=== PATIENT | male | born 1955 | race Caucasian/White ===

== ENCOUNTER 2020-08-25 09:28 | Outpatient (CLI) | payer OTHER ==
--- NOTE | 2020-08-25 10:06 | SLEEP CARE CONSULTATION ---
Information from patient questionnaire entered by Denisse Friedman. I have reviewed and concur with the information entered by Denisse Friedman. This document represents the service I personally performed and the decisions made by me, Sofie Gold ARNP. History of Present Illness Service Date and Time: 08/25/2020927 Reason for Visit: New patient, Previously diagnosed sleep apnea, sleep apnea on CPAP therapy Chief Complaint: reports: Other (only sleeping 3-5 hours a night) Date of Onset: 2 months Usual bedtime: 8:30 - 9 pm Time it takes to fall asleep: 1 minutes Snores at night: No Observed to quit breathing while asleep: Yes Number of times waking at night: maybe once Reasons for waking at night: reports: Other (unknown reason) Toss, Turn, or Twitch while sleeping: Yes Recalls having dreams: No Usually gets out of bed at: 2 - 4 am Feels refreshed in the morning: Yes Morning headache: No Sleepy or fatigued during the day: Yes Ever fallen asleep while driving: Yes Takes day naps: No Dreams during day naps: No Prior sleep studies: Yes Year and Where: 6 - 7 years ago, maybe longer Additional HPI information: GUILLERMO MAXWELL was previously diagnosed on 06/06/2016 in [place], [place] ([facility]) to have moderate, AHI 20.6, sleep apnea-hypopnea syndrome and comes in today for CPAP therapy. He just moved here about 2 weeks ago. He is getting established. He had 2 heart attacks last year and is now semi-retired. He states he is only getting 3.5-4 hours sleep nightly since moving to [place]. [facility] but is getting up at same time ([facility]) in the morning. He feels the current pressure setting is a little too low and would like it increased. - Parasomnia Symptoms Ever been unable to move upon waking from sleep: No Walks in sleep: No Talks in sleep: No Ever acted out dreams in sleep: No Ever felt weak in the knees when startled or emotional: No Bothered by creepy, crawly, restless sensations in legs: Yes Problems with memory or concentration: No CPAP Compliance Data - Data Reviewed with Patient Average duration of nightly device use: 6 hours 24 minutes Compliance rate %: 82.8 Current pressure setting (cmH2O): 12.0 Humidity settin Heated hose settin Average residual AHI: 3.0 Central apnea: 0.0 Obstructive apnea: 1.5 Hypopnea: 1.5 Average large leak: 1 mins. 51 secs Compliance data discussion: He has been getting his supplies at [facility] in [place] but no one locally yet. He is using a full face mask, thinks it is Respironics over nose and mouth. He has back up masks and changes it out the first of every month. He has a CPAP Dreamstation. Subjective Patient concerns: denies: aerophagia, mask discomfort, air blowing in eyes, mask leak noise, condensation in mask/hose, nasal congestion, dry mouth, nose, throat, epistaxis, other Observed to snore while using device: No Current pressure setting perceived as: too low On therapy, patient: reports: sleeping better, awakening more refreshed, being more awake and alert during the day, more rested overall, other (He can't lay down to sleep without his CPAP). 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 Patient is and lives in [place]. Have you smoked in the past 12 months: Yes Cigarettes per day (20/pack): 10 (or less) Years of smokin (1 pack a day) Smoking Pack Years: 20.0 Alcohol use: No Caffeine use: Yes Caffeine amount and frequency: 2 coffee's per day and 3-4 soda's a week Family History Family history of sleep disordered breathing: No Allergies and Home Medications Drug allergies reviewed: Yes (NKDA) Home medication list reviewed: Yes (He will bring in list for us to scan) Review of Systems Cardiovascular: reports: high blood pressure, leg or foot swelling, have to sleep sitting up (if CPAP not available) Respiratory: reports: shortness of breath, sputum production, chronic cough Musculoskeletal: reports: joint pain, joint swelling Physical Exam Blood Pressure: 149/77 Cuff size: wrist Heart Rate: 96 O2 Saturation: 96 Height: 5 ft 10 in Weight: 186 lb Body Mass Index: 26.6 BMI Classification: Overweight Impression and Plan 1. Obstructive Sleep Apnea-Hypopnea Syndrome, moderate, with good treatment compliance and good apnea control. On CPAP therapy, the patient has better sleep quality and is more rested overall. Patient feels his pressure is too low and would like it increased. I will increase CPAP pressure to 13 cmH2O for his air hunger. I will have him follow-up here in 1 to 2 months to recheck to see if his pressure is more comfortable. We will be able to transfer to a new DME in the area once we have a copy of his sleep study. Patient voiced understanding and agreement with this plan of care. Patient's apnea severity and rationale for treatment to reduce apnea, improve sleep quality and reduce cardiovascular and cerebrovascular events was reviewed. I also reviewed the benefit of consistent device use of CPAP for hypertension, cardiac disease (CHF and 2 MIs), diabetes, and gastric reflux. * Change auto CPAP pressure to 13 cmH2O * Transfer DME after obtaining last sleep study and chart notes * Notify me if snoring with mask or feeling that the pressure is too much or too little * Attempt to lose weight * Call this office if any problems using CPAP * Return for follow up in 1-2 months, or sooner if concerns arise Addendum: Obtained copy of sleep study dated 06/06/2016 at [facility] in [place], [place] from his current DME showing an AHI of 20.6 and annika of 84%. Counseling Topics: Spare mask, Weight loss health impact Visit Type: In Office Time Spent with Patient (minutes): 30 Provider Statement: I spent 100% of the Face to Face Visit with the patient with greater than 50% spent counseling the patient and coordination of care.
[2020-08-25 10:07] VITALS: BP 149/77
== END 2020-08-25 09:29 | disposition home or self-care (01) ==
LOC: SC 09:28
PROVIDERS: ATTEND Nurse Practitioner Family
DX: G47.33 Obstructive sleep apnea (adult) (pediatric) (principal); F17.210 Nicotine dependence, cigarettes, uncomplicated; E66.3 Overweight; Z68.26 Body mass index [BMI] 26.0-26.9, adult
CPT/HCPCS: 99203; 99212

== ENCOUNTER 2020-10-17 08:05 | Outpatient (CLI) | payer BC, OTHER ==
--- NOTE | 2020-10-17 08:38 | SLEEP CARE CONSULTATION ---
Information from patient questionnaire entered by Denisse Friedman. I have reviewed and concur with the information entered by Denisse Friedman. This document represents the service I personally performed and the decisions made by me, Soife Gold ARNP. History of Present Illness Service Date and Time: 10/17/2020 0805 Previous diagnosis: Moderate, Obstructive Sleep Apnea-Hypopnea Syndrome AHI: 22 (in 2016) Reason for follow up: first compliance Equipment type: CPAP Equipment obtained from: Other ([facility]; getting supplies as needed) Mask style: Full face Backup mask available: Yes Last cushion change: 2 days ago Prior sleep studies: Yes Year and Where: 2017 - [facility] Type of Sleep Study: Polysomnography HPI additional information: GUILLERMO MAXWELL was diagnosed to have moderate, AHI 22, obstructive sleep apnea- hypopnea syndrome and returned today for CPAP therapy first compliance follow- up. CPAP Compliance Data - Data Reviewed with Patient Average duration of nightly device use: 4 hr 14 min Compliance rate %: 47 Current pressure setting (cmH2O): 13 Humidity settin Average residual AHI: 8.0 Subjective Patient concerns: denies: aerophagia, mask discomfort, air blowing in eyes, mask leak noise, condensation in mask/hose, nasal congestion, dry mouth, nose, throat, epistaxis, other Observed to snore while using device: No Current pressure setting perceived as: comfortable On therapy, patient: reports: sleeping better, awakening more refreshed, being more awake and alert during the day, more rested overall. denies: drowsiness while driving Initial [place] Sleepiness Scale score: 19 (in 2020) Current [place] Sleepiness Scale score: 17 Allergies and Home Medications Home medication list reviewed: Yes (no changes) Review of Systems Review of systems same as previous: Yes (no changes) Physical Exam Heart Rate: 84 O2 Saturation: 97 Height: 5 ft 10 in Weight: 188 lb Body Mass Index: 26.9 BMI Classification: Overweight Impression and Plan 1. Obstructive Sleep Apnea-Hypopnea Syndrome, moderate, with poor treatment compliance and fair apnea control with mild elevation of residual AHI. On CPAP therapy, the patient has better sleep quality and is more rested overall. Patient is satisfied with current pressure and feels it is comfortable. He has increased his use because [facility] called him and told him he was not getting enough time on his machine. He states in the last couple of weeks he has increased his time in the mask. He has not other issues with mask use. Patient had very good control at 12 cmH2O when I reviewed his last visit. I will follow-up with him in 1 to 2 months on his compliance and continue the pressure at 13 cmH2O to see how he does. I will make adjustments as needed at his next appointment. Patient's apnea severity and rationale for treatment to reduce apnea, improve sleep quality and reduce cardiovascular and cerebrovascular events was reviewed. I also reviewed the benefit of consistent device use of CPAP for hypertension, cardiac disease, diabetes, and gastric reflux. * Continue autoCPAP pressure at 13 cmH2O * Notify me if snoring with mask or feeling that the pressure is too much or too little * Attempt to lose weight * Call this office if any problems using CPAP * Return for follow up in 1-2 months, or sooner if concerns arise Counseling Topics: Spare mask, Weight loss health impact Visit Type: In Office Time Spent with Patient (minutes): 18 Provider Statement: I spent 100% of the Face to Face Visit with the patient with greater than 50% spent counseling the patient and coordination of care.
== END 2020-10-17 08:06 | disposition home or self-care (01) ==
LOC: SC 08:05
PROVIDERS: ATTEND Nurse Practitioner Family
DX: G47.33 Obstructive sleep apnea (adult) (pediatric) (principal)
CPT/HCPCS: 99212

== ENCOUNTER 2020-12-12 11:26 | Outpatient (CLI) | payer OTHER ==
--- NOTE | 2020-12-12 11:59 | SLEEP CARE CONSULTATION ---
Information from patient questionnaire entered by Emy Jenkins. I have reviewed and concur with the information entered by Emy Jenkins. This document represents the service I personally performed and the decisions made by me, Sofie Gold ARNP. History of Present Illness Service Date and Time: 12/12/2020 1126 Previous diagnosis: Moderate, Obstructive Sleep Apnea-Hypopnea Syndrome AHI: 22 Reason for follow up: other (6 weeks) Equipment type: CPAP Equipment obtained from: Other ([facility]: spoke with them, new supplies later this month) Mask style: Full face Backup mask available: Yes (other mask) Last cushion change: 4 days ago Prior sleep studies: Yes Year and Where: 2017 - [facility] [place] Type of Sleep Study: Polysomnography HPI additional information: GUILLERMO MAXWELL was diagnosed to have moderate, AHI 22, obstructive sleep apnea- hypopnea syndrome and returned today for CPAP therapy 6 week follow-up. Sleep Study - Results Type of Sleep Study: Polysomnography Prior sleep studies: Yes Year and Where: 2017 - [facility] CPAP Compliance Data - Data Reviewed with Patient Average duration of nightly device use: 5 hours 25 minutes Compliance rate %: 81 Current pressure setting (cmH2O): 13 Average residual AHI: 8.5 Central apnea: 0 Obstructive apnea: 1.6 Hypopnea: 6.9 Subjective Patient concerns: denies: aerophagia, mask discomfort, air blowing in eyes, mask leak noise, condensation in mask/hose, nasal congestion, dry mouth, nose, throat, epistaxis, other Observed to snore while using device: No Current pressure setting perceived as: comfortable (sometimes too low) On therapy, patient: reports: sleeping better, awakening more refreshed, being more awake and alert during the day, more rested overall, other (only way he can sleep laying down). denies: drowsiness while driving Initial [place] Sleepiness Scale score: 19 (in 2020) Current [place] Sleepiness Scale score: 15 Allergies and Home Medications Home medication list reviewed: Yes Allergy and home medication list: New meds: Xarelto Trulicity Review of Systems Review of systems same as previous: Yes (no changes) Physical Exam Heart Rate: 96 O2 Saturation: 97 Height: 5 ft 10 in Weight: 184 lb Weight change since last visit: 4 lb loss Body Mass Index: 26.4 BMI Classification: Overweight Impression and Plan 1. Obstructive Sleep Apnea-Hypopnea Syndrome, moderate, with good treatment compliance and fair apnea control. On CPAP therapy, the patient has better sleep quality and is more rested overall. Patient states most the time the pressure feels comfortable but sometimes he feels he needs more. His residual AHI is elevated at 8.5 on his compliance report.The patients pressure will be changed to autoCPAP 14 cmH20 for elevation of residual AHI and patient comfort. Patient advised to contact me if pressure change is uncomfortable so that it can be adjusted. Goals for apnea control discussed. Patient's apnea severity and rationale for treatment to reduce apnea, improve sleep quality and reduce cardiovascular and cerebrovascular events was reviewed. I also reviewed the benefit of consistent device use of CPAP for hypertension, cardiac disease, di abetes and gastric reflux. Patient was encouraged to lose weight for their overall health and to reduce apneas. * Change auto CPAP pressure to 14 cmH2O * Notify me if snoring with mask or feeling that the pressure is too much or too little * Attempt to lose weight * Call this office if any problems using CPAP * Return for follow up in 1 year, or sooner if concerns arise Counseling Topics: Spare mask, Weight loss health impact Visit Type: In Office Time Spent with Patient (minutes): 20 Provider Statement: I spent 100% of the Face to Face Visit with the patient with greater than 50% spent counseling the patient and coordination of care.
== END 2020-12-12 11:27 | disposition home or self-care (01) ==
LOC: SC 11:26
PROVIDERS: ATTEND Nurse Practitioner Family
DX: G47.33 Obstructive sleep apnea (adult) (pediatric) (principal)
CPT/HCPCS: 99212

== ENCOUNTER 2020-12-30 10:37 | Outpatient (CLI) | payer OTHER ==
--- NOTE | 2020-12-30 13:08 | CT Report ---
PROCEDURE: Low Dose Lung Cancer Screen INDICATIONS: COPD,TOBACCO DEPENDENCE TECHNIQUE: Noncontrast low-dose images were acquired from the pulmonary apices to the posterior costophrenic ang les. Multiplanar MIP reformats were then acquired. For radiation dose reduction, the following was used: automated exposure control, adjustment of mA and/or kV according to patient size. COMPARISON: None. FINDINGS: Image quality: Excellent. Lungs and pleura: No suspicious pulmonary nodules are detected. There is pleural thickening seen inv olving the left lung base, with likely atelectasis and scarring. Centrilobular emphysematous changes are seen, which are more prominent at the lung apices than at the lung bases. The central airways are patent. No pneumothorax can be seen. There is a small left-sided pleural effusion. The right-sided p leural effusion. Mediastinum: Post CABG changes are seen. Heart size is normal. At least moderate coronary artery ca lcifications are seen. No pericardial effusion. No mediastinal adenopathy by size criteria. Thoraci c aorta and central pulmonary arteries are normal in size. Esophagus is normal in caliber. No hiata l hernia. Bones and chest wall: No suspicious bony lesions. Sternotomy changes are noted. Age-appropriate deg enerative changes are seen. No vertebral body compression fractures. No axillary or supraclavicul ar adenopathy by size criteria. The thyroid is normal in size and there are no incidental findings. Abdomen: Visualized upper abdomen solid organs and bowel loops appear normal in the absence of contr ast. IMPRESSION: No suspicious pulmonary nodules are seen. Pleural thickening with likely atelectasis and scarring seen involving the left lung base. Centrilobular emphysematous changes are seen. There is a small left-sided pleural effusion. Incidental note is made of: At least moderate coronary artery calcification Post CABG changes Lung RADS category: 1. Recommend annual low-dose CT chest screening examinations, as long as the pat ient meets the published screening criteria. Reviewed by: Gerardo Reynolds MD on 12/30/2020 12:07 PM [facility] Approved by: Gerardo Reynolds MD on 12/30/2020 12:07 PM [facility] Station ID: [id number]
== END 2020-12-30 10:38 | disposition home or self-care (01) ==
LOC: DI 10:37
PROVIDERS: ATTEND Internal Medicine
DX: Z12.2 Encounter for screening for malignant neoplasm of respiratory organs (principal); J43.9 Emphysema, unspecified; J90 Pleural effusion, not elsewhere classified; R91.8 Other nonspecific abnormal finding of lung field; F17.200 Nicotine dependence, unspecified, uncomplicated

== ENCOUNTER 2021-02-18 14:22 | Emergency (ER) | payer OTHER ==
[2021-02-18] MEDS ORDERED: IPRATROPIUM/ALBUTEROL 3 ML NEB INH STA (14:44)
[2021-02-18] MEDS ORDERED: ALBUTEROL NEB 2.5 MG/3 ML INH STA (14:44)
[2021-02-18] MEDS ORDERED: NITROGLYCERIN 50 MG/250 ML 50 MG/250 ML BOTTLE IV STA (14:48)
[2021-02-18] MEDS ORDERED: NITROGLYCERIN SL 0.4 MG TABLET SL STA (14:48)
[2021-02-18] MEDS ORDERED: ASPIRIN CHEW 81 MG TABLET PO STA (14:48)
--- NOTE | 2021-02-18 14:52 | ED Physician Documentation ---
PD HPI DYSPNEA - Stated complaint Stated Complaint: CHEST PX, HARD TO BREATHE - History obtained from History obtained from: Patient - Additional information Additional information: 66-year-old gentleman with history of COPD/emphysema, tobacco abuse, and coronary disease with history of NV and bypass last year in [place]. Over the last day to 2 days he has had progressive shortness of breath productive clear cough and very mild chest pain. He is struggling to breathe now. History is actually limited by respiratory distress. Review of Systems Unable to obtain: Other (Limited by respiratory distress but he has a cough, denies fevers or pedal edema and has mild chest pain.) PD PAST MEDICAL HISTORY - Allergies Allergies/Adverse Reactions: Allergies Allergy/AdvReac Type Severity Reaction Status Date / Time No Known Drug Allergies Allergy Verified 02/18/21 14:48 PD ED PE NORMAL - Vitals Vital signs reviewed: Yes - General General: Other (Quite tachypneic and struggling to breathe, speaking in short answers) - HEENT HEENT: PERRL, EOMI - Neck Neck: Supple, no meningeal sign, No bony TTP - Cardiac Cardiac: RRR (Slight tachycardia with frequent PACs on the monitor), No murmur - Respiratory Respiratory: Other (Tachypneic, slightly diminished breath sounds.) - Abdomen Abdomen: Soft, Non tender - Back Back: No CVA TTP - Derm Derm: Normal color, Warm and dry - Extremities Extremities: No edema, No calf tenderness / cord, Other (Venous stasis changes) - Neuro Neuro: Alert and oriented X 3, Normal speech Results - Vitals Vitals: Vital Signs - 24 hr 02/18/21 02/18/21 02/18/21 14:32 14:55 15:50 Temperature 37.3 C Heart Rate 112 H 101 H 117 H Respiratory 30 H 20 Rate Blood Pressure 215/75 H O2 Saturation 79 L 02/18/21 18:20 Temperature Heart Rate 130 H Respiratory Rate Blood Pressure O2 Saturation Oxygen O2 Source BIPAP - EKG (time done) 1436 Rate: Rate (enter#) (113) Rhythm: Sinus tachycardia (Echo cardio with frequent PACs) [place]: Normal Intervals: Prolonged NE Ischemia: ST depression (Lateral ST depression) Compare to prior EKG: Old EKG unavailable 1657 Rate: Rate (enter#) (137) Rhythm: Sinus tachycardia [place]: Normal Intervals: Normal NE QRS: Normal Ischemia: Non specific changes (No ST depression on EKG #1, now some biphasic anterior T waves) - Labs Labs: Laboratory Tests 02/18/21 02/18/21 02/18/21 15:39 15:39 15:39 WBC 9.2 RBC 4.46 L Hgb 13.8 L Hct 44.8 MCV 100.4 H MCH 30.9 MCHC 30.8 L RDW 16.8 H Plt Count 251 MPV 10.2 Neut # (Auto) 5.7 Lymph # (Auto) 2.6 [place] # (Auto) 0.8 Eos # (Auto) 0.1 Baso # (Auto) 0.1 Absolute Nucleated RBC 0.00 Nucleated RBC % 0.0 PT INR Bld Gas Analysis Time Sample Site ABG pH ABG pCO2 ABG pO2 ABG HCO3 ABG Total CO2 ABG O2 Saturation ABG Base Excess Roney Test VBG pH VBG pCO2 VBG pO2 VBG HCO3 VBG Total CO2 VBG O2 Saturation VBG Base Excess Respiration Rate O2 Delivery Device Vent Mode FiO2 Tidal Volume PEEP Pressure Support Vent Sodium 133 L Potassium 4.7 Chloride 101 Carbon Dioxide 22 Anion Gap 10.0 BUN 27 H Creatinine 1.5 H Estimated GFR (MDRD) 47 L Glucose 278 H Lactic Acid Calcium 8.4 L Phosphorus Total Bilirubin 0.8 AST 36 ALT 37 Alkaline Phosphatase 88 Troponin I High Sens 161.4 H* B-Natriuretic Peptide Total Protein 8.1 Albumin 4.1 Globulin 4.0 Albumin/Globulin Ratio 1.0 Lipase 124 H Nasal Adenovirus (PCR) Nasal B. parapertussis DNA (PCR) Nasal Coronavir 229E PCR Nasal Coronavir HKU1 PCR Nasal Coronavir NL63 PCR Nasal Coronavir OC43 PCR Nasal Enterovir/Rhinovir PCR Nasal Influenza B PCR Nasal Influenza A PCR Nasal Parainfluen 1 PCR Nasal Parainfluen 2 PCR Nasal Parainfluen 3 PCR Nasal Parainfluen 4 PCR Nasal RSV (PCR) Nasal B.pertussis DNA PCR Nasal C.pneumoniae (PCR) [place] Human Metapneumo PCR Nasal M.pneumoniae (PCR) Nasal SARS-CoV-2 (PCR) Blood Type Antibody Screen 02/18/21 02/18/21 02/18/21 15:39 15:39 15:39 WBC RBC Hgb Hct MCV MCH MCHC RDW Plt Count MPV Neut # (Auto) Lymph # (Auto) [place] # (Auto) Eos # (Auto) Baso # (Auto) Absolute Nucleated RBC Nucleated RBC % PT 13.7 H INR 1.2 Bld Gas Analysis Time Sample Site ABG pH ABG pCO2 ABG pO2 ABG HCO3 ABG Total CO2 ABG O2 Saturation ABG Base Excess Roney Test VBG pH VBG pCO2 VBG pO2 VBG HCO3 VBG Total CO2 VBG O2 Saturation VBG Base Excess Respiration Rate O2 Delivery Device Vent Mode FiO2 Tidal Volume PEEP Pressure Support Vent Sodium Potassium Chloride Carbon Dioxide Anion Gap BUN Creatinine Estimated GFR (MDRD) Glucose Lactic Acid Calcium Phosphorus Total Bilirubin AST ALT Alkaline Phosphatase Troponin I High Sens B-Natriuretic Peptide 644 H Total Protein Albumin Globulin Albumin/Globulin Ratio Lipase Nasal Adenovirus (PCR) Nasal B. parapertussis DNA (PCR) Nasal Coronavir 229E PCR Nasal Coronavir HKU1 PCR Nasal Coronavir NL63 PCR Nasal Coronavir OC43 PCR Nasal Enterovir/Rhinovir PCR Nasal Influenza B PCR Nasal Influenza A PCR Nasal Parainfluen 1 PCR Nasal Parainfluen 2 PCR Nasal Parainfluen 3 PCR Nasal Parainfluen 4 PCR Nasal RSV (PCR) Nasal B.pertussis DNA PCR Nasal C.pneumoniae (PCR) [place] Human Metapneumo PCR Nasal M.pneumoniae (PCR) Nasal SARS-CoV-2 (PCR) Blood Type A POSITIVE Antibody Screen NEGATIVE 02/18/21 02/18/21 02/18/21 15:39 15:39 15:39 WBC RBC Hgb Hct MCV MCH MCHC RDW Plt Count MPV Neut # (Auto) Lymph # (Auto) [place] # (Auto) Eos # (Auto) Baso # (Auto) Absolute Nucleated RBC Nucleated RBC % PT INR Bld Gas Analysis Time Sample Site ABG pH ABG pCO2 ABG pO2 ABG HCO3 ABG Total CO2 ABG O2 Saturation ABG Base Excess Roney Test VBG pH 7.155 L VBG pCO2 62.8 H VBG pO2 70.2 H VBG HCO3 21.6 L VBG Total CO2 23.6 L VBG O2 Saturation 89.6 H VBG Base Excess -8.1 L Respiration Rate O2 Delivery Device Vent Mode FiO2 Tidal Volume PEEP Pressure Support Vent Sodium Potassium Chloride Carbon Dioxide Anion Gap BUN Creatinine Estimated GFR (MDRD) Glucose Lactic Acid 1.9 Calcium Phosphorus 5.6 H Total Bilirubin AST ALT Alkaline Phosphatase Troponin I High Sens B-Natriuretic Peptide Total Protein Albumin Globulin Albumin/Globulin Ratio Lipase Nasal Adenovirus (PCR) Nasal B. parapertussis DNA (PCR) Nasal Coronavir 229E PCR Nasal Coronavir HKU1 PCR Nasal Coronavir NL63 PCR Nasal Coronavir OC43 PCR Nasal Enterovir/Rhinovir PCR Nasal Influenza B PCR Nasal Influenza A PCR Nasal Parainfluen 1 PCR Nasal Parainfluen 2 PCR Nasal Parainfluen 3 PCR Nasal Parainfluen 4 PCR Nasal RSV (PCR) Nasal B.pertussis DNA PCR Nasal C.pneumoniae (PCR) [place] Human Metapneumo PCR Nasal M.pneumoniae (PCR) Nasal SARS-CoV-2 (PCR) Blood Type Antibody Screen 02/18/21 02/18/21 02/18/21 15:48 15:49 18:10 WBC RBC Hgb Hct MCV MCH MCHC RDW Plt Count MPV Neut # (Auto) Lymph # (Auto) [place] # (Auto) Eos # (Auto) Baso # (Auto) Absolute Nucleated RBC Nucleated RBC % PT INR Bld Gas Analysis Time 1553 1814 Sample Site RIGHT RADIAL RIGHT RADIAL ABG pH 7.21 L 7.24 L ABG pCO2 54 H 50 H ABG pO2 256 H* 105 H ABG HCO3 20.9 L 21.1 L ABG Total CO2 22.6 22.7 ABG O2 Saturation 99 H 97 ABG Base Excess -7.4 L -6.6 L Roney Test POSITIVE POSITIVE VBG pH VBG pCO2 VBG pO2 VBG HCO3 VBG Total CO2 VBG O2 Saturation VBG Base Excess Respiration Rate 25 25 O2 Delivery Device VENTILATOR VENTILATOR Vent Mode ASSIST/CONTROL SIMV FiO2 100.00 70.00 Tidal Volume 550 550 PEEP 5 5 Pressure Support Vent 10 Sodium Potassium Chloride Carbon Dioxide Anion Gap BUN Creatinine Estimated GFR (MDRD) Glucose Lactic Acid Calcium Phosphorus Total Bilirubin AST ALT Alkaline Phosphatase Troponin I High Sens B-Natriuretic Peptide Total Protein Albumin Globulin Albumin/Globulin Ratio Lipase Nasal Adenovirus (PCR) NOT DETECTED Nasal B. parapertussis DNA (PCR) NOT DETECTED Nasal Coronavir 229E PCR NOT DETECTED Nasal Coronavir HKU1 PCR NOT DETECTED Nasal Coronavir NL63 PCR NOT DETECTED Nasal Coronavir OC43 PCR NOT DETECTED Nasal Enterovir/Rhinovir PCR NOT DETECTED Nasal Influenza B PCR NOT DETECTED Nasal Influenza A PCR NOT DETECTED Nasal Parainfluen 1 PCR NOT DETECTED Nasal Parainfluen 2 PCR NOT DETECTED Nasal Parainfluen 3 PCR NOT DETECTED Nasal Parainfluen 4 PCR NOT DETECTED Nasal RSV (PCR) DETECTED A Nasal B.pertussis DNA PCR NOT DETECTED Nasal C.pneumoniae (PCR) NOT DETECTED [place] Human Metapneumo PCR NOT DETECTED Nasal M.pneumoniae (PCR) NOT DETECTED Nasal SARS-CoV-2 (PCR) NOT DETECTED Blood Type Antibody Screen 02/18/21 18:24 WBC RBC Hgb Hct MCV MCH MCHC RDW Plt Count MPV Neut # (Auto) Lymph # (Auto) [place] # (Auto) Eos # (Auto) Baso # (Auto) Absolute Nucleated RBC Nucleated RBC % PT INR Bld Gas Analysis Time Sample Site ABG pH ABG pCO2 ABG pO2 ABG HCO3 ABG Total CO2 ABG O2 Saturation ABG Base Excess Roney Test VBG pH VBG pCO2 VBG pO2 VBG HCO3 VBG Total CO2 VBG O2 Saturation VBG Base Excess Respiration Rate O2 Delivery Device Vent Mode FiO2 Tidal Volume PEEP Pressure Support Vent Sodium Potassium Chloride Carbon Dioxide Anion Gap BUN Creatinine Estimated GFR (MDRD) Glucose Lactic Acid Calcium Phosphorus Total Bilirubin AST ALT Alkaline Phosphatase Troponin I High Sens 776.9 H* B-Natriuretic Peptide Total Protein Albumin Globulin Albumin/Globulin Ratio Lipase Nasal Adenovirus (PCR) Nasal B. parapertussis DNA (PCR) Nasal Coronavir 229E PCR Nasal Coronavir HKU1 PCR Nasal Coronavir NL63 PCR Nasal Coronavir OC43 PCR Nasal Enterovir/Rhinovir PCR Nasal Influenza B PCR Nasal Influenza A PCR Nasal Parainfluen 1 PCR Nasal Parainfluen 2 PCR Nasal Parainfluen 3 PCR Nasal Parainfluen 4 PCR Nasal RSV (PCR) Nasal B.pertussis DNA PCR Nasal C.pneumoniae (PCR) [place] Human Metapneumo PCR Nasal M.pneumoniae (PCR) Nasal SARS-CoV-2 (PCR) Blood Type Antibody Screen Procedures - Intubation Provider: Emergency physician Medications: Etomidate (20mg), Rocuronium (50mg) Blade: Glidescope Tube: Size-enter number (7.5), Cuffed Route: Oral Confirmation: Direct visualization Complications: No compications - Central Line Central Line Preparation: Unable to obtain consent, Time out completed, Ultrasound used, Sterile prep and drape Central line location: Right IJ Central line type: Triple lumen Central line aftercare: Chlorhexidine disc placed, Secured, Placement confirmed, No pneumothorax PD MEDICAL DECISION MAKING - ED course ED course: 66-year-old gentleman presents in respiratory distress, could be cardiac versus pulmonary in etiology given his history. He is significantly hypertensive and struggling to breathe. He was seen and examined immediately but upon placement in the room and I asked the RT to give him a triple neb with DuoNeb and [address] him on BiPAP. We will also give him a sublingual nitroglycerin and start him on a nitroglycerin drip for potential pulmonary edema pending x-ray. He was difficult for IV access and the nurses were Attempting to get an IV access but he was quickly decompensating. He was queried about CODE STATUS and wants to be full code and aggressive measures. He went unresponsive and clearly needed to be intubated. He had no IV access at that time so a right tibial intraosseous line was placed for quick access such that we could get him intubated and get a central line. These were done in an otherwise expeditious fashion. Initial view of his postprocedural chest x-ray shows appropriate line and tube placement. He did shortly thereafter develop a cuff leak and required reintubation. This was done by simply placing bougie through the existing tube and using it as a tube exchanger. He was briefly in an SVT, but prior to any specific treatment converted back into a sinus tachycardia with ectopy. We started looking for a bed with cardiology coverage and he was accepted by Dr. Gavino Reddy at [facility] few minutes before 5:30 PM. Just before transfer he did develop a narrow complex bradycardic PEA and required CPR but attained ROSC after 1 round of epinephrine. He had a couple more similar episodes of loss of pulses, but did always seem to respond to pressors and was started on pressor drip. He actually made it out to the helicopter, but they brought him back because he desaturated into the 70s but by the time he got in the department his sats were again in the 90s. We repeated a chest x-ray to my eye the endotracheal tube was a little deep and I had the respiratory therapist pulled back by 3 cm. But no obvious pneumothorax. Subsequent to that the patient was inadvertently extubated and required reintubation which was done in the exact same manner as it was initially. - Critical Care Time(min): 90 Time Includes: Direct patient care, Review records, Reassess patient, Document care, Coordinate care, Medical consult, Family consult for tx dec ( at bedside) Data interpretation: Labs, Pulse ox Procedures included in critical care time: Peripheral IV Procedures excluded from critical care time: Central IV, Arterial cannulation, Intubation, EKG Departure - Departure Disposition: 02 Transfer Acute Care Hosp Clinical Impression: NSTEMI (non-ST elevated myocardial infarction), COPD exacerbation, Cardiac arrest Respiratory failure Qualifiers: Chronicity: acute Respiratory failure complication: hypoxia and hypercapnia Qualified Code(s): J96.01 - Acute respiratory failure with hypoxia; J96.02 - Acute respiratory failure with hypercapnia Condition: Critical
[2021-02-18] MEDS ORDERED: NITROGLYCERIN SL 0.4 MG TABLET SL ONE (14:54)
[2021-02-18] MEDS ORDERED: LORazepam 2 MG/ML VIAL IVP STA (14:58)
[2021-02-18] MEDS ORDERED: ROCURONIUM 50 MG/5 ML VIAL ONE ×2 (15:24→19:45)
[2021-02-18] MEDS ORDERED: ETOMIDATE 40 MG/20 ML VIAL IVP ONE ×2 (15:25→19:45)
[2021-02-18] MEDS ORDERED: PROPOFOL 1000 MG/100 ML 1,000 MG/100 ML BOTTLE IV ONE (15:32)
[2021-02-18] MEDS ORDERED: PROPOFOL 1000 MG/100 ML 1,000 MG/100 ML BOTTLE IV STA (15:45)
[2021-02-18] MEDS ORDERED: ROCURONIUM 50 MG/5 ML VIAL IVP STA ×2 (15:45→19:45)
[2021-02-18] MEDS ORDERED: ETOMIDATE 40 MG/20 ML VIAL IVP STA ×2 (15:45→19:45)
[2021-02-18 15:47] LABS: BASOPHILS # (AUTO) 0.1 10^3/uL (0.0-0.1); BASOPHILS % (AUTO) 0.8 %; EOSINOPHILS # (AUTO) 0.1 10^3/uL (0.0-0.7); EOSINOPHILS % (AUTO) 0.7 %; HCT - HEMATOCRIT 44.8 % (42.0-52.0); HGB - HEMOGLOBIN 13.8 g/dL (14.0-18.0); LYMPHOCYTES # (AUTO) 2.6 10^3/uL (1.5-3.5); LYMPHOCYTES % (AUTO) 27.8 %; MEAN CORPUSCULAR HEMOGLOBIN 30.9 pg (27.0-31.0); MEAN CORPUSCULAR HGB CONC 30.8 g/dL (32.0-36.0); MEAN CORPUSCULAR VOLUME 100.4 fL (80.0-94.0); MEAN PLATELET VOLUME 10.2 fL (7.4-11.4); MONOCYTES # (AUTO) 0.8 10^3/uL (0.0-1.0); MONOCYTES % (AUTO) 8.8 %; NEUTROPHILS # (AUTO) 5.7 10^3/uL (1.5-6.6); NEUTROPHILS % (AUTO) 61.5 %; PLT - PLATELET COUNT 251 10^3/uL (130-450); RED BLOOD COUNT 4.46 10^6/uL (4.70-6.10); RED CELL DISTRIBUTION WIDTH 16.8 % (12.0-15.0); WHITE BLOOD COUNT 9.2 x10^3/uL (4.8-10.8)
[2021-02-18 15:57] LABS: VBG BASE EXCESS -8.1 mmol/L (-2 - +2); VBG HCO3 21.6 mmol/L (23-28); VBG OXYGEN SATURATION 89.6 % (60-80); VBG PCO2 62.8 mmHg (41-51); VBG PH 7.155 (7.31-7.41); VBG PO2 70.2 mmHg (25-47); VBG TOTAL CO2 23.6 mmol/L (24-29)
[2021-02-18 15:57] LABS: ABG BASE EXCESS -7.4 mmol/L (-2.0-3.0); ABG HCO3 20.9 mmol/L (22.0-26.0); ABG OXYGEN SATURATION 99 % (94-98); ABG PCO2 54 mmHg (34-45); ABG PH 7.21 (7.35-7.45); ABG TCO2 22.6 MMOL/L (21.0-29.0)
[2021-02-18 15:58] LABS: ABG MODE OF VENTILATION ASSIST/CONTROL; ABG PO2 256 mmHg (80-100); ALLEN TEST POSITIVE
[2021-02-18 15:59] LABS: ABG RESPIRATORY RATE 25 b/min
[2021-02-18 16:03] LABS: INR 1.2 (0.8-1.2); PT - PROTHROMBIN TIME 13.7 secs (9.9-12.6)
[2021-02-18 16:08] LABS: ALBUMIN 4.1 g/dL (3.2-5.5); BILIRUBIN,TOTAL 0.8 mg/dL (0.2-1.0); CALCIUM 8.4 mg/dL (8.5-10.3); CREATININE 1.5 mg/dL (0.6-1.2); POTASSIUM 4.7 mmol/L (3.5-5.0); TOTAL PROTEIN 8.1 g/dL (6.7-8.2)
[2021-02-18] MEDS ORDERED: methylPREDNISolone SUCCINATE 125 MG/2 ML VIAL IVP STA (16:34)
--- NOTE | 2021-02-18 16:37 | XRAY Report ---
PROCEDURE: Chest for Line Placement INDICATIONS: Line placement TECHNIQUE: One view of the chest was acquired. COMPARISON: None FINDINGS: Surgical changes and devices: Right IJ central line terminates in the mid segment of the SVC. Lungs and pleura: No pleural effusions or pneumothorax. Lung bases excluded from the [id number]. Visualized portions of the lungs demonstrate increased interstitial markings. Mediastinum: Mediastinal contours appear normal. Heart size is normal. Bones and chest wall: No suspicious bony lesions. Overlying soft tissues appear unremarkable. IMPRESSION: Right IJ central line projects over the SVC. Reviewed by: Dima Valverde MD on 02/18/2021 4:35 PM PST Approved by: Dima Valverde MD on 02/18/2021 4:35 PM PST Station ID: [id number]
--- NOTE | 2021-02-18 16:38 | XRAY Report ---
PROCEDURE: Chest 1 View X-Ray INDICATIONS: Respiratory failure, reintubation TECHNIQUE: One view of the chest was acquired. COMPARISON: None FINDINGS: Surgical changes and devices: Changes of median sternotomy. Lungs and pleura: Increased interstitial markings in both lungs, particularly in the central/perihila r lungs. Suspected small left pleural effusion. Mediastinum: Mediastinal contours appear normal. Heart size is enlarged. Bones and chest wall: No suspicious bony lesions. Overlying soft tissues appear unremarkable. IMPRESSION: Cardiomegaly with increased interstitial markings in both lungs and a probable small left pleural eff usion. Findings presumably related to cardiogenic pulmonary edema. Reviewed by: Dima Valverde MD on 02/18/2021 4:36 PM PST Approved by: Dima Valverde MD on 02/18/2021 4:36 PM PST Station ID: [id number]
[2021-02-18] MEDS ORDERED: ASPIRIN 300 MG SUPP PR STA (16:58)
[2021-02-18] MEDS ORDERED: METOPROLOL 5 MG/5 ML VIAL IVP STA (16:59)
[2021-02-18] MEDS ORDERED: HEPARIN 25000UNITS/500ML (D5W) 25,000 UNIT/500 ML BAG IV SCH (17:00)
[2021-02-18 17:01] LABS: B. PARAPERTUSSIS- RESP PCR PAN NOT DETECTED; B. PERTUSSIS- RESP PCR PANEL NOT DETECTED; C. PNEUMONIAE- RESP PCR PANEL NOT DETECTED; CORONAVIRUS 229E-RESP PCR NOT DETECTED; CORONAVIRUS HKU1-RESP PCR NOT DETECTED; CORONAVIRUS NL63-RESP PCR NOT DETECTED; CORONAVIRUS OC43-RESP PCR NOT DETECTED; HUMAN METAPNEUMOVIRUS NOT DETECTED; INFLUENZA A- RESP PCR PANEL NOT DETECTED; INFLUENZA B - RESP PCR PANEL NOT DETECTED; M. PNEUMONIAE- RESP PCR PANEL NOT DETECTED; PARAINFLUENZA VIRUS 1 NOT DETECTED; PARAINFLUENZA VIRUS 2 NOT DETECTED; PARAINFLUENZA VIRUS 3 NOT DETECTED; PARAINFLUENZA VIRUS 4 NOT DETECTED; RHINOVIRUS/ENTEROVIRUS NOT DETECTED; RSV- RESP PCR PANEL DETECTED; SARS-CoV-2 -RESP PCR PANEL NOT DETECTED
[2021-02-18 18:26] LABS: ABG PCO2 50 mmHg (34-45); ABG PH 7.24 (7.35-7.45)
[2021-02-18 18:27] LABS: ABG BASE EXCESS -6.6 mmol/L (-2.0-3.0); ABG HCO3 21.1 mmol/L (22.0-26.0); ABG OXYGEN SATURATION 97 % (94-98); ABG PO2 105 mmHg (80-100); ABG TCO2 22.7 MMOL/L (21.0-29.0); ALLEN TEST POSITIVE
[2021-02-18 18:28] LABS: ABG MODE OF VENTILATION SIMV; ABG RESPIRATORY RATE 25 b/min
[2021-02-18] MEDS ORDERED: DEXTROSE 5% 250 ML IV ONE (19:08)
[2021-02-18] MEDS ORDERED: EPINEPHrine 1 MG/ML AMP ONE (19:35)
--- NOTE | 2021-02-18 20:20 | XRAY Report ---
PROCEDURE: Chest 1 View X-Ray INDICATIONS: Hypoxemia TECHNIQUE: One view of the chest was acquired. COMPARISON: Same-day chest x-ray FINDINGS: Surgical changes and devices: Right IJ central line in appropriate position. Endotracheal and enteric tubes in normal position also. Lungs and pleura: No pleural effusions or pneumothorax. Lungs are clear. Mediastinum: Mediastinal contours appear normal. Heart size is normal. Bones and chest wall: No suspicious bony lesions. Overlying soft tissues appear unremarkable. IMPRESSION: Appropriate position of support devices. Interstitial opacities similar to the prior study. Reviewed by: Dima Valverde MD on 02/18/2021 8:18 PM PST Approved by: Dima Valverde MD on 02/18/2021 8:18 PM PST Station ID: [id number]
[2021-02-18 21:03] VITALS: BP 101/82
== END 2021-02-18 20:10 | disposition short-term general hospital (02) ==
LOC: ED 14:22
DX: I21.4 Non-ST elevation (NSTEMI) myocardial infarction (principal); I46.9 Cardiac arrest, cause unspecified; I25.810 Atherosclerosis of coronary artery bypass graft(s) without angina pectoris; J43.9 Emphysema, unspecified; Z72.0 Tobacco use; I10 Essential (primary) hypertension; Z20.822 Contact with and (suspected) exposure to COVID-19
CPT/HCPCS: 0202U; 31500; 36415; 36556; 36600; 36680; 51702; 71045; 80053; 82803; 83605; 83690; 83880; 84100; 84484; 85025; 85610; 86850; 86900; 86901; 93005; 94640; 94660; 96374; 96375; 96376; 99291; 99292; A9270; 94770

== ENCOUNTER 2021-09-05 07:53 | Outpatient (CLI) | payer BC ==
--- NOTE | 2021-09-05 17:55 | Ultrasound Report ---
PROCEDURE: Duplex Lwr Ext Arterial Bilat INDICATIONS: COPD, CELLUITIS OF RIGHT LEG TECHNIQUE: Color and pulse Doppler interrogation was performed of both lower extremity arterial systems, with im age documentation. COMPARISON: None FINDINGS: Right lower extremity: Common femoral artery: 86 cm/sec, with triphasic flow. Deep femoral artery: 115 cm/sec, with triphasic flow. Proximal superficial femoral artery: 88 cm/sec, with monophasic flow. Mid superficial femoral artery: 100 cm/sec, with monophasic flow. Distal superficial femoral artery: 85 cm/sec, with monophasic flow. Popliteal artery: 59 cm/sec, with monophasic flow. Posterior tibial artery: 51 cm/sec, with monophasic flow. Anterior tibial artery/dorsalis pedis: 68 cm/sec, with monophasic flow. Bateman-scale imaging description: Mild diffuse plaque Left lower extremity: Common femoral artery: 128 cm/sec, with triphasic flow. Deep femoral artery: 76 cm/sec, with biphasic flow. Proximal superficial femoral artery: 116 cm/sec, with triphasic flow. Mid superficial femoral artery: 115 cm/sec, with triphasic flow. Distal superficial femoral artery: 89 cm/sec, with triphasic flow. Popliteal artery: 77 cm/sec, with triphasic flow. Posterior tibial artery: 77 cm/sec, with triphasic flow. Anterior tibial artery/dorsalis pedis: 90 cm/sec, with biphasic flow. [place]eman-scale imaging description: Mild diffuse plaque IMPRESSION: 1. No evidence of left lower extremity arterial insufficiency. 2. Monophasic waveforms within the right-sided outflow or runoff vessels, suggestive of a hemodynamic ally significant stenosis within the proximal superficial femoral or distal common femoral arteries. Initial further assessment with MR angiography runoff evaluation is recommended. Reviewed by: Latonia Brown MD on 09/05/2021 4:53 PM [email or web address] Approved by: Latonia Brown MD on 09/05/2021 4:53 PM AKDT Station ID: [id number]
== END 2021-09-05 07:54 | disposition home or self-care (01) ==
LOC: DI 07:53
PROVIDERS: ATTEND Internal Medicine Pulmonary Disease
DX: J44.1 Chronic obstructive pulmonary disease with (acute) exacerbation (principal); L03.115 Cellulitis of right lower limb; L02.415 Cutaneous abscess of right lower limb; D84.821 Immunodeficiency due to drugs; Z79.899 Other long term (current) drug therapy
CPT/HCPCS: 93005; 93925

== ENCOUNTER 2021-09-05 09:09 | Outpatient (CLI) | payer BC | END 2021-09-05 09:10 | disposition home or self-care (01) | LOC: RT 09:09 | PROVIDERS: ATTEND Internal Medicine Pulmonary Disease | DX: J44.1 Chronic obstructive pulmonary disease with (acute) exacerbation (principal); L03.115 Cellulitis of right lower limb; L02.415 Cutaneous abscess of right lower limb; D84.821 Immunodeficiency due to drugs; Z79.899 Other long term (current) drug therapy | CPT/HCPCS: 93005 ==

== ENCOUNTER 2021-11-07 20:34 | Emergency (ER) | payer BC ==
--- NOTE | 2021-11-07 20:59 | ED Physician Documentation ---
History of Present Illness - Stated complaint Stated Complaint: BLOOD TRANSFUSION - Chief complaint Chief Complaint: General - History obtained from History obtained from: Patient - History of Present Illness Pain level max: 0 Pain level now: 0 - Additonal information Additional information: patient was contacted by his PMD regarding outpatient blood work draw earlier today, told to go to ED for anemia, hemoglobin/hematocrit 7.3/22.9. patient says he has been having dark black stools x 4-5 days. Denies any pain including abdominal pain, chest pain. Patient's medications include aspirin, clopidogrel, and xarelto. Patient had recent outpatient hemoglobin around 8.5 (he recalls it was in the 8- 8.9 range, cannot recall specifically). His PMD texted him yesterday to inform him that he (PMD) was submitting a prescription for pantoprazole to patient's pharmacy, which patient has not started and planned on picking up tomorrow. Patient says he has dyspnea and fatigue but that these are no worse than they have been for at least the last few weeks. Patient was admitted to [facility] 10/17/21 for COPD exacerbation. Inpatient notes reflect that on the second day of his stay, he had sudden loss of consciousness while the hospitalist was in the room and was noted to be in third-degree heart block on monitor. Plan was to transfer to appropriate facility for placement of PPM but patient was not able to be transferred until 10/24 due to other hospitals being too full to accommodate patient transfer. He was transferred to [place]. Patient tells me he was discharged after 1-2 day stay and that he was told by the treating physicians at [place], including cutting table operator first, that he did not need a pacemaker at that time. He was discharged with ZIO patch in place. Patient tells me the only time he recalls needing blood transfusion was two years ago after CABG; he describes coffee-ground emesis. He thinks he had an upper endoscopy at that time, although he is not certain. He says he otherwise has never had blood transfusions, EGD, or GI bleeding. Review of Systems Constitutional: reports: Fatigue. denies: Fever, Chills, Sweats Cardiac: reports: Pedal edema (chronic). denies: Chest pain / pressure Respiratory: reports: Dyspnea (baseline, per patient). denies: Cough GI: reports: Bloody / black stool. denies: Abdominal Pain, Nausea, Vomiting, Constipation, Diarrhea Neurologic: denies: Generalized weakness PD PAST MEDICAL HISTORY - Past Medical History Cardiovascular: Congestive heart failure, Hypertension, High cholesterol, Coronary artery disease, Peripheral Vascular Disease, [place], Atrial fibrillation Respiratory: Sleep apnea, COPD, Emphysema Neuro: Peripheral neuropathy Endocrine/Autoimmune: HyPOthyroidism, Type 2 diabetes GI: GERD HEENT: None Musculoskeletal: Rheumatoid arthritis Derm: None - Past Surgical History Past Surgical History: Yes Cardiovascular: CABG, Angioplasty - Present Medications Home Medications: Ambulatory Orders Medication Instructions Recorded Confirmed Ascorbic Acid [Vitamin C] 1,000 mg PO DAILY 08/12/21 10/18/21 Aspirin [[place] Aspirin EC] 81 mg PO DAILY 08/12/21 10/18/21 Cholecalciferol (Vitamin D3) 125 mcg PO DAILY 08/12/21 10/18/21 [Vitamin D3] Docusate Sodium [Dulcolax Stool 100 mg PO DAILY 08/12/21 10/18/21 Softener] Famotidine [Pepcid] 20 mg PO DAILY 08/12/21 10/18/21 Ferrous Sulfate 325 mg PO DAILY 08/12/21 10/18/21 Furosemide [Lasix] 40 mg PO BID 08/12/21 10/18/21 Glimepiride [Amaryl] 4 mg PO DAILY 08/12/21 10/18/21 Levothyroxine Sodium 137 mcg PO DAILY 08/12/21 10/18/21 [Levothyroxine] Losartan Potassium 50 mg PO DAILY 08/12/21 10/18/21 Multivit-Min/FA/Lycopen/Lutein 1 each PO DAILY 08/12/21 10/18/21 [Centrum Silver Men Tablet] Nicotine 21 mg Patch [Nicoderm] 21 mg TOP DAILY 08/12/21 10/18/21 Rivaroxaban [Xarelto] 20 mg PO DAILY 08/12/21 10/18/21 Tiotropium Br/Olodaterol HCl 2 puffs INH DAILY 08/12/21 10/18/21 [Stiolto Respimat Inhal [place]] sulfaSALAzine [Azulfidine] 1,000 mg PO DAILY 08/12/21 10/18/21 Albuterol Sulfate [Proair Hfa 2 puffs INH Q6H PRN 10/18/21 10/18/21 Inhaler] Clopidogrel [Plavix] 75 mg PO DAILY 10/18/21 10/18/21 Dulaglutide [Trulicity] 0.75 mg SUBQ Q7D 10/18/21 10/18/21 Hydralazine HCl 50 mg PO TID 10/18/21 10/18/21 Insulin Glargine [Lantus Solostar] 15 units SUBQ DAILY 10/18/21 10/18/21 Montelukast [Singulair] 10 mg PO DAILY 10/18/21 10/18/21 Rosuvastatin Calcium [Crestor] 40 mg PO QPM 10/18/21 10/18/21 predniSONE [Deltasone] 20 mg PO DAILY 10/18/21 10/18/21 - Allergies Allergies/Adverse Reactions: Allergies Allergy/AdvReac Type Severity Reaction Status Date / Time No Known Drug Allergies Allergy Verified 11/07/21 20:43 - Social History Does the pt smoke?: Yes Smoking Status: Former smoker Does the pt drink ETOH?: No Does the pt have substance abuse?: No - Immunizations Immunizations are current?: Yes - POLST Patient has POLST: No POLST Status: Full Code PD ED PE NORMAL - Vitals Vital signs reviewed: Yes - General General: Alert and oriented X 3, No acute distress, Well developed/nourished - Cardiac Cardiac: No murmur - Respiratory Respiratory: No respiratory distress, Clear bilaterally - Abdomen Abdomen: Soft, Non tender, Non distended - Derm Derm: Normal color, Warm and dry PD ED PE EXPANDED - Cardiac Cardiac: Regularly irregular - Rectal Rectal: Heme Occult Pos - QC + - Extremities Extremities: Pedal edema bilateral Results - Vitals Vitals: Vital Signs - 24 hr 11/07/21 11/07/21 11/07/21 20:40 21:20 22:22 Temperature 36.4 C L Heart Rate 99 90 68 Heart Rate [ Monitoring electrodes] Respiratory 25 H 14 22 Rate Blood Pressure 169/69 H 130/85 H 120/38 L Blood Pressure [Left Brachial artery] O2 Saturation 96 99 97 11/07/21 11/07/21 11/07/21 23:17 23:22 23:37 Temperature 36.4 C L 36.6 C 36.8 C Heart Rate 80 69 63 Heart Rate [ Monitoring electrodes] Respiratory 17 26 H 21 Rate Blood Pressure 132/68 H 152/47 H 125/30 L Blood Pressure [Left Brachial artery] O2 Saturation 11/08/21 11/08/21 11/08/21 00:00 00:30 01:20 Temperature 36.8 C 36.7 C 36.6 C Heart Rate 46 L 58 L Heart Rate [ 65 58 L Monitoring electrodes] Respiratory 21 21 21 Rate Blood Pressure 137/46 H 125/34 L Blood Pressure 129/51 L 125/34 L [Left Brachial artery] O2 Saturation 95 90 L Oxygen O2 Source Room air - Labs Labs: Microbiology 11/07/21 21:50 Occult Blood - Final Stool Laboratory Tests 11/07/21 11/07/21 11/07/21 21:26 21:26 21:26 WBC 10.2 RBC 2.18 L Hgb 6.7 L* Hct 21.0 L MCV 96.3 H MCH 30.7 MCHC 31.9 L RDW 15.8 H Plt Count 178 MPV 10.7 Neut # (Auto) 6.6 Lymph # (Auto) 2.3 [place] # (Auto) 1.0 Eos # (Auto) 0.1 Baso # (Auto) 0.0 Absolute Nucleated RBC 0.02 Nucleated RBC % 0.2 Sodium 133 L Potassium 4.1 Chloride 101 Carbon Dioxide 24 Anion Gap 8.0 BUN 50 H Creatinine 1.4 H Estimated GFR (MDRD) 51 L Glucose 401 H Calcium 9.3 Total Bilirubin 0.3 AST 18 ALT 20 Alkaline Phosphatase 52 Total Protein 6.1 L Albumin 3.4 Globulin 2.7 Albumin/Globulin Ratio 1.3 Lipase 82 H Blood Type A POSITIVE Antibody Screen NEGATIVE Crossmatch IS Only See Detail 11/08/21 01:30 WBC RBC Hgb 7.6 L Hct 23.8 L MCV MCH MCHC RDW Plt Count MPV Neut # (Auto) Lymph # (Auto) [place] # (Auto) Eos # (Auto) Baso # (Auto) Absolute Nucleated RBC Nucleated RBC % Sodium Potassium Chloride Carbon Dioxide Anion Gap BUN Creatinine Estimated GFR (MDRD) Glucose Calcium Total Bilirubin AST ALT Alkaline Phosphatase Total Protein Albumin Globulin Albumin/Globulin Ratio Lipase Blood Type Antibody Screen Crossmatch IS Only PD MEDICAL DECISION MAKING - ED course Complexity details: reviewed old records, reviewed results, re-evaluated patient, considered differential, d/w patient, d/w family ED course: presents due to anemia. On blood draw tonight in ED, hemoglobin is 6.7. Patient describes fatigue and dyspnea, although he says these are not new nor worsening symptoms and that they are no worse than when he was inpatient at [facility] (when hemoglobin was in 10.6-12.0 range on multiple draws over one week stay inpatient). His medications include aspirin ,plavix, and xarelto. The xarelto is prescribed for atrial fibrillation. On initial evaluation, I note atrial bigeminy on the monitor, and during ED stay I do note periods of atrial fibrillation on monitor. He maintains normal blood pressures throughout stay. He is given 1 unit of PRBC transfusion with subsequent hemoglobin of 7.6. I discussed this case with Dr. Immanuel Galindo (occupational therapy technician surgery [facility]); he does not recommend EGD at this time, as it will very likely confirm UGI bleeding source but not affect management (unless there is reason to reasonably consider esophageal varices; patient strongly denies heavy/regular alcohol use as well as h/o heavy/ regular alcohol use). I then discussed case with Dr. Boss regarding patient's blood thinners. She recommends having patient stop the aspirin and the xarelto with short-term follow up with PMD and his cutting table operator first. She also recommends 80mg IV protonix in ED before discharge. Results of lucia's test results as well as recommendations gleaned from the above consults, and he is comfortable with d/c home. Ideally he would have repeat h/h within 24 hours, and this is communicated to him. Patient says he has rapid, effective communication with PMD and believes he will be able to contact his PMD later today. The recommendations to stop his aspirin and xarelto were discussed and written on discharge sheet (handwritten discharge sheet due to [facility] downtime). Return precautions were discussed. He also plans to last picker the prescription for pantoprazole later today that was provided by his PMD Regarding decision to resume either or both the aspirin and xarelto, he is instructed to discuss this with his PMD and cutting table operator first Departure - Departure Disposition: 01 Home, Self Care Clinical Impression: Upper GI bleeding Anemia Qualifiers: Anemia type: other cause Other causes of anemia: acute posthemorrhagic Qualified Code(s): D62 - Acute posthemorrhagic anemia Condition: Good Comments: SEE PAPER CHART FOR DISCHARGE INSTRUCTIONS Discharge Date/Time: 11/08/21 02:45
[2021-11-07 21:38] LABS: BASOPHILS % (AUTO) 0.3 %; EOSINOPHILS # (AUTO) 0.1 10^3/uL (0.0-0.7); LYMPHOCYTES # (AUTO) 2.3 10^3/uL (1.5-3.5); LYMPHOCYTES % (AUTO) 22.9 %; MEAN CORPUSCULAR HEMOGLOBIN 30.7 pg (27.0-31.0); MEAN CORPUSCULAR HGB CONC 31.9 g/dL (32.0-36.0); MEAN CORPUSCULAR VOLUME 96.3 fL (80.0-94.0); MEAN PLATELET VOLUME 10.7 fL (7.4-11.4); MONOCYTES % (AUTO) 9.9 %; NEUTROPHILS # (AUTO) 6.6 10^3/uL (1.5-6.6); NRBC ABSOLUTE COUNT (AUTO) 0.02 x10^3/uL; NUCLEATED RED BLOOD CELLS AUTO 0.2 /100WBC; PLT - PLATELET COUNT 178 10^3/uL (130-450); RED BLOOD COUNT 2.18 10^6/uL (4.70-6.10); RED CELL DISTRIBUTION WIDTH 15.8 % (12.0-15.0); WHITE BLOOD COUNT 10.2 x10^3/uL (4.8-10.8)
[2021-11-07 21:40] LABS: HGB - HEMOGLOBIN 6.7 g/dL (14.0-18.0)
[2021-11-07 21:47] LABS: ALBUMIN 3.4 g/dL (3.2-5.5); ALBUMIN/GLOBULIN RATIO 1.3 (1.0-2.2); BILIRUBIN,TOTAL 0.3 mg/dL (0.2-1.0); CALCIUM 9.3 mg/dL (8.5-10.3); CREATININE 1.4 mg/dL (0.6-1.2); POTASSIUM 4.1 mmol/L (3.5-5.0); TOTAL PROTEIN 6.1 g/dL (6.7-8.2)
[2021-11-08 01:22] VITALS: BP 125/34
[2021-11-08] MEDS ORDERED: PANTOPRAZOLE 40 MG VIAL ONE (02:48)
[2021-11-08 04:48] LABS: HCT - HEMATOCRIT 23.8 % (42.0-52.0); HGB - HEMOGLOBIN 7.6 g/dL (14.0-18.0)
== END 2021-11-08 02:45 | disposition home or self-care (01) ==
LOC: ED 20:34
DX: D62 Acute posthemorrhagic anemia (principal); K92.2 Gastrointestinal hemorrhage, unspecified; I48.91 Unspecified atrial fibrillation; Z79.01 Long term (current) use of anticoagulants; Z87.891 Personal history of nicotine dependence; D50.0 Iron deficiency anemia secondary to blood loss (chronic)
CPT/HCPCS: 36415; 36430; 80053; 82272; 83690; 85014; 85018; 85025; 86850; 86900; 86901; 86920; 99283; 99285; P9016; 85610

== ENCOUNTER 2021-11-08 12:48 | Outpatient (CLI) | payer BC ==
[2021-11-08 13:03] LABS: BASOPHILS # (AUTO) 0.1 10^3/uL (0.0-0.1); BASOPHILS % (AUTO) 0.5 %; EOSINOPHILS # (AUTO) 0.4 10^3/uL (0.0-0.7); EOSINOPHILS % (AUTO) 3.4 %; HCT - HEMATOCRIT 25.7 % (42.0-52.0); HGB - HEMOGLOBIN 8.3 g/dL (14.0-18.0); LYMPHOCYTES # (AUTO) 1.7 10^3/uL (1.5-3.5); LYMPHOCYTES % (AUTO) 13.3 %; MEAN CORPUSCULAR HEMOGLOBIN 31.1 pg (27.0-31.0); MEAN CORPUSCULAR HGB CONC 32.3 g/dL (32.0-36.0); MEAN CORPUSCULAR VOLUME 96.3 fL (80.0-94.0); MEAN PLATELET VOLUME 10.6 fL (7.4-11.4); MONOCYTES % (AUTO) 7.9 %; NEUTROPHILS # (AUTO) 9.2 10^3/uL (1.5-6.6); NEUTROPHILS % (AUTO) 73.9 %; NRBC ABSOLUTE COUNT (AUTO) 0.03 x10^3/uL; NUCLEATED RED BLOOD CELLS AUTO 0.2 /100WBC; PLT - PLATELET COUNT 199 10^3/uL (130-450); RED BLOOD COUNT 2.67 10^6/uL (4.70-6.10); WHITE BLOOD COUNT 12.5 x10^3/uL (4.8-10.8)
== END 2021-11-08 12:49 | disposition home or self-care (01) ==
LOC: LAB 12:48
PROVIDERS: ATTEND Family Medicine
DX: D50.0 Iron deficiency anemia secondary to blood loss (chronic) (principal)
CPT/HCPCS: 36415; 85025

== ENCOUNTER 2021-12-21 11:52 | Outpatient (CLI) | payer BC ==
[2021-12-21 12:05] LABS: BASOPHILS # (AUTO) 0.1 10^3/uL (0.0-0.1); BASOPHILS % (AUTO) 0.5 %; EOSINOPHILS # (AUTO) 0.4 10^3/uL (0.0-0.7); HCT - HEMATOCRIT 35.9 % (42.0-52.0); HGB - HEMOGLOBIN 10.5 g/dL (14.0-18.0); LYMPHOCYTES # (AUTO) 1.9 10^3/uL (1.5-3.5); LYMPHOCYTES % (AUTO) 18.6 %; MEAN CORPUSCULAR HEMOGLOBIN 28.2 pg (27.0-31.0); MEAN CORPUSCULAR HGB CONC 29.2 g/dL (32.0-36.0); MEAN CORPUSCULAR VOLUME 96.2 fL (80.0-94.0); MEAN PLATELET VOLUME 9.4 fL (7.4-11.4); NEUTROPHILS # (AUTO) 6.7 10^3/uL (1.5-6.6); NEUTROPHILS % (AUTO) 66.7 %; PLT - PLATELET COUNT 219 10^3/uL (130-450); RED BLOOD COUNT 3.73 10^6/uL (4.70-6.10); RED CELL DISTRIBUTION WIDTH 16.4 % (12.0-15.0); WHITE BLOOD COUNT 10.1 x10^3/uL (4.8-10.8)
[2021-12-21 12:14] LABS: CALCIUM 9.2 mg/dL (8.5-10.3); CREATININE 1.2 mg/dL (0.6-1.2); POTASSIUM 4.5 mmol/L (3.5-5.0)
== END 2021-12-21 11:53 | disposition home or self-care (01) ==
LOC: LAB 11:52
PROVIDERS: ATTEND Family Medicine
DX: D64.9 Anemia, unspecified (principal)
CPT/HCPCS: 36415; 80048; 85025

== ENCOUNTER 2021-12-31 12:21 | Emergency (ER) | payer BC ==
[2021-12-31] MEDS ORDERED: IPRATROPIUM/ALBUTEROL 3 ML NEB INH STA (12:42)
--- NOTE | 2021-12-31 12:46 | ED Physician Documentation ---
PD HPI CHEST PAIN - Stated complaint Stated Complaint: SOA - Chief complaint Chief Complaint: Resp - History obtained from History obtained from: Patient - Additional information Additional information: This is a 66-year-old gentleman who has a history of sleep apnea on CPAP, diabetes, COPD, coronary disease, A. fib, return rheumatoid arthritis on immunologic therapy, CABG, and peripheral vascular disease with history of angioplasty on the right leg. He presents by private vehicle for the evaluation of shortness of breath with productive cough. He says he is been having this for about 4 to 5 days. There is mild chest pressure associated with it. He denies fevers or chills. No sick contacts. No recent travel. No pedal edema but he does track his weight closely and he has been up about 10 pounds over the last month from about 190 pounds to about 200 or so. Cough is productive of yellowish sputum. Review of Systems Ten Systems: 10 systems reviewed and negative Constitutional: denies: Fever, Chills Cardiac: reports: Chest pain / pressure. denies: Palpitations, Pedal edema, Calf pain Respiratory: reports: Dyspnea, Cough, Wheezing. denies: Hemoptysis PD PAST MEDICAL HISTORY - Past Medical History Cardiovascular: Congestive heart failure, Hypertension, High cholesterol, Coronary artery disease, Peripheral Vascular Disease, [place], Atrial fibrillation Respiratory: Sleep apnea, COPD, Emphysema Neuro: Peripheral neuropathy Endocrine/Autoimmune: HyPOthyroidism, Type 2 diabetes GI: GERD HEENT: None Musculoskeletal: Rheumatoid arthritis Derm: None - Past Surgical History Past Surgical History: Yes Cardiovascular: CABG, Angioplasty - Present Medications Home Medications: Ambulatory Orders Medication Instructions Recorded Confirmed Ascorbic Acid [Vitamin C] 1,000 mg PO DAILY 08/12/21 12/26/21 Aspirin [[place] Aspirin EC] 81 mg PO DAILY 08/12/21 12/26/21 Cholecalciferol (Vitamin D3) 125 mcg PO DAILY 08/12/21 12/26/21 [Vitamin D3] Docusate Sodium [Dulcolax Stool 100 mg PO DAILY 08/12/21 12/26/21 Softener] Famotidine [Pepcid] 20 mg PO DAILY 08/12/21 12/26/21 Ferrous Sulfate 325 mg PO DAILY 08/12/21 12/26/21 Furosemide [Lasix] 40 mg PO BID 08/12/21 12/26/21 Glimepiride [Amaryl] 4 mg PO DAILY 08/12/21 12/26/21 Levothyroxine Sodium 137 mcg PO DAILY 08/12/21 12/26/21 [Levothyroxine] Losartan Potassium 50 mg PO DAILY 08/12/21 12/26/21 Multivit-Min/FA/Lycopen/Lutein 1 each PO DAILY 08/12/21 12/26/21 [Centrum Silver Men Tablet] Nicotine 21 mg Patch [Nicoderm] 21 mg TOP DAILY 08/12/21 12/26/21 Tiotropium Br/Olodaterol HCl 2 puffs INH DAILY 08/12/21 12/26/21 [Stiolto Respimat Inhal [place]] sulfaSALAzine [Azulfidine] 500 mg PO DAILY 08/12/21 12/26/21 Albuterol Sulfate [Proair Hfa 2 puffs INH Q6H PRN 10/18/21 12/26/21 Inhaler] Dulaglutide [Trulicity] 1.5 mg SUBQ Q7D 10/18/21 12/26/21 Hydralazine HCl 50 mg PO TID 10/18/21 12/26/21 Insulin Glargine [Lantus Solostar] 15 units SUBQ DAILY 10/18/21 12/26/21 Montelukast [Singulair] 10 mg PO DAILY 10/18/21 12/26/21 Rosuvastatin Calcium [Crestor] 40 mg PO QPM 10/18/21 12/26/21 predniSONE [Deltasone] 10 mg PO DAILY 10/18/21 12/26/21 Azithromycin 1 tab PO ONCE 12/26/21 12/26/21 Cyanocobalamin (Vitamin B-12) 1,000 mcg PO DAILY 12/26/21 12/26/21 [Vitamin B-12] Folic Acid 1 mg PO DAILY 12/26/21 12/26/21 Pantoprazole [Protonix] 40 mg PO DAILY 12/26/21 12/26/21 metFORMIN [Glucophage] 500 mg PO BID 12/26/21 12/26/21 Doxycycline Hyclate 100 mg PO BID #14 cap 12/31/21 predniSONE [Deltasone] 20 mg PO [id number] #21 tab 12/31/21 - Allergies Allergies/Adverse Reactions: Allergies Allergy/AdvReac Type Severity Reaction Status Date / Time No Known Drug Allergies Allergy Verified 11/07/21 20:43 - Social History Does the pt smoke?: Yes Smoking Status: Former smoker Does the pt drink ETOH?: No Does the pt have substance abuse?: No - Immunizations Immunizations are current?: Yes - POLST Patient has POLST: No POLST Status: Full Code PD ED PE NORMAL - Vitals Vital signs reviewed: Yes (mild resting tachycardia) - General General: Alert and oriented X 3, No acute distress - HEENT HEENT: PERRL, EOMI, Pharynx benign - Neck Neck: Supple, no meningeal sign, No bony TTP - Cardiac Cardiac: Other (mildly tachy, no murmur) - Respiratory Respiratory: Other (moderate tachypnea, bibailar rhonchi and mild exp wheezes) - Abdomen Abdomen: Non tender - Back Back: No CVA TTP, No spinal TTP - Derm Derm: Normal color, Warm and dry - Extremities Extremities: No edema, No calf tenderness / cord - Neuro Neuro: Alert and oriented X 3, Normal speech Results - Vitals Vitals: Vital Signs - 24 hr 12/31/21 12/31/21 12/31/21 12:26 12:28 12:58 Temperature 37.2 C 37.2 C Heart Rate 101 H 101 H 100 Respiratory 28 H 28 H 21 Rate Blood Pressure 147/75 H 147/75 H 140/90 H O2 Saturation 96 96 92 12/31/21 13:08 Temperature Heart Rate 100 Respiratory 18 Rate Blood Pressure O2 Saturation Oxygen O2 Source Room air - EKG (time done) 1227 Rate: Rate (enter#) (103) Rhythm: Sinus tachycardia Miller: Normal Intervals: Prolonged MI, Prolonged QT QRS: Normal Ischemia: Non specific changes - Labs Labs: Laboratory Tests 12/31/21 12/31/21 12/31/21 12:36 12:36 12:36 WBC RBC Hgb Hct MCV MCH MCHC RDW Plt Count MPV Neut # (Auto) Lymph # (Auto) [place] # (Auto) Eos # (Auto) Baso # (Auto) Absolute Nucleated RBC Nucleated RBC % Sodium 139 Potassium 4.6 Chloride 100 L Carbon Dioxide 28 Anion Gap 11.0 BUN 31 H Creatinine 1.4 H Estimated GFR (MDRD) 51 L Glucose 269 H Calcium 9.7 Total Bilirubin 0.5 AST 23 ALT 20 Alkaline Phosphatase 67 Troponin I High Sens 13.5 B-Natriuretic Peptide 54 Total Protein 7.9 Albumin 4.5 Globulin 3.4 Albumin/Globulin Ratio 1.3 Lipase 43 12/31/21 12:59 WBC 16.7 H RBC 3.99 L Hgb 11.3 L Hct 37.5 L MCV 94.0 MCH 28.3 MCHC 30.1 L RDW 16.4 H Plt Count 323 MPV 9.7 Neut # (Auto) 12.9 H Lymph # (Auto) 2.0 [place] # (Auto) 1.3 H Eos # (Auto) 0.3 Baso # (Auto) 0.1 Absolute Nucleated RBC 0.00 Nucleated RBC % 0.0 Sodium Potassium Chloride Carbon Dioxide Anion Gap BUN Creatinine Estimated GFR (MDRD) Glucose Calcium Total Bilirubin AST ALT Alkaline Phosphatase Troponin I High Sens B-Natriuretic Peptide Total Protein Albumin Globulin Albumin/Globulin Ratio Lipase - Rads (name of study) Single view chest x-ray demonstrates bibasilar atelectasis without other acute abnormality. Radiology: EMP read contemporaneously PD MEDICAL DECISION MAKING - ED course ED course: 66-year-old gentleman with history of multiple comorbidities as above presents with productive cough and shortness of breath. Work-up here shows a clear chest x-ray, negative troponin and BNP, and modest leukocytosis. He was feeling better after a DuoNeb here. By process of illumination, this is a COPD exac erbation. Think we have relatively well ruled out an acute CHF or cardiac related decline. He felt comfortable going home with his supportive at the bedside. Departure - Departure Disposition: 01 Home, Self Care Clinical Impression: COPD exacerbation Condition: Good Record reviewed to determine appropriate education?: Yes Instructions: ED COPD Flare Prescriptions: predniSONE [Deltasone] 20 mg PO [id number] #21 tab Doxycycline Hyclate 100 mg PO BID #14 cap Comments: I sent your prescriptions electronically to the [facility] in [place]. Return for new or worsening symptoms. Follow-up with your doctor in about 2 days for recheck. In addition to the prescriptions I also want to using her nebulizer 3- 4 times a day. Continue your excellent efforts at completely quitting tobacco.
[2021-12-31 13:07] LABS: BASOPHILS # (AUTO) 0.1 10^3/uL (0.0-0.1); BASOPHILS % (AUTO) 0.6 %; EOSINOPHILS # (AUTO) 0.3 10^3/uL (0.0-0.7); EOSINOPHILS % (AUTO) 1.9 %; HCT - HEMATOCRIT 37.5 % (42.0-52.0); HGB - HEMOGLOBIN 11.3 g/dL (14.0-18.0); MEAN CORPUSCULAR HEMOGLOBIN 28.3 pg (27.0-31.0); MEAN CORPUSCULAR HGB CONC 30.1 g/dL (32.0-36.0); MEAN PLATELET VOLUME 9.7 fL (7.4-11.4); MONOCYTES # (AUTO) 1.3 10^3/uL (0.0-1.0); MONOCYTES % (AUTO) 7.5 %; NEUTROPHILS # (AUTO) 12.9 10^3/uL (1.5-6.6); NEUTROPHILS % (AUTO) 77.3 %; PLT - PLATELET COUNT 323 10^3/uL (130-450); RED BLOOD COUNT 3.99 10^6/uL (4.70-6.10); RED CELL DISTRIBUTION WIDTH 16.4 % (12.0-15.0); WHITE BLOOD COUNT 16.7 x10^3/uL (4.8-10.8)
[2021-12-31 13:11] LABS: ALBUMIN 4.5 g/dL (3.2-5.5); ALBUMIN/GLOBULIN RATIO 1.3 (1.0-2.2); BILIRUBIN,TOTAL 0.5 mg/dL (0.2-1.0); CALCIUM 9.7 mg/dL (8.5-10.3); CREATININE 1.4 mg/dL (0.6-1.2); POTASSIUM 4.6 mmol/L (3.5-5.0); TOTAL PROTEIN 7.9 g/dL (6.7-8.2)
--- NOTE | 2021-12-31 13:21 | XRAY Report ---
PROCEDURE: Chest 1 View X-Ray INDICATIONS: Chest pain TECHNIQUE: One view of the chest was acquired. COMPARISON: None FINDINGS: Surgical changes and devices: Postoperative changes of the chest wall consistent with prior median s ternotomy. Lungs and pleura: Bibasilar atelectasis. No focal consolidation, mass, pneumothorax, or pleural effu sander. Mediastinum: Mediastinal contours appear normal. Heart size is normal. Bones and chest wall: No suspicious bony lesions. Overlying soft tissues appear unremarkable. IMPRESSION: 1. Bibasilar atelectasis. 2. No acute abnormality Reviewed by: Steven Jones on 12/31/2021 1:20 PM PDT Approved by: Steven Jones on 12/31/2021 1:20 PM PDT Station ID: [id number]
[2021-12-31 14:07] LABS: B. PARAPERTUSSIS- RESP PCR PAN NOT DETECTED; B. PERTUSSIS- RESP PCR PANEL NOT DETECTED; C. PNEUMONIAE- RESP PCR PANEL NOT DETECTED; CORONAVIRUS 229E-RESP PCR NOT DETECTED; CORONAVIRUS HKU1-RESP PCR NOT DETECTED; CORONAVIRUS NL63-RESP PCR NOT DETECTED; CORONAVIRUS OC43-RESP PCR NOT DETECTED; HUMAN METAPNEUMOVIRUS NOT DETECTED; INFLUENZA A- RESP PCR PANEL NOT DETECTED; INFLUENZA B - RESP PCR PANEL NOT DETECTED; M. PNEUMONIAE- RESP PCR PANEL NOT DETECTED; PARAINFLUENZA VIRUS 1 NOT DETECTED; PARAINFLUENZA VIRUS 2 NOT DETECTED; PARAINFLUENZA VIRUS 3 NOT DETECTED; PARAINFLUENZA VIRUS 4 NOT DETECTED; RHINOVIRUS/ENTEROVIRUS NOT DETECTED; RSV- RESP PCR PANEL NOT DETECTED; SARS-CoV-2 -RESP PCR PANEL NOT DETECTED
[2021-12-31 14:15] VITALS: BP 112/66
== END 2021-12-31 14:25 | disposition home or self-care (01) ==
LOC: ED 12:21
DX: J44.1 Chronic obstructive pulmonary disease with (acute) exacerbation (principal); E11.9 Type 2 diabetes mellitus without complications; Z79.85 Long-term (current) use of injectable non-insulin antidiabetic drugs; Z95.1 Presence of aortocoronary bypass graft; Z87.891 Personal history of nicotine dependence; Z20.822 Contact with and (suspected) exposure to COVID-19
CPT/HCPCS: 36415; 80053; 83690; 83880; 84484; 85025; 87633; 93005; 94640; 99284

== ENCOUNTER 2022-01-10 09:29 | Outpatient (CLI) | payer BC ==
--- NOTE | 2022-01-10 09:59 | SLEEP CARE CONSULTATION ---
Information from patient questionnaire entered by Wale Blanco. I have reviewed and concur with the information entered by Wale Blanco. This document represents the service I personally performed and the decisions made by me, Sofie Gold ARNP. History of Present Illness Service Date and Time: 01/10/2022 09 Previous diagnosis: Moderate, Obstructive Sleep Apnea-Hypopnea Syndrome AHI: 22 Reason for follow up: annual (LAST SEEN ) Equipment type: CPAP (RESMED) Equipment obtained from: Other ([facility]: getting supplies) Mask style: Full face Backup mask available: Yes (old mask) Last cushion change: 1 week Prior sleep studies: Yes Year and Where: 2016 - [facility] [place] Type of Sleep Study: Polysomnography HPI additional information: GUILLERMO MAXWELL was diagnosed to have moderate, AHI 22, obstructive sleep apnea- hypopnea syndrome and returned today for CPAP therapy annual follow-up. Sleep Study - Results Type of Sleep Study: Polysomnography Prior sleep studies: Yes Year and Where: 2017 - [facility] CPAP Compliance Data - Data Reviewed with Patient Average duration of nightly device use: 4 hours 19 minutes Compliance rate %: 42 (81/90 days used; 70% in last 30 days) Current pressure setting (cmH2O): 14 Average residual AHI: 9.2 Central apnea: 0.2 Obstructive apnea: 2.6 Subjective Missed days of use due to: reports: illness (5 hospitalizations over last year) Patient concerns: denies: aerophagia, mask discomfort, air blowing in eyes, mask leak noise, condensation in mask/hose, nasal congestion, dry mouth, nose, throat, epistaxis Observed to snore while using device: No Current pressure setting perceived as: too low On therapy, patient: reports: sleeping better, awakening more refreshed, being more awake and alert during the day, more rested overall. denies: drowsiness while driving Initial [place] Sleepiness Scale score: 19 (in 2020) Current [place] Sleepiness Scale score: 17 (01/10/2022) Allergies and Home Medications Drug allergies reviewed: Yes (NKDA) Home medication list reviewed: Yes (see list ) Review of Systems Review of systems same as previous: No (Multiple hospital stays for excerbations of breathing issues; eval ongoing) Physical Exam Vital signs obtained and entered by: WALE Garcia MA Blood Pressure: 138/68 (left arm) Cuff size: regular Heart Rate: 94 O2 Saturation: 94 Height: 5 ft 10 in Weight: 206 lb 6.4 oz Body Mass Index: 29.6 BMI Classification: Overweight Impression and Plan 1. Obstructive Sleep Apnea-Hypopnea Syndrome, moderate, with good treatment compliance and fair apnea control with elevated residual AHI. On CPAP therapy, the patient has better sleep quality and is more rested overall. The patients pressure will be changed to autoCPAP 16 cmH20 for elevation of residual AHI and air hunger. Patient advised to contact me if pressure change is uncomfortable so that it can be adjusted. Goals for apnea control discussed. Patient's apnea severity and rationale for treatment to reduce apnea, improve sleep quality and reduce cardiovascular and cerebrovascular events was reviewed. I also reviewed the benefit of consistent device use of CPAP for hypertension, cardiac disease, diabetes and gastric reflux. I will have him come back in 1-2 months to recheck his residual AHI. 2. Overweight, unspecified. Currently patients BMI is 29.6. He is trying to build himself up but gets fatigued easily with any exertion. Thus patient is advised to lose weight as able. * Change auto CPAP pressure to 16 cmH2O * Update supplies * Notify me if snoring with mask or feeling that the pressure is too much or too little * Attempt to lose weight * Call this office if any problems using CPAP * Return for follow up in 1-2 months, or sooner if concerns arise Counseling Topics: Spare mask, Weight loss health impact Prescriptions: Device supplies (with pressure change) Visit Type: In Office Time Spent with Patient (minutes): 20 Provider Statement: I spent 100% of the Face to Face Visit with the patient with greater than 50% spent counseling the patient and coordination of care.
[2022-01-10 10:00] VITALS: BP 138/68
== END 2022-01-10 09:30 | disposition home or self-care (01) ==
LOC: SC 09:29
PROVIDERS: ATTEND Nurse Practitioner Family
DX: G47.33 Obstructive sleep apnea (adult) (pediatric) (principal); E66.3 Overweight; Z68.29 Body mass index [BMI] 29.0-29.9, adult
CPT/HCPCS: 99212; 99213

== ENCOUNTER 2022-01-25 07:56 | Outpatient (CLI) | payer BC ==
--- NOTE | 2022-01-25 10:24 | XRAY Report ---
PROCEDURE: Chest 2 View X-Ray INDICATIONS: COPD TECHNIQUE: 2 views of the chest were acquired. COMPARISON: Chest x-ray 12/31/2021, 10/17/2021 FINDINGS: Surgical changes and devices: Postoperative chest changes. Lungs and pleura: There is persistent blunting of the costophrenic angles, left greater than right. M ild appearance of increased opacity is present within the bases although not significantly changed co mpared to prior exams. Lungs are hyperexpanded suggestive COPD. Mediastinum: Mediastinal contours are normal. Heart size is enlarged. Bones and chest wall: No suspicious bony abnormalities. Soft tissues appear unremarkable. IMPRESSION: Chronic appearing of minimal effusions, left greater than right. Persistent appearance of basilar opacities suspected to represent atelectasis/scarring. Reviewed by: Filomena Roper MD on 01/25/2022 10:23 AM [facility] Approved by: Filomena Roper MD on 01/25/2022 10:23 AM [facility] Station ID: [id number]
== END 2022-01-25 07:57 | disposition home or self-care (01) ==
LOC: DI 07:56
PROVIDERS: ATTEND Nurse Practitioner
DX: J44.0 Chronic obstructive pulmonary disease with (acute) lower respiratory infection (principal); J18.1 Lobar pneumonia, unspecified organism; J90 Pleural effusion, not elsewhere classified

== ENCOUNTER 2022-02-03 04:23 | Outpatient (CLI) | payer BC | END 2022-02-03 23:59 | disposition critical access hospital (66) | LOC: EMS 04:23 | DX: R06.00 Dyspnea, unspecified (principal); R06.2 Wheezing | CPT/HCPCS: A0425; A0427 ==

== ENCOUNTER 2022-02-03 04:40 | Inpatient (IN) | payer BC ==
--- NOTE | 2022-02-03 04:52 | ED Physician Documentation ---
PD HPI DYSPNEA - Stated complaint Stated Complaint: SOA - Chief complaint Chief Complaint: Resp - History obtained from History obtained from: Patient, EMS - History of Present Illness Timing - onset: Today Timing - onset during: Rest Timing - details: Gradual onset Pain level now: 0 Improved by: O2, BiPAP / CPAP, Rest, Sitting up Worsened by: Laying flat, Coughing Associated symptoms: Fever, Cough, Wheezing, Bilateral edema - Additional information Additional information: BIBA for dyspnea, gradually worsening since this morning, with cough and wheezing. Patient cannot contribute to HPI/ROS on my exam due to combination of decreased mental status as well as severe respiratory distress. Patient has PMHx that includes COPD (although does not use oxygen at home, only CPAP at night for sleep apnea), CHF, PVD (has had right leg angioplasty), diabetes, hypothyroidism, atrial fibrillation, CAD, VT, HTN, and high cholesterol. EMS arrived to find patient with room air pulse ox of 85% (patient had taken off his CPAP), and they noted respiratory rate 41, heart rate 120s. FSBS for EMS was 156. They put him on CPAP, administered duoneb followed by albuterol neb. The pulse ox improved to 96% with these interventions. On arrival, when CPAP was briefly removed to facilitate transfer from EMS stretcher to ED stretcher, pulse ox dropped to 76%, again rapidly improving to 95-96% with replacement of the CPAP. Patient was T+R 12/31/21 for dyspnea, treated with 10-day taper of prednisone as well as a course of doxycycline. Review of Systems Unable to obtain: Other (limited to information from EMS; patient is in moderate respiratory distress and not following most commands) Respiratory: reports: Dyspnea, Cough, Wheezing PD PAST MEDICAL HISTORY - Past Medical History Cardiovascular: Congestive heart failure, Hypertension, High cholesterol, Coronary artery disease, Peripheral Vascular Disease, VT, Atrial fibrillation Respiratory: Sleep apnea, COPD, Emphysema Neuro: Peripheral neuropathy Endocrine/Autoimmune: HyPOthyroidism, Type 2 diabetes GI: GERD HEENT: None Musculoskeletal: Rheumatoid arthritis Derm: None - Past Surgical History Past Surgical History: Yes Cardiovascular: CABG, Angioplasty - Present Medications Home Medications: Ambulatory Orders Medication Instructions Recorded Confirmed Ascorbic Acid [Vitamin C] 1,000 mg PO DAILY 08/12/21 02/03/22 Aspirin [[place] Aspirin EC] 81 mg PO DAILY 08/12/21 02/03/22 Cholecalciferol (Vitamin D3) 250 mcg PO DAILY 08/12/21 02/03/22 [Vitamin D3] Docusate Sodium [Dulcolax Stool 100 mg PO BID 08/12/21 02/03/22 Softener] Ferrous Sulfate 325 mg PO MOWEFR 08/12/21 02/03/22 Furosemide [Lasix] 40 mg PO BID 08/12/21 02/03/22 Glimepiride [Amaryl] 4 mg PO DAILY 08/12/21 02/03/22 Levothyroxine Sodium 137 mcg PO DAILY 08/12/21 02/03/22 [Levothyroxine] Losartan Potassium 50 mg PO DAILY 08/12/21 02/03/22 sulfaSALAzine [Azulfidine] 500 mg PO DAILY 08/12/21 02/03/22 Albuterol Sulfate [Proair Hfa 2 puffs INH Q6H PRN 10/18/21 02/03/22 Inhaler] Dulaglutide [Trulicity] 1.5 mg SUBQ FR 10/18/21 02/03/22 Hydralazine HCl 75 mg PO BID 10/18/21 02/03/22 Insulin Glargine [Lantus Solostar] 25 units SUBQ DAILY 10/18/21 02/03/22 Montelukast [Singulair] 10 mg PO QPM 10/18/21 02/03/22 Rosuvastatin Calcium [Crestor] 40 mg PO QPM 10/18/21 02/03/22 Azithromycin 250 mg PO DAILY 12/26/21 02/03/22 Cyanocobalamin (Vitamin B-12) 1,000 mcg PO DAILY 12/26/21 02/03/22 [Vitamin B-12] Folic Acid 1 mg PO DAILY 12/26/21 02/03/22 Pantoprazole [Protonix] 40 mg PO DAILY 12/26/21 02/03/22 Insulin Aspart [NovoLOG] 8 - 20 units SUBQ TIDWM 01/10/22 02/03/22 Budesonide/Glycopyr/Formoterol 2 puffs INH DAILY 02/03/22 02/03/22 [Breztri Aerosphere Inhaler] Ipratropium [Atrovent] 0.5 mg INH BID 02/03/22 02/03/22 Metformin HCl [Metformin ER 1,000 mg PO BID 02/03/22 02/03/22 Gastric] Multivit-Min/FA/Lycopen/Lutein 1 each PO DAILY 02/03/22 02/03/22 [Centrum Silver Men Tablet] Nitroglycerin [Nitrostat] 0.4 mg SL Q5MIN PRN 02/03/22 02/03/22 Pramipexole Di-HCl [Mirapex] 2 mg PO QPM 02/03/22 02/03/22 predniSONE [Deltasone] 20 mg PO DAILY 02/03/22 02/03/22 - Allergies Allergies/Adverse Reactions: Allergies Allergy/AdvReac Type Severity Reaction Status Date / Time No Known Drug Allergies Allergy Verified 02/03/22 04:50 - Social History Does the pt smoke?: Yes Smoking Status: Former smoker Does the pt drink ETOH?: No Does the pt have substance abuse?: No - Immunizations Immunizations are current?: Yes - POLST Patient has POLST: No POLST Status: Full Code PD ED PE NORMAL - Vitals Vital signs reviewed: Yes - General General: Well developed/nourished, Other (moderate respiratory distress; CPAP in place) - HEENT HEENT: PERRL - Abdomen Abdomen: Soft, Non tender, Other (abdominal wall echymoses noted) - Derm Derm: Normal color, Warm and dry - Neuro Eye Opening: None Motor: Localizes to Pain Verbal: Incomprehensible GCS Score: 8 PD ED PE EXPANDED - Cardiac Cardiac: Tachy, Irregularly irregular - Respiratory Respiratory: Labored, Wheezing, Decreased breath sounds - Extremities Extremities: Pedal edema bilateral, Other (bilateral lower leg venous stasis changes) Results - Vitals Vitals: Oxygen O2 Source BIPAP - EKG (time done) No standard instances Rate: Rate (enter#) (111) Rhythm: Atrial fibrillation [place]: Normal Ischemia: Normal ST segments - Labs Labs: Laboratory Tests 02/03/22 02/03/22 02/03/22 04:54 04:54 04:54 WBC 17.3 H RBC 4.52 L Hgb 12.0 L Hct 42.0 MCV 92.9 MCH 26.5 L MCHC 28.6 L RDW 17.2 H Plt Count 256 MPV 10.3 Neut # (Auto) Not Reportable Lymph # (Auto) Not Reportable [place] # (Auto) Not Reportable Eos # (Auto) Not Reportable Baso # (Auto) Not Reportable Absolute Nucleated RBC Not Reportable Total Counted 100 Band Neuts % (Manual) 2 Abnorm Lymph % (Manual) 0 Nucleated RBC % Not Reportable Neutrophils # (Manual) 10.2 H Lymphocytes # (Manual) 4.7 H Monocytes # (Manual) 2.2 H Eosinophils # (Manual) 0.0 Basophils # (Manual) 0.2 H Nucleated RBCs 1 Differential Comment MANUAL DIFFERENTIAL WBC Morphology NORMAL APPEARANCE Platelet Estimate NORMAL (130-450,000) Platelet Morphology NORMAL JEANNINE RBC Morph Micro Appear 1+ HYPOCHROMASIA Bld Gas Analysis Time Sample Site ABG pH ABG pCO2 ABG pO2 ABG HCO3 ABG Total CO2 ABG O2 Saturation ABG Base Excess Roney Test Respiration Rate O2 Delivery Device O2 Liters/Min Vent Mode FiO2 EPAP IPAP Sodium 144 Potassium 4.7 Chloride 106 Carbon Dioxide 30 Anion Gap 8.0 BUN 25 H Creatinine 1.3 H Estimated GFR (MDRD) 55 L Glucose 231 H Lactic Acid Calcium 9.2 Total Bilirubin 0.6 AST 21 ALT 31 Alkaline Phosphatase 56 Troponin I High Sens 42.2 H* B-Natriuretic Peptide Total Protein 7.5 Albumin 4.3 Globulin 3.2 Albumin/Globulin Ratio 1.3 Lipase 41 Nasal Adenovirus (PCR) Nasal B. parapertussis DNA (PCR) Nasal Coronavir 229E PCR Nasal Coronavir HKU1 PCR Nasal Coronavir NL63 PCR Nasal Coronavir OC43 PCR Nasal Enterovir/Rhinovir PCR Nasal Influenza A H3 PCR Nasal Influenza B PCR Nasal Parainfluen 1 PCR Nasal Parainfluen 2 PCR Nasal Parainfluen 3 PCR Nasal Parainfluen 4 PCR Nasal RSV (PCR) Nasal B.pertussis DNA PCR Nasal C.pneumoniae (PCR) [place] Human Metapneumo PCR Nasal M.pneumoniae (PCR) Nasal SARS-CoV-2 (PCR) 02/03/22 02/03/22 02/03/22 04:54 04:54 04:54 WBC RBC Hgb Hct MCV MCH MCHC RDW Plt Count MPV Neut # (Auto) Lymph # (Auto) [place] # (Auto) Eos # (Auto) Baso # (Auto) Absolute Nucleated RBC Total Counted Band Neuts % (Manual) Abnorm Lymph % (Manual) Nucleated RBC % Neutrophils # (Manual) Lymphocytes # (Manual) Monocytes # (Manual) Eosinophils # (Manual) Basophils # (Manual) Nucleated RBCs Differential Comment WBC Morphology Platelet Estimate Platelet Morphology RBC Morph Micro Appear Bld Gas Analysis Time Sample Site ABG pH ABG pCO2 ABG pO2 ABG HCO3 ABG Total CO2 ABG O2 Saturation ABG Base Excess Roney Test Respiration Rate O2 Delivery Device O2 Liters/Min Vent Mode FiO2 EPAP IPAP Sodium Potassium Chloride Carbon Dioxide Anion Gap BUN Creatinine Estimated GFR (MDRD) Glucose Lactic Acid 1.2 Calcium Total Bilirubin AST ALT Alkaline Phosphatase Troponin I High Sens B-Natriuretic Peptide 571 H Total Protein Albumin Globulin Albumin/Globulin Ratio Lipase Nasal Adenovirus (PCR) NOT DETECTED Nasal B. parapertussis DNA (PCR) NOT DETECTED Nasal Coronavir 229E PCR NOT DETECTED Nasal Coronavir HKU1 PCR NOT DETECTED Nasal Coronavir NL63 PCR NOT DETECTED Nasal Coronavir OC43 PCR NOT DETECTED Nasal Enterovir/Rhinovir PCR NOT DETECTED Nasal Influenza A H3 PCR DETECTED A Nasal Influenza B PCR NOT DETECTED Nasal Parainfluen 1 PCR NOT DETECTED Nasal Parainfluen 2 PCR NOT DETECTED Nasal Parainfluen 3 PCR NOT DETECTED Nasal Parainfluen 4 PCR NOT DETECTED Nasal RSV (PCR) NOT DETECTED Nasal B.pertussis DNA PCR NOT DETECTED Nasal C.pneumoniae (PCR) NOT DETECTED [place] Human Metapneumo PCR NOT DETECTED Nasal M.pneumoniae (PCR) NOT DETECTED Nasal SARS-CoV-2 (PCR) NOT DETECTED 02/03/22 02/03/22 05:07 07:12 WBC RBC Hgb Hct MCV MCH MCHC RDW Plt Count MPV Neut # (Auto) Lymph # (Auto) [place] # (Auto) Eos # (Auto) Baso # (Auto) Absolute Nucleated RBC Total Counted Band Neuts % (Manual) Abnorm Lymph % (Manual) Nucleated RBC % Neutrophils # (Manual) Lymphocytes # (Manual) Monocytes # (Manual) Eosinophils # (Manual) Basophils # (Manual) Nucleated RBCs Differential Comment WBC Morphology Platelet Estimate Platelet Morphology RBC Morph Micro Appear Bld Gas Analysis Time 514 4916 Sample Site LEFT BRACHIAL RIGHT RADIAL ABG pH 7.11 L* 7.18 L* ABG pCO2 109 H* 90 H* ABG pO2 360 H* 182 H* ABG HCO3 35.0 H 33.2 H ABG Total CO2 38.0 H 36.0 H ABG O2 Saturation 100 H 99 H ABG Base Excess 6.0 H 5.0 H Roney Test NOT APPLICABLE POSITIVE Respiration Rate 20 O2 Delivery Device BiPAP OXYMASK O2 Liters/Min 10.00 Vent Mode SYNCHRONOUS/TIMES FiO2 100.00 EPAP 5 IPAP 16 Sodium Potassium Chloride Carbon Dioxide Anion Gap BUN Creatinine Estimated GFR (MDRD) Glucose Lactic Acid Calcium Total Bilirubin AST ALT Alkaline Phosphatase Troponin I High Sens B-Natriuretic Peptide Total Protein Albumin Globulin Albumin/Globulin Ratio Lipase Nasal Adenovirus (PCR) Nasal B. parapertussis DNA (PCR) Nasal Coronavir 229E PCR Nasal Coronavir HKU1 PCR Nasal Coronavir NL63 PCR Nasal Coronavir OC43 PCR Nasal Enterovir/Rhinovir PCR Nasal Influenza A H3 PCR Nasal Influenza B PCR Nasal Parainfluen 1 PCR Nasal Parainfluen 2 PCR Nasal Parainfluen 3 PCR Nasal Parainfluen 4 PCR Nasal RSV (PCR) Nasal B.pertussis DNA PCR Nasal C.pneumoniae (PCR) [place] Human Metapneumo PCR Nasal M.pneumoniae (PCR) Nasal SARS-CoV-2 (PCR) - Rads (name of study) chest xray Radiology: Prelim report reviewed, See rad report PD MEDICAL DECISION MAKING - ED course Complexity details: reviewed old records, reviewed results, re-evaluated patient, considered differential, d/w patient, d/w family ED course: BIBA for severe dyspnea. He is switched from CPAP to BiPAP , maintains good pulse ox with this. ABG shows respiratory acidosis with pH 7.1, pCO2 109.1, pO2 360, HCO3 35. This was on 100% FiO2 and he is decreased to 80%. The high pCO2 would account for his lethargy on my exam and he did exhibit gradual improvement in mentation later in ED stay. He was trialed on oxymask and then a repeat ABG performed, with mild improvement in pCO2 (90), pH 7.2 (7.175). CXR is without specific findings (trace bilateral pleural effusions and ill-defined bibasilar opacities which may indicate atelectasis, scarring, or infiltrate) and appears unchanged compared to CXR performed 01/25/22 (and CT chest 12/30/20). He tests positive for influenza A on respiratory PCR (negative for other viruses tested). He is febrile on arrival, given ofirmev (avoiding PO early in stay as unclear if he might need intubation), and subsequently defervesced and pulse improved to 100s and ST on monitor with prolonged ME. Leukocytosis (WBC 17) but normal lactate. Blood pressures were markedly elevated on arrival; one inch NTP placed on ACW and he subsequently had significant improvement in blood pressure readings. Patient has exhibited improvement in respiratory status but still on bipap and would benefit from inpatient stay given the severity of dyspnea on arrival. 08:35 : called hospitalist () phone, no answer, left VM. 09:30 : D/W Dr. Grande, accepts patient to hospitalist service Departure - Departure Disposition: 66 [facility] DC/Xfer Clinical Impression: Influenza A COPD (chronic obstructive pulmonary disease) Qualifiers: COPD type: unspecified COPD Qualified Code(s): J44.9 - Chronic obstructive pulmonary disease, unspecified Respiratory failure Qualifiers: Chronicity: acute Respiratory failure complication: hypoxia and hypercapnia Qualified Code(s): J96.01 - Acute respiratory failure with hypoxia Discharge Date/Time: 02/03/22 11:40
[2022-02-03 05:03] LABS: BASOPHILS % (AUTO) 0.5 %; EOSINOPHILS % (AUTO) 0.4 %; LYMPHOCYTES % (AUTO) 27.1 %; MEAN CORPUSCULAR HEMOGLOBIN 26.5 pg (27.0-31.0); MEAN CORPUSCULAR HGB CONC 28.6 g/dL (32.0-36.0); MEAN CORPUSCULAR VOLUME 92.9 fL (80.0-94.0); MEAN PLATELET VOLUME 10.3 fL (7.4-11.4); MONOCYTES % (AUTO) 10.6 %; NEUTROPHILS % (AUTO) 60.1 %; PLT - PLATELET COUNT 256 10^3/uL (130-450); RED BLOOD COUNT 4.52 10^6/uL (4.70-6.10); RED CELL DISTRIBUTION WIDTH 17.2 % (12.0-15.0); WHITE BLOOD COUNT 17.3 x10^3/uL (4.8-10.8)
[2022-02-03] MEDS ORDERED: NITROGLYCERIN 2% PASTE TOP STA (05:14)
[2022-02-03] MEDS ORDERED: ACETAMINOPHEN 1,000 MG/100 ML 1,000 MG/100 ML BAG IV STA (05:16)
[2022-02-03 05:22] LABS: ALBUMIN 4.3 g/dL (3.2-5.5); ALBUMIN/GLOBULIN RATIO 1.3 (1.0-2.2); BILIRUBIN,TOTAL 0.6 mg/dL (0.2-1.0); CALCIUM 9.2 mg/dL (8.5-10.3); CREATININE 1.3 mg/dL (0.6-1.2); POTASSIUM 4.7 mmol/L (3.5-5.0); TOTAL PROTEIN 7.5 g/dL (6.7-8.2)
[2022-02-03 05:27] LABS: ABNORMAL LYMPHS % (MANUAL) 0 %
[2022-02-03 05:35] LABS: ABG OXYGEN SATURATION 100 % (94-98)
[2022-02-03 05:36] LABS: ABG PCO2 109 mmHg (34-45); ABG PH 7.11 (7.35-7.45); ABG PO2 360 mmHg (80-100)
[2022-02-03 05:37] LABS: ABG MODE OF VENTILATION SYNCHRONOUS/TIMES; ABG RESPIRATORY RATE 20 b/min
[2022-02-03 05:58] LABS: BAND NEUTROPHILS % (MANUAL) 2 %; BASOPHILS # (MANUAL) 0.2 10^3/uL (0-0.1); BASOPHILS % (MANUAL) 1 %; LYMPHOCYTES # (MANUAL) 4.7 10^3/uL (1.5-3.5); LYMPHOCYTES % (MANUAL) 27 %; MONOCYTES # (MANUAL) 2.2 10^3/uL (0.0-1.0); NEUTROPHILS # (MANUAL) 10.2 10^3/uL (1.5-6.6); NUCLEATED RBC (MANUAL) 1 %
[2022-02-03 06:01] LABS: PLATELET ESTIMATE, MANUAL NORMAL (130-450,000) (NORMAL)
[2022-02-03 06:02] LABS: WBC MORPHOLOGY (MULTIPLE) NORMAL APPEARANCE (NORMAL)
[2022-02-03 06:03] LABS: DIFFERENTIAL COMMENT MANUAL DIFFERENTIAL; PLATELET MORPHOLOGY NORMAL APP (NORMAL)
[2022-02-03 06:10] LABS: INFLUENZA A H3- RESP PCR PANEL DETECTED; INFLUENZA B - RESP PCR PANEL NOT DETECTED
[2022-02-03 06:11] LABS: B. PARAPERTUSSIS- RESP PCR PAN NOT DETECTED; B. PERTUSSIS- RESP PCR PANEL NOT DETECTED; C. PNEUMONIAE- RESP PCR PANEL NOT DETECTED; CORONAVIRUS 229E-RESP PCR NOT DETECTED; CORONAVIRUS HKU1-RESP PCR NOT DETECTED; CORONAVIRUS NL63-RESP PCR NOT DETECTED; CORONAVIRUS OC43-RESP PCR NOT DETECTED; HUMAN METAPNEUMOVIRUS NOT DETECTED; M. PNEUMONIAE- RESP PCR PANEL NOT DETECTED; PARAINFLUENZA VIRUS 1 NOT DETECTED; PARAINFLUENZA VIRUS 2 NOT DETECTED; PARAINFLUENZA VIRUS 3 NOT DETECTED; PARAINFLUENZA VIRUS 4 NOT DETECTED; RHINOVIRUS/ENTEROVIRUS NOT DETECTED; RSV- RESP PCR PANEL NOT DETECTED; SARS-CoV-2 -RESP PCR PANEL NOT DETECTED
[2022-02-03 07:28] LABS: ABG HCO3 33.2 mmol/L (22.0-26.0); ABG OXYGEN SATURATION 99 % (94-98); ALLEN TEST POSITIVE
[2022-02-03 07:31] LABS: ABG PH 7.18 (7.35-7.45)
[2022-02-03 07:32] LABS: ABG PCO2 90 mmHg (34-45); ABG PO2 182 mmHg (80-100)
[2022-02-03] MEDS ORDERED: ALBUTEROL NEB 2.5 MG/3 ML INH STA (07:53)
[2022-02-03] MEDS ORDERED: DEXAMETHASONE 10 MG/ML VIAL IVP STA (08:11)
[2022-02-03] MEDS ORDERED: IPRATROPIUM/ALBUTEROL 3 ML NEB INH STA (08:59)
--- NOTE | 2022-02-03 09:04 | XRAY Report ---
PROCEDURE: Chest 1 View X-Ray INDICATIONS: Chest pain TECHNIQUE: One view of the chest was acquired. COMPARISON: 01/29/2022, 12/31/2021, 10/17/2021 FINDINGS: Surgical changes and devices: Sternotomy changes are noted. Lungs and pleura: Trace bilateral pleural effusions are seen. Mild streaky opacities can be seen in both lung bases. No pneumothorax is seen. Mediastinum: Mediastinal contours appear normal. Heart size is normal. Bones and chest wall: No suspicious bony lesions. Age-appropriate degenerative changes are seen. Overlying soft tissues appear unremarkable. IMPRESSION: Small bilateral pleural effusions are seen, as before. Apparent atelectasis seen at the lung bases. Postoperative and degenerative changes are seen. Note: No significant discrepancy from the preliminary report. Reviewed by: Gerardo Reynolds MD on 02/03/2022 8:02 AM [facility] Approved by: Gerardo Reynolds MD on 02/03/2022 8:02 AM [facility] Station ID: [id number]
[2022-02-03] MEDS ORDERED: oxyCODONE 5 MG TABLET PO PRN (09:20)
[2022-02-03] MEDS ORDERED: ACETAMINOPHEN 325 MG TABLET PO PRN (09:20)
[2022-02-03] MEDS ORDERED: ONDANSETRON ODT 4 MG TABLET TL PRN (09:20)
[2022-02-03 09:53] LABS: ABG HCO3 32.4 mmol/L (22.0-26.0); ABG PH 7.25 (7.35-7.45); ABG PO2 149 mmHg (80-100)
[2022-02-03 09:54] LABS: ABG OXYGEN SATURATION 99 % (94-98)
[2022-02-03 09:57] LABS: ABG PCO2 74 mmHg (34-45)
[2022-02-03] MEDS: SODIUM CHLORIDE 0.9% 1,000 ML IV SCH ×2 (12:10→22:19)
[2022-02-03] MEDS: ENOXAPARIN 40 MG/0.4 ML SYRINGE SUBQ SCH (13:07)
[2022-02-03] MEDS: methylPREDNISolone SUCCINATE 40 MG/ML VIAL IVP SCH ×2 (13:11→18:07)
[2022-02-03] MEDS: OSELTAMIVIR 75 MG CAPSULE PO SCH ×2 (13:35→21:26)
--- NOTE | 2022-02-03 14:05 | HISTORY & PHYSICAL EXAMINATION ---
Chief Complaint - Chief Complaint Chief Complaint: shortness of breath in a COPD patient History of Present Illness - Admitted From Admitted From:: Home via EMS - History Obtained From Records Reviewed: [facility] History obtained from: Dr. Macedo, and his Exam Limitations: Still short of breath, exhausted, confused - History of Present Illness HPI Comment/Other: 67-year-old white male who has COPD, diabetes, hypothyroidism, hypertension, peripheral vascular disease with angioplasty of his leg, and a recent episode of third-degree heart block associated with syncope was in October 2021 admission here. He was transferred to [place] for the third-degree heart block to get a pacemaker. It is the ER doctor's understanding that the patient was sent home without a pacer. when I asked his , she said they just didn't think he needed one. He was recently seen in the emergency room December 31, 2021 for dyspnea. He was given a 10-day taper of prednisone and a course of doxycycline. He has also been seen by TIMOTHY Sherwood of our wound clinic for a right LE cellulitis and wound. He is still smokiing about 5 cigs a day. Trying to cut back but his PCP cut down his nicotine patch from 21 to 14 mg and it was too soon. He needed the 21 mg back. He is brought in by ambulance because of severe shortness of breath. He has chronic shortness of breath because of his COPD but is not on oxygen. He can walk about 2-1/2 minutes before he has to stop. He has a few encounters for COPD exacerbation with admission here. Increasing cough, increasing wheezing, increasing phlegm worse over the last 2 to 3 days. When EMS got there he was 85% on room air and was placed on CPAP. When he got to our emergency room he was tachypneic, short of breath, with a temperature of 38.8, heart rate of 109, a blood pressure of 181/94, respirations 32 and he was 90% saturated on the CPAP. The emergency room provider said that "I thought I was going to have to intubate him" and he was put on BiPAP. That was able to get his O2 sats up to 98%. Blood pressure was 220/91 with that and a heart rate was 120. His chest x-ray shows bilateral effusions, atelectasis, and mild streaky opacities of both lung bases but no consolidation. His troponin was 42. His BNP 571. White cell count was elevated at 17.3 with 10 neutrophils, 5 lymphocytes. His viral panel is positive for influenza A by PCR. Initial blood gas on BiPAP of 100% FiO2 showed him to have a pH of 7.11, PCO2 109, PO2 360. Bicarb 35. Base excess 6. He received DuoNeb, steroids, antibiotics. His next blood gas 2 hours later showed a pH of 7.18, PCO2 90, PO2 182 on a 10 L oxygen mask. He was put back on BiPAP and his 9:35 AM blood gas showed a pH of 7.25, PCO2 74, PO2 149, bicarb 32, base excess 5. Case was discussed with the emergency room provider. I was brought up-to-date on the treatment in the ED. Provider is asking that I admit the patient and I will accept the patient in inpatient status and place him in the ICU. History - Past Medical History Cardiovascular: reports: Congestive heart failure (echo 10/2021), Hypertension, High cholesterol, Coronary artery disease (w ACB x 4 in [place], [place] 2018), Peripheral Vascular Disease (R leg plasty 10/2021), OR, Atrial fibrillation (s/p cardioversion), Valve disorder (aortic stenosis) Respiratory: reports: COPD, Emphysema, Sleep apnea, CPAP use Neuro: reports: Peripheral neuropathy Endocrine/Autoimmune: reports: HyPOthyroidism, Type 2 diabetes GI: reports: GERD : reports: None HEENT: reports: None Psych: reports: None Musculoskeletal: reports: Rheumatoid arthritis Derm: reports: None MRSA Hx?: No - Past Surgical History Cardiovascular: reports: CABG, Angioplasty - Family & Social History Family History Comment/Other: His father had liver cancer and brain tumor. He at the age of 58. His mother at the age of 90 from Alzheimer's. His sister had an OR at age 69. Living arrangement: At home Living Situation: With spouse/s.o., With family Social History Notes: The patient lives with his Second and daughter. they moved here 3 yrs ago from [place], [place] and bought his sister's house. He has 3 kids from first marriage. 1 child with his second . She has a child from a previous marriage. Has tried to quit smoking. He smoked for about 47 years, 1 pack/day. He denies alcohol or recreational substance use. 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 - Substance History Abuse: Recurrent use of substance despite neg consequences: Other (ciagarettes) - POLST Patient has POLST: No POLST Status: Full Code Meds/Allgy - Home Medications Home Medications: Ambulatory Orders Medication Instructions Recorded Confirmed Ascorbic Acid [Vitamin C] 1,000 mg PO DAILY 08/12/21 02/03/22 Aspirin [[place] Aspirin EC] 81 mg PO DAILY 08/12/21 02/03/22 Cholecalciferol (Vitamin D3) 250 mcg PO DAILY 08/12/21 02/03/22 [Vitamin D3] Docusate Sodium [Dulcolax Stool 100 mg PO BID 08/12/21 02/03/22 Softener] Ferrous Sulfate 325 mg PO MOWEFR 08/12/21 02/03/22 Furosemide [Lasix] 40 mg PO BID 08/12/21 02/03/22 Glimepiride [Amaryl] 4 mg PO DAILY 08/12/21 02/03/22 Levothyroxine Sodium 137 mcg PO DAILY 08/12/21 02/03/22 [Levothyroxine] Losartan Potassium 50 mg PO DAILY 08/12/21 02/03/22 sulfaSALAzine [Azulfidine] 500 mg PO DAILY 08/12/21 02/03/22 Albuterol Sulfate [Proair Hfa 2 puffs INH Q6H PRN 10/18/21 02/03/22 Inhaler] Dulaglutide [Trulicity] 1.5 mg SUBQ FR 10/18/21 02/03/22 Hydralazine HCl 75 mg PO BID 10/18/21 02/03/22 Insulin Glargine [Lantus Solostar] 25 units SUBQ DAILY 10/18/21 02/03/22 Montelukast [Singulair] 10 mg PO QPM 10/18/21 02/03/22 Rosuvastatin Calcium [Crestor] 40 mg PO QPM 10/18/21 02/03/22 Azithromycin 250 mg PO DAILY 12/26/21 02/03/22 Cyanocobalamin (Vitamin B-12) 1,000 mcg PO DAILY 12/26/21 02/03/22 [Vitamin B-12] Folic Acid 1 mg PO DAILY 12/26/21 02/03/22 Pantoprazole [Protonix] 40 mg PO DAILY 12/26/21 02/03/22 Insulin Aspart [NovoLOG] 8 - 20 units SUBQ TIDWM 01/10/22 02/03/22 Budesonide/Glycopyr/Formoterol 2 puffs INH DAILY 02/03/22 02/03/22 [Breztri Aerosphere Inhaler] Ipratropium [Atrovent] 0.5 mg INH BID 02/03/22 02/03/22 Metformin HCl [Metformin ER 1,000 mg PO BID 02/03/22 02/03/22 Gastric] Multivit-Min/FA/Lycopen/Lutein 1 each PO DAILY 02/03/22 02/03/22 [Centrum Silver Men Tablet] Nitroglycerin [Nitrostat] 0.4 mg SL Q5MIN PRN 02/03/22 02/03/22 Pramipexole Di-HCl [Mirapex] 2 mg PO QPM 02/03/22 02/03/22 predniSONE [Deltasone] 20 mg PO DAILY 02/03/22 02/03/22 - Allergies Allergies/Adverse Reactions: Allergies Allergy/AdvReac Type Severity Reaction Status Date / Time No Known Drug Allergies Allergy Verified 02/03/22 04:50 Review of Systems - Constitutional Constitutional: reports: Fatigue - Eyes Eyes: reports: Vision loss. denies: Pain, Irritation, Amaurosis - Ears, Nose & Throat Ears, Nose & Throat: reports: Hearing loss, Nasal obstruction, Nasal congestion, Postnasal drainage, Hoarseness - Cardiovascular Cariovascular: reports: Irregular heart rate, Edema, Syncope, Exertional dyspnea, Decr. exercise tolerance - Respiratory Respiratory: reports: Cough, Sputum production, Wheezing, SOB at rest (in the last few days), SOB with exertion (can only walk 2.5 minutes for months now), A pnea - Gastrointestinal Gastrointestinal: denies: Abdominal pain, Abdominal distention, Constipation, Diarrhea, Change in bowel habits - Genitourinary Genitourinary: reports: Nocturia. denies: Dysuria, Frequency, Urgency - Musculoskeletal Musculoskeletal: reports: Stiffness, Joint pain. denies: Muscle pain, Back pain - Integumentary Integumentary: denies: Rash, Pruritis, Lesions, Dryness - Neurological Neurological: denies: General weakness, Focal weakness, Headache - Psychiatric Psychiatric: denies: Depression, Anxiety, Suicidal - Endocrine Endocrine: denies: Polyuria, Polydypsia, Polyphagia - Hematologic/Lymphatic Hematologic/Lymphatic: denies: Anemia, Bruising, Petechiae Prior Level of Functionality: Mainly limited due to cardiovascular endurance deficit. He can walk about 2-1/2 minutes and that sit. Has to stop and rest. No durable medical equipment. Still drives a car. Still pays bills. Exam - Vital Signs Reviewed Vital Signs: Yes Vital Signs: Vital Signs x48h Temp Pulse Pulse Resp BP BP Pulse Ox 02/03/22 14:00 99 29 H 134/62 H 98 02/03/22 13:00 96 23 106/64 99 02/03/22 12:00 98 21 114/67 97 02/03/22 11:30 37.1 C 94 23 118/61 99 02/03/22 10:59 37.4 C 94 116/59 L 97 02/03/22 10:39 100 02/03/22 09:30 108 H 20 103/61 100 02/03/22 09:00 102 H 20 96/61 100 02/03/22 08:30 105 H 20 108/65 100 02/03/22 08:00 107 H 20 116/60 100 02/03/22 07:37 110 H 02/03/22 07:30 114 H 24 131/68 H 99 02/03/22 07:00 120 H 36 H 122/58 L 98 02/03/22 06:40 37.1 C 122 H 34 H 136/69 H 98 02/03/22 06:32 124 H 30 H 136/69 H 99 - Physical Exam General Appearance: positive: Moderate distress (On BiPAP. Still using accessory muscles, and gasping when he tries to complete a sentence), Other (92.5 kg, 5 foot 10 inches tall, bearded, obese) Eyes Bilateral: positive: PERRL, EOMI ENT: positive: Other (Rhinorrhea, coryza, phlegm) Neck: positive: Lymphadenopathy (R), Lymphadenopathy (L). negative: Stiff neck Respiratory: positive: Wheezes (Very faint), Rhonchi (Squeaking at mid lungs and bases), Other (Very quiet lung sounds. Almost no air movement, Large barrel chest. Using chest wall and belly muscles to try and inhale and exhale.) Cardiovascular: positive: Regular rate & rhythm, Extrasystoles Peripheral Pulses: positive: 1+ Abdomen: positive: Non-tender, Nml bowel sounds, No distention, Other (Large obese pannus). negative: Guarding, Rebound Skin: positive: Other (Shrunken tight skin over both lower extremities. Right worse than left. The right leg has redness from the knee down covering rae and calf. No ulcers.) Extremities: positive: Full ROM, No pedal edema, Other (Clubbing of fingernails and toenails. Nailbeds pale to white) Neurologic/Psychiatric: positive: Oriented x3, CN's nml (2-12), Motor nml Conclusion/Plan - Problem List (1) Acute respiratory failure with hypoxia and hypercapnia Conclusion/Plan: This patient is a full code. He and his have both reiterated that if he needs to be intubated they want that to happen. But at the same time they say try and hold off is much as possible because the last time he was intubated, it took a long time to get him off the vent.Respiratory failure is due to COPD exacerbation which in turn is due to influenza Plan: Inpatient status, ICU bed, BiP (2) COPD with exacerbation Conclusion/Plan: At home he is on long-acting bronchodilators, long-acting inhaled steroids, anticholinergics with Atrovent, and a daily prednisone tablet. He also takes Singulair. Unfortunately he is still smoking. This current exacerbation due to influenza A. When he has small bilateral pleural effusions on chest x-ray with atelectasis at the lung bases but no consolidation or evidence of bacterial pneumonia. He is on maintenance azithromycin. Plan: Continue azithromycin Perforomist and budesonide via inhalation DuoNeb at a fixed schedule of 4 times daily Albuterol as needed Solu-Medrol 40 mg IV 3 times daily Nicotine patch 14 mg (3) Influenza A Conclusion/Plan: IV fluids, supportive care with oxygen, Tamiflu (4) Diabetes mellitus Conclusion/Plan: We will be controlling him with Lantus, and sliding scale insulin. Most likely he will need a fixed dose of short acting insulin before meals when he can eat. His home medications of Amaryl, Trulicity, will not be resumed. His Lantus and NovoLog will be. Random glucose was 231. I would plan for aggressive IV fluid hydration but the patient has a history of congestive heart failure. An echo in October 2021 showed an ejection fraction of 60 to 65%. Right ventricle function that was normal. Mild aortic stenosis with a peak mean gradient of 38 mmHg / 18 mmHg. He had mild to moderate increase in left atrial volume index. Plan: Lantus 30 units at night 3 units with each meal Sliding scale with each meal Maximum fluids 2 L for now and then reassess A1c in the morning Qualifiers: Diabetes mellitus type: type 2 Diabetes mellitus ad terminal makeup operator insulin use: with ad terminal makeup operator use Diabetes mellitus complication status: with neurologic complications Diabetes mellitus complication detail: with polyneuropathy Qualified Code(s): E11.42 - Type 2 diabetes mellitus with diabetic polyneuropathy; Z79.4 - prison (current) use of insulin (5) Hypertension Conclusion/Plan: Resume Cozaar and hydralazine. Continue to monitor and change medications as needed to achieve goal Qualifiers: Hypertension type: primary hypertension Qualified Code(s): I10 - Essential (primary) hypertension (6) SUSHANT (obstructive sleep apnea) Conclusion/Plan: On home CPAP mask. Here he is on BiPAP and we will continue that. (7) PVD (peripheral vascular disease) Conclusion/Plan: On exam his skin is shiny, tight over his shins and feet. Right leg has redness and heat. But no open ulcers. Right now dorsalis pedis pulses are palpable over both feet. He was having significant leg pain before his angioplasty 3 months ago and that is improved. Continue aspirin and he will also be started on Lovenox for DVT prophylaxis. We will also continue Crestor. (8) Rheumatoid arthritis Conclusion/Plan: On Azulfidine and prednisone. Will resume Azulfidine, prednisone will be held off until switching from IV Solu-Medrol to p.o. steroids Qualifiers: Rheumatoid arthritis location: multiple sites Rheumatoid factor presence: with rheumatoid factor Qualified Code(s): M05.79 - Rheumatoid arthritis with rheumatoid factor of multiple sites without organ or systems involvement (9) Tobacco abuse Conclusion/Plan: nicotine patch (10) CKD (chronic kidney disease) stage 3, GFR 30-59 ml/min Conclusion/Plan: Hydrate for 2 to 3 L then stop and reassess. Avoid nephrotoxic agents Monitor daily Qualifiers: Chronic kidney disease stage 3 subtype: stage 3a (GFR 45-59) Qualified Code(s): N18.31 - Chronic kidney disease, stage 3a - Lab Results Lab results reviewed: Yes Gerry Bones: 02/03/22 04:54 02/03/22 04:54 - Diagnostic Imaging Results Diagnostic Imaging Results: positive: Final report reviewed Core Measures - Anticipated LOS I expect patient to be DC'd or transferred within 96 hours.: Yes - DVT/VTE - Prophylaxis VTE/DVT Prophylaxis med ordered at admit?: Yes
--- NOTE | 2022-02-03 15:09 | PHARMACY PROGRESS NOTE ---
- Best Possible Medication History Admit Date and Time: 02/03/22919 Processed by: Pharmacy Medication History completed: Yes Patient Interview: Pt unable to participate Secondary Source(s): Written medication list, Spouse/Significant other, Pharmacy records, Insurance records As the person ultimately responsible for medication therapy, providers are able to order a medication from an existing home medication list in [facility] via the "Reconcile Routine" prior to Confirmation of that medication by direct support professional. Such practice is discouraged except when the physician, in their clinical judgment, deems that a medical need exists for a medication without regard to previous use.
[2022-02-03] MEDS: IPRATROPIUM/ALBUTEROL 3 ML NEB INH SCH ×3 (15:37→19:00)
[2022-02-03] MEDS ORDERED: NITROGLYCERIN SL 0.4 MG TABLET SL PRN (15:38)
[2022-02-03] MEDS ORDERED: INSULIN LISPRO 300 UNIT/3 ML PEN SUBQ SCH (17:00)
[2022-02-03] MEDS: INSULIN LISPRO 300 UNIT/3 ML PEN SUBQ SCH ×3 (17:45→21:33)
[2022-02-03] MEDS ORDERED: ZINC OXIDE 20% OINT 30 GM TUBE TOP PRN (18:01)
[2022-02-03] MEDS: SODIUM CHLORIDE FLUSH 0.9% 10 ML SYRINGE IVP SCH (18:07)
[2022-02-03] MEDS: NICOTINE 21 MG PATCH TOP SCH (18:44)
[2022-02-03] MEDS: BUDESONIDE 0.5 MG/2 ML NEB INH SCH (19:00)
[2022-02-03] MEDS: FORMOTEROL FUMARATE NEB 20 MCG/2 ML INH SCH (19:00)
[2022-02-03] MEDS: INSULIN GLARGINE-YFGN 300 UNIT/3 ML PEN SUBQ SCH (21:23)
[2022-02-03] MEDS: PRAMIPEXOLE 0.25 MG TABLET PO SCH (21:23)
[2022-02-03] MEDS: MONTELUKAST 10 MG TABLET PO SCH (21:25)
[2022-02-03] MEDS: ATORVASTATIN 40 MG TABLET PO SCH (21:25)
[2022-02-03] MEDS: hydrALAZINE 25 MG TABLET PO SCH (21:27)
[2022-02-03] MEDS: ONDANSETRON 4 MG/2 ML VIAL IVP PRN (22:19)
[2022-02-04] MEDS ORDERED: METOCLOPRAMIDE 10 MG/2 ML VIAL IVP PRN (00:07)
--- NOTE | 2022-02-04 00:07 | PROVIDER PROGRESS NOTE ---
Hospitalist Cross-cover Note - Cross-Cover Note Cross-Cover Note: Called by RN stating "Pt admitted for Resp failure on Bipap, positive for influenza A. Pt has had 2 bouts of emesis, that have a coffee ground appearance totaling 300mL. Zofran has been ineffective for nausea at this time. Pt does have extensive cardiac history, of note prior to episodes pt goes into to 2nd degree type II briefly. Currently in sinus tach, 1 AVB w/prolonged QT, low 100's, BP stable 149/58. Would you like to test for occult blood? Could you please order alternative antiemetic? Thank you. by serviceuser , [place] at Feb 03, 2022, 11:10:43 P" Chart and EMR reivewed, have discussed with RN to have pacemaker pads applied to the patient with typel IIO second degree block avoid any AV connie blocking agents also may need transfer to higher level of care to discuss with am team Check CBC, reglan ordered also have ordered ativan prn. All of the above discussed in detail with Jm Krishnamurthy, have asked her to call ER MD?INTERMODAL TRUCK DRIVER if patient has any symptomatic bradycardia or syncope.
[2022-02-04] MEDS ORDERED: LORazepam 2 MG/ML VIAL IVP PRN (00:08)
[2022-02-04] MEDS ORDERED: PANTOPRAZOLE 80 MG in SODIUM CHLORIDE 0.9% 100ML 100 ML IV ONE ×2 (00:12→01:00)
[2022-02-04] MEDS ORDERED: PANTOPRAZOLE 40 MG VIAL IV STA (00:12)
[2022-02-04 00:27] LABS: BASOPHILS % (AUTO) 0.2 %; HGB - HEMOGLOBIN 10.2 g/dL (14.0-18.0); LYMPHOCYTES # (AUTO) 0.3 10^3/uL (1.5-3.5); LYMPHOCYTES % (AUTO) 3.4 %; MEAN CORPUSCULAR HEMOGLOBIN 26.6 pg (27.0-31.0); MEAN CORPUSCULAR HGB CONC 27.6 g/dL (32.0-36.0); MEAN CORPUSCULAR VOLUME 96.4 fL (80.0-94.0); MEAN PLATELET VOLUME 10.2 fL (7.4-11.4); MONOCYTES # (AUTO) 0.8 10^3/uL (0.0-1.0); NEUTROPHILS # (AUTO) 8.3 10^3/uL (1.5-6.6); NEUTROPHILS % (AUTO) 87.2 %; NRBC ABSOLUTE COUNT (AUTO) 0.02 x10^3/uL; NUCLEATED RED BLOOD CELLS AUTO 0.2 /100WBC; PLT - PLATELET COUNT 191 10^3/uL (130-450); RED BLOOD COUNT 3.84 10^6/uL (4.70-6.10); RED CELL DISTRIBUTION WIDTH 17.2 % (12.0-15.0); WHITE BLOOD COUNT 9.6 x10^3/uL (4.8-10.8)
[2022-02-04 00:36] LABS: SLIDE REVIEW? Indicated
[2022-02-04 00:47] LABS: PLATELET ESTIMATE, MANUAL NORMAL (130-450,000) (NORMAL); PLATELET MORPHOLOGY NORMAL APPEARANCE (NORMAL); RBC MORPHOLOGY (MULTIPLE) 1+ HYPOCHROMASIA (NORMAL); WBC MORPHOLOGY (MULTIPLE) NORMAL APPEARANCE (NORMAL)
[2022-02-04] MEDS: methylPREDNISolone SUCCINATE 40 MG/ML VIAL IVP SCH ×4 (01:05→17:16)
[2022-02-04] MEDS: SODIUM CHLORIDE FLUSH 0.9% 10 ML SYRINGE IVP SCH ×3 (01:06→17:16)
[2022-02-04 06:09] LABS: ABG BASE EXCESS -2.2 mmol/L (-2.0-3.0); ABG HCO3 28.6 mmol/L (22.0-26.0); ABG OXYGEN SATURATION 97 % (94-98); ABG PO2 117 mmHg (80-100); ABG TCO2 31.3 MMOL/L (21.0-29.0); ALLEN TEST POSITIVE
[2022-02-04 06:10] LABS: ABG MODE OF VENTILATION SYNCHRONOUS/TIMES; ABG RESPIRATORY RATE 20 b/min
[2022-02-04 06:11] LABS: ABG PCO2 87 mmHg (34-45); ABG PH 7.13 (7.35-7.45)
[2022-02-04] MEDS: LEVOTHYROXINE 25 MCG TABLET PO SCH (06:27)
[2022-02-04] MEDS: LEVOTHYROXINE 112 MCG TABLET PO SCH (06:28)
[2022-02-04] MEDS ORDERED: PANTOPRAZOLE 40 MG TABLET PO SCH (07:00)
[2022-02-04 07:42] LABS: BASOPHILS % (AUTO) 0.2 %; HCT - HEMATOCRIT 38.8 % (42.0-52.0); HGB - HEMOGLOBIN 10.7 g/dL (14.0-18.0); LYMPHOCYTES # (AUTO) 0.7 10^3/uL (1.5-3.5); LYMPHOCYTES % (AUTO) 5.2 %; MEAN CORPUSCULAR HEMOGLOBIN 27.1 pg (27.0-31.0); MEAN CORPUSCULAR HGB CONC 27.6 g/dL (32.0-36.0); MEAN CORPUSCULAR VOLUME 98.2 fL (80.0-94.0); MEAN PLATELET VOLUME 10.5 fL (7.4-11.4); MONOCYTES # (AUTO) 1.3 10^3/uL (0.0-1.0); MONOCYTES % (AUTO) 9.6 %; NEUTROPHILS # (AUTO) 11.5 10^3/uL (1.5-6.6); NEUTROPHILS % (AUTO) 83.8 %; NRBC ABSOLUTE COUNT (AUTO) 0.03 x10^3/uL; NUCLEATED RED BLOOD CELLS AUTO 0.2 /100WBC; PLT - PLATELET COUNT 204 10^3/uL (130-450); RED BLOOD COUNT 3.95 10^6/uL (4.70-6.10); RED CELL DISTRIBUTION WIDTH 17.1 % (12.0-15.0); WHITE BLOOD COUNT 13.8 x10^3/uL (4.8-10.8)
[2022-02-04 07:43] LABS: SLIDE REVIEW? Indicated
[2022-02-04 07:46] LABS: CALCIUM 8.9 mg/dL (8.5-10.3); CREATININE 1.5 mg/dL (0.6-1.2)
[2022-02-04] MEDS ORDERED: INSULIN REGULAR HUMAN 300 UNIT/3 ML VIAL IVP ONE (07:58)
[2022-02-04 08:02] LABS: PLATELET ESTIMATE, MANUAL NORMAL (130-450,000) (NORMAL); PLATELET MORPHOLOGY NORMAL APPEARANCE (NORMAL)
[2022-02-04] MEDS ORDERED: PHENYLEPHRINE 10 MG/ML VIAL ONE (08:05)
[2022-02-04] MEDS ORDERED: SUCCINYLCHOLINE 200 MG/10 ML VIAL ONE (08:05)
[2022-02-04] MEDS ORDERED: ePHEDrine 50 MG/ML VIAL IVP ONE (08:05)
[2022-02-04] MEDS ORDERED: ROCURONIUM 50 MG/5 ML VIAL ONE (08:05)
[2022-02-04] MEDS ORDERED: KETAMINE 500 MG/10 ML VIAL ONE (08:05)
[2022-02-04] MEDS ORDERED: PROPOFOL 200 MG/20 ML VIAL IVP ONE (08:05)
[2022-02-04] MEDS ORDERED: MIDAZOLAM 2 MG/2 ML VIAL ONE (08:05)
[2022-02-04] MEDS: SODIUM CHLORIDE 0.9% 1,000 ML IV SCH (08:18)
[2022-02-04] MEDS: PROPOFOL 1000 MG/100 ML 1,000 MG/100 ML BOTTLE IV SCH ×3 (08:47→22:52)
[2022-02-04] MEDS ORDERED: AZITHROMYCIN 250 MG TABLET PO SCH (09:00)
[2022-02-04 09:34] LABS: ABG OXYGEN SATURATION 98 % (94-98); ABG PO2 127 mmHg (80-100)
[2022-02-04 09:35] LABS: ABG MODE OF VENTILATION ASSIST/CONTROL; ABG RESPIRATORY RATE 22 b/min; ALLEN TEST POSITIVE
[2022-02-04] MEDS ORDERED: DOPamine 400 MG/250 ML 400 MG/250 ML BAG IV ONE (09:46)
--- NOTE | 2022-02-04 09:50 | XRAY Report ---
PROCEDURE: Chest for Line Placement INDICATIONS: s/p IJ and intubation TECHNIQUE: One view of the chest was acquired. COMPARISON: 02/03/2022 FINDINGS: Surgical changes and devices: Enteric tube terminates in the gastric fundus. Right central line term inates in the mid SVC. ET tube ET tube is difficult to visualize definitively, possibly in the lower trachea. Sternotomy wires and metallic hardware projecting over the midline chest. Lungs and pleura: Moderate diffuse lung disease and retrocardiac opacity. Probable effusions. Mediastinum: Enlarged heart again seen. Bones and chest wall: As above. IMPRESSION: Enteric tube terminates in the gastric fundus. Central line terminates in the mid SVC. ET tube is dif ficult to visualize, possibly in the lower trachea. Consider repeat radiography in a different projec tion. Diffuse lung disease again seen. Reviewed by: Yassine Lagunas MD on 02/04/2022 9:49 AM PST Approved by: Yassine Lagunas MD on 02/04/2022 9:49 AM PST Station ID: [id number]
--- NOTE | 2022-02-04 09:56 | ANESTHESIA PROCEDURE NOTE ---
Anesthesia Intubation Template - Intubation Blade: positive: Glidescope Tube: Size-enter number (8.0), Marked at teeth-enter cm (23) Route: Oral Placement Confirmation: End tidal CO2, Direct visualization, Bilateral breath sounds Complications: No complications
--- NOTE | 2022-02-04 09:58 | ANESTHESIA PROCEDURE NOTE ---
Anesth Central Line Template - Central Line Central Line Preparation: Consent Obtained, Time out completed, Ultrasound used, Sterile prep and drape Central line location: Right IJ Central line type: Triple lumen Central line catheter tip site resides: Superior vena cava (SVC) Central line aftercare: Chlorhexidine disc placed, Secured, Placement confirmed, No pneumothorax, No complications, Bundle checklist complete, Pt tolerated well
--- NOTE | 2022-02-04 10:02 | CONSULTATION NOTE ---
Consultation Report: consulted by Dr. Grande for emergency intubation and CVL placement due to respiratory failure on BiPap. Procedure explained to patient and verbal consent given. All appropriate equipment at the bedside. Pt sedated and intubated with 8.0 ETT, secured 23cm at the teeth using Glidescope #4. +BBS, +CO2, direct visualization of VC with Grade 1 view. After airway secured, R IJ CVL placed using US guidance. Sterile technique maintained. 7Fr 3-lumen placed with ease. All ports aspirated and flushed easily. Placement confirmed with port CXR. Pt tolerated well. NAC
[2022-02-04 10:03] LABS: ABG PCO2 82 mmHg (34-45)
[2022-02-04 10:22] LABS: CALCIUM 8.3 mg/dL (8.5-10.3); CREATININE 1.6 mg/dL (0.6-1.2); POTASSIUM 5.5 mmol/L (3.5-5.0)
[2022-02-04] MEDS: INSULIN LISPRO 300 UNIT/3 ML PEN SUBQ SCH ×6 (11:04→17:58)
[2022-02-04] MEDS: BUDESONIDE 0.5 MG/2 ML NEB INH SCH ×2 (11:23→18:59)
[2022-02-04] MEDS: FORMOTEROL FUMARATE NEB 20 MCG/2 ML INH SCH ×2 (11:24→18:59)
[2022-02-04] MEDS: IPRATROPIUM/ALBUTEROL 3 ML NEB INH SCH ×4 (11:24→18:59)
[2022-02-04 11:28] LABS: BILIRUBIN,URINE NEGATIVE (NEGATIVE); GLUCOSE, URINE (UA) NEGATIVE (NEGATIVE); KETONES,URINE (UA) NEGATIVE (NEGATIVE); LEUKOCYTE ESTERASE, URINE NEGATIVE (NEGATIVE); NITRITE,URINE NEGATIVE (NEGATIVE); OCCULT BLOOD,URINE NEGATIVE (NEGATIVE); PH,URINE 5.5 PH (5.0-7.5); PROTEIN,URINE 100 mg/dL (NEGATIVE); UROBILINOGEN,URINE 0.2 (NORMAL) E.U./dL (NORMAL)
--- NOTE | 2022-02-04 11:30 | PROVIDER PROGRESS NOTE ---
Subjective - Prog Note Date Prog Note Date: 02/04/22 Prog Note Time: 11:25 (A total of 50 minutes was spent in direct patient care.) - Subjective Pt reports feeling: Worse Subjective: This morning he was still using accessory muscles to breathe. Getting more and more fatigued. Amazingly still mentating well enough to answer questions. Last night had coffee-ground emesis, started on Protonix, and serial hemoglobin checks. Tachypneic with this even more than baseline. Remained on BiPAP with 35% FiO2. This morning continues to be tachypneic at 27-29, tachycardic at 111, 113. Lab analysis showed a potassium of 6. Creatinine worsening at 1.5. Blood gas on BiPAP was 7.13, PCO2 87, PO2 117, bicarb 28.6. Base excess -2.2. A total of 50 minutes was spent in direct patient care. I consulted with anesthesia, went over his gases, I consulted with respiratory. We all agreed that intubation in this patient who is failing and getting more exhausted was required. Patient was intubated. I have ordered: Protonix twice daily IV Regular insulin 10 units IV push for the potassium Propofol Vent care with Peridex, tidal volumes, etc. Respiratory cultures May UA with TRIM CARPENTER Restraints Changed from Accu-Cheks before meals to Accu-Cheks every 6 NG Chest x-ray shows continued enlarged heart, enteric tube terminates in the gastric fundus, central line terminates in the mid SVC, ET tube is difficult to visualize, possibly in the lower trachea, repeat chest x-ray in a different production, moderate lung disease and retrocardiac opacities, probable effusions. His pressures did come down to 100 systolic with this. But over the last 2 hours his systolic is back up to 139. I suspect auto PEEP and reduce right heart flow as we intubated him. He does not need pressors. has been informed by nursing. Current Medications - Current Medications Current Medications: Active Medications Acetaminophen (Acetaminophen 325 Mg Tablet) 650 mg PO Q4HR PRN PRN Reason: Pain 1 to 4, or Fever Albuterol (Albuterol Neb 2.5 Mg/3 Ml) 2.5 mg INH Q4HR PRN PRN Reason: Wheezing Albuterol/Ipratropium (Ipratropium/Albuterol 3 Ml Neb) 3 ml INH RTQID ADEEL Last Admin: 02/04/22 11:31 Dose: Not Given Ascorbic Acid (Ascorbic Acid 500 Mg Tablet) 1,000 mg PO DAILY [facility] Aspirin (Aspirin Ec 81 Mg Tablet) 81 mg PO DAILY [facility] Atorvastatin Calcium (Atorvastatin 40 Mg Tablet) 80 mg PO QPM [facility] Last Admin: 02/03/22 21:25 Dose: 80 mg Budesonide (Budesonide 0.5 Mg/2 Ml Neb) 0.5 mg INH RTBID [facility] Last Admin: 02/04/22 11:23 Dose: 0.5 mg Chlorhexidine Gluconate (Chlorhexidine Gluconate 15 Ml Udc) 15 ml PO BID [facility] Cholecalciferol (Cholecalciferol 5,000 Unit Capsule) 5,000 unit PO DAILY [facility] Cyanocobalamin (Cyanocobalamin 500 Mcg Tablet) 1,000 mcg PO DAILY [facility] Enoxaparin Sodium (Enoxaparin 40 Mg/0.4 Ml Syringe) 40 mg SUBQ DAILY [facility] Last Admin: 02/03/22 13:07 Dose: 40 mg Ferrous Sulfate (Ferrous Sulfate 325 Mg Tablet) 325 mg PO MOWEFR [facility] Folic Acid (Folic Acid 1 Mg Tablet) 1 mg PO DAILY [facility] Formoterol Fumarate (Formoterol Fumarate Neb 20 Mcg/2 Ml) 20 mcg INH RTBID [facility] Last Admin: 02/04/22 11:24 Dose: 20 mcg Hydralazine HCl (Hydralazine 25 Mg Tablet) 75 mg PO BID [facility] Last Admin: 02/03/22 21:27 Dose: 75 mg Sodium Chloride (Normal Saline 0.9%) 1,000 mls @ 100 mls/hr IV .Q10H [facility] Stop: 02/04/22 15:59 Last Admin: 02/04/22 08:18 Dose: 100 mls/hr Propofol (Diprivan) 1,000 mg in 100 mls @ 5.55 mls/hr IV .Q18H2M [facility]; Protocol Last Admin: 02/04/22 08:47 Dose: 10 mcg/kg/min, 5.55 mls/hr Azithromycin 500 mg/ Sodium (Chloride) 250 mls @ 250 mls/hr IV DAILY [facility] Stop: 02/06/22 09:59 Ceftriaxone Sodium 1 gm/ (Sodium Chloride) 100 mls @ 200 mls/hr IV DAILY [facility] Insulin Glargine-yfgn (Insulin Glargine-Yfgn 300 Unit/3 Ml Pen) 30 unit SUBQ QPM [facility] Last Admin: 02/03/22 21:23 Dose: 30 unit Insulin Human Lispro (Insulin Lispro 300 Unit/3 Ml Pen) 3 unit SUBQ TIDWM [facility]; Protocol Last Admin: 02/04/22 11:04 Dose: Not Given Insulin Human Lispro (Insulin Lispro 300 Unit/3 Ml Pen) 2 - 10 unit SUBQ 0800,1200,1700,2100 [facility]; Protocol Last Admin: 02/04/22 11:05 Dose: Not Given Levothyroxine Sodium (Levothyroxine 112 Mcg Tablet) 112 mcg PO QDAC [facility] Last Admin: 02/04/22 06:28 Dose: 112 mcg Levothyroxine Sodium (Levothyroxine 25 Mcg Tablet) 25 mcg PO QDAC [facility] Last Admin: 02/04/22 06:27 Dose: 25 mcg Lorazepam (Lorazepam 2 Mg/Ml Vial) 0.5 mg IVP Q2H PRN PRN Reason: Anxiety Last Admin: 02/04/22 10:02 Dose: 0.5 mg Losartan Potassium (Losartan 50 Mg Tablet) 50 mg PO DAILY [facility] Methylprednisolone (Methylprednisolone Succinate 40 Mg/Ml Vial) 40 mg IVP Q6HR [facility] Last Admin: 02/04/22 06:27 Dose: 40 mg Metoclopramide HCl (Metoclopramide 10 Mg/2 Ml Vial) 5 mg IVP Q6HR PRN PRN Reason: Nausea / Vomiting Montelukast Sodium (Montelukast 10 Mg Tablet) 10 mg PO QPM [facility] Last Admin: 02/03/22 21:25 Dose: 10 mg Morphine Sulfate (Morphine 2 Mg/Ml Carpuject) 2 mg IVP Q2HR PRN PRN Reason: PAIN Multi-Ingredient Ointment (Zinc Oxide 20% Oint 30 Gm Tube) 1 applic TOP PRN PRN PRN Reason: Skin Care Last Admin: 02/03/22 18:48 Dose: 1 applic Nicotine (Nicotine 21 Mg Patch) 1 patch TOP DAILY [facility] Last Admin: 02/03/22 18:44 Dose: 1 patch Nitroglycerin (Nitroglycerin Sl 0.4 Mg Tablet) 0.4 mg SL Q5MIN PRN PRN Reason: Chest Pain Ondansetron HCl (Ondansetron Odt 4 Mg Tablet) 4 mg TL Q6HR PRN PRN Reason: Nausea / Vomiting Ondansetron HCl (Ondansetron 4 Mg/2 Ml Vial) 4 mg IVP Q6HR PRN PRN Reason: Nausea / Vomiting Last Admin: 02/03/22 22:19 Dose: 4 mg Oseltamivir Phosphate (Oseltamivir 75 Mg Capsule) 75 mg PO BID [facility] Stop: 02/07/22 21:01 Last Admin: 02/03/22 21:26 Dose: 75 mg Oxycodone HCl (Oxycodone 5 Mg Tablet) 5 mg PO Q4HR PRN PRN Reason: Pain 5 to 7 Pantoprazole Sodium (Pantoprazole 40 Mg Vial) 40 mg IVP BID [facility] Pramipexole Dihydrochloride (Pramipexole 0.25 Mg Tablet) 2 mg PO QPM [facility] Last Admin: 02/03/22 21:23 Dose: 2 mg Sodium Chloride (Sodium Chloride Flush 0.9% 10 Ml Syringe) 10 ml IVP 0100,0900,1700 [facility] Last Admin: 02/04/22 01:06 Dose: 10 ml Sodium Chloride (Sodium Chloride Flush 0.9% 10 Ml Syringe) 10 ml IVP PRN PRN PRN Reason: NEEDED PER PROVIDER ORDERS Sulfasalazine (Sulfasalazine 500 Mg Tablet) 500 mg PO DAILY [facility] Ascorbic Acid [Vitamin C] 1,000 mg PO DAILY 08/12/21 Aspirin [[place] Aspirin EC] 81 mg PO DAILY 08/12/21 Cholecalciferol (Vitamin D3) [Vitamin D3] 250 mcg PO DAILY 08/12/21 Docusate Sodium [Dulcolax Stool Softener] 100 mg PO BID 08/12/21 Ferrous Sulfate 325 mg PO MOWEFR 08/12/21 Furosemide [Lasix] 40 mg PO BID 08/12/21 Glimepiride [Amaryl] 4 mg PO DAILY 08/12/21 Levothyroxine Sodium [Levothyroxine] 137 mcg PO DAILY 08/12/21 Losartan Potassium 50 mg PO DAILY 08/12/21 sulfaSALAzine [Azulfidine] 500 mg PO DAILY 08/12/21 Albuterol Sulfate [Proair Hfa Inhaler] 2 puffs INH Q6H PRN 10/18/21 Dulaglutide [Trulicity] 1.5 mg SUBQ FR 10/18/21 Hydralazine HCl 75 mg PO BID 10/18/21 Insulin Glargine [Lantus Solostar] 25 units SUBQ DAILY 10/18/21 Montelukast [Singulair] 10 mg PO QPM 10/18/21 Rosuvastatin Calcium [Crestor] 40 mg PO QPM 10/18/21 Azithromycin 250 mg PO DAILY 12/26/21 Cyanocobalamin (Vitamin B-12) [Vitamin B-12] 1,000 mcg PO DAILY 12/26/21 Folic Acid 1 mg PO DAILY 12/26/21 Pantoprazole [Protonix] 40 mg PO DAILY 12/26/21 Insulin Aspart [NovoLOG] 8 - 20 units SUBQ TIDWM 01/10/22 Budesonide/Glycopyr/Formoterol [Breztri Aerosphere Inhaler] 2 puffs INH DAILY 02/03/22 Ipratropium [Atrovent] 0.5 mg INH BID 02/03/22 Metformin HCl [Metformin ER Gastric] 1,000 mg PO BID 02/03/22 Multivit-Min/FA/Lycopen/Lutein [Centrum Silver Men Tablet] 1 each PO DAILY 02/03/22 Nitroglycerin [Nitrostat] 0.4 mg SL Q5MIN PRN 02/03/22 Pramipexole Di-HCl [Mirapex] 2 mg PO QPM 02/03/22 predniSONE [Deltasone] 20 mg PO DAILY 02/03/22 Objective - Vital Signs/Intake & Output Reviewed Vital Signs: Yes Vital Signs: Vital Signs Temp Pulse Pulse Resp BP Pulse Ox 02/04/22 11:00 38 C H 82 24 139/68 H 99 02/04/22 10:00 37.7 C 94 24 114/60 99 02/04/22 09:00 38.0 C H 104 H 22 100/55 L 97 02/04/22 08:20 108 H 02/04/22 08:00 37.8 C 111 H 26 H 168/72 H 100 Intake & Output: Intake & Output 02/01/22 02/02/22 02/03/22 02/04/22 23:59 23:59 23:59 23:59 Intake Total 1218.333 989.167 Output Total 1525 300 Balance -306.667 689.167 - Objective General Appearance: positive: Other (This morning, tiring, getting encephalopathic, using accessory muscles with abdominal wall being recruited to breathe, slightly diaphoretic. Now intubated on a propofol drip.) Eyes Bilateral: positive: PERRL, EOMI ENT: positive: No signs of dehydration Neck: positive: No JVD. negative: Stiff neck Respiratory: positive: Wheezes, Rhonchi, Other (Sputum culture submitted when he was intubated. Barrel chest) Cardiovascular: positive: Regular rate & rhythm, Systolic murmur. negative: Gallop/S4 Abdomen: positive: Non-tender, No organomegaly, Nml bowel sounds, No distention, Other (Large abdominal pannus. Bruising seen along the umbilicus to the left) Skin: positive: Warm, Dry Extremities: positive: Other (The redness of his right rae and calf has faded a bit from yesterday. You can see where his skin is now shrunken and wrinkled. I did not think he had edema yesterday but he must for the skin to be so wrinkled on the right leg. But no open lesions. Good dorsalis pedis pulses both feet.) Neurologic/Psychiatric: positive: Oriented x3 (Before intubation), CN's nml (2-1 2) (Before intubation), Motor nml (Before intubation) - Lab Results Fish Bones: 02/04/22 07:23 02/04/22 09:55 Other Labs: Lab Results x24hrs 02/04/22 02/04/22 02/04/22 Range/Units 09:55 09:00 07:23 WBC (4.8-10.8) x10^3/uL RBC (4.70-6.10) 10^6/uL Hgb (14.0-18.0) g/dL Hct (42.0-52.0) % MCV (80.0-94.0) fL MCH (27.0-31.0) pg MCHC (32.0-36.0) g/dL RDW (12.0-15.0) % Plt Count (130-450) 10^3/uL MPV (7.4-11.4) fL Neut # (Auto) (1.5-6.6) 10^3/uL Lymph # (Auto) (1.5-3.5) 10^3/uL Tucker # (Auto) (0.0-1.0) 10^3/uL Eos # (Auto) (0.0-0.7) 10^3/uL Baso # (Auto) (0.0-0.1) 10^3/uL Absolute Nucleated RBC x10^3/uL Nucleated RBC % /100WBC Manual Slide Review WBC Morphology (NORMAL) Platelet Estimate (NORMAL) Platelet Morphology (NORMAL) RBC Morph Micro Appear (NORMAL) Bld Gas Analysis Time 0914 Sample Site RIGHT RADIAL ABG pH 7.20 L* (7.35-7.45) ABG pCO2 82 H* (34-45) mmHg ABG pO2 127 H (80-100) mmHg ABG HCO3 32.0 H (22.0-26.0) mmol/L ABG Total CO2 34.0 H (21.0-29.0) MMOL/L ABG O2 Saturation 98 (94-98) % ABG Base Excess 4.0 H (-2.0-3.0) mmol/L Roney Test POSITIVE Respiration Rate 22 b/min O2 Delivery Device VENTILATOR Vent Mode ASSIST/CONTROL FiO2 50.00 Tidal Volume 450 mL PEEP 5 cmH2O Pressure Support Vent cmH2O Sodium 142 140 (135-145) mmol/L Potassium 5.5 H 6.0 H* (3.5-5.0) mmol/L Chloride 108 104 (101-111) mmol/L Carbon Dioxide 30 30 (21-32) mmol/L Anion Gap 4.0 L 6.0 (6-13) BUN 39 H 36 H (6-20) mg/dL Creatinine 1.6 H 1.5 H (0.6-1.2) mg/dL Estimated GFR (MDRD) 44 L 47 L (>89) Glucose 172 H 275 H (70-100) mg/dL Calcium 8.3 L 8.9 (8.5-10.3) mg/dL Nasal Screen MRSA (PCR) (NEGATIVE) 02/04/22 02/04/22 02/04/22 Range/Units 07:23 05:55 00:15 WBC 13.8 H 9.6 (4.8-10.8) x10^3/uL RBC 3.95 L 3.84 L (4.70-6.10) 10^6/uL Hgb 10.7 L 10.2 L (14.0-18.0) g/dL Hct 38.8 L 37.0 L (42.0-52.0) % MCV 98.2 H 96.4 H (80.0-94.0) fL MCH 27.1 26.6 L (27.0-31.0) pg MCHC 27.6 L 27.6 L (32.0-36.0) g/dL RDW 17.1 H 17.2 H (12.0-15.0) % Plt Count 204 191 (130-450) 10^3/uL MPV 10.5 10.2 (7.4-11.4) fL Neut # (Auto) 11.5 H 8.3 H (1.5-6.6) 10^3/uL Lymph # (Auto) 0.7 L 0.3 L (1.5-3.5) 10^3/uL Tucker # (Auto) 1.3 H 0.8 (0.0-1.0) 10^3/uL Eos # (Auto) 0.0 0.0 (0.0-0.7) 10^3/uL Baso # (Auto) 0.0 0.0 (0.0-0.1) 10^3/uL Absolute Nucleated RBC 0.03 0.02 x10^3/uL Nucleated RBC % 0.2 0.2 /100WBC Manual Slide Review Indicated Indicated WBC Morphology NORMAL APPEARANCE (NORMAL) Platelet Estimate NORMAL (130-450,000) NORMAL (130-450,000) (NORMAL) Platelet Morphology NORMAL APPEARANCE NORMAL APPEARANCE (NORMAL) RBC Morph Micro Appear 1+ HYPOCHROMASIA 1+ HYPOCHROMASIA (NORMAL) Bld Gas Analysis Time 0605 Sample Site RIGHT RADIAL ABG pH 7.13 L* (7.35-7.45) ABG pCO2 87 H* (34-45) mmHg ABG pO2 117 H (80-100) mmHg ABG HCO3 28.6 H (22.0-26.0) mmol/L ABG Total CO2 31.3 H (21.0-29.0) MMOL/L ABG O2 Saturation 97 (94-98) % ABG Base Excess -2.2 L (-2.0-3.0) mmol/L Roney Test POSITIVE Respiration Rate 20 b/min O2 Delivery Device BiPAP Vent Mode SYNCHRONOUS/TIMES FiO2 50.00 Tidal Volume mL PEEP cmH2O Pressure Support Vent 11 cmH2O Sodium (135-145) mmol/L Potassium (3.5-5.0) mmol/L Chloride (101-111) mmol/L Carbon Dioxide (21-32) mmol/L Anion Gap (6-13) BUN (6-20) mg/dL Creatinine (0.6-1.2) mg/dL Estimated GFR (MDRD) (>89) Glucose (70-100) mg/dL Calcium (8.5-10.3) mg/dL Nasal Screen MRSA (PCR) (NEGATIVE) 02/03/22 Range/Units 13:33 WBC (4.8-10.8) x10^3/uL RBC (4.70-6.10) 10^6/uL Hgb (14.0-18.0) g/dL Hct (42.0-52.0) % MCV (80.0-94.0) fL MCH (27.0-31.0) pg MCHC (32.0-36.0) g/dL RDW (12.0-15.0) % Plt Count (130-450) 10^3/uL MPV (7.4-11.4) fL Neut # (Auto) (1.5-6.6) 10^3/uL Lymph # (Auto) (1.5-3.5) 10^3/uL Tucker # (Auto) (0.0-1.0) 10^3/uL Eos # (Auto) (0.0-0.7) 10^3/uL Baso # (Auto) (0.0-0.1) 10^3/uL Absolute Nucleated RBC x10^3/uL Nucleated RBC % /100WBC Manual Slide Review WBC Morphology (NORMAL) Platelet Estimate (NORMAL) Platelet Morphology (NORMAL) RBC Morph Micro Appear (NORMAL) Bld Gas Analysis Time Sample Site ABG pH (7.35-7.45) ABG pCO2 (34-45) mmHg ABG pO2 (80-100) mmHg ABG HCO3 (22.0-26.0) mmol/L ABG Total CO2 (21.0-29.0) MMOL/L ABG O2 Saturation (94-98) % ABG Base Excess (-2.0-3.0) mmol/L Roney Test Respiration Rate b/min O2 Delivery Device Vent Mode FiO2 Tidal Volume mL PEEP cmH2O Pressure Support Vent cmH2O Sodium (135-145) mmol/L Potassium (3.5-5.0) mmol/L Chloride (101-111) mmol/L Carbon Dioxide (21-32) mmol/L Anion Gap (6-13) BUN (6-20) mg/dL Creatinine (0.6-1.2) mg/dL Estimated GFR (MDRD) (>89) Glucose (70-100) mg/dL Calcium (8.5-10.3) mg/dL Nasal Screen MRSA (PCR) NEGATIVE (NEGATIVE) Assessment/Plan - Problem List (1) Coffee ground emesis Impression: This is a gentleman who smokes, has peripheral vascular disease, and may be at risk for GI bleed because he takes an aspirin every day. He does take Protonix at home. He also takes vitamin C. Plan: Protonix 40 mg IV push twice daily ordered Serial hemograms for the next hemogram at 1:00 Transfuse as needed If he drops his hemoglobin, has melanotic stool, I will consider general surgery consult for EGD. At this time we will just manage medically. (2) Acute respiratory failure with hypoxia and hypercapnia Impression: Overnight this patient has not progressed in spite of maximal medical therapy with steroids, antibiotics, Tamiflu. He continued to be in respiratory failure with hypercapnea and is getting worse. My suspicion was that he was going to have a respiratory arrest as he was clearly failing with muscle strength, mentation, and blood gases getting more acidotic. As such, under controlled conditions, we electively intubated him. He still is decisional with his medical care and he was amenable to being intubated. He just wanted the nurse to call his to update her. He is a full code. Troponins were flat on admission. EKG had no acute STTW changes. Plan: Continue ICU now intubated Ventilator protocol ordered Recheck blood gas in the next 30 minutes and adjust vent as needed (3) COPD with exacerbation Conclusion/Plan: At home he is on long-acting bronchodilators, long-acting inhaled steroids, anticholinergics with Atrovent, and a daily prednisone tablet. He also takes Singulair. Unfortunately he is still smoking. This current exacerbation due to influenza A. When he has small bilateral pleural effusions on chest x-ray with atelectasis at the lung bases but no consolidation or evidence of bacterial pneumonia. He is on maintenance azithromycin. Plan:Now intubated Continue previous therapy of azithromycin, Perforomist and budesonide via inhal ation, DuoNeb at a fixed schedule of 4 times daily, Albuterol as needed, Solu- Medrol 40 mg IV 3 times daily, Nicotine patch 14 mg Add Rocephin (4) Influenza A Conclusion/Plan: IV fluids, supportive care with oxygen, Tamiflu For 5 days. Now on dose 04/19 (5) Diabetes mellitus Conclusion/Plan: We will be controlling him with Lantus, and sliding scale insulin. His home medications of Amaryl, Trulicity have not been resumed. His Lantus and NovoLog have been, but I will switch to q6h and not achs since he is on vent. I would plan for aggressive IV fluid hydration but the patient has a history of congestive heart failure. An echo in October 2021 showed an ejection fraction of 60 to 65%. Right ventricle function that was normal. Mild aortic stenosis with a peak mean gradient of 38 mmHg / 18 mmHg. He had mild to moderate increase in left atrial volume index. Glucose last night was 320, 346. Given Lantus last night plus SS and this morning he is 241, and by 11:45 he is 168. Plan: Start tube feeds with nutrionist doing orders. Lantus 30 units at night 3 units with each meal Will be stopped. Sliding scale Will be changed to every 6 hours A1c ordered and pending. IVF continue Qualifiers: Diabetes mellitus type: type 2 Diabetes mellitus senior living insulin use: with technician support engineer use Diabetes mellitus complication status: with neurologic complications Diabetes mellitus complication detail: with polyneuropathy Qualified Code(s): E11.42 - Type 2 diabetes mellitus with diabetic polyneuropathy; Z79.4 - detention (current) use of insulin (6) Hypertension Conclusion/Plan: Resumed Cozaar and hydralazine but now change to per NG. Continue to monitor and change medications as needed to achieve goal Qualifiers: Hypertension type: primary hypertension Qualified Code(s): I10 - Essential (primary) hypertension (7) SUSHANT (obstructive sleep apnea) Conclusion/Plan: On home CPAP mask. Here he failed Bipap is intubted this am (8) PVD (peripheral vascular disease) Conclusion/Plan: On exam his skin is shiny, tight over his shins and feet. Right leg has redness and heat. But no open ulcers. Right now dorsalis pedis pulses are palpable over both feet. He was having significant leg pain before his angioplasty 3 months ago and that is improved. I have Continued aspirin (now NG) and he is on Lovenox for DVT prophylaxis. We will also continue Crestor via NG. (9) Rheumatoid arthritis Conclusion/Plan: On Azulfidine and prednisone. I had resumed Azulfidine, but prednisone will be held off until switching from IV Solu-Medrol to p.o. steroids. today I will hold azulfidine. Qualifiers: Rheumatoid arthritis location: multiple sites Rheumatoid factor presence: with rheumatoid factor Qualified Code(s): M05.79 - Rheumatoid arthritis with rheumatoid factor of multiple sites without organ or systems involvement (10) Tobacco abuse Conclusion/Plan: nicotine patch ordered 02/03 (11) CKD (chronic kidney disease) stage 3, GFR 30-59 ml/min Conclusion/Plan: He now has significant hyperkalemia this am. given 10 units of IVP regular insulin when his glucose was 237. Glucose dropped to 168. Continue IVF Recheck K now that had insulin Avoid nephrotoxic agents Creat 1.3>1.5>1.6 with IVF and no hypotension that was significant. Monitor daily Qualifiers: Chronic kidney disease stage 3 subtype: stage 3a (GFR 45-59) Qualified Code(s): N18.31 - Chronic kidney disease, stage 3a
[2022-02-04 11:33] LABS: ESTIMATED AVERAGE GLUCOSE 226 mg/dL (70-100); HEMOGLOBIN A1c% 9.5 % (4.27-6.07)
[2022-02-04 11:56] LABS: CLARITY,URINE CLEAR (CLEAR)
[2022-02-04 11:57] LABS: BACTERIA,URINE None Seen /HPF (None Seen); CASTS, URINE 3-5 WBC Casts /LPF; RBC,URINE 0-5 /HPF (0-5); SQUAMOUS EPITHELIAL CELL,UR RARE Squamous (<= Few)
[2022-02-04 11:58] LABS: MUCUS,URINE Few Strands
[2022-02-04] MEDS ORDERED: FERROUS SULFATE 325 MG TABLET PO SCH (12:00)
[2022-02-04 12:23] LABS: ABG HCO3 28.4 mmol/L (22.0-26.0); ABG PCO2 43 mmHg (34-45); ABG PH 7.44 (7.35-7.45); ABG PO2 145 mmHg (80-100)
[2022-02-04 12:24] LABS: ABG BASE EXCESS 3.9 mmol/L (-2.0-3.0); ABG MODE OF VENTILATION ASSIST/CONTROL; ABG OXYGEN SATURATION 99 % (94-98); ABG RESPIRATORY RATE 24 b/min; ABG TCO2 29.7 MMOL/L (21.0-29.0); ALLEN TEST POSITIVE
[2022-02-04] MEDS: ASCORBIC ACID 500 MG TABLET PO SCH (12:57)
[2022-02-04] MEDS: ASPIRIN EC 81 MG TABLET PO SCH (12:57)
[2022-02-04] MEDS: CHOLECALCIFEROL 5,000 UNIT CAPSULE PO SCH (12:57)
[2022-02-04] MEDS: ENOXAPARIN 40 MG/0.4 ML SYRINGE SUBQ SCH (12:58)
[2022-02-04] MEDS: CYANOCOBALAMIN 500 MCG TABLET PO SCH (12:58)
[2022-02-04] MEDS: LOSARTAN 50 MG TABLET PO SCH (12:59)
[2022-02-04] MEDS: FOLIC ACID 1 MG TABLET PO SCH (12:59)
[2022-02-04] MEDS: NICOTINE 21 MG PATCH TOP SCH (12:59)
[2022-02-04] MEDS: hydrALAZINE 25 MG TABLET PO SCH ×2 (12:59→21:02)
[2022-02-04] MEDS: sulfaSALAzine 500 MG TABLET PO SCH (13:00)
[2022-02-04] MEDS: OSELTAMIVIR 75 MG CAPSULE PO SCH ×2 (13:00→21:01)
[2022-02-04] MEDS: cefTRIAXone 1 GM in SODIUM CHLORIDE 0.9% MINIBAG 100 ML IV SCH (13:01)
[2022-02-04] MEDS: CHLORHEXIDINE GLUCONATE 15 ML UDC PO SCH ×2 (13:02→21:01)
[2022-02-04] MEDS: MORPHINE 2 MG/ML CARPUJECT IVP PRN ×2 (13:08→17:16)
[2022-02-04 13:25] LABS: HCT - HEMATOCRIT 31.3 % (42.0-52.0); HGB - HEMOGLOBIN 8.8 g/dL (14.0-18.0); MEAN CORPUSCULAR HGB CONC 28.1 g/dL (32.0-36.0); MEAN PLATELET VOLUME 10.5 fL (7.4-11.4); RED BLOOD COUNT 3.26 10^6/uL (4.70-6.10); RED CELL DISTRIBUTION WIDTH 16.9 % (12.0-15.0)
[2022-02-04] MEDS: AZITHROMYCIN INJ 500 MG in SODIUM CHLORIDE 0.9% 250 ML IV SCH (13:48)
[2022-02-04] MEDS ORDERED: SODIUM CHLORIDE 0.9% 1,000 ML IV ONE (20:24)
[2022-02-04] MEDS: MONTELUKAST 10 MG TABLET PO SCH ×2 (21:00→21:30)
[2022-02-04] MEDS: SODIUM CHLORIDE 0.9% 500 ML IV PRN (21:00)
[2022-02-04] MEDS: ATORVASTATIN 40 MG TABLET PO SCH (21:01)
[2022-02-04] MEDS: PANTOPRAZOLE 40 MG VIAL IVP SCH (21:01)
[2022-02-04] MEDS: INSULIN GLARGINE-YFGN 300 UNIT/3 ML PEN SUBQ SCH (21:03)
[2022-02-04] MEDS: PRAMIPEXOLE 0.25 MG TABLET PO SCH (21:29)
[2022-02-04] MEDS ORDERED: MIN OIL/DIMETHICON/COCONUT OIL 92 GM TUBE TOP PRN (22:48)
[2022-02-05] MEDS: methylPREDNISolone SUCCINATE 40 MG/ML VIAL IVP SCH ×4 (00:33→18:01)
[2022-02-05] MEDS: INSULIN REGULAR HUMAN 300 UNIT/3 ML VIAL SUBQ SCH ×4 (00:33→18:00)
[2022-02-05] MEDS: SODIUM CHLORIDE FLUSH 0.9% 10 ML SYRINGE IVP SCH ×3 (00:48→18:00)
[2022-02-05] MEDS: PROPOFOL 1000 MG/100 ML 1,000 MG/100 ML BOTTLE IV SCH ×4 (02:54→20:25)
[2022-02-05] MEDS: SODIUM CHLORIDE FLUSH 0.9% 10 ML SYRINGE IVP PRN ×2 (05:43)
[2022-02-05 05:59] LABS: HCT - HEMATOCRIT 30.6 % (42.0-52.0); HGB - HEMOGLOBIN 8.9 g/dL (14.0-18.0); LYMPHOCYTES # (AUTO) 0.6 10^3/uL (1.5-3.5); LYMPHOCYTES % (AUTO) 8.4 %; MEAN CORPUSCULAR HEMOGLOBIN 27.1 pg (27.0-31.0); MEAN CORPUSCULAR HGB CONC 29.1 g/dL (32.0-36.0); MEAN CORPUSCULAR VOLUME 93.3 fL (80.0-94.0); MONOCYTES # (AUTO) 0.6 10^3/uL (0.0-1.0); MONOCYTES % (AUTO) 8.3 %; NEUTROPHILS # (AUTO) 5.5 10^3/uL (1.5-6.6); NEUTROPHILS % (AUTO) 82.8 %; PLT - PLATELET COUNT 154 10^3/uL (130-450); RED BLOOD COUNT 3.28 10^6/uL (4.70-6.10); RED CELL DISTRIBUTION WIDTH 17.3 % (12.0-15.0); WHITE BLOOD COUNT 6.7 x10^3/uL (4.8-10.8)
[2022-02-05 06:02] LABS: CALCIUM, IONIZED 1.17 mmol/L (1.15-1.33); VBG PH 7.423
[2022-02-05 06:08] LABS: CALCIUM 8.6 mg/dL (8.5-10.3); CREATININE 1.4 mg/dL (0.6-1.2); POTASSIUM 4.7 mmol/L (3.5-5.0)
[2022-02-05 06:15] LABS: MAGNESIUM 2.5 mg/dL (1.7-2.8); PHOSPHORUS 2.6 mg/dL (2.5-4.6)
[2022-02-05] MEDS: LEVOTHYROXINE 25 MCG TABLET PO SCH (06:30)
[2022-02-05] MEDS: LEVOTHYROXINE 112 MCG TABLET PO SCH (06:30)
[2022-02-05] MEDS: BUDESONIDE 0.5 MG/2 ML NEB INH SCH ×2 (07:31→20:00)
[2022-02-05] MEDS: FORMOTEROL FUMARATE NEB 20 MCG/2 ML INH SCH ×2 (07:31→20:00)
[2022-02-05] MEDS: IPRATROPIUM/ALBUTEROL 3 ML NEB INH SCH ×3 (07:32→20:00)
[2022-02-05 08:29] LABS: ABG BASE EXCESS 4.2 mmol/L (-2.0-3.0); ABG OXYGEN SATURATION 97 % (94-98); ABG PCO2 45 mmHg (34-45); ABG PH 7.43 (7.35-7.45); ABG PO2 88 mmHg (80-100); ABG TCO2 30.4 MMOL/L (21.0-29.0)
[2022-02-05 08:30] LABS: ABG MODE OF VENTILATION ASSIST/CONTROL; ABG RESPIRATORY RATE 20 b/min; ALLEN TEST POSITIVE
[2022-02-05] MEDS: FOLIC ACID 1 MG TABLET PO SCH (08:45)
[2022-02-05] MEDS: ASCORBIC ACID 500 MG TABLET PO SCH (08:45)
[2022-02-05] MEDS: CYANOCOBALAMIN 500 MCG TABLET PO SCH (08:46)
[2022-02-05] MEDS: cefTRIAXone 1 GM in SODIUM CHLORIDE 0.9% MINIBAG 100 ML IV SCH (08:46)
[2022-02-05] MEDS: ASPIRIN EC 81 MG TABLET PO SCH (08:46)
[2022-02-05] MEDS: AZITHROMYCIN INJ 500 MG in SODIUM CHLORIDE 0.9% 250 ML IV SCH (08:46)
[2022-02-05] MEDS: OSELTAMIVIR 75 MG CAPSULE PO SCH ×2 (08:46→21:08)
[2022-02-05] MEDS: CHLORHEXIDINE GLUCONATE 15 ML UDC PO SCH ×2 (08:47→21:08)
[2022-02-05] MEDS: CHOLECALCIFEROL 5,000 UNIT CAPSULE PO SCH (08:47)
[2022-02-05] MEDS: ENOXAPARIN 40 MG/0.4 ML SYRINGE SUBQ SCH (08:47)
[2022-02-05] MEDS: NICOTINE 21 MG PATCH TOP SCH (08:48)
[2022-02-05] MEDS: sulfaSALAzine 500 MG TABLET PO SCH (08:48)
[2022-02-05] MEDS: hydrALAZINE 25 MG TABLET PO SCH ×2 (08:48→21:07)
[2022-02-05] MEDS: LOSARTAN 50 MG TABLET PO SCH (08:48)
[2022-02-05] MEDS: MORPHINE 2 MG/ML CARPUJECT IVP PRN ×2 (08:49→15:27)
[2022-02-05] MEDS ORDERED: ACETAMINOPHEN 160 MG/5 ML SUSP UDC NG PRN (09:07)
[2022-02-05] MEDS ORDERED: CYANOCOBALAMIN 500 MCG TABLET NG SCH (09:11)
[2022-02-05] MEDS: PANTOPRAZOLE 40 MG VIAL IVP SCH ×2 (09:18→21:08)
--- NOTE | 2022-02-05 12:10 | PROVIDER PROGRESS NOTE ---
Subjective - Subjective Pt reports feeling: No change (Intubated and sedated on IV propofol) Objective - Vital Signs/Intake & Output Vital Signs: Vital Signs Temp Pulse Pulse Resp BP Pulse Ox 02/05/22 11:00 70 72 20 139/59 H 98 02/05/22 10:30 66 20 02/05/22 10:00 80 20 134/58 H 98 02/05/22 09:07 82 02/05/22 09:00 36.7 C 81 20 135/60 H 98 02/05/22 08:00 36.7 C 67 20 140/57 H 98 Intake & Output: Intake & Output 02/02/22 02/03/22 02/04/22 02/05/22 23:59 23:59 23:59 23:59 Intake Total 7379.691 8869.725 228.347 Output Total 1525 1963 835 Balance -306.667 736.725 -606.653 - Objective General Appearance: positive: Other (sedated, on vent) Eyes Bilateral: positive: Normal inspection ENT: positive: Other (Cannot visualize) Respiratory: positive: No respiratory distress (on the vent and sedated) Cardiovascular: positive: Irregularly irregular Skin: positive: Warm, Dry Extremities: positive: No pedal edema Neurologic/Psychiatric: positive: Other (Sedated) - Lab Results Fish Bones: 02/05/22 05:45 02/05/22 05:45 Other Labs: Lab Results x24hrs 02/05/22 02/05/22 02/05/22 Range/Units 08:15 05:52 05:45 WBC (4.8-10.8) x10^3/uL RBC (4.70-6.10) 10^6/uL Hgb (14.0-18.0) g/dL Hct (42.0-52.0) % MCV (80.0-94.0) fL MCH (27.0-31.0) pg MCHC (32.0-36.0) g/dL RDW (12.0-15.0) % Plt Count (130-450) 10^3/uL MPV (7.4-11.4) fL Neut # (Auto) (1.5-6.6) 10^3/uL Lymph # (Auto) (1.5-3.5) 10^3/uL [place] # (Auto) (0.0-1.0) 10^3/uL Eos # (Auto) (0.0-0.7) 10^3/uL Baso # (Auto) (0.0-0.1) 10^3/uL Absolute Nucleated RBC x10^3/uL Nucleated RBC % /100WBC Bld Gas Analysis Time 0826 Sample Site RIGHT RADIAL ABG pH 7.43 (7.35-7.45) ABG pCO2 45 (34-45) mmHg ABG pO2 88 (80-100) mmHg ABG HCO3 29.0 H (22.0-26.0) mmol/L ABG Total CO2 30.4 H (21.0-29.0) MMOL/L ABG O2 Saturation 97 (94-98) % ABG Base Excess 4.2 H (-2.0-3.0) mmol/L Roney Test POSITIVE VBG pH 7.423 Ionized Calcium 1.17 (1.15-1.33) mmol/L Respiration Rate 20 b/min O2 Delivery Device VENTILATOR Vent Mode ASSIST/CONTROL FiO2 45.00 Tidal Volume 500 mL PEEP 7 cmH2O Sodium (135-145) mmol/L Potassium (3.5-5.0) mmol/L Chloride (101-111) mmol/L Carbon Dioxide (21-32) mmol/L Anion Gap (6-13) BUN (6-20) mg/dL Creatinine (0.6-1.2) mg/dL Estimated GFR (MDRD) (>89) Glucose (70-100) mg/dL Calcium (8.5-10.3) mg/dL Phosphorus (2.5-4.6) mg/dL Magnesium (1.7-2.8) mg/dL Troponin I High Sens 22.9 H* (2.3-19.7) ng/L Prealbumin (18-45) mg/dL Urine Color Urine Clarity (CLEAR) Urine pH (5.0-7.5) PH Ur Specific [place] (1.002-1.030) Urine Protein (NEGATIVE) mg/dL Urine Glucose (UA) (NEGATIVE) mg/dL Urine Ketones (NEGATIVE) mg/dL Urine Occult Blood (NEGATIVE) Urine Nitrite (NEGATIVE) Urine Bilirubin (NEGATIVE) Urine Urobilinogen (NORMAL) E.U./dL Ur Leukocyte Esterase (NEGATIVE) Urine RBC (0-5) /HPF Urine WBC (0-3) /HPF Ur Squamous Epith Cells (<= Few) Urine Bacteria (None Seen) /HPF Urine Casts /LPF Urine Mucus Ur Microscopic Review Urine Culture Comments 02/05/22 02/05/22 02/05/22 Range/Units 05:45 05:45 05:45 WBC 6.7 (4.8-10.8) x10^3/uL RBC 3.28 L (4.70-6.10) 10^6/uL Hgb 8.9 L (14.0-18.0) g/dL Hct 30.6 L (42.0-52.0) % MCV 93.3 (80.0-94.0) fL MCH 27.1 (27.0-31.0) pg MCHC 29.1 L (32.0-36.0) g/dL RDW 17.3 H (12.0-15.0) % Plt Count 154 (130-450) 10^3/uL MPV 10.0 (7.4-11.4) fL Neut # (Auto) 5.5 (1.5-6.6) 10^3/uL Lymph # (Auto) 0.6 L (1.5-3.5) 10^3/uL [place] # (Auto) 0.6 (0.0-1.0) 10^3/uL Eos # (Auto) 0.0 (0.0-0.7) 10^3/uL Baso # (Auto) 0.0 (0.0-0.1) 10^3/uL Absolute Nucleated RBC 0.00 x10^3/uL Nucleated RBC % 0.0 /100WBC Bld Gas Analysis Time Sample Site ABG pH (7.35-7.45) ABG pCO2 (34-45) mmHg ABG pO2 (80-100) mmHg ABG HCO3 (22.0-26.0) mmol/L ABG Total CO2 (21.0-29.0) MMOL/L ABG O2 Saturation (94-98) % ABG Base Excess (-2.0-3.0) mmol/L Roney Test VBG pH Ionized Calcium (1.15-1.33) mmol/L Respiration Rate b/min O2 Delivery Device Vent Mode FiO2 Tidal Volume mL PEEP cmH2O Sodium 140 (135-145) mmol/L Potassium 4.7 (3.5-5.0) mmol/L Chloride 105 (101-111) mmol/L Carbon Dioxide 27 (21-32) mmol/L Anion Gap 8.0 (6-13) BUN 37 H (6-20) mg/dL Creatinine 1.4 H (0.6-1.2) mg/dL Estimated GFR (MDRD) 51 L (>89) Glucose 274 H (70-100) mg/dL Calcium 8.6 (8.5-10.3) mg/dL Phosphorus 2.6 (2.5-4.6) mg/dL Magnesium 2.5 (1.7-2.8) mg/dL Troponin I High Sens (2.3-19.7) ng/L Prealbumin 19 (18-45) mg/dL Urine Color Urine Clarity (CLEAR) Urine pH (5.0-7.5) PH Ur Specific [place] (1.002-1.030) Urine Protein (NEGATIVE) mg/dL Urine Glucose (UA) (NEGATIVE) mg/dL Urine Ketones (NEGATIVE) mg/dL Urine Occult Blood (NEGATIVE) Urine Nitrite (NEGATIVE) Urine Bilirubin (NEGATIVE) Urine Urobilinogen (NORMAL) E.U./dL Ur Leukocyte Esterase (NEGATIVE) Urine RBC (0-5) /HPF Urine WBC (0-3) /HPF Ur Squamous Epith Cells (<= Few) Urine Bacteria (None Seen) /HPF Urine Casts /LPF Urine Mucus Ur Microscopic Review Urine Culture Comments 02/04/22 02/04/22 02/04/22 Range/Units 13:00 11:40 10:00 WBC 10.0 (4.8-10.8) x10^3/uL RBC 3.26 L (4.70-6.10) 10^6/uL Hgb 8.8 L (14.0-18.0) g/dL Hct 31.3 L (42.0-52.0) % MCV 96.0 H (80.0-94.0) fL MCH 27.0 (27.0-31.0) pg MCHC 28.1 L (32.0-36.0) g/dL RDW 16.9 H (12.0-15.0) % Plt Count 164 (130-450) 10^3/uL MPV 10.5 (7.4-11.4) fL Neut # (Auto) (1.5-6.6) 10^3/uL Lymph # (Auto) (1.5-3.5) 10^3/uL [place] # (Auto) (0.0-1.0) 10^3/uL Eos # (Auto) (0.0-0.7) 10^3/uL Baso # (Auto) (0.0-0.1) 10^3/uL Absolute Nucleated RBC x10^3/uL Nucleated RBC % /100WBC Bld Gas Analysis Time 1146 Sample Site RIGHT RADIAL ABG pH 7.44 (7.35-7.45) ABG pCO2 43 (34-45) mmHg ABG pO2 145 H (80-100) mmHg ABG HCO3 28.4 H (22.0-26.0) mmol/L ABG Total CO2 29.7 H (21.0-29.0) MMOL/L ABG O2 Saturation 99 H (94-98) % ABG Base Excess 3.9 H (-2.0-3.0) mmol/L Roney Test POSITIVE VBG pH Ionized Calcium (1.15-1.33) mmol/L Respiration Rate 24 b/min O2 Delivery Device VENTILATOR Vent Mode ASSIST/CONTROL FiO2 50.00 Tidal Volume 500 mL PEEP 7 cmH2O Sodium (135-145) mmol/L Potassium (3.5-5.0) mmol/L Chloride (101-111) mmol/L Carbon Dioxide (21-32) mmol/L Anion Gap (6-13) BUN (6-20) mg/dL Creatinine (0.6-1.2) mg/dL Estimated GFR (MDRD) (>89) Glucose (70-100) mg/dL Calcium (8.5-10.3) mg/dL Phosphorus (2.5-4.6) mg/dL Magnesium (1.7-2.8) mg/dL Troponin I High Sens (2.3-19.7) ng/L Prealbumin (18-45) mg/dL Urine Color YELLOW Urine Clarity CLEAR (CLEAR) Urine pH 5.5 (5.0-7.5) PH Ur Specific [place] >=1.030 H (1.002-1.030) Urine Protein 100 H (NEGATIVE) mg/dL Urine Glucose (UA) NEGATIVE (NEGATIVE) mg/dL Urine Ketones NEGATIVE (NEGATIVE) mg/dL Urine Occult Blood NEGATIVE (NEGATIVE) Urine Nitrite NEGATIVE (NEGATIVE) Urine Bilirubin NEGATIVE (NEGATIVE) Urine Urobilinogen 0.2 (NORMAL) (NORMAL) E.U./dL Ur Leukocyte Esterase NEGATIVE (NEGATIVE) Urine RBC 0-5 (0-5) /HPF Urine WBC 6-10 H (0-3) /HPF Ur Squamous Epith Cells RARE Squamous (<= Few) Urine Bacteria None Seen (None Seen) /HPF Urine Casts 3-5 WBC Casts /LPF Urine Mucus Few Strands Ur Microscopic Review INDICATED Urine Culture Comments NOT INDICATED - Other Results/Comments Other Results/Comments: Because of worsening respiratory status, an EKG was ordered to be done today. T he EKG showed (my interpretation): Sinus rhythm with first-degree AV block, rate 73, LA enlargement, abnormal inverted T waves laterally. Since EKG from 02/03/2022, tachycardia and Wenkebach and PVC are absent now, but the lateral T wave abnormality is new. Assessment/Plan - Problem List (1) Acute respiratory failure with hypoxia and hypercapnia Impression: Yesterday this patient had not improved in spite of maximal medical therapy with steroids, antibiotics, Tamiflu. He continued to be in respiratory failure with hypercapnea and was getting worse; failing with muscle strength, mentation, and blood gases getting more acidotic. As such, under controlled conditions, we electively intubated him on 02/04. He is a full code. Troponins were flat on admission. EKG had no acute STTW tavares nges. Remain in ICU, now intubated Ventilator protocol ordered Follow ABG daily Today he is on PEEP of 7, thus he is not yet ready to decrease his vent settings and try CPAP and plan extubation, I suspect he will need 2-3 more days on the vent. (2) COPD with exacerbation Conclusion/Plan: At home he is on long-acting bronchodilators, long-acting inhaled steroids, anticholinergics with Atrovent, and a daily prednisone tablet. He also takes Singulair. Unfortunately he is still smoking. This current exacerbation due to influenza A. When he has small bilateral pleural effusions on chest x-ray with atelectasis at the lung bases but no consolidation or evidence of bacterial pneumonia. He is on maintenance azithromycin. Plan:Now intubated Continue previous therapy of azithromycin, Perforomist and budesonide via inhalation, DuoNeb at a fixed schedule of 4 times daily, Albuterol as needed, Solu-Medrol 40 mg IV 3 times daily, Nicotine patch 14 mg Added Rocephin (3) Influenza A Conclusion/Plan: Plan:Now intubated IV fluids, supportive care with oxygen, Tamiflu for 5 days. Now on dose 05/17 (4) Coffee ground emesis Impression: This is a gentleman who smokes, has peripheral vascular disease, and may be at risk for GI bleed because he takes an aspirin every day. He does take Protonix at home. He also takes vitamin C. Plan: Protonix 40 mg IV push twice daily ordered Follow H/H closely Transfuse as needed, if Hgb <7 If he drops his hemoglobin, or again has melanotic stool, we will consider general surgery consult for EGD. At this time we will just manage medically. (5) Abn EKG Impression: Troponins were flat on admission. EKG had no acute STTW changes. Because of worsening respiratory status, an EKG was ordered to be done today. The EKG showed (my interpretation): Sinus rhythm with first-degree AV block, LA enlargement, abnormal inverted T waves laterally. Since EKG from 02/03/2022, tachycardia and Wenkebach and PVC are absent but the lateral T wave abnormality is new Plan: Recheck troponins. Consider an Echo (6) Diabetes mellitus Conclusion/Plan: We will be controlling him with Lantus, and sliding scale insulin. His home medications of Amaryl, Trulicity have not been resumed. His Lantus and NovoLog have been, but I will switch to q6h and not achs since he is on vent. I would plan for aggressive IV fluid hydration but the patient has a history of congestive heart failure. An echo in October 2021 showed an ejection fraction of 60 to 65%. Right ventricle function that was normal. Mild aortic stenosis with a peak mean gradient of 38 mmHg / 18 mmHg. He had mild to moderate increase in left atrial volume index. Glucose last night was 320, 346. Given Lantus last night plus SS and this morning he is 241, and by 11:45 he is 168. 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 Lantus 30 units at night 3 units with each meal Will be stopped. Sliding scale Will be changed to every 6 hours A1c ordered and pending. 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 Continue to monitor and change medications as needed to achieve goal Qualifiers: Hypertension type: primary hypertension Qualified Code(s): I10 - Essential (primary) hypertension (8) SUSHANT (obstructive sleep apnea) Conclusion/Plan: Was on home CPAP mask. Plan: Here he failed Bipap and is intubated (9) PVD (peripheral vascular disease) Conclusion/Plan: On exam his skin is shiny, tight over his shins and feet. Right leg has redness and heat. But no open ulcers. Right now dorsalis pedis pulses are palpable over both feet. He was having significant leg pain before his angioplasty 3 months ago and that is improved. Plan: Continued aspirin (now NG) and he is on Lovenox for DVT prophylaxis. We will also continue Crestor via NG. (10) Rheumatoid arthritis Conclusion/Plan: On Azulfidine and prednisone. Plan:I had resumed Azulfidine, but prednisone was held until switching from IV Solu-Medrol back to p.o. steroids. We will also hold azulfidine while has infection Qualifiers: Rheumatoid arthritis location: multiple sites Rheumatoid factor presence: with rheumatoid factor Qualified Code(s): M05.79 - Rheumatoid arthritis with rheumatoid factor of multiple sites without organ or systems involvement (10) Tobacco abuse Conclusion/Plan: Plan: nicotine patch ordered 02/03 (11) CKD (chronic kidney disease) stage 3, GFR 30-59 ml/min Conclusion/Plan: Creat 1.3>1.5>1.6 with IVF and no hypotension that was significant. Plan: Continue IVF Avoid nephrotoxic agents Monitor BMP daily Qualifiers: Chronic kidney disease stage 3 subtype: stage 3a (GFR 45-59) Qualified Code(s): N18.31 - Chronic kidney disease, stage 3a (12) Hyperkalemia Resolved He was given 10 units of IVP regular insulin when his glucose was 237. Glucose dropped to 168. Plan: Avoid potassium-containing compounds. Follow BMP daily
[2022-02-05 13:02] LABS: FOLATE 22.45 ng/mL (5.90 - >24.8)
[2022-02-05] MEDS: PRAMIPEXOLE 0.25 MG TABLET PO SCH (21:06)
[2022-02-05] MEDS: INSULIN GLARGINE-YFGN 300 UNIT/3 ML PEN SUBQ SCH (21:08)
[2022-02-05] MEDS: MONTELUKAST 10 MG TABLET PO SCH (21:08)
[2022-02-05] MEDS: ATORVASTATIN 40 MG TABLET NG SCH (21:08)
[2022-02-06] MEDS: methylPREDNISolone SUCCINATE 40 MG/ML VIAL IVP SCH ×4 (00:03→18:31)
[2022-02-06] MEDS: SODIUM CHLORIDE 0.9% 500 ML IV PRN (00:03)
[2022-02-06] MEDS: SODIUM CHLORIDE FLUSH 0.9% 10 ML SYRINGE IVP SCH ×3 (00:06→18:25)
[2022-02-06] MEDS: INSULIN REGULAR HUMAN 300 UNIT/3 ML VIAL SUBQ SCH ×4 (00:20→18:33)
[2022-02-06] MEDS: PROPOFOL 1000 MG/100 ML 1,000 MG/100 ML BOTTLE IV SCH ×4 (01:23→20:39)
[2022-02-06] MEDS: SODIUM CHLORIDE FLUSH 0.9% 10 ML SYRINGE IVP PRN ×2 (04:54)
[2022-02-06 05:43] LABS: HCT - HEMATOCRIT 30.6 % (42.0-52.0); HGB - HEMOGLOBIN 9.2 g/dL (14.0-18.0); LYMPHOCYTES # (AUTO) 0.5 10^3/uL (1.5-3.5); LYMPHOCYTES % (AUTO) 5.4 %; MEAN CORPUSCULAR HEMOGLOBIN 27.5 pg (27.0-31.0); MEAN CORPUSCULAR HGB CONC 30.1 g/dL (32.0-36.0); MEAN CORPUSCULAR VOLUME 91.6 fL (80.0-94.0); MEAN PLATELET VOLUME 10.8 fL (7.4-11.4); MONOCYTES # (AUTO) 0.6 10^3/uL (0.0-1.0); MONOCYTES % (AUTO) 6.9 %; NEUTROPHILS % (AUTO) 87.3 %; NRBC ABSOLUTE COUNT (AUTO) 0.03 x10^3/uL; NUCLEATED RED BLOOD CELLS AUTO 0.3 /100WBC; PLT - PLATELET COUNT 165 10^3/uL (130-450); RED BLOOD COUNT 3.34 10^6/uL (4.70-6.10); RED CELL DISTRIBUTION WIDTH 17.5 % (12.0-15.0); WHITE BLOOD COUNT 9.2 x10^3/uL (4.8-10.8)
[2022-02-06 05:51] LABS: CALCIUM 8.7 mg/dL (8.5-10.3); CREATININE 1.3 mg/dL (0.6-1.2); POTASSIUM 4.7 mmol/L (3.5-5.0)
[2022-02-06 05:56] LABS: CALCIUM, IONIZED 1.21 mmol/L (1.15-1.33); VBG PH 7.405
[2022-02-06] MEDS: LEVOTHYROXINE 25 MCG TABLET NG SCH (06:13)
[2022-02-06] MEDS: LEVOTHYROXINE 112 MCG TABLET NG SCH (06:14)
[2022-02-06] MEDS: BUDESONIDE 0.5 MG/2 ML NEB INH SCH (07:06)
[2022-02-06] MEDS: IPRATROPIUM/ALBUTEROL 3 ML NEB INH SCH ×3 (07:06→14:13)
[2022-02-06] MEDS: FORMOTEROL FUMARATE NEB 20 MCG/2 ML INH SCH (07:09)
[2022-02-06 08:16] LABS: MAGNESIUM 2.8 mg/dL (1.7-2.8); PHOSPHORUS 3.5 mg/dL (2.5-4.6)
--- NOTE | 2022-02-06 08:34 | XRAY Report ---
PROCEDURE: Chest for Line Placement INDICATIONS: ETT placement TECHNIQUE: One view of the chest was acquired. COMPARISON: CXR 01/27/2022, 02/03/2022. Lung screening chest CT 12/30/2020. FINDINGS: Surgical changes and devices: Endotracheal tube in the mid trachea. Right IJ central venous line wit h the catheter tip at the lower third of the SVC. Enteric tube coursing into the stomach. Post median sternotomy. Lungs and pleura: No pleural effusions or pneumothorax. Left lung base opacity is less prominent. Em physematous change. Mediastinum: Mediastinal contours appear unchanged. Heart size is normal. Bones and chest wall: No suspicious bony lesions. Overlying soft tissues appear unremarkable. IMPRESSION: 1. Tubes and lines project in the expected location. 2. Left lung base opacity is less prominent. This report is concordant with the overnight preliminary interpretation. Reviewed by: Timothy Paredes MD on 02/06/2022 8:33 AM PST Approved by: Timothy Paredes MD on 02/06/2022 8:33 AM PST Station ID: [id number]
[2022-02-06] MEDS: cefTRIAXone 1 GM in SODIUM CHLORIDE 0.9% MINIBAG 100 ML IV SCH (08:43)
[2022-02-06] MEDS: polyethylene glycoL 3350 17 GM PACKET PO SCH (08:49)
[2022-02-06] MEDS: ENOXAPARIN 40 MG/0.4 ML SYRINGE SUBQ SCH (08:51)
[2022-02-06] MEDS: ASPIRIN CHEW 81 MG TABLET NG SCH (08:51)
[2022-02-06] MEDS: FERROUS SULFATE 300 MG/5 ML UDC NG SCH (08:51)
[2022-02-06] MEDS: CHOLECALCIFEROL 5,000 UNIT CAPSULE PO SCH (08:51)
[2022-02-06] MEDS: ASCORBIC ACID 500 MG TABLET NG SCH (08:51)
[2022-02-06] MEDS: FOLIC ACID 1 MG TABLET NG SCH (08:52)
[2022-02-06] MEDS: OSELTAMIVIR 75 MG CAPSULE PO SCH ×2 (08:52→20:40)
[2022-02-06] MEDS: hydrALAZINE 25 MG TABLET PO SCH ×2 (08:52→20:41)
[2022-02-06] MEDS: LOSARTAN 50 MG TABLET NG SCH (08:52)
[2022-02-06] MEDS: NICOTINE 21 MG PATCH TOP SCH (08:53)
[2022-02-06] MEDS: AZITHROMYCIN INJ 500 MG in SODIUM CHLORIDE 0.9% 250 ML IV SCH (09:18)
[2022-02-06] MEDS: CHLORHEXIDINE GLUCONATE 15 ML UDC PO SCH ×2 (09:20→20:40)
[2022-02-06] MEDS: PANTOPRAZOLE 40 MG VIAL IVP SCH ×2 (12:08→20:40)
[2022-02-06] MEDS: MIDAZOLAM DRIP 50 MG/50 ML 50 MG/50 ML BAG IV SCH (15:30)
[2022-02-06] MEDS: PRAMIPEXOLE 0.25 MG TABLET PO SCH (20:40)
[2022-02-06] MEDS: MONTELUKAST 10 MG TABLET PO SCH (20:40)
[2022-02-06] MEDS: ATORVASTATIN 40 MG TABLET NG SCH (20:41)
[2022-02-06] MEDS: INSULIN GLARGINE-YFGN 300 UNIT/3 ML PEN SUBQ SCH (20:42)
[2022-02-06] MEDS: ONDANSETRON 4 MG/2 ML VIAL IVP PRN (23:14)
[2022-02-07] MEDS: methylPREDNISolone SUCCINATE 40 MG/ML VIAL IVP SCH ×4 (00:01→18:03)
[2022-02-07] MEDS: SODIUM CHLORIDE FLUSH 0.9% 10 ML SYRINGE IVP SCH ×4 (00:02→20:41)
[2022-02-07] MEDS: INSULIN REGULAR HUMAN 300 UNIT/3 ML VIAL SUBQ SCH ×6 (00:05→17:59)
[2022-02-07] MEDS: PROPOFOL 1000 MG/100 ML 1,000 MG/100 ML BOTTLE IV SCH ×2 (01:26→06:37)
[2022-02-07] MEDS: MIDAZOLAM DRIP 50 MG/50 ML 50 MG/50 ML BAG IV SCH ×2 (02:03→17:59)
[2022-02-07] MEDS: SODIUM CHLORIDE FLUSH 0.9% 10 ML SYRINGE IVP PRN (05:16)
[2022-02-07 05:37] LABS: HCT - HEMATOCRIT 31.9 % (42.0-52.0); HGB - HEMOGLOBIN 9.5 g/dL (14.0-18.0); LYMPHOCYTES # (AUTO) 0.6 10^3/uL (1.5-3.5); LYMPHOCYTES % (AUTO) 6.5 %; MEAN CORPUSCULAR HEMOGLOBIN 26.8 pg (27.0-31.0); MEAN CORPUSCULAR HGB CONC 29.8 g/dL (32.0-36.0); MEAN CORPUSCULAR VOLUME 90.1 fL (80.0-94.0); MEAN PLATELET VOLUME 10.3 fL (7.4-11.4); MONOCYTES # (AUTO) 0.6 10^3/uL (0.0-1.0); MONOCYTES % (AUTO) 7.5 %; NEUTROPHILS # (AUTO) 7.3 10^3/uL (1.5-6.6); NEUTROPHILS % (AUTO) 85.6 %; NRBC ABSOLUTE COUNT (AUTO) 0.02 x10^3/uL; NUCLEATED RED BLOOD CELLS AUTO 0.2 /100WBC; PLT - PLATELET COUNT 174 10^3/uL (130-450); RED BLOOD COUNT 3.54 10^6/uL (4.70-6.10); RED CELL DISTRIBUTION WIDTH 17.3 % (12.0-15.0); WHITE BLOOD COUNT 8.5 x10^3/uL (4.8-10.8)
[2022-02-07 05:38] LABS: CALCIUM, IONIZED 1.21 mmol/L (1.15-1.33); VBG PH 7.422
[2022-02-07 05:47] LABS: CALCIUM 8.8 mg/dL (8.5-10.3); CREATININE 1.2 mg/dL (0.6-1.2); POTASSIUM 4.7 mmol/L (3.5-5.0)
[2022-02-07 05:52] LABS: MAGNESIUM 2.5 mg/dL (1.7-2.8); PHOSPHORUS 3.4 mg/dL (2.5-4.6)
[2022-02-07] MEDS: LEVOTHYROXINE 25 MCG TABLET NG SCH (06:35)
[2022-02-07] MEDS: LEVOTHYROXINE 112 MCG TABLET NG SCH (06:35)
[2022-02-07 07:18] LABS: ABG BASE EXCESS 2.4 mmol/L (-2.0-3.0); ABG HCO3 26.5 mmol/L (22.0-26.0); ABG OXYGEN SATURATION 95 % (94-98); ABG PCO2 39 mmHg (34-45); ABG PH 7.45 (7.35-7.45); ABG PO2 76 mmHg (80-100); ABG TCO2 27.7 MMOL/L (21.0-29.0); ALLEN TEST POSITIVE
[2022-02-07 07:19] LABS: ABG MODE OF VENTILATION ASSIST/CONTROL; ABG RESPIRATORY RATE 20 b/min
[2022-02-07] MEDS: FORMOTEROL FUMARATE NEB 20 MCG/2 ML INH SCH ×3 (07:42→19:40)
[2022-02-07] MEDS: BUDESONIDE 0.5 MG/2 ML NEB INH SCH ×3 (07:42→19:40)
[2022-02-07] MEDS: IPRATROPIUM/ALBUTEROL 3 ML NEB INH SCH ×5 (07:42→19:40)
[2022-02-07] MEDS: cefTRIAXone 1 GM in SODIUM CHLORIDE 0.9% MINIBAG 100 ML IV SCH (08:54)
[2022-02-07] MEDS: ASCORBIC ACID 500 MG TABLET NG SCH (08:54)
[2022-02-07] MEDS: ASPIRIN CHEW 81 MG TABLET NG SCH (08:54)
[2022-02-07] MEDS: CHLORHEXIDINE GLUCONATE 15 ML UDC PO SCH ×2 (08:55→20:41)
[2022-02-07] MEDS: FOLIC ACID 1 MG TABLET NG SCH (08:55)
[2022-02-07] MEDS: ENOXAPARIN 40 MG/0.4 ML SYRINGE SUBQ SCH (08:55)
[2022-02-07] MEDS: LOSARTAN 50 MG TABLET NG SCH (08:55)
[2022-02-07] MEDS: CHOLECALCIFEROL 5,000 UNIT CAPSULE PO SCH (08:55)
[2022-02-07] MEDS: OSELTAMIVIR 75 MG CAPSULE PO SCH ×2 (08:56→20:40)
[2022-02-07] MEDS: PANTOPRAZOLE 40 MG VIAL IVP SCH ×2 (08:56→20:41)
[2022-02-07] MEDS: hydrALAZINE 25 MG TABLET PO SCH ×2 (08:56→20:40)
[2022-02-07] MEDS: polyethylene glycoL 3350 17 GM PACKET PO SCH (08:56)
[2022-02-07] MEDS: MORPHINE 2 MG/ML CARPUJECT IVP PRN ×2 (08:57→15:24)
[2022-02-07] MEDS: NICOTINE 21 MG PATCH TOP SCH (09:13)
[2022-02-07] MEDS ORDERED: FUROSEMIDE 40 MG/4 ML VIAL IVP STA (10:48)
[2022-02-07] MEDS ORDERED: ALBUMIN 25% 12.5 GM/50 ML VIAL IV STA (10:48)
[2022-02-07] MEDS ORDERED: SODIUM CHLORIDE INHALATION 3 ML NEB ONE (11:11)
--- NOTE | 2022-02-07 11:29 | PROVIDER PROGRESS NOTE ---
Subjective - Subjective Pt reports feeling: No change (Sedated and on the vent, OG tube getting feeds) Objective - Vital Signs/Intake & Output Reviewed Vital Signs: Yes Vital Signs: Vital Signs Temp Pulse Pulse Resp BP Pulse Ox 02/07/22 11:20 87 21 02/07/22 11:00 37.5 C 88 16 142/56 H 95 02/07/22 10:30 37.5 C 88 20 135/53 H 93 02/07/22 10:00 78 20 140/57 H 94 02/07/22 09:00 74 20 149/60 H 91 L 02/07/22 08:00 37.4 C 67 20 144/58 H 97 02/07/22 07:44 66 20 02/07/22 07:36 67 Intake & Output: Intake & Output 02/04/22 02/05/22 02/06/22 02/07/22 23:59 23:59 23:59 23:59 Intake Total 2699.725 6571.682 3514.658 1243.330 Output Total 1963 1602 2044 398 Balance 736.725 -3.653 558.658 845.330 - Objective General Appearance: positive: Other (Sedated) Eyes Bilateral: positive: No lid inflammation ENT: positive: No signs of dehydration, Other (ET tube and OG tubes in place) Neck: positive: Nml inspection Respiratory: positive: No respiratory distress (on the vent), Breath sounds nml Cardiovascular: positive: No murmur Abdomen: positive: No distention Skin: positive: Warm, Dry Extremities: positive: Other (1+ edema of hands and feet up to ankles) Neurologic/Psychiatric: positive: Other (Sedated) - Lab Results Fish Bones: 02/07/22 05:15 02/07/22 05:15 Other Labs: Lab Results x24hrs 02/07/22 02/07/22 02/07/22 Range/Units 07:10 05:15 05:15 WBC (4.8-10.8) x10^3/uL RBC (4.70-6.10) 10^6/uL Hgb (14.0-18.0) g/dL Hct (42.0-52.0) % MCV (80.0-94.0) fL MCH (27.0-31.0) pg MCHC (32.0-36.0) g/dL RDW (12.0-15.0) % Plt Count (130-450) 10^3/uL MPV (7.4-11.4) fL Neut # (Auto) (1.5-6.6) 10^3/uL Lymph # (Auto) (1.5-3.5) 10^3/uL [place] # (Auto) (0.0-1.0) 10^3/uL Eos # (Auto) (0.0-0.7) 10^3/uL Baso # (Auto) (0.0-0.1) 10^3/uL Absolute Nucleated RBC x10^3/uL Nucleated RBC % /100WBC Bld Gas Analysis Time 0715 Sample Site RIGHT RADIAL ABG pH 7.45 (7.35-7.45) ABG pCO2 39 (34-45) mmHg ABG pO2 76 L (80-100) mmHg ABG HCO3 26.5 H (22.0-26.0) mmol/L ABG Total CO2 27.7 (21.0-29.0) MMOL/L ABG O2 Saturation 95 (94-98) % ABG Base Excess 2.4 (-2.0-3.0) mmol/L Roney Test POSITIVE VBG pH 7.422 Ionized Calcium 1.21 (1.15-1.33) mmol/L Respiration Rate 20 b/min O2 Delivery Device VENTILATOR Vent Mode ASSIST/CONTROL FiO2 35.00 Tidal Volume 500 mL PEEP 5 cmH2O Sodium (135-145) mmol/L Potassium (3.5-5.0) mmol/L Chloride (101-111) mmol/L Carbon Dioxide (21-32) mmol/L Anion Gap (6-13) BUN (6-20) mg/dL Creatinine (0.6-1.2) mg/dL Estimated GFR (MDRD) (>89) Glucose (70-100) mg/dL Calcium (8.5-10.3) mg/dL Phosphorus 3.4 (2.5-4.6) mg/dL Magnesium 2.5 (1.7-2.8) mg/dL Prealbumin 25 (18-45) mg/dL 02/07/22 02/07/22 Range/Units 05:15 05:15 WBC 8.5 (4.8-10.8) x10^3/uL RBC 3.54 L (4.70-6.10) 10^6/uL Hgb 9.5 L (14.0-18.0) g/dL Hct 31.9 L (42.0-52.0) % MCV 90.1 (80.0-94.0) fL MCH 26.8 L (27.0-31.0) pg MCHC 29.8 L (32.0-36.0) g/dL RDW 17.3 H (12.0-15.0) % Plt Count 174 (130-450) 10^3/uL MPV 10.3 (7.4-11.4) fL Neut # (Auto) 7.3 H (1.5-6.6) 10^3/uL Lymph # (Auto) 0.6 L (1.5-3.5) 10^3/uL [place] # (Auto) 0.6 (0.0-1.0) 10^3/uL Eos # (Auto) 0.0 (0.0-0.7) 10^3/uL Baso # (Auto) 0.0 (0.0-0.1) 10^3/uL Absolute Nucleated RBC 0.02 x10^3/uL Nucleated RBC % 0.2 /100WBC Bld Gas Analysis Time Sample Site ABG pH (7.35-7.45) ABG pCO2 (34-45) mmHg ABG pO2 (80-100) mmHg ABG HCO3 (22.0-26.0) mmol/L ABG Total CO2 (21.0-29.0) MMOL/L ABG O2 Saturation (94-98) % ABG Base Excess (-2.0-3.0) mmol/L Roney Test VBG pH Ionized Calcium (1.15-1.33) mmol/L Respiration Rate b/min O2 Delivery Device Vent Mode FiO2 Tidal Volume mL PEEP cmH2O Sodium 141 (135-145) mmol/L Potassium 4.7 (3.5-5.0) mmol/L Chloride 107 (101-111) mmol/L Carbon Dioxide 27 (21-32) mmol/L Anion Gap 7.0 (6-13) BUN 46 H (6-20) mg/dL Creatinine 1.2 (0.6-1.2) mg/dL Estimated GFR (MDRD) 61 L (>89) Glucose 336 H (70-100) mg/dL Calcium 8.8 (8.5-10.3) mg/dL Phosphorus (2.5-4.6) mg/dL Magnesium (1.7-2.8) mg/dL Prealbumin (18-45) mg/dL Assessment/Plan - Problem List (1) Acute respiratory failure with hypoxia and hypercapnia Impression: After admission, this patient had not improved in spite of maximal medical therapy with steroids, antibiotics, Tamiflu. He continued to be failing with muscle strength, mentation, and blood gases getting more acidotic. As such, under controlled conditions, we electively intubated him on 02/04. He is a full code. Troponins were flat on admission. EKG had no acute STTW changes. We tried weaning by turning off sedatives and he failed Plan: Remain in ICU, now intubated Ventilator support and try weaning Follow ABG daily I suspect he will need 1-2 more days on the vent. (2) COPD with exacerbation Conclusion/Plan: At home he is on long-acting bronchodilators, long-acting inhaled steroids, anticholinergics with Atrovent, and a daily prednisone tablet. He also takes Si ngulair. Unfortunately he is still smoking. This current exacerbation due to influenza A. When he has small bilateral pleural effusions on chest x-ray with atelectasis at the lung bases but no consolidation or evidence of bacterial pneumonia. He is on maintenance azithromycin. Plan:Now intubated Continue previous therapy of azithromycin, Perforomist and budesonide via inhalation, DuoNeb at a fixed schedule of 4 times daily, Albuterol as needed, Solu-Medrol 40 mg IV 3 times daily, Nicotine patch 14 mg Added Rocephin (3) Influenza A Conclusion/Plan: Plan: Now intubated nad needing vent support IV fluids, supportive care with oxygen, Tamiflu for 5 days. Now on dose 06/17 (4) Coffee ground emesis Impression: Before being intubated, when he was in marked distress, he had coffee ground emesis, several days ago. This is a gentleman who smokes, has peripheral vascular disease, and may be at risk for GI bleed because he takes an aspirin every day. He does take Protonix at home. He also takes vitamin C. Plan: Protonix 40 mg IV twice daily started Follow H/H closely Transfuse as needed, if Hgb <7 If he drops his hemoglobin, or again has melanotic stool, we will consider general surgery consult for EGD. At this time we will just manage medically. (5) Abn EKG Impression: Troponins were flat on admission. EKG had no acute STTW changes. Because of worsening respiratory status, an EKG was ordered to be done. The EKG showed NSR with first-degree AV block, LA enlargement, abnormal inverted T waves laterally. Since EKG from 02/03/2022, tachycardia and Wenkebach and PVC are absent but the lateral T wave abnormality was new Plan: Consider an Echo (6) Diabetes mellitus Conclusion/Plan: We will be controlling him with Lantus, and sliding scale insulin. His home medications of Amaryl, Trulicity have not been resumed. His Lantus and NovoLog have been, but I will switch to q6h and not achs since he is on vent. I would plan for aggressive IV fluid hydration but the patient has a history of congestive heart failure. An echo in October 2021 showed an ejection fraction of 60 to 65%. Right ventricle function that was normal. Mild aortic stenosis with a peak mean gradient of 38 mmHg / 18 mmHg. He had mild to moderate increase in left atrial volume index. Glucose last night was 320, 346. Given Lantus last night plus SS and this morning he is 241, and by 11:45 he is 168. Plan: Start tube feeds with wet cleaner machine doing orders. Lantus 30 units at night 3 units with each meal Will be stopped. Sliding scale Will be changed to every 6 hours A1c ordered and pending. 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 Continue to monitor and change medications as needed to achieve goal Qualifiers: Hypertension type: primary hypertension Qualified Code(s): I10 - Essential (primary) hypertension (8) SUSHANT (obstructive sleep apnea) Conclusion/Plan: Was on home CPAP mask. Plan: Here he failed Bipap and is intubated (9) PVD (peripheral vascular disease) Conclusion/Plan: On exam his skin is shiny, tight over his shins and feet. Right leg has redness and heat. But no open ulcers. Right now dorsalis pedis pulses are palpable over both feet. He was having significant leg pain before his angioplasty 3 months ago and that is improved. Plan: Continued aspirin (now NG) and he is on Lovenox for DVT prophylaxis. We will also continue Crestor via NG. (10) Rheumatoid arthritis Conclusion/Plan: On Azulfidine and prednisone. Plan: Initially we ordered Azulfidine, but prednisone was switched to IV Solu-Medrol We have now put azulfidine on hold while he has an infection Qualifiers: Rheumatoid arthritis location: multiple sites Rheumatoid factor presence: with rheumatoid factor Qualified Code(s): M05.79 - Rheumatoid arthritis with rheumatoid factor of multiple sites without organ or systems involvement (10) Tobacco abuse Conclusion/Plan: Plan: nicotine patch ordered 02/03 (11) CKD (chronic kidney disease) stage 3, GFR 30-59 ml/min Conclusion/Plan: Creat 1.3>1.5>1.6 then with IVF creat improved Plan: Today will stop iv fluids today, since edema is starting, but not resume Lasix until tomorrow. This was explained to the at bedside today. Avoid nephrotoxic agents Monitor BMP daily Qualifiers: Chronic kidney disease stage 3 subtype: stage 3a (GFR 45-59) Qualified Code(s): N18.31 - Chronic kidney disease, stage 3a (12) Hyperkalemia Resolved He was given 10 units of IVP regular insulin when his glucose was 237. Glucose dropped to 168. Plan: Avoid potassium-containing compounds. Follow BMP daily
[2022-02-07] MEDS: ALBUTEROL NEB 2.5 MG/3 ML INH PRN (12:22)
[2022-02-07 14:36] LABS: ABG HCO3 31.4 mmol/L (22.0-26.0); ABG PH 7.33 (7.35-7.45); ABG PO2 75 mmHg (80-100)
[2022-02-07 14:37] LABS: ABG OXYGEN SATURATION 93 % (94-98); ALLEN TEST POSITIVE
[2022-02-07 14:39] LABS: ABG PCO2 60 mmHg (34-45)
[2022-02-07 16:45] LABS: ABG BASE EXCESS 3.5 mmol/L (-2.0-3.0); ABG HCO3 29.1 mmol/L (22.0-26.0); ABG OXYGEN SATURATION 94 % (94-98); ABG PCO2 49 mmHg (34-45); ABG PH 7.39 (7.35-7.45); ABG PO2 73 mmHg (80-100); ABG TCO2 30.6 MMOL/L (21.0-29.0); ALLEN TEST POSITIVE
--- NOTE | 2022-02-07 18:52 | PROVIDER PROGRESS NOTE ---
Subjective - Subjective Pt reports feeling: Improved (He is waking up and following directions as we turn off his propofol and Versed sedation and is able to cooperate with RT to do parameters in preparation for extubation) Objective - Vital Signs/Intake & Output Vital Signs: Vital Signs Pulse Pulse Resp BP Pulse Ox 02/07/22 18:00 89 19 166/62 H 96 02/07/22 17:00 90 16 178/72 H 96 02/07/22 16:54 94 02/07/22 16:00 103 H 25 H 160/53 H 92 02/07/22 15:26 103 H 27 H 02/07/22 15:05 102 H 02/07/22 15:00 102 H 24 174/81 H 95 Intake & Output: Intake & Output 02/04/22 02/05/22 02/06/22 02/07/22 23:59 23:59 23:59 23:59 Intake Total 2699.725 1109.272 2251.658 1243.330 Output Total 1963 1602 2044 2543 Balance 736.725 -3.653 558.658 -1299.670 - Objective General Appearance: positive: No acute distress (on a vent), Lethargic Eyes Bilateral: positive: Normal inspection ENT: positive: Other (Cannot eval on vent and with gabriel) Respiratory: positive: Breath sounds nml (on a vent) Cardiovascular: positive: Regular rate & rhythm, No murmur Abdomen: positive: Non-tender, No distention Skin: positive: Warm, Dry, Other (Venous stasis changes of shins) Extremities: positive: Non-tender, No pedal edema - Lab Results Fish Bones: 02/08/22 06:15 02/08/22 06:15 Other Labs: Lab Results x24hrs 02/07/22 02/07/22 02/07/22 Range/Units 16:36 14:25 07:10 WBC (4.8-10.8) x10^3/uL RBC (4.70-6.10) 10^6/uL Hgb (14.0-18.0) g/dL Hct (42.0-52.0) % MCV (80.0-94.0) fL MCH (27.0-31.0) pg MCHC (32.0-36.0) g/dL RDW (12.0-15.0) % Plt Count (130-450) 10^3/uL MPV (7.4-11.4) fL Neut # (Auto) (1.5-6.6) 10^3/uL Lymph # (Auto) (1.5-3.5) 10^3/uL Mccone # (Auto) (0.0-1.0) 10^3/uL Eos # (Auto) (0.0-0.7) 10^3/uL Baso # (Auto) (0.0-0.1) 10^3/uL Absolute Nucleated RBC x10^3/uL Nucleated RBC % /100WBC Bld Gas Analysis Time 1640 1425 0715 Sample Site LEFT RADIAL RIGHT RADIAL RIGHT RADIAL ABG pH 7.39 7.33 L 7.45 (7.35-7.45) ABG pCO2 49 H 60 H* 39 (34-45) mmHg ABG pO2 73 L 75 L 76 L (80-100) mmHg ABG HCO3 29.1 H 31.4 H 26.5 H (22.0-26.0) mmol/L ABG Total CO2 30.6 H 33.0 H 27.7 (21.0-29.0) MMOL/L ABG O2 Saturation 94 93 L 95 (94-98) % ABG Base Excess 3.5 H 5.0 H 2.4 (-2.0-3.0) mmol/L Roney Test POSITIVE POSITIVE POSITIVE VBG pH Ionized Calcium (1.15-1.33) mmol/L Respiration Rate 20 b/min O2 Delivery Device BiPAP OXYMASK VENTILATOR O2 Liters/Min 2.00 LPM Vent Mode ASSIST/CONTROL FiO2 30.00 35.00 Tidal Volume 500 mL PEEP 5 cmH2O EPAP 5 cmH2O IPAP 16 cmH2O Sodium (135-145) mmol/L Potassium (3.5-5.0) mmol/L Chloride (101-111) mmol/L Carbon Dioxide (21-32) mmol/L Anion Gap (6-13) BUN (6-20) mg/dL Creatinine (0.6-1.2) mg/dL Estimated GFR (MDRD) (>89) Glucose (70-100) mg/dL Calcium (8.5-10.3) mg/dL Phosphorus (2.5-4.6) mg/dL Magnesium (1.7-2.8) mg/dL Prealbumin (18-45) mg/dL 02/07/22 02/07/22 02/07/22 Range/Units 05:15 05:15 05:15 WBC (4.8-10.8) x10^3/uL RBC (4.70-6.10) 10^6/uL Hgb (14.0-18.0) g/dL Hct (42.0-52.0) % MCV (80.0-94.0) fL MCH (27.0-31.0) pg MCHC (32.0-36.0) g/dL RDW (12.0-15.0) % Plt Count (130-450) 10^3/uL MPV (7.4-11.4) fL Neut # (Auto) (1.5-6.6) 10^3/uL Lymph # (Auto) (1.5-3.5) 10^3/uL Mccone # (Auto) (0.0-1.0) 10^3/uL Eos # (Auto) (0.0-0.7) 10^3/uL Baso # (Auto) (0.0-0.1) 10^3/uL Absolute Nucleated RBC x10^3/uL Nucleated RBC % /100WBC Bld Gas Analysis Time Sample Site ABG pH (7.35-7.45) ABG pCO2 (34-45) mmHg ABG pO2 (80-100) mmHg ABG HCO3 (22.0-26.0) mmol/L ABG Total CO2 (21.0-29.0) MMOL/L ABG O2 Saturation (94-98) % ABG Base Excess (-2.0-3.0) mmol/L Roney Test VBG pH 7.422 Ionized Calcium 1.21 (1.15-1.33) mmol/L Respiration Rate b/min O2 Delivery Device O2 Liters/Min LPM Vent Mode FiO2 Tidal Volume mL PEEP cmH2O EPAP cmH2O IPAP cmH2O Sodium 141 (135-145) mmol/L Potassium 4.7 (3.5-5.0) mmol/L Chloride 107 (101-111) mmol/L Carbon Dioxide 27 (21-32) mmol/L Anion Gap 7.0 (6-13) BUN 46 H (6-20) mg/dL Creatinine 1.2 (0.6-1.2) mg/dL Estimated GFR (MDRD) 61 L (>89) Glucose 336 H (70-100) mg/dL Calcium 8.8 (8.5-10.3) mg/dL Phosphorus 3.4 (2.5-4.6) mg/dL Magnesium 2.5 (1.7-2.8) mg/dL Prealbumin 25 (18-45) mg/dL 02/07/22 Range/Units 05:15 WBC 8.5 (4.8-10.8) x10^3/uL RBC 3.54 L (4.70-6.10) 10^6/uL Hgb 9.5 L (14.0-18.0) g/dL Hct 31.9 L (42.0-52.0) % MCV 90.1 (80.0-94.0) fL MCH 26.8 L (27.0-31.0) pg MCHC 29.8 L (32.0-36.0) g/dL RDW 17.3 H (12.0-15.0) % Plt Count 174 (130-450) 10^3/uL MPV 10.3 (7.4-11.4) fL Neut # (Auto) 7.3 H (1.5-6.6) 10^3/uL Lymph # (Auto) 0.6 L (1.5-3.5) 10^3/uL Mccone # (Auto) 0.6 (0.0-1.0) 10^3/uL Eos # (Auto) 0.0 (0.0-0.7) 10^3/uL Baso # (Auto) 0.0 (0.0-0.1) 10^3/uL Absolute Nucleated RBC 0.02 x10^3/uL Nucleated RBC % 0.2 /100WBC Bld Gas Analysis Time Sample Site ABG pH (7.35-7.45) ABG pCO2 (34-45) mmHg ABG pO2 (80-100) mmHg ABG HCO3 (22.0-26.0) mmol/L ABG Total CO2 (21.0-29.0) MMOL/L ABG O2 Saturation (94-98) % ABG Base Excess (-2.0-3.0) mmol/L Roney Test VBG pH Ionized Calcium (1.15-1.33) mmol/L Respiration Rate b/min O2 Delivery Device O2 Liters/Min LPM Vent Mode FiO2 Tidal Volume mL PEEP cmH2O EPAP cmH2O IPAP cmH2O Sodium (135-145) mmol/L Potassium (3.5-5.0) mmol/L Chloride (101-111) mmol/L Carbon Dioxide (21-32) mmol/L Anion Gap (6-13) BUN (6-20) mg/dL Creatinine (0.6-1.2) mg/dL Estimated GFR (MDRD) (>89) Glucose (70-100) mg/dL Calcium (8.5-10.3) mg/dL Phosphorus (2.5-4.6) mg/dL Magnesium (1.7-2.8) mg/dL Prealbumin (18-45) mg/dL Assessment/Plan - Problem List (1) Acute respiratory failure with hypoxia and hypercapnia Impression: After admission, this patient had not improved in spite of maximal medical therapy with steroids, antibiotics, Tamiflu. He continued to be failing with muscle strength, mentation, and blood gases getting more acidotic. He was ntubated him on 02/04. Troponins were flat on admission. EKG had no acute STTW changes. We tried weaning by turning off sedatives and he failed yesterday (became tachypneic), but today is comfortable, alert and has good resp parameters Plan: Extubate pt, then BIPAP or rebreather or oximizer for suppl O2 Remain in ICU in case he needs re-intubation and for probable BIPAP use (2) COPD with exacerbation Conclusion/Plan: At home he is on long-acting bronchodilators, long-acting inhaled steroids, anticholinergics with Atrovent, and a daily prednisone tablet. He also takes Singulair. Unfortunately he is still smoking. This current exacerbation due to influenza A. When he has small bilateral pleural effusions on chest x-ray with atelectasis at the lung bases but no consolidation or evidence of bacterial pneumonia. He is on maintenance azithromycin. Plan: Now intubated Continue previous therapy of azithromycin, Perforomist and budesonide via inhalation, DuoNeb at a fixed schedule of 4 times daily, Albuterol as needed, Solu-Medrol was increased to 80 mg mg IV qid yesterday, Nicotine patch 14 mg Empiric Rocephin (3) Influenza A Conclusion/Plan: Plan: On vent, intubated IV fluids, supportive care with oxygen, Tamiflu for 5 days. (4) Coffee ground emesis Impression: Before being intubated, when he was in marked distress, he had coffee ground emesis, several days ago. This is a gentleman who smokes, has peripheral vascular disease, and may be at risk for GI bleed because he takes an aspirin every day. He does take Protonix at home. He also takes vitamin C. Plan: Protonix 40 mg IV twice daily continuing Follow H/H closely Transfuse as needed, if Hgb <7 If he drops his hemoglobin, or again has melanotic stool, we will consider general surgery consult for EGD. At this time we will just manage medically. (5) Abn EKG Impression: Troponins were flat on admission. EKG had no acute STTW changes. Because of worsening respiratory status, an EKG was ordered to be done. The EKG showed NSR with first-degree AV block, LA enlargement, abnormal inverted T waves laterally. Since EKG from 02/03/2022, tachycardia and Wenkebach and PVC are absent but the lateral T wave abnormality was new Plan: Consider an Echo (6) Diabetes mellitus Conclusion/Plan: We will be controlling him with Lantus, and sliding scale insulin. His home medications of Amaryl, Trulicity have not been resumed. His Lantus and NovoLog have been, but I will switch to q6h and not achs since he is on vent. I would plan for aggressive IV fluid hydration but the patient has a history of congestive heart failure. An echo in October 2021 showed an ejection fraction of 60 to 65%. Right ventricle function that was normal. Mild aortic stenosis with a peak mean gradient of 38 mmHg / 18 mmHg. He had mild to moderate increase in left atrial volume index. Plan: Holding tube feeds this morning, In anticipation of extubation Lantus 30 units at night 5 units with each meal Sliding scale every 6 hours Qualifiers: Diabetes mellitus type: type 2 Diabetes mellitus fci insulin use: with fci use Diabetes mellitus complication status: with neurologic complications Diabetes mellitus complication detail: with polyneuropathy Qualified Code(s): E11.42 - Type 2 diabetes mellitus with diabetic polyneuropathy; Z79.4 - group home (current) use of insulin (7) Hypertension Conclusion/Plan: Plan: Resumed Cozaar and hydralazine per NG. Continue to monitor and change medications as needed to achieve goal Qualifiers: Hypertension type: primary hypertension Qualified Code(s): I10 - Essential (primary) hypertension (8) SUSHANT (obstructive sleep apnea) Conclusion/Plan: Was on home CPAP mask. Plan: Here he failed Bipap and was intubated (9) PVD (peripheral vascular disease) Conclusion/Plan: On exam his skin is shiny, tight over his shins and feet. Right leg has redness and heat. But no open ulcers. Right now dorsalis pedis pulses are palpable over both feet. He was having significant leg pain before his angioplasty 3 months ago and that is improved. Plan: Continued aspirin (now NG) and he is on Lovenox for DVT prophylaxis. We will also continue Crestor via NG. (10) Rheumatoid arthritis Conclusion/Plan: He was on Azulfidine and prednisone. Plan: Initially we ordered Azulfidine, but prednisone was switched to IV Solu-Medrol We have now put azulfidine on hold while he has an infection Qualifiers: Rheumatoid arthritis location: multiple sites Rheumatoid factor presence: with rheumatoid factor Qualified Code(s): M05.79 - Rheumatoid arthritis with rheumatoid factor of multiple sites without organ or systems involvement (10) Tobacco abuse Conclusion/Plan: Plan: nicotine patch ordered 02/03 (11) CKD (chronic kidney disease) stage 3, GFR 30-59 ml/min Conclusion/Plan: Creat 1.3>1.5>1.6 then with IVF creat improved Plan: We stopped iv fluids, since edema was starting, but not resume Lasix yet This was explained to the at bedside yesterday. Avoid nephrotoxic agents Monitor BMP daily Qualifiers: Chronic kidney disease stage 3 subtype: stage 3a (GFR 45-59) Qualified Code(s): N18.31 - Chronic kidney disease, stage 3a (12) Hyperkalemia Resolved He was given 10 units of IVP regular insulin when his glucose was 237. Glucose dropped to 168. Plan: Avoid potassium-containing compounds. Follow BMP daily
[2022-02-07] MEDS: ATORVASTATIN 40 MG TABLET NG SCH (20:39)
[2022-02-07] MEDS: MONTELUKAST 10 MG TABLET PO SCH (20:40)
[2022-02-07] MEDS: PRAMIPEXOLE 0.25 MG TABLET PO SCH (20:41)
[2022-02-07] MEDS ORDERED: INSULIN GLARGINE-YFGN 300 UNIT/3 ML PEN SUBQ SCH (21:00)
[2022-02-08] MEDS: INSULIN REGULAR HUMAN 300 UNIT/3 ML VIAL SUBQ SCH ×3 (00:16→08:39)
[2022-02-08] MEDS: methylPREDNISolone SUCCINATE 40 MG/ML VIAL IVP SCH ×4 (00:17→20:54)
[2022-02-08] MEDS: SODIUM CHLORIDE FLUSH 0.9% 10 ML SYRINGE IVP PRN ×4 (00:18→14:18)
[2022-02-08 06:43] LABS: CALCIUM, IONIZED 1.24 mmol/L (1.15-1.33); VBG PH 7.361
[2022-02-08] MEDS: LEVOTHYROXINE 112 MCG TABLET NG SCH (06:43)
[2022-02-08] MEDS: MORPHINE 2 MG/ML CARPUJECT IVP PRN (06:43)
[2022-02-08] MEDS: LEVOTHYROXINE 25 MCG TABLET NG SCH (06:43)
[2022-02-08 06:44] LABS: BASOPHILS % (AUTO) 0.2 %; LYMPHOCYTES % (AUTO) 5.7 %
[2022-02-08 06:50] LABS: HCT - HEMATOCRIT 32.2 % (42.0-52.0); HGB - HEMOGLOBIN 9.5 g/dL (14.0-18.0); LYMPHOCYTES # (AUTO) 0.7 10^3/uL (1.5-3.5); MEAN CORPUSCULAR HEMOGLOBIN 27.1 pg (27.0-31.0); MEAN CORPUSCULAR HGB CONC 29.5 g/dL (32.0-36.0); MEAN PLATELET VOLUME 10.8 fL (7.4-11.4); MONOCYTES # (AUTO) 0.9 10^3/uL (0.0-1.0); NEUTROPHILS % (AUTO) 86.5 %; PLT - PLATELET COUNT 167 10^3/uL (130-450); RED CELL DISTRIBUTION WIDTH 17.2 % (12.0-15.0); WHITE BLOOD COUNT 12.7 x10^3/uL (4.8-10.8)
[2022-02-08 06:54] LABS: CALCIUM 9.1 mg/dL (8.5-10.3); CREATININE 1.1 mg/dL (0.6-1.2); POTASSIUM 4.7 mmol/L (3.5-5.0)
[2022-02-08 07:06] LABS: MAGNESIUM 2.4 mg/dL (1.7-2.8); PHOSPHORUS 4.6 mg/dL (2.5-4.6)
[2022-02-08] MEDS: BUDESONIDE 0.5 MG/2 ML NEB INH SCH ×2 (07:28→18:58)
[2022-02-08] MEDS: FORMOTEROL FUMARATE NEB 20 MCG/2 ML INH SCH ×2 (07:28→18:58)
[2022-02-08] MEDS: IPRATROPIUM/ALBUTEROL 3 ML NEB INH SCH ×4 (07:28→18:58)
[2022-02-08] MEDS: polyethylene glycoL 3350 17 GM PACKET PO SCH (08:31)
[2022-02-08] MEDS: ASPIRIN CHEW 81 MG TABLET NG SCH (08:31)
[2022-02-08] MEDS: ASCORBIC ACID 500 MG TABLET NG SCH (08:31)
[2022-02-08] MEDS: hydrALAZINE 25 MG TABLET PO SCH ×2 (08:31→20:53)
[2022-02-08] MEDS: LOSARTAN 50 MG TABLET NG SCH (08:32)
[2022-02-08] MEDS: FERROUS SULFATE 300 MG/5 ML UDC NG SCH (08:32)
[2022-02-08] MEDS: ENOXAPARIN 40 MG/0.4 ML SYRINGE SUBQ SCH (08:33)
[2022-02-08] MEDS: CHOLECALCIFEROL 5,000 UNIT CAPSULE PO SCH (08:33)
[2022-02-08] MEDS: NICOTINE 21 MG PATCH TOP SCH (08:45)
[2022-02-08] MEDS: SODIUM CHLORIDE FLUSH 0.9% 10 ML SYRINGE IVP SCH ×4 (08:48→20:55)
[2022-02-08] MEDS: cefTRIAXone 1 GM in SODIUM CHLORIDE 0.9% MINIBAG 100 ML IV SCH (09:17)
[2022-02-08] MEDS: CHLORHEXIDINE GLUCONATE 15 ML UDC PO SCH ×2 (09:27→20:53)
[2022-02-08] MEDS: PANTOPRAZOLE 40 MG VIAL IVP SCH (09:27)
[2022-02-08] MEDS: FOLIC ACID 1 MG TABLET NG SCH (09:29)
[2022-02-08] MEDS: INSULIN LISPRO 300 UNIT/3 ML PEN SUBQ SCH ×3 (12:23→21:12)
[2022-02-08] MEDS ORDERED: MORPHINE 2 MG/ML CARPUJECT IVP PRN (15:33)
[2022-02-08] MEDS ORDERED: ACETAMINOPHEN 325 MG TABLET PO PRN (15:37)
--- NOTE | 2022-02-08 15:41 | PROVIDER PROGRESS NOTE ---
Subjective - Subjective Pt reports feeling: Improved (He is communicating, wearing O2 per n.c.) Objective - Vital Signs/Intake & Output Reviewed Vital Signs: Yes Vital Signs: Vital Signs Temp Pulse Pulse Resp BP Pulse Ox O2 Flow Rate 02/08/22 15:00 96 19 171/63 H 95 4 02/08/22 14:06 88 18 4 02/08/22 14:00 36.2 C L 96 23 153/69 H 98 4 02/08/22 12:15 4 02/08/22 12:00 67 20 149/50 H 98 4 Intake & Output: Intake & Output 02/05/22 02/06/22 02/07/22 02/08/22 23:59 23:59 23:59 23:59 Intake Total 2379.892 2560.658 1743.330 805 Output Total 1602 2044 3118 843 Balance -3.653 558.658 -1374.670 -38 - Objective General Appearance: positive: No acute distress, Other (Wearing a head cover, is on O2 per n.c.) Eyes Bilateral: positive: Normal inspection, No lid inflammation ENT: positive: ENT inspection nml Neck: positive: Nml inspection Respiratory: positive: No respiratory distress, Breath sounds nml, Wheezes (Scattered R sided, minimal wheeze) Cardiovascular: positive: Regular rate & rhythm, No murmur Abdomen: positive: Non-tender, Nml bowel sounds, No distention Skin: positive: Warm, Dry Extremities: positive: Non-tender, No pedal edema, Other (Venous stasis discoloration of both shins) Neurologic/Psychiatric: positive: Oriented x3 (Non-focal) - Lab Results Fish Bones: 02/08/22 06:15 02/08/22 06:15 Other Labs: Lab Results x24hrs 02/08/22 02/08/22 02/08/22 Range/Units 06:15 06:15 06:15 WBC (4.8-10.8) x10^3/uL RBC (4.70-6.10) 10^6/uL Hgb (14.0-18.0) g/dL Hct (42.0-52.0) % MCV (80.0-94.0) fL MCH (27.0-31.0) pg MCHC (32.0-36.0) g/dL RDW (12.0-15.0) % Plt Count (130-450) 10^3/uL MPV (7.4-11.4) fL Neut # (Auto) (1.5-6.6) 10^3/uL Lymph # (Auto) (1.5-3.5) 10^3/uL Marin # (Auto) (0.0-1.0) 10^3/uL Eos # (Auto) (0.0-0.7) 10^3/uL Baso # (Auto) (0.0-0.1) 10^3/uL Absolute Nucleated RBC x10^3/uL Nucleated RBC % /100WBC Bld Gas Analysis Time Sample Site ABG pH (7.35-7.45) ABG pCO2 (34-45) mmHg ABG pO2 (80-100) mmHg ABG HCO3 (22.0-26.0) mmol/L ABG Total CO2 (21.0-29.0) MMOL/L ABG O2 Saturation (94-98) % ABG Base Excess (-2.0-3.0) mmol/L Roney Test VBG pH 7.361 Ionized Calcium 1.24 (1.15-1.33) mmol/L O2 Delivery Device FiO2 EPAP cmH2O IPAP cmH2O Sodium 147 H (135-145) mmol/L Potassium 4.7 (3.5-5.0) mmol/L Chloride 109 (101-111) mmol/L Carbon Dioxide 32 (21-32) mmol/L Anion Gap 6.0 (6-13) BUN 48 H (6-20) mg/dL Creatinine 1.1 (0.6-1.2) mg/dL Estimated GFR (MDRD) 67 L (>89) Glucose 123 H (70-100) mg/dL Calcium 9.1 (8.5-10.3) mg/dL Phosphorus 4.6 (2.5-4.6) mg/dL Magnesium 2.4 (1.7-2.8) mg/dL 02/08/22 02/07/22 Range/Units 06:15 16:36 WBC 12.7 H (4.8-10.8) x10^3/uL RBC 3.50 L (4.70-6.10) 10^6/uL Hgb 9.5 L (14.0-18.0) g/dL Hct 32.2 L (42.0-52.0) % MCV 92.0 (80.0-94.0) fL MCH 27.1 (27.0-31.0) pg MCHC 29.5 L (32.0-36.0) g/dL RDW 17.2 H (12.0-15.0) % Plt Count 167 (130-450) 10^3/uL MPV 10.8 (7.4-11.4) fL Neut # (Auto) 11.0 H (1.5-6.6) 10^3/uL Lymph # (Auto) 0.7 L (1.5-3.5) 10^3/uL Marin # (Auto) 0.9 (0.0-1.0) 10^3/uL Eos # (Auto) 0.0 (0.0-0.7) 10^3/uL Baso # (Auto) 0.0 (0.0-0.1) 10^3/uL Absolute Nucleated RBC 0.00 x10^3/uL Nucleated RBC % 0.0 /100WBC Bld Gas Analysis Time 1640 Sample Site LEFT RADIAL ABG pH 7.39 (7.35-7.45) ABG pCO2 49 H (34-45) mmHg ABG pO2 73 L (80-100) mmHg ABG HCO3 29.1 H (22.0-26.0) mmol/L ABG Total CO2 30.6 H (21.0-29.0) MMOL/L ABG O2 Saturation 94 (94-98) % ABG Base Excess 3.5 H (-2.0-3.0) mmol/L Roney Test POSITIVE VBG pH Ionized Calcium (1.15-1.33) mmol/L O2 Delivery Device BiPAP FiO2 30.00 EPAP 5 cmH2O IPAP 16 cmH2O Sodium (135-145) mmol/L Potassium (3.5-5.0) mmol/L Chloride (101-111) mmol/L Carbon Dioxide (21-32) mmol/L Anion Gap (6-13) BUN (6-20) mg/dL Creatinine (0.6-1.2) mg/dL Estimated GFR (MDRD) (>89) Glucose (70-100) mg/dL Calcium (8.5-10.3) mg/dL Phosphorus (2.5-4.6) mg/dL Magnesium (1.7-2.8) mg/dL Assessment/Plan - Problem List (1) Acute respiratory failure with hypoxia and hypercapnia Impression: After admission, this patient failed, had CO2 retention and was intubated him on 02/04. He was extubated yesterday 02/07. He was starting to again fatigue rebreather mask and BiPAP needed to be resumed. He was then on BiPAP all of last night. As I am seeing him he is on nasal cannula in order to eat breakfast. Plan: Nightly BIPAP for suppl O2 I feel that the patient is a candidate for a home noninvasive ventilator (Trilogy). He and his at bedside are interested in this, as I described it. I will tell RT Remain in ICU but will increase mobility OK to D/C Lalo (2) COPD with exacerbation Conclusion/Plan: At home he is on long-acting bronchodilators, long-acting inhaled steroids, anticholinergics with Atrovent, and a daily prednisone tablet. He also takes Singulair. Unfortunately he is still smoking. This current exacerbation due to influenza A. When he has small bilateral pleural effusions on chest x-ray with atelectasis at the lung bases but no consolidation or evidence of bacterial pneumonia. He is on maintenance azithromycin. Plan: Continue previous therapy of azithromycin, Perforomist and budesonide via inhalation, DuoNeb at a fixed schedule of 4 times daily, Albuterol as needed, Solu-Medrol was increased to 80 mg mg IV qid and will decrease to 40 tid Nicotine patch 14 mg He wants a 30-day prescription for Nicotine ordered at [facility] (3) Influenza A Conclusion/Plan: Plan: Symptomatic treatment, plus oxygen, and Tamiflu for 5 days. (4) Coffee ground emesis Impression: Before being intubated, when he was in marked distress, he had coffee ground emesis, several days ago. This is a gentleman who smokes, has peripheral vascular disease, and may be at risk for GI bleed because he takes an aspirin every day. He does take Protonix at home. He also takes vitamin C. Plan:will be changed iv to oral protonix Follow H/H closely Transfuse as needed, if Hgb <7 If he drops his hemoglobin, or again has melanotic stool, we will consider general surgery consult for EGD. At this time we will just manage medically. (5) Abn EKG Impression: Troponins were flat on admission. EKG had no acute STTW changes. Because of worsening respiratory status, an EKG was ordered to be done. The EKG showed NSR with first-degree AV block, LA enlargement, abnormal inverted T waves laterally. Since EKG from 02/03/2022, tachycardia and Wenkebach and PVC are absent but the lateral T wave abnormality was new Plan: Consider an Echo, last one was in 10/2021. (6) Diabetes mellitus Conclusion/Plan: We will be controlling him with Lantus, and sliding scale insulin. His home medications of Amaryl, Trulicity have not been resumed. His Lantus and NovoLog have been, but I will switch to q6h and not achs since he is on vent. I would plan for aggressive IV fluid hydration but the patient has a history of congestive heart failure. An echo in October 2021 showed an ejection fraction of 60 to 65%. Right ventricle function that was normal. Mild aortic stenosis with a peak mean gradient of 38 mmHg / 18 mmHg. He had mild to moderate increase in left atrial volume index. 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 Continue to monitor and change medications as needed to achieve goal Qualifiers: Hypertension type: primary hypertension Qualified Code(s): I10 - Essential (primary) hypertension (8) SUSHANT (obstructive sleep apnea) Conclusion/Plan: Was on home CPAP mask. Plan: Here he failed Bipap and was intubated I feel that the patient is a candidate for a home noninvasive ventilator (Trilogy). (9) PVD (peripheral vascular disease) Conclusion/Plan: On exam his skin is shiny, tight over his shins and feet. Right leg has redness and heat. But no open ulcers. Right now dorsalis pedis pulses are palpable over both feet. He was having significant leg pain before his angioplasty 3 months ago and that is improved. Plan: Continued aspirin (now NG) and he is on Lovenox for DVT prophylaxis. We will also continue Crestor via NG. (10) Rheumatoid arthritis Conclusion/Plan: He was on Azulfidine and prednisone. Plan: Initially we ordered Azulfidine, but prednisone was switched to IV Solu-Medrol. We are tapering Solumedrol down We have now put azulfidine on hold while he has an infection Qualifiers: Rheumatoid arthritis location: multiple sites Rheumatoid factor presence: with rheumatoid factor Qualified Code(s): M05.79 - Rheumatoid arthritis with rheumatoid factor of multiple sites without organ or systems involvement (10) Tobacco abuse Conclusion/Plan: Plan: nicotine patch ordered 02/03 He wants a 30-day prescription for Nicotine ordered at [facility] (11) CKD (chronic kidney disease) stage 3, GFR 30-59 ml/min Conclusion/Plan: Creat 1.3>1.5>1.6 then with IVF creat improved Plan: We stopped iv fluids, since edema was starting. Yesterday we restarted Lasix Avoid nephrotoxic agents Monitor BMP daily Qualifiers: Chronic kidney disease stage 3 subtype: stage 3a (GFR 45-59) Qualified Code(s): N18.31 - Chronic kidney disease, stage 3a (12) Hyperkalemia Resolved He was given 10 units of IVP regular insulin when his glucose was 237. Glucose dropped to 168. Plan: Avoid potassium-containing compounds. Follow BMP daily
[2022-02-08] MEDS: ATORVASTATIN 40 MG TABLET PO SCH (20:52)
[2022-02-08] MEDS: PRAMIPEXOLE 0.25 MG TABLET PO SCH (20:53)
[2022-02-08] MEDS: MONTELUKAST 10 MG TABLET PO SCH (20:53)
[2022-02-08] MEDS: PANTOPRAZOLE 40 MG TABLET PO SCH (20:53)
[2022-02-08] MEDS ORDERED: FAMOTIDINE 20 MG TABLET PO SCH (21:00)
[2022-02-08] MEDS: INSULIN GLARGINE-YFGN 300 UNIT/3 ML PEN SUBQ SCH (21:13)
[2022-02-09] MEDS: SODIUM CHLORIDE FLUSH 0.9% 10 ML SYRINGE IVP PRN ×3 (05:43→06:35)
[2022-02-09 05:59] LABS: CALCIUM, IONIZED 1.25 mmol/L (1.15-1.33); VBG PH 7.389
[2022-02-09 06:07] LABS: MAGNESIUM 2.5 mg/dL (1.7-2.8); PHOSPHORUS 3.5 mg/dL (2.5-4.6)
[2022-02-09] MEDS: LEVOTHYROXINE 25 MCG TABLET PO SCH (06:35)
[2022-02-09] MEDS: methylPREDNISolone SUCCINATE 40 MG/ML VIAL IVP SCH ×3 (06:35→22:08)
[2022-02-09] MEDS: LEVOTHYROXINE 112 MCG TABLET PO SCH (06:35)
--- NOTE | 2022-02-09 07:45 | PROVIDER PROGRESS NOTE ---
Subjective - Subjective Pt reports feeling: Improved (RN reports he is down to 4 L/min FiO2, via nasal cannula during the day, wore BiPAP overnight) Objective - Vital Signs/Intake & Output Reviewed Vital Signs: Yes Vital Signs: Vital Signs Temp Pulse Pulse Resp BP Pulse Ox 02/09/22 07:00 70 18 165/65 H 99 02/09/22 06:00 70 18 156/64 H 98 02/09/22 05:30 73 02/09/22 05:00 73 22 158/77 H 98 02/09/22 04:00 36.4 C L 79 16 156/60 H 97 Intake & Output: Intake & Output 02/06/22 02/07/22 02/08/22 02/09/22 23:59 23:59 23:59 23:59 Intake Total 2602.658 3068.608 8926 300 Output Total 2044 3118 1343 525 Balance 558.658 -1374.670 -18 -225 - Objective General Appearance: positive: No acute distress, Alert Eyes Bilateral: positive: No lid inflammation ENT: positive: Other (Has a gabriel. Wearing O2 per NC) Neck: positive: Nml inspection, Other (Cannot evaluate JVP due to large gabriel) Respiratory: positive: Other (Clear but very diminished air movement, is breathing with pursed lips) Cardiovascular: positive: Regular rate & rhythm, No murmur (Distant heart sounds) Abdomen: positive: Non-tender, Nml bowel sounds, No distention Skin: positive: Warm, Dry Extremities: positive: Non-tender, No pedal edema, Other (Venous stasis changes of bilateral shins) Neurologic/Psychiatric: positive: Oriented x3, Motor nml - Lab Results Fish Bones: 02/08/22 06:15 02/08/22 06:15 Other Labs: Lab Results x24hrs 02/09/22 02/09/22 Range/Units 05:37 05:37 VBG pH 7.389 Ionized Calcium 1.25 (1.15-1.33) mmol/L Phosphorus 3.5 (2.5-4.6) mg/dL Magnesium 2.5 (1.7-2.8) mg/dL Assessment/Plan - Problem List (1) Acute respiratory failure with hypoxia and hypercapnia Impression: After admission, this patient failed, had CO2 retention and was intubated him on 02/04. He was extubated yesterday 02/07. He was starting to again fatigue rebreather mask and BiPAP needed to be resumed. He was then on BiPAP all of last night. As I am seeing him he is on nasal cannula in order to eat breakfast. Plan: Nightly BIPAP for suppl O2, remain in ICU I feel that the patient is a candidate for a home noninvasive ventilator (Trilogy). He and his at bedside are interested in this, as I described it. I will tell RT Remain in ICU but will increase mobility (2) COPD with exacerbation Conclusion/Plan: At home he is on long-acting bronchodilators, long-acting inhaled steroids, anticholinergics with Atrovent, and a daily prednisone tablet. He also takes Singulair. Unfortunately he is still smoking. This current exacerbation due to influenza A. When he has small bilateral pleural effusions on chest x-ray with atelectasis at the lung bases but no consolidation or evidence of bacterial pn eumonia. He is on maintenance azithromycin. Plan: Continue previous therapy of azithromycin, Perforomist and budesonide via inhalation, DuoNeb at a fixed schedule of 4 times daily, Albuterol as needed, Solu-Medrol was increased to 80 mg mg IV qid and will decrease to 40 tid Nicotine patch 14 mg He wants a 30-day prescription for Nicotine ordered at [facility] (3) Influenza A Conclusion/Plan: Plan: Symptomatic treatment, plus oxygen, and Tamiflu for 5 days. (4) Coffee ground emesis Impression: Before being intubated, when he was in marked distress, he had coffee ground emesis, several days ago. This is a gentleman who smokes, has peripheral vascular disease, and may be at risk for GI bleed because he takes an aspirin every day. He does take Protonix at home. He also takes vitamin C. Plan:will be changed iv to oral protonix Follow H/H closely Transfuse as needed, if Hgb <7 If he drops his hemoglobin, or again has melanotic stool, we will consider general surgery consult for EGD. At this time we will just manage medically. (5) Diabetes mellitus Conclusion/Plan: We will be controlling him with Lantus, and sliding scale insulin. His home medications of Amaryl, Trulicity have not been resumed. His Lantus and NovoLog have been, but I will switch to q6h and not achs since he is on vent. I would plan for aggressive IV fluid hydration but the patient has a history of congestive heart failure. An echo in October 2021 showed an ejection fraction of 60 to 65%. Right ventricle function that was normal. Mild aortic stenosis with a peak mean gradient of 38 mmHg / 18 mmHg. He had mild to moderate increase in left atrial volume index. 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 Continue to monitor and change medications as needed to achieve goal Qualifiers: Hypertension type: primary hypertension Qualified Code(s): I10 - Essential (primary) hypertension (7) SUSHANT (obstructive sleep apnea) Conclusion/Plan: Was on home CPAP mask. Plan: Here he failed Bipap and was intubated I feel that the patient is a candidate for a home noninvasive ventilator ([facility]). (8) PVD (peripheral vascular disease) Conclusion/Plan: On exam his skin is shiny, tight over his shins and feet. Right leg has redness and heat. But no open ulcers. Right now dorsalis pedis pulses are palpable over both feet. He was having significant leg pain before his angioplasty 3 months ago and that is improved. Plan: Continued aspirin (now NG) and he is on Lovenox for DVT prophylaxis. We will also continue a statin (9) Rheumatoid arthritis Conclusion/Plan: He was on Azulfidine and prednisone. Plan: Initially we ordered Azulfidine, but prednisone was switched to IV Solu-Medrol. We are tapering Solumedrol down We have put azulfidine on hold while he has an infection Qualifiers: Rheumatoid arthritis location: multiple sites Rheumatoid factor presence: with rheumatoid factor Qualified Code(s): M05.79 - Rheumatoid arthritis with rheumatoid factor of multiple sites without organ or systems involvement (10) Tobacco abuse Conclusion/Plan: Plan: nicotine patch ordered 02/03 He wants a 30-day prescription for Nicotine ordered at [facility] (11) CKD (chronic kidney disease) stage 3, GFR 30-59 ml/min Conclusion/Plan: Creat 1.3>1.5>1.6 then with IVF creat improved Plan: We stopped iv fluids, since edema was starting. We have restarted oral Lasix Avoid nephrotoxic agents Monitor BMP daily Qualifiers: Chronic kidney disease stage 3 subtype: stage 3a (GFR 45-59) Qualified Code(s): N18.31 - Chronic kidney disease, stage 3a (12) Abn EKG Impression: Troponins were flat on admission. EKG had no acute STTW changes. Because of worsening respiratory status, an EKG was ordered to be done. The EKG showed NSR with first-degree AV block, LA enlargement, abnormal inverted T waves laterally. Since EKG from 02/03/2022, tachycardia and Wenkebach and PVC are absent but the lateral T wave abnormality was new Plan: Consider an Echo, last one was in 10/2021. (13) Hyperkalemia Resolved with 10 units of IVP regular insulin when his glucose was 237. Glucose dropped to 168. Plan: Avoid potassium-containing compounds. Follow BMP daily
[2022-02-09] MEDS: IPRATROPIUM/ALBUTEROL 3 ML NEB INH SCH ×4 (08:02→19:20)
[2022-02-09] MEDS: BUDESONIDE 0.5 MG/2 ML NEB INH SCH ×2 (08:02→19:20)
[2022-02-09] MEDS: FORMOTEROL FUMARATE NEB 20 MCG/2 ML INH SCH ×2 (08:04→19:20)
[2022-02-09] MEDS: INSULIN LISPRO 300 UNIT/3 ML PEN SUBQ SCH ×4 (08:18→20:36)
[2022-02-09] MEDS: CHOLECALCIFEROL 5,000 UNIT CAPSULE PO SCH (08:28)
[2022-02-09] MEDS: ASCORBIC ACID 500 MG TABLET PO SCH (08:28)
[2022-02-09] MEDS: hydrALAZINE 25 MG TABLET PO SCH ×2 (08:28→20:13)
[2022-02-09] MEDS: ASPIRIN EC 81 MG TABLET PO SCH (08:29)
[2022-02-09] MEDS: FOLIC ACID 1 MG TABLET NG SCH (08:29)
[2022-02-09] MEDS: CHLORHEXIDINE GLUCONATE 15 ML UDC PO SCH ×2 (08:30→20:13)
[2022-02-09] MEDS: LOSARTAN 50 MG TABLET PO SCH (08:30)
[2022-02-09] MEDS: ENOXAPARIN 40 MG/0.4 ML SYRINGE SUBQ SCH (08:30)
[2022-02-09] MEDS: NICOTINE 21 MG PATCH TOP SCH (09:29)
[2022-02-09] MEDS: cefTRIAXone 1 GM in SODIUM CHLORIDE 0.9% MINIBAG 100 ML IV SCH (09:29)
[2022-02-09] MEDS: polyethylene glycoL 3350 17 GM PACKET PO SCH (09:30)
[2022-02-09] MEDS: SODIUM CHLORIDE FLUSH 0.9% 10 ML SYRINGE IVP SCH ×3 (10:45→22:08)
[2022-02-09] MEDS: PANTOPRAZOLE 40 MG TABLET PO SCH ×2 (10:48→20:13)
[2022-02-09] MEDS: MONTELUKAST 10 MG TABLET PO SCH (20:13)
[2022-02-09] MEDS: PRAMIPEXOLE 0.25 MG TABLET PO SCH (20:14)
[2022-02-09] MEDS: ATORVASTATIN 40 MG TABLET PO SCH (20:14)
[2022-02-09] MEDS: INSULIN GLARGINE-YFGN 300 UNIT/3 ML PEN SUBQ SCH (20:36)
[2022-02-10 05:07] LABS: CALCIUM, IONIZED 1.24 mmol/L (1.15-1.33); VBG PH 7.359
[2022-02-10 05:20] LABS: ALBUMIN 3.2 g/dL (3.2-5.5); ALBUMIN/GLOBULIN RATIO 1.3 (1.0-2.2); BILIRUBIN,TOTAL 0.6 mg/dL (0.2-1.0); CALCIUM 9.2 mg/dL (8.5-10.3); MAGNESIUM 2.7 mg/dL (1.7-2.8); PHOSPHORUS 3.7 mg/dL (2.5-4.6); POTASSIUM 5.1 mmol/L (3.5-5.0); TOTAL PROTEIN 5.6 g/dL (6.7-8.2)
[2022-02-10] MEDS: SODIUM CHLORIDE FLUSH 0.9% 10 ML SYRINGE IVP PRN ×2 (05:40→06:16)
[2022-02-10] MEDS: LEVOTHYROXINE 112 MCG TABLET PO SCH (06:16)
[2022-02-10] MEDS: methylPREDNISolone SUCCINATE 40 MG/ML VIAL IVP SCH ×3 (06:16→22:53)
[2022-02-10] MEDS: LEVOTHYROXINE 25 MCG TABLET PO SCH (06:16)
[2022-02-10] MEDS: INSULIN LISPRO 300 UNIT/3 ML PEN SUBQ SCH ×4 (08:10→22:57)
[2022-02-10] MEDS: ASPIRIN EC 81 MG TABLET PO SCH (09:35)
[2022-02-10] MEDS: cefTRIAXone 1 GM in SODIUM CHLORIDE 0.9% MINIBAG 100 ML IV SCH (09:48)
[2022-02-10] MEDS: ASCORBIC ACID 500 MG TABLET PO SCH (09:50)
[2022-02-10] MEDS: LOSARTAN 50 MG TABLET PO SCH (09:52)
[2022-02-10] MEDS: CHOLECALCIFEROL 5,000 UNIT CAPSULE PO SCH (09:52)
[2022-02-10] MEDS: PANTOPRAZOLE 40 MG TABLET PO SCH ×2 (09:53→22:52)
[2022-02-10] MEDS: FOLIC ACID 1 MG TABLET NG SCH (09:53)
[2022-02-10] MEDS: FORMOTEROL FUMARATE NEB 20 MCG/2 ML INH SCH ×2 (09:54→19:52)
[2022-02-10] MEDS: polyethylene glycoL 3350 17 GM PACKET PO SCH (09:54)
[2022-02-10] MEDS: IPRATROPIUM/ALBUTEROL 3 ML NEB INH SCH ×4 (09:54→19:52)
[2022-02-10] MEDS: ENOXAPARIN 40 MG/0.4 ML SYRINGE SUBQ SCH (09:54)
[2022-02-10] MEDS: BUDESONIDE 0.5 MG/2 ML NEB INH SCH ×2 (09:54→19:52)
[2022-02-10] MEDS: hydrALAZINE 25 MG TABLET PO SCH ×2 (09:56→22:50)
[2022-02-10] MEDS: SODIUM CHLORIDE FLUSH 0.9% 10 ML SYRINGE IVP SCH (10:44)
[2022-02-10] MEDS: CHLORHEXIDINE GLUCONATE 15 ML UDC PO SCH ×2 (10:45→22:51)
[2022-02-10] MEDS: NICOTINE 21 MG PATCH TOP SCH (10:50)
[2022-02-10] MEDS: guaiFENesin/CODEINE 5 ML UDC PO PRN ×2 (10:59→23:10)
[2022-02-10] MEDS: ONDANSETRON 4 MG/2 ML VIAL IVP PRN (15:03)
--- NOTE | 2022-02-10 20:07 | PROVIDER PROGRESS NOTE ---
Assessment/Plan - Problem List (1) Acute respiratory failure with hypoxia and hypercapnia Assessment/Plan: After admission, this patient failed, had CO2 retention and was intubated on 02/04. He was extubated 02/07. He was starting to again fatigue, so a rebreather mask and BiPAP at night needed to be resumed. He has been on BiPAP every night since extubation, which has helped. As I am seeing him he is on nasal cannula in order to eat breakfast. Plan: Nightly BIPAP for suppl O2 I feel that the patient is a candidate for a home noninvasive ventilator. I am ordering a Home non-invasive ventilator to treat his COPD with CO2 retention. A CPAP unit has been tried and failed. (2) COPD with exacerbation Conclusion/Plan: At home he is on long-acting bronchodilators, long-acting inhaled steroids, anticholinergics with Atrovent, and a daily prednisone tablet. He also takes Singulair. Unfortunately he is still smoking. He is even on maintenance azithromycin. This current exacerbation is due to influenza A. Plan: Continue previous therapy of azithromycin, Perforomist and budesonide via inhalation, DuoNeb at a fixed schedule of 4 times daily, Albuterol as needed, Solu-Medrol was increased to 80 mg mg IV QID then decreased to 40 TID after extubation and will continue a steroid taper Nicotine patch 14 mg was ordered. He wants a 30-day prescription for Nicotine ordered at [facility] I feel that the patient is a candidate for a home noninvasive ventilator as well . (3) Influenza A Conclusion/Plan: Plan: Symptomatic treatment, plus oxygen, and Tamiflu ordered for 5 days. (4) SUSHANT (obstructive sleep apnea) Conclusion/Plan: He was on home CPAP mask. Plan: Here he failed CPAP, needed intubation and now Bipap I feel that the patient is a candidate for a home noninvasive ventilator (5) Diabetes mellitus Conclusion/Plan: We will be controlling him with Lantus, and sliding scale insulin. His home medications of Amaryl, Trulicity have not been ordered while here. 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 Continue to monitor and change medications as needed for BP control Qualifiers: Hypertension type: primary hypertension Qualified Code(s): I10 - Essential (primary) hypertension (7) PVD (peripheral vascular disease) Conclusion/Plan: On exam his skin is shiny, tight and red/brown over his shins, but he has no open ulcers or tenderness. His dorsalis pedis pulses are palpable on both feet. He was having significant leg pain before his angioplasty 3 months ago and that is improved. Plan: Continued aspirin and he is on Lovenox for DVT prophylaxis. We are also continuing his statin (8) Rheumatoid arthritis Conclusion/Plan: He was on Azulfidine and Prednisone at home Plan: Initially we ordered Azulfidine, but prednisone was switched to IV Solu-Medrol. We are tapering Solumedrol down And we have put azulfidine on hold, while he has an infection Qualifiers: Rheumatoid arthritis location: multiple sites Rheumatoid factor presence: with rheumatoid factor Qualified Code(s): M05.79 - Rheumatoid arthritis with rheumatoid factor of multiple sites without organ or systems involvement (9) Tobacco abuse Conclusion/Plan: Plan: nicotine patch ordered 02/03 He wants a 30-day prescription for Nicotine ordered at [facility] (10) CKD (chronic kidney disease) stage 3, GFR 30-59 ml/min Conclusion/Plan: Creat 1.3>1.5>1.6 then with IVF creat improved Plan: We stopped iv fluids, since edema was starting and Lasix was resumed Avoid nephrotoxic agents Monitor BMP daily Qualifiers: Chronic kidney disease stage 3 subtype: stage 3a (GFR 45-59) Qualified Code(s): N18.31 - Chronic kidney disease, stage 3a (12) Abn EKG Impression: Because of worsening respiratory status, an EKG was ordered to be done. The EKG showed NSR with first-degree AV block, LA enlargement, abnormal inverted T waves laterally. Since EKG from 02/03/2022, tachycardia and Wenkebach and PVC are absent but the lateral T wave abnormality was new. Troponins were flat on admission. Plan: Consider an Echo, but last one was just done in 10/2021. (13) Hyperkalemia Resolved with 10 units of IVP regular insulin when his glucose was 237. Glucose dropped to 168. Plan: Avoid potassium-containing compounds. Follow BMP daily (4) Coffee ground emesis Impression: Before being intubated, when he was in marked distress, he had coffee ground emesis, several days ago. This is a gentleman who smokes, has peripheral vascular disease, and may be at risk for GI bleed because he takes an aspirin every day. He also takes vitamin C. But he does take Protonix at home. Plan: He ws on iv Protonix while intubated. We resumed oral protonix Followed H/H closely and there was no need for transfusion If he drops his hemoglobin, or again has melanotic stool, we will consider general surgery consult for EGD. At this time we will just manage medically. - Current Meds Current Meds: Current Medications Generic Name Dose Route Start Last Admin Trade Name Jameyq PRN Reason Stop Dose Admin Albuterol 2.5 mg 02/03/22 09:20 02/07/22 12:22 Albuterol Neb 2.5 Mg/3 Ml INH 2.5 mg Q4HR PRN Administration Wheezing Albuterol/Ipratropium 3 ml 02/03/22 11:00 02/10/22 19:52 Ipratropium/Albuterol 3 Ml Neb INH 3 ml RTQID ADEEL Administration Ascorbic Acid 1,000 mg 02/09/22 09:00 02/10/22 09:50 Ascorbic Acid 500 Mg Tablet PO 1,000 mg DAILY ADEEL Administration Aspirin 81 mg 02/09/22 09:00 02/10/22 09:35 Aspirin Ec 81 Mg Tablet PO 81 mg DAILY ADEEL Administration Atorvastatin Calcium 80 mg 02/08/22 21:00 02/09/22 20:14 Atorvastatin 40 Mg Tablet PO 80 mg QPM ADEEL Administration Budesonide 0.5 mg 02/03/22 19:00 02/10/22 19:52 Budesonide 0.5 Mg/2 Ml Neb INH 0.5 mg RTBID ADEEL Administration Chlorhexidine Gluconate 15 ml 02/04/22 12:00 02/10/22 10:45 Chlorhexidine Gluconate 15 Ml Udc PO 15 ml BID ADEEL Administration Cholecalciferol 5,000 unit 02/04/22 09:00 02/10/22 09:52 Cholecalciferol 5,000 Unit Capsule PO 5,000 unit DAILY ADEEL Administration Enoxaparin Sodium 40 mg 02/03/22 10:00 02/10/22 09:54 Enoxaparin 40 Mg/0.4 Ml Syringe SUBQ 40 mg DAILY ADEEL Administration Folic Acid 1 mg 02/05/22 09:13 02/10/22 09:53 Folic Acid 1 Mg Tablet NG 1 mg DAILY ADEEL Administration Formoterol Fumarate 20 mcg 02/03/22 19:00 02/10/22 19:52 Formoterol Fumarate Neb 20 Mcg/2 Ml INH 20 mcg RTBID ADEEL Administration Guaifenesin/Codeine Phosphate 5 ml 02/10/22 10:02 02/10/22 10:59 Guaifenesin/Codeine 5 Ml Udc PO 5 ml Q6HR PRN Administration Cough Hydralazine HCl 75 mg 02/03/22 21:00 02/10/22 09:56 Hydralazine 25 Mg Tablet PO 75 mg BID ADEEL Administration Ceftriaxone Sodium 1 gm/ 100 mls @ 200 mls/hr 02/04/22 12:00 02/10/22 10:50 Sodium Chloride IV Infused DAILY ADEEL Infusion Insulin Glargine-yfgn 30 unit 02/08/22 21:00 02/09/22 20:36 Insulin Glargine-Yfgn 300 Unit/3 Ml Pen SUBQ 30 unit QPM ADEEL Administration Insulin Human Lispro 3 - 11 unit 02/08/22 12:30 02/10/22 17:22 Insulin Lispro 300 Unit/3 Ml Pen SUBQ 11 unit 0800,1200,1700,2100 ADEEL Administration Protocol Levothyroxine Sodium 25 mcg 02/09/22 07:00 02/10/22 06:16 Levothyroxine 25 Mcg Tablet PO 25 mcg QDAC ADEEL Administration Levothyroxine Sodium 112 mcg 02/09/22 07:00 02/10/22 06:16 Levothyroxine 112 Mcg Tablet PO 112 mcg QDAC ADEEL Administration Losartan Potassium 50 mg 02/09/22 09:00 02/10/22 09:52 Losartan 50 Mg Tablet PO 50 mg DAILY ADEEL Administration Methylprednisolone 40 mg 02/08/22 14:00 02/10/22 15:06 Methylprednisolone Succinate 40 Mg/Ml Vial IVP 40 mg TID ADEEL Administration Mineral Oil 1 applic 02/04/22 22:48 02/08/22 10:00 Min Oil/Dimethicon/Coconut Oil 92 Gm Tube TOP 1 applic PRN PRN Administration Skin Care Montelukast Sodium 10 mg 02/03/22 21:00 02/09/22 20:13 Montelukast 10 Mg Tablet PO 10 mg QPM ADEEL Administration Multi-Ingredient Ointment 1 applic 02/03/22 18:01 02/03/22 18:48 Zinc Oxide 20% Oint 30 Gm Tube TOP 1 applic PRN PRN Administration Skin Care Nicotine 1 patch 02/03/22 09:00 02/10/22 10:50 Nicotine 21 Mg Patch TOP 1 patch DAILY ADEEL Administration Ondansetron HCl 4 mg 02/03/22 09:20 02/10/22 15:03 Ondansetron 4 Mg/2 Ml Vial IVP 4 mg Q6HR PRN Administration Nausea / Vomiting Pantoprazole Sodium 40 mg 02/08/22 21:00 02/10/22 09:53 Pantoprazole 40 Mg Tablet PO 40 mg BID ADEEL Administration Polyethylene Glycol 17 gm 02/06/22 09:00 02/10/22 09:54 Polyethylene Glycol 3350 17 Gm Packet PO 17 gm DAILY ADEEL Administration Pramipexole Dihydrochloride 2 mg 02/03/22 21:00 02/09/22 20:14 Pramipexole 0.25 Mg Tablet PO 2 mg QPM ADEEL Administration Sodium Chloride 10 ml 02/03/22 17:00 02/10/22 10:44 Sodium Chloride Flush 0.9% 10 Ml Syringe IVP 10 ml 0100,0900,1700 ADEEL Administration Sodium Chloride 10 ml 02/03/22 09:20 02/10/22 06:16 Sodium Chloride Flush 0.9% 10 Ml Syringe IVP 10 ml PRN PRN Administration NEEDED PER PROVIDER ORDERS Sodium Chloride 20 ml 02/04/22 22:47 02/10/22 05:40 Sodium Chloride Flush 0.9% 10 Ml Syringe IVP 20 ml PRN PRN Administration After Blood Draw - Lab Result Fish Bone Diagrams: 02/08/22 06:15 02/10/22 04:50 - Additional Planning My Orders: My Active Orders 02/10/22 10:02 guaiFENesin/CODEINE [Robitussin AC] 5 ml PO Q6HR PRN 02/10/22 11:09 Vital Signs [RC] Q8HR 02/11/22 Evaluate and Treat OT [OT] Routine Evaluate and Treat PT [PT] Routine 02/11/22 05:00 BMP - BASIC METABOLIC PANEL [CHEM] DAILYLAB CBC - COMP BLD CT W/AUTO DIFF [HEME] DAILYLAB 02/12/22 05:00 BMP - BASIC METABOLIC PANEL [CHEM] DAILYLAB CBC - COMP BLD CT W/AUTO DIFF [HEME] DAILYLAB 02/13/22 05:00 BMP - BASIC METABOLIC PANEL [CHEM] DAILYLAB CBC - COMP BLD CT W/AUTO DIFF [HEME] DAILYLAB 02/14/22 05:00 BMP - BASIC METABOLIC PANEL [CHEM] DAILYLAB CBC - COMP BLD CT W/AUTO DIFF [HEME] DAILYLAB Subjective - Subjective Patient Reports: Feeling Better (He is motivated to get home, wants to walk more, even though he is in ICU.) Objective Vital Signs: Vital Signs - 24 hr 02/09/22 02/09/22 02/09/22 21:00 22:00 22:20 Temperature Heart Rate 88 Heart Rate [ 96 96 Monitoring electrodes] Respiratory 24 24 Rate Blood Pressure 137/48 H 137/48 H [Left Brachial artery] O2 Saturation 97 97 If not protocol 3 3 : Oxygen Flow, liters/minute 02/09/22 02/10/22 02/10/22 23:00 00:00 01:00 Temperature 36.7 C Heart Rate Heart Rate [ 84 84 83 Monitoring electrodes] Respiratory 22 13 18 Rate Blood Pressure 129/52 L 132/55 H 120/107 H [Left Brachial artery] O2 Saturation 97 97 99 If not protocol : Oxygen Flow, liters/minute 02/10/22 02/10/22 02/10/22 01:10 02:00 03:00 Temperature Heart Rate 80 86 Heart Rate [ 73 80 Monitoring electrodes] Respiratory 22 20 Rate Blood Pressure 136/54 H 152/60 H [Left Brachial artery] O2 Saturation 98 98 If not protocol : Oxygen Flow, liters/minute 02/10/22 02/10/22 02/10/22 04:00 04:31 05:00 Temperature 36.7 C Heart Rate Heart Rate [ 67 81 Monitoring electrodes] Respiratory 15 16 Rate Blood Pressure 144/55 H 161/67 H [Left Brachial artery] O2 Saturation 98 97 If not protocol 3 3 : Oxygen Flow, liters/minute 02/10/22 02/10/22 02/10/22 06:20 07:00 08:00 Temperature 36.7 C Heart Rate 84 Heart Rate [ 83 95 89 Monitoring electrodes] Respiratory 22 24 20 Rate Blood Pressure 168/65 H 157/95 H 160/64 H [Left Brachial artery] O2 Saturation 98 95 95 If not protocol 3 3 3 : Oxygen Flow, liters/minute 02/10/22 02/10/22 02/10/22 09:00 11:11 11:15 Temperature Heart Rate 94 Heart Rate [ 97 Monitoring electrodes] Respiratory 31 H 22 Rate Blood Pressure 166/62 H [Left Brachial artery] O2 Saturation 95 If not protocol 3 3 3 : Oxygen Flow, liters/minute 02/10/22 02/10/22 02/10/22 12:00 14:54 19:53 Temperature Heart Rate 97 101 H Heart Rate [ 97 Monitoring electrodes] Respiratory 24 27 H 24 Rate Blood Pressure 161/71 H [Left Brachial artery] O2 Saturation 96 If not protocol 3 4 3 : Oxygen Flow, liters/minute Oxygen O2 Source Nasal cannula I&O (Last 24 Hrs): Intake and Output Totals x24h 02/08/22 02/09/22 02/10/22 23:59 23:59 23:59 Intake Total 1325 2980 1700 Output Total 1343 1500 1750 Balance -18 1480 -50 General: Alert, Oriented x3 HEENT: Mucous membr. moist/pink, Other (Wearing O2 via n.c. Face is flushed) Neck: Supple Neuro: Alert, Non Focal, Oriented Times 3 Cardiovascular: Regular rate, No murmurs Respiratory: Other (No wheezing but diminished breath sounds in all lung quiroz) Abdomen: Normal bowel sounds, Soft Extremities: No clubbing, No edema, Other (Venous stasis changes of both shins.) - Results Results: Laboratory Results WBC 12.7 x10^3/uL (4.8-10.8) H 02/08/22 06:15 RBC 3.50 10^6/uL (4.70-6.10) L 02/08/22 06:15 Hgb 9.5 g/dL (14.0-18.0) L 02/08/22 06:15 Hct 32.2 % (42.0-52.0) L 02/08/22 06:15 MCV 92.0 fL (80.0-94.0) 02/08/22 06:15 MCH 27.1 pg (27.0-31.0) 02/08/22 06:15 MCHC 29.5 g/dL (32.0-36.0) L 02/08/22 06:15 RDW 17.2 % (12.0-15.0) H 02/08/22 06:15 Plt Count 167 10^3/uL (130-450) 02/08/22 06:15 MPV 10.8 fL (7.4-11.4) 02/08/22 06:15 Neut # (Auto) 11.0 10^3/uL (1.5-6.6) H 02/08/22 06:15 Lymph # (Auto) 0.7 10^3/uL (1.5-3.5) L 02/08/22 06:15 [place] # (Auto) 0.9 10^3/uL (0.0-1.0) 02/08/22 06:15 Eos # (Auto) 0.0 10^3/uL (0.0-0.7) 02/08/22 06:15 Baso # (Auto) 0.0 10^3/uL (0.0-0.1) 02/08/22 06:15 Absolute Nucleated RBC 0.00 x10^3/uL 02/08/22 06:15 Total Counted 100 02/03/22 04:54 Band Neuts % (Manual) 2 % (0-10) 02/03/22 04:54 Abnorm Lymph % (Manual) 0 % 02/03/22 04:54 Nucleated RBC % 0.0 /100WBC 02/08/22 06:15 Neutrophils # (Manual) 10.2 10^3/uL (1.5-6.6) H 02/03/22 04:54 Lymphocytes # (Manual) 4.7 10^3/uL (1.5-3.5) H 02/03/22 04:54 Monocytes # (Manual) 2.2 10^3/uL (0.0-1.0) H 02/03/22 04:54 Eosinophils # (Manual) 0.0 10^3/uL (0-0.7) 02/03/22 04:54 Basophils # (Manual) 0.2 10^3/uL (0-0.1) H 02/03/22 04:54 Nucleated RBCs 1 % 02/03/22 04:54 Differential Comment MANUAL DIFFERENTIAL 02/03/22 04:54 Manual Slide Review Indicated 02/04/22 07:23 WBC Morphology NORMAL APPEARANCE (NORMAL) 02/04/22 00:15 Platelet Estimate NORMAL (130-450,000) (NORMAL) 02/04/22 07:23 Platelet Morphology NORMAL APPEARANCE (NORMAL) 02/04/22 07:23 RBC Morph Micro Appear 1+ POLYCHROMASIA (NORMAL) 1+ HYPOCHROMASIA (NORMAL) 02/04/22 07:23 RBC Morph Micro Appear 1+ POLYCHROMASIA (NORMAL) 1+ HYPOCHROMASIA (NORMAL) 02/04/22 07:23 Bld Gas Analysis Time 1640 02/07/22 16:36 Sample Site LEFT RADIAL 02/07/22 16:36 ABG pH 7.39 (7.35-7.45) 02/07/22 16:36 ABG pCO2 49 mmHg (34-45) H 02/07/22 16:36 ABG pO2 73 mmHg (80-100) L 02/07/22 16:36 ABG HCO3 29.1 mmol/L (22.0-26.0) H 02/07/22 16:36 ABG Total CO2 30.6 MMOL/L (21.0-29.0) H 02/07/22 16:36 ABG O2 Saturation 94 % (94-98) 02/07/22 16:36 ABG Base Excess 3.5 mmol/L (-2.0-3.0) H 02/07/22 16:36 Roney Test POSITIVE 02/07/22 16:36 VBG pH 7.359 02/10/22 04:50 Ionized Calcium 1.24 mmol/L (1.15-1.33) 02/10/22 04:50 Respiration Rate 20 b/min 02/07/22 07:10 O2 Delivery Device BiPAP 02/07/22 16:36 O2 Liters/Min 2.00 LPM 02/07/22 14:25 Vent Mode ASSIST/CONTROL 02/07/22 07:10 FiO2 30.00 02/07/22 16:36 Tidal Volume 500 mL 02/07/22 07:10 PEEP 5 cmH2O 02/07/22 07:10 Pressure Support Vent 11 cmH2O 02/04/22 05:55 EPAP 5 cmH2O 02/07/22 16:36 IPAP 16 cmH2O 02/07/22 16:36 Sodium 143 mmol/L (135-145) 02/10/22 04:50 Potassium 5.1 mmol/L (3.5-5.0) H 02/10/22 04:50 Chloride 104 mmol/L (101-111) 02/10/22 04:50 Carbon Dioxide 33 mmol/L (21-32) H 02/10/22 04:50 Anion Gap 6.0 (6-13) 02/10/22 04:50 BUN 42 mg/dL (6-20) H 02/10/22 04:50 Creatinine 1.0 mg/dL (0.6-1.2) 02/10/22 04:50 Estimated GFR (MDRD) 75 (>89) L 02/10/22 04:50 Glucose 290 mg/dL (70-100) H 02/10/22 04:50 Estimat Average Glucose 226 mg/dL (70-100) H 02/04/22 07:23 Hemoglobin A1c % 9.5 % (4.27-6.07) H 02/04/22 07:23 Lactic Acid 1.2 mmol/L (0.5-2.2) 02/03/22 04:54 Calcium 9.2 mg/dL (8.5-10.3) 02/10/22 04:50 Phosphorus 3.7 mg/dL (2.5-4.6) 02/10/22 04:50 Magnesium 2.7 mg/dL (1.7-2.8) 02/10/22 04:50 Total Bilirubin 0.6 mg/dL (0.2-1.0) 02/10/22 04:50 AST 28 IU/L (10-42) 02/10/22 04:50 ALT 46 IU/L (10-60) 02/10/22 04:50 Alkaline Phosphatase 36 IU/L (42-121) L 02/10/22 04:50 Troponin I High Sens 22.9 ng/L (2.3-19.7) H* 02/05/22 05:52 B-Natriuretic Peptide 166 pg/mL (5-100) H 02/06/22 05:00 Total Protein 5.6 g/dL (6.7-8.2) L 02/10/22 04:50 Albumin 3.2 g/dL (3.2-5.5) 02/10/22 04:50 Globulin 2.4 g/dL (2.1-4.2) 02/10/22 04:50 Albumin/Globulin Ratio 1.3 (1.0-2.2) 02/10/22 04:50 Prealbumin 27 mg/dL (18-45) 02/10/22 04:50 Lipase 41 U/L (22-51) 02/03/22 04:54 Vitamin B12 1311 pg/mL (180-914) H 02/05/22 05:45 Folate 22.45 ng/mL (5.90 - >24.8) 02/05/22 05:45 Urine Color YELLOW 02/04/22 10:00 Urine Clarity CLEAR (CLEAR) 02/04/22 10:00 Urine pH 5.5 PH (5.0-7.5) 02/04/22 10:00 Ur Specific [place] >=1.030 (1.002-1.030) H 02/04/22 10:00 Urine Protein 100 mg/dL (NEGATIVE) H 02/04/22 10:00 Urine Glucose (UA) NEGATIVE mg/dL (NEGATIVE) 02/04/22 10:00 Urine Ketones NEGATIVE mg/dL (NEGATIVE) 02/04/22 10:00 Urine Occult Blood NEGATIVE (NEGATIVE) 02/04/22 10:00 Urine Nitrite NEGATIVE (NEGATIVE) 02/04/22 10:00 Urine Bilirubin NEGATIVE (NEGATIVE) 02/04/22 10:00 Urine Urobilinogen 0.2 (NORMAL) E.U./dL (NORMAL) 02/04/22 10:00 Ur Leukocyte Esterase NEGATIVE (NEGATIVE) 02/04/22 10:00 Urine RBC 0-5 /HPF (0-5) 02/04/22 10:00 Urine WBC 6-10 /HPF (0-3) H 02/04/22 10:00 Ur Squamous Epith Cells RARE Squamous (<= Few) 02/04/22 10:00 Urine Bacteria None Seen /HPF (None Seen) 02/04/22 10:00 Urine Casts 3-5 WBC Casts /LPF 02/04/22 10:00 Urine Mucus Few Strands 02/04/22 10:00 Ur Microscopic Review INDICATED 02/04/22 10:00 Urine Culture Comments NOT INDICATED 02/04/22 10:00 Nasal Adenovirus (PCR) NOT DETECTED 02/03/22 04:54 Nasal B. parapertussis DNA (PCR) NOT DETECTED 02/03/22 04:54 Nasal Coronavir 229E PCR NOT DETECTED 02/03/22 04:54 Nasal Coronavir HKU1 PCR NOT DETECTED 02/03/22 04:54 Nasal Coronavir NL63 PCR NOT DETECTED 02/03/22 04:54 Nasal Coronavir OC43 PCR NOT DETECTED 02/03/22 04:54 Nasal Enterovir/Rhinovir PCR NOT DETECTED 02/03/22 04:54 Nasal Influenza A H3 PCR DETECTED A 02/03/22 04:54 Nasal Influenza B PCR NOT DETECTED 02/03/22 04:54 Nasal Parainfluen 1 PCR NOT DETECTED 02/03/22 04:54 Nasal Parainfluen 2 PCR NOT DETECTED 02/03/22 04:54 Nasal Parainfluen 3 PCR NOT DETECTED 02/03/22 04:54 Nasal Parainfluen 4 PCR NOT DETECTED 02/03/22 04:54 Nasal RSV (PCR) NOT DETECTED 02/03/22 04:54 Nasal Screen MRSA (PCR) NEGATIVE (NEGATIVE) 02/03/22 13:33 Nasal B.pertussis DNA PCR NOT DETECTED 02/03/22 04:54 Nasal C.pneumoniae (PCR) NOT DETECTED 02/03/22 04:54 [place] Human Metapneumo PCR NOT DETECTED 02/03/22 04:54 Nasal M.pneumoniae (PCR) NOT DETECTED 02/03/22 04:54 Nasal SARS-CoV-2 (PCR) NOT DETECTED 02/03/22 04:54
[2022-02-10] MEDS: ALBUTEROL NEB 2.5 MG/3 ML INH PRN (22:08)
[2022-02-10] MEDS ORDERED: WATER FOR INJECTION,STERILE 10 ML MC ONE (22:37)
[2022-02-10] MEDS: ATORVASTATIN 40 MG TABLET PO SCH (22:51)
[2022-02-10] MEDS: MONTELUKAST 10 MG TABLET PO SCH (22:52)
[2022-02-10] MEDS: INSULIN GLARGINE-YFGN 300 UNIT/3 ML PEN SUBQ SCH (22:52)
[2022-02-10] MEDS: PRAMIPEXOLE 0.25 MG TABLET PO SCH (23:01)
[2022-02-11] MEDS: SODIUM CHLORIDE FLUSH 0.9% 10 ML SYRINGE IVP SCH ×3 (02:50→17:06)
[2022-02-11] MEDS: FORMOTEROL FUMARATE NEB 20 MCG/2 ML INH SCH ×3 (05:21→21:35)
[2022-02-11] MEDS: BUDESONIDE 0.5 MG/2 ML NEB INH SCH ×3 (05:21→21:35)
[2022-02-11] MEDS: IPRATROPIUM/ALBUTEROL 3 ML NEB INH SCH ×4 (05:21→18:10)
[2022-02-11] MEDS: methylPREDNISolone SUCCINATE 40 MG/ML VIAL IVP SCH ×3 (07:01→20:42)
[2022-02-11] MEDS: SODIUM CHLORIDE FLUSH 0.9% 10 ML SYRINGE IVP PRN ×4 (07:01→17:06)
[2022-02-11] MEDS: LEVOTHYROXINE 112 MCG TABLET PO SCH (07:11)
[2022-02-11] MEDS: LEVOTHYROXINE 25 MCG TABLET PO SCH (07:11)
[2022-02-11] MEDS ORDERED: MORPHINE 2 MG/ML CARPUJECT IVP PRN (07:50)
[2022-02-11] MEDS: INSULIN LISPRO 300 UNIT/3 ML PEN SUBQ SCH ×4 (08:57→20:55)
[2022-02-11] MEDS: DOCUSATE SODIUM 250 MG CAPSULE PO SCH (09:11)
[2022-02-11] MEDS: hydrALAZINE 25 MG TABLET PO SCH ×2 (09:11→20:43)
[2022-02-11] MEDS: CHLORHEXIDINE GLUCONATE 15 ML UDC PO SCH ×2 (09:11→20:42)
[2022-02-11] MEDS: ENOXAPARIN 40 MG/0.4 ML SYRINGE SUBQ SCH (09:11)
[2022-02-11] MEDS: FOLIC ACID 1 MG TABLET NG SCH (09:12)
[2022-02-11] MEDS: PANTOPRAZOLE 40 MG TABLET PO SCH ×2 (09:12→20:42)
[2022-02-11] MEDS: LOSARTAN 50 MG TABLET PO SCH (09:12)
[2022-02-11] MEDS: ASPIRIN EC 81 MG TABLET PO SCH (09:12)
[2022-02-11] MEDS: ASCORBIC ACID 500 MG TABLET PO SCH (09:12)
[2022-02-11] MEDS: NICOTINE 21 MG PATCH TOP SCH (09:13)
[2022-02-11] MEDS: cefTRIAXone 1 GM in SODIUM CHLORIDE 0.9% MINIBAG 100 ML IV SCH (09:13)
[2022-02-11] MEDS: CHOLECALCIFEROL 5,000 UNIT CAPSULE PO SCH (09:13)
[2022-02-11] MEDS: polyethylene glycoL 3350 17 GM PACKET PO SCH (09:13)
[2022-02-11] MEDS: SENNA 8.6 MG TABLET PO SCH ×3 (09:30→20:41)
[2022-02-11] MEDS: guaiFENesin/CODEINE 5 ML UDC PO PRN ×2 (11:09→17:11)
[2022-02-11 11:11] LABS: HGB - HEMOGLOBIN 9.6 g/dL (14.0-18.0); LYMPHOCYTES # (AUTO) 0.4 10^3/uL (1.5-3.5); LYMPHOCYTES % (AUTO) 3.2 %; MEAN CORPUSCULAR HEMOGLOBIN 26.5 pg (27.0-31.0); MEAN CORPUSCULAR HGB CONC 29.1 g/dL (32.0-36.0); MEAN CORPUSCULAR VOLUME 91.2 fL (80.0-94.0); MEAN PLATELET VOLUME 10.2 fL (7.4-11.4); MONOCYTES # (AUTO) 0.9 10^3/uL (0.0-1.0); NEUTROPHILS # (AUTO) 10.8 10^3/uL (1.5-6.6); NEUTROPHILS % (AUTO) 88.7 %; PLT - PLATELET COUNT 199 10^3/uL (130-450); RED BLOOD COUNT 3.62 10^6/uL (4.70-6.10); RED CELL DISTRIBUTION WIDTH 16.5 % (12.0-15.0); WHITE BLOOD COUNT 12.2 x10^3/uL (4.8-10.8)
[2022-02-11 11:22] LABS: CREATININE 1.2 mg/dL (0.6-1.2); POTASSIUM 5.2 mmol/L (3.5-5.0)
[2022-02-11] MEDS: FERROUS SULFATE 325 MG TABLET PO SCH (12:23)
--- NOTE | 2022-02-11 18:56 | PROVIDER PROGRESS NOTE ---
Assessment/Plan - Problem List (1) Acute respiratory failure with hypoxia and hypercapnia Assessment/Plan: After admission, this patient failed, had CO2 retention and was intubated on 02/04. He was extubated 02/07. He was starting to again fatigue, so a rebreather mask and BiPAP at night needed to be resumed. He has been on BiPAP every night since extubation, which has helped. As I am seeing him he is on nasal cannula, but is tachypneic, when speaking, cannot complete an entire sentence. Plan: Nightly BIPAP for suppl O2 I feel that the patient is a candidate for a home noninvasive ventilator. I have ordered a Home non-invasive ventilator to treat his COPD with CO2 retention. A CPAP unit has been tried and failed. (2) COPD with exacerbation Conclusion/Plan: At home he is on long-acting bronchodilators, long-acting inhaled steroids, anticholinergics with Atrovent, and a daily prednisone tablet. He also takes Singulair. Unfortunately he is still smoking. He is even on maintenance azithromycin. This current exacerbation is due to influenza A. Plan: Continue previous therapy of azithromycin, Perforomist and budesonide via inhalation, DuoNeb at a fixed schedule of 4 times daily, Albuterol as needed, Solu-Medrol was increased to 80 mg mg IV QID then decreased to 40 TID after extubation and will continue a steroid taper Nicotine patch 14 mg was ordered. He wants a 30-day prescription for Nicotine ordered at [facility] I feel that the patient is a candidate for a home noninvasive ventilator as well. (3) Influenza A Conclusion/Plan: Plan: Symptomatic treatment, plus oxygen, and Tamiflu ordered for 5 days. (4) SUSHANT (obstructive sleep apnea) Conclusion/Plan: He was on home CPAP mask. Plan: Here he failed CPAP, needed intubation and now Bipap I feel that the patient is a candidate for a home noninvasive ventilator (5) Diabetes mellitus Conclusion/Plan: We will be controlling him with Lantus, and sliding scale insulin. His home medications of Amaryl, Trulicity have not been ordered while here. 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 Continue to monitor and change medications as needed for BP control Qualifiers: Hypertension type: primary hypertension Qualified Code(s): I10 - Essential (primary) hypertension (7) PVD (peripheral vascular disease) Conclusion/Plan: On exam his skin is shiny, tight and red/brown over his shins, but he has no open ulcers or tenderness. His dorsalis pedis pulses are palpable on both feet. He was having significant leg pain before his angioplasty 3 months ago and that is improved. Plan: Continued aspirin and he is on Lovenox for DVT prophylaxis. We are also continuing his statin (8) Rheumatoid arthritis Conclusion/Plan: He was on Azulfidine and Prednisone at home Plan: Initially we ordered Azulfidine, but prednisone was switched to IV Solu-Medrol. We are tapering Solumedrol down And we have put azulfidine on hold, while he has an infection Qualifiers: Rheumatoid arthritis location: multiple sites Rheumatoid factor presence: with rheumatoid factor Qualified Code(s): M05.79 - Rheumatoid arthritis with rheumatoid factor of multiple sites without organ or systems involvement (9) Tobacco abuse Conclusion/Plan: Plan: nicotine patch ordered 02/03 He wants a 30-day prescription for Nicotine ordered at [facility] (10) CKD (chronic kidney disease) stage 3, GFR 30-59 ml/min Conclusion/Plan: Creat 1.3>1.5>1.6 then with IVF creat improved Plan: We stopped iv fluids, since edema was starting and Lasix was resumed Avoid nephrotoxic agents Monitor BMP daily Qualifiers: Chronic kidney disease stage 3 subtype: stage 3a (GFR 45-59) Qualified Code(s): N18.31 - Chronic kidney disease, stage 3a (12) Abn EKG Impression: Because of worsening respiratory status, an EKG was ordered to be done. The EKG showed NSR with first-degree AV block, LA enlargement, abnormal inverted T waves laterally. Since EKG from 02/03/2022, tachycardia and Wenkebach and PVC are absent but the lateral T wave abnormality was new. Troponins were flat on admission. Plan: Consider an Echo, but last one was just done in 10/2021. (13) Hyperkalemia Resolved with 10 units of IVP regular insulin when his glucose was 237. Glucose dropped to 168. Plan: Avoid potassium-containing compounds. Follow BMP daily (4) Coffee ground emesis Impression: Before being intubated, when he was in marked distress, he had coffee ground emesis, several days ago. This is a gentleman who smokes, has peripheral vascular disease, and may be at risk for GI bleed because he takes an aspirin every day. He also takes vitamin C. But he does take Protonix at home. Plan: He ws on iv Protonix while intubated. We resumed oral protonix Followed H/H closely and there was no need for transfusion If he drops his hemoglobin, or again has melanotic stool, we will consider general surgery consult for EGD. At this time we will just manage medically. - Current Meds Current Meds: Current Medications Generic Name Dose Route Start Last Admin Trade Name Freq PRN Reason Stop Dose Admin Albuterol 2.5 mg 02/03/22 09:20 02/10/22 22:08 Albuterol Neb 2.5 Mg/3 Ml INH 2.5 mg Q4HR PRN Administration Wheezing Albuterol/Ipratropium 3 ml 02/03/22 11:00 02/11/22 18:10 Ipratropium/Albuterol 3 Ml Neb INH 3 ml RTQID ADEEL Administration Ascorbic Acid 1,000 mg 02/09/22 09:00 02/11/22 09:12 Ascorbic Acid 500 Mg Tablet PO 1,000 mg DAILY ADEEL Administration Aspirin 81 mg 02/09/22 09:00 02/11/22 09:12 Aspirin Ec 81 Mg Tablet PO 81 mg DAILY ADEEL Administration Atorvastatin Calcium 80 mg 02/08/22 21:00 02/10/22 22:51 Atorvastatin 40 Mg Tablet PO 80 mg QPM ADEEL Administration Budesonide 0.5 mg 02/03/22 19:00 02/11/22 18:10 Budesonide 0.5 Mg/2 Ml Neb INH 0.5 mg RTBID ADEEL Administration Chlorhexidine Gluconate 15 ml 02/04/22 12:00 02/11/22 09:11 Chlorhexidine Gluconate 15 Ml Udc PO 15 ml BID ADEEL Administration Cholecalciferol 5,000 unit 02/04/22 09:00 02/11/22 09:13 Cholecalciferol 5,000 Unit Capsule PO 5,000 unit DAILY ADEEL Administration Docusate Sodium 250 - 500 mg 02/11/22 09:00 02/11/22 09:11 Docusate Sodium 250 Mg Capsule PO 250 mg DAILY ADEEL Administration Enoxaparin Sodium 40 mg 02/03/22 10:00 02/11/22 09:11 Enoxaparin 40 Mg/0.4 Ml Syringe SUBQ 40 mg DAILY ADEEL Administration Ferrous Sulfate 325 mg 02/11/22 11:00 02/11/22 12:23 Ferrous Sulfate 325 Mg Tablet PO 325 mg MOWEFR ADEEL Administration Folic Acid 1 mg 02/05/22 09:13 02/11/22 09:12 Folic Acid 1 Mg Tablet NG 1 mg DAILY ADEEL Administration Formoterol Fumarate 20 mcg 02/03/22 19:00 02/11/22 18:13 Formoterol Fumarate Neb 20 Mcg/2 Ml INH 20 mcg RTBID ADEEL Administration Guaifenesin/Codeine Phosphate 5 ml 02/10/22 10:02 02/11/22 17:11 Guaifenesin/Codeine 5 Ml Udc PO 5 ml Q6HR PRN Administration Cough Hydralazine HCl 75 mg 02/03/22 21:00 02/11/22 09:11 Hydralazine 25 Mg Tablet PO 75 mg BID ADEEL Administration Insulin Glargine-yfgn 30 unit 02/08/22 21:00 02/10/22 22:52 Insulin Glargine-Yfgn 300 Unit/3 Ml Pen SUBQ 30 unit QPM ADEEL Administration Insulin Human Lispro 3 - 11 unit 02/08/22 12:30 02/11/22 17:04 Insulin Lispro 300 Unit/3 Ml Pen SUBQ 11 unit 0800,1200,1700,2100 ADEEL Administration Protocol Levothyroxine Sodium 25 mcg 02/09/22 07:00 02/11/22 07:11 Levothyroxine 25 Mcg Tablet PO 25 mcg QDAC ADEEL Administration Levothyroxine Sodium 112 mcg 02/09/22 07:00 02/11/22 07:11 Levothyroxine 112 Mcg Tablet PO 112 mcg QDAC ADEEL Administration Losartan Potassium 50 mg 02/09/22 09:00 02/11/22 09:12 Losartan 50 Mg Tablet PO 50 mg DAILY ADEEL Administration Methylprednisolone 40 mg 02/11/22 09:00 02/11/22 09:12 Methylprednisolone Succinate 40 Mg/Ml Vial IVP 40 mg BID ADEEL Administration Mineral Oil 1 applic 02/04/22 22:48 02/08/22 10:00 Min Oil/Dimethicon/Coconut Oil 92 Gm Tube TOP 1 applic PRN PRN Administration Skin Care Montelukast Sodium 10 mg 02/03/22 21:00 02/10/22 22:52 Montelukast 10 Mg Tablet PO 10 mg QPM ADEEL Administration Multi-Ingredient Ointment 1 applic 02/03/22 18:01 02/03/22 18:48 Zinc Oxide 20% Oint 30 Gm Tube TOP 1 applic PRN PRN Administration Skin Care Nicotine 1 patch 02/03/22 09:00 02/11/22 09:13 Nicotine 21 Mg Patch TOP 1 patch DAILY ADEEL Administration Ondansetron HCl 4 mg 02/03/22 09:20 02/10/22 15:03 Ondansetron 4 Mg/2 Ml Vial IVP 4 mg Q6HR PRN Administration Nausea / Vomiting Pantoprazole Sodium 40 mg 02/08/22 21:00 02/11/22 09:12 Pantoprazole 40 Mg Tablet PO 40 mg BID ADEEL Administration Polyethylene Glycol 17 gm 02/06/22 09:00 02/11/22 09:13 Polyethylene Glycol 3350 17 Gm Packet PO 17 gm DAILY ADEEL Administration Pramipexole Dihydrochloride 2 mg 02/03/22 21:00 02/10/22 23:01 Pramipexole 0.25 Mg Tablet PO Not Given QPM ADEEL Senna 17.2 - 25.8 mg 02/11/22 08:00 02/11/22 13:50 Senna 8.6 Mg Tablet PO 02/12/22 02:01 17.2 mg Q6H ADEEL Administration Sodium Chloride 10 ml 02/03/22 17:00 02/11/22 17:06 Sodium Chloride Flush 0.9% 10 Ml Syringe IVP 10 ml 0100,0900,1700 ADEEL Administration Sodium Chloride 10 ml 02/03/22 09:20 02/11/22 17:06 Sodium Chloride Flush 0.9% 10 Ml Syringe IVP 10 ml PRN PRN Administration NEEDED PER PROVIDER ORDERS Sodium Chloride 20 ml 02/04/22 22:47 02/11/22 17:06 Sodium Chloride Flush 0.9% 10 Ml Syringe IVP 20 ml PRN PRN Administration After Blood Draw - Lab Result Fish Bone Diagrams: 02/12/22 04:45 02/12/22 04:45 - Additional Planning My Orders: My Active Orders 02/11/22 Evaluate and Treat OT [OT] Routine Evaluate and Treat PT [PT] Routine 02/11/22 07:50 Morphine Inj (Carpuject) [Morphine (Carpuject)] 2 mg IVP Q8HR PRN 02/11/22 08:00 Senna [Senokot] 17.2 - 25.8 mg PO Q6H 02/11/22 09:00 Docusate Sodium 250Mg Capsule [Colace 250Mg Capsule] 250 - 500 mg PO DAILY methylPREDNISolone SUCCINATE [SOLU-Medrol (40MG VIAL)] 40 mg IVP BID 02/11/22 11:53 Infection Precautions - Discon [RC] .ONCE 02/12/22 05:00 BMP - BASIC METABOLIC PANEL [CHEM] DAILYLAB CBC - COMP BLD CT W/AUTO DIFF [HEME] DAILYLAB 02/12/22 09:00 Azithromycin [Zithromax] 250 mg PO DAILY 02/13/22 05:00 BMP - BASIC METABOLIC PANEL [CHEM] DAILYLAB CBC - COMP BLD CT W/AUTO DIFF [HEME] DAILYLAB 02/14/22 05:00 BMP - BASIC METABOLIC PANEL [CHEM] DAILYLAB CBC - COMP BLD CT W/AUTO DIFF [HEME] DAILYLAB Subjective - Subjective Patient Reports: Feeling Better (He is tachypneic but more talkative than all hospitalization. He is eager to ambulate and wants to get home. He understands we are waiting for approval of a Trilogy-type Non-Invasive home ventilator, so it can be fitted, used overnight here, before we will DCh him, because of how bad his lungs are.) Objective Vital Signs: Vital Signs - 24 hr 02/10/22 02/10/22 02/10/22 19:53 21:56 22:10 Temperature 36.5 C Heart Rate 101 H 92 Heart Rate [ 91 Monitoring electrodes] Heart Rate [ Sitting] Respiratory 24 20 22 Rate Blood Pressure 158/54 H [Left Brachial artery] Blood Pressure [Sitting] O2 Saturation 97 If not protocol 3 3 3 : Oxygen Flow, liters/minute 02/11/22 02/11/22 02/11/22 00:00 02:00 04:00 Temperature 36.8 C Heart Rate 87 Heart Rate [ 93 Monitoring electrodes] Heart Rate [ Sitting] Respiratory 20 Rate Blood Pressure 151/54 H [Left Brachial artery] Blood Pressure [Sitting] O2 Saturation 95 If not protocol 2 2 2 : Oxygen Flow, liters/minute 02/11/22 02/11/22 02/11/22 05:25 06:00 08:00 Temperature Heart Rate 87 Heart Rate [ Monitoring electrodes] Heart Rate [ Sitting] Respiratory 22 Rate Blood Pressure [Left Brachial artery] Blood Pressure [Sitting] O2 Saturation If not protocol 2 2 1 : Oxygen Flow, liters/minute 02/11/22 02/11/22 02/11/22 08:20 08:30 09:59 Temperature 36.8 C Heart Rate 95 Heart Rate [ 91 Monitoring electrodes] Heart Rate [ Sitting] Respiratory 20 22 Rate Blood Pressure 150/63 H [Left Brachial artery] Blood Pressure [Sitting] O2 Saturation 92 92 If not protocol 2 1 : Oxygen Flow, liters/minute 02/11/22 02/11/22 02/11/22 10:00 11:50 12:00 Temperature Heart Rate Heart Rate [ Monitoring electrodes] Heart Rate [ 100 Sitting] Respiratory Rate Blood Pressure [Left Brachial artery] Blood Pressure 145/91 H [Sitting] O2 Saturation If not protocol 1 1 : Oxygen Flow, liters/minute 02/11/22 02/11/22 02/11/22 14:00 15:53 18:14 Temperature 36.8 C Heart Rate 97 Heart Rate [ 100 Monitoring electrodes] Heart Rate [ Sitting] Respiratory 19 20 Rate Blood Pressure 166/67 H [Left Brachial artery] Blood Pressure [Sitting] O2 Saturation 93 If not protocol 1 1 1 : Oxygen Flow, liters/minute Oxygen O2 Source Nasal cannula I&O (Last 24 Hrs): Intake and Output Totals x24h 02/09/22 02/10/22 02/11/22 23:59 23:59 23:59 Intake Total 2980 2000 1530 Output Total 1500 2225 575 Balance 1480 -225 955 General: Alert, Oriented x3 HEENT: EOMI, Mucous membr. moist/pink, Other (Cushingoid. Wearing O2 per n.c.) Neck: Supple, No JVD Neuro: Alert, Non Focal Cardiovascular: Regular rate, No murmurs Respiratory: Other (Clear lungs but very diminished breath sounds in all lung quiroz. He is tachypneic when speaking, despite wearing suppl. O2) Abdomen: Normal bowel sounds, Soft, No tenderness Extremities: No clubbing, No edema, Other (Venous stasis changes of shins) - Results Results: Laboratory Results WBC 12.2 x10^3/uL (4.8-10.8) H 02/11/22 11:06 RBC 3.62 10^6/uL (4.70-6.10) L 02/11/22 11:06 Hgb 9.6 g/dL (14.0-18.0) L 02/11/22 11:06 Hct 33.0 % (42.0-52.0) L 02/11/22 11:06 MCV 91.2 fL (80.0-94.0) 02/11/22 11:06 MCH 26.5 pg (27.0-31.0) L 02/11/22 11:06 MCHC 29.1 g/dL (32.0-36.0) L 02/11/22 11:06 RDW 16.5 % (12.0-15.0) H 02/11/22 11:06 Plt Count 199 10^3/uL (130-450) 02/11/22 11:06 MPV 10.2 fL (7.4-11.4) 02/11/22 11:06 Neut # (Auto) 10.8 10^3/uL (1.5-6.6) H 02/11/22 11:06 Lymph # (Auto) 0.4 10^3/uL (1.5-3.5) L 02/11/22 11:06 Sabine # (Auto) 0.9 10^3/uL (0.0-1.0) 02/11/22 11:06 Eos # (Auto) 0.0 10^3/uL (0.0-0.7) 02/11/22 11:06 Baso # (Auto) 0.0 10^3/uL (0.0-0.1) 02/11/22 11:06 Absolute Nucleated RBC 0.00 x10^3/uL 02/11/22 11:06 Total Counted 100 02/03/22 04:54 Band Neuts % (Manual) 2 % (0-10) 02/03/22 04:54 Abnorm Lymph % (Manual) 0 % 02/03/22 04:54 Nucleated RBC % 0.0 /100WBC 02/11/22 11:06 Neutrophils # (Manual) 10.2 10^3/uL (1.5-6.6) H 02/03/22 04:54 Lymphocytes # (Manual) 4.7 10^3/uL (1.5-3.5) H 02/03/22 04:54 Monocytes # (Manual) 2.2 10^3/uL (0.0-1.0) H 02/03/22 04:54 Eosinophils # (Manual) 0.0 10^3/uL (0-0.7) 02/03/22 04:54 Basophils # (Manual) 0.2 10^3/uL (0-0.1) H 02/03/22 04:54 Nucleated RBCs 1 % 02/03/22 04:54 Differential Comment MANUAL DIFFERENTIAL 02/03/22 04:54 Manual Slide Review Indicated 02/04/22 07:23 WBC Morphology NORMAL APPEARANCE (NORMAL) 02/04/22 00:15 Platelet Estimate NORMAL (130-450,000) (NORMAL) 02/04/22 07:23 Platelet Morphology NORMAL APPEARANCE (NORMAL) 02/04/22 07:23 RBC Morph Micro Appear 1+ POLYCHROMASIA (NORMAL) 1+ HYPOCHROMASIA (NORMAL) 02/04/22 07:23 RBC Morph Micro Appear 1+ POLYCHROMASIA (NORMAL) 1+ HYPOCHROMASIA (NORMAL) 02/04/22 07:23 Bld Gas Analysis Time 1640 02/07/22 16:36 Sample Site LEFT RADIAL 02/07/22 16:36 ABG pH 7.39 (7.35-7.45) 02/07/22 16:36 ABG pCO2 49 mmHg (34-45) H 02/07/22 16:36 ABG pO2 73 mmHg (80-100) L 02/07/22 16:36 ABG HCO3 29.1 mmol/L (22.0-26.0) H 02/07/22 16:36 ABG Total CO2 30.6 MMOL/L (21.0-29.0) H 02/07/22 16:36 ABG O2 Saturation 94 % (94-98) 02/07/22 16:36 ABG Base Excess 3.5 mmol/L (-2.0-3.0) H 02/07/22 16:36 Roney Test POSITIVE 02/07/22 16:36 VBG pH 7.359 02/10/22 04:50 Ionized Calcium 1.24 mmol/L (1.15-1.33) 02/10/22 04:50 Respiration Rate 20 b/min 02/07/22 07:10 O2 Delivery Device BiPAP 02/07/22 16:36 O2 Liters/Min 2.00 LPM 02/07/22 14:25 Vent Mode ASSIST/CONTROL 02/07/22 07:10 FiO2 30.00 02/07/22 16:36 Tidal Volume 500 mL 02/07/22 07:10 PEEP 5 cmH2O 02/07/22 07:10 Pressure Support Vent 11 cmH2O 02/04/22 05:55 EPAP 5 cmH2O 02/07/22 16:36 IPAP 16 cmH2O 02/07/22 16:36 Sodium 136 mmol/L (135-145) 02/11/22 11:06 Potassium 5.2 mmol/L (3.5-5.0) H 02/11/22 11:06 Chloride 96 mmol/L (101-111) L 02/11/22 11:06 Carbon Dioxide 29 mmol/L (21-32) 02/11/22 11:06 Anion Gap 11.0 (6-13) 02/11/22 11:06 BUN 35 mg/dL (6-20) H 02/11/22 11:06 Creatinine 1.2 mg/dL (0.6-1.2) 02/11/22 11:06 Estimated GFR (MDRD) 61 (>89) L 02/11/22 11:06 Glucose 253 mg/dL (70-100) H 02/11/22 11:06 Estimat Average Glucose 226 mg/dL (70-100) H 02/04/22 07:23 Hemoglobin A1c % 9.5 % (4.27-6.07) H 02/04/22 07:23 Lactic Acid 1.2 mmol/L (0.5-2.2) 02/03/22 04:54 Calcium 9.0 mg/dL (8.5-10.3) 02/11/22 11:06 Phosphorus 3.7 mg/dL (2.5-4.6) 02/10/22 04:50 Magnesium 2.7 mg/dL (1.7-2.8) 02/10/22 04:50 Total Bilirubin 0.6 mg/dL (0.2-1.0) 02/10/22 04:50 AST 28 IU/L (10-42) 02/10/22 04:50 ALT 46 IU/L (10-60) 02/10/22 04:50 Alkaline Phosphatase 36 IU/L (42-121) L 02/10/22 04:50 Troponin I High Sens 22.9 ng/L (2.3-19.7) H* 02/05/22 05:52 B-Natriuretic Peptide 166 pg/mL (5-100) H 02/06/22 05:00 Total Protein 5.6 g/dL (6.7-8.2) L 02/10/22 04:50 Albumin 3.2 g/dL (3.2-5.5) 02/10/22 04:50 Globulin 2.4 g/dL (2.1-4.2) 02/10/22 04:50 Albumin/Globulin Ratio 1.3 (1.0-2.2) 02/10/22 04:50 Prealbumin 27 mg/dL (18-45) 02/10/22 04:50 Lipase 41 U/L (22-51) 02/03/22 04:54 Vitamin B12 1311 pg/mL (180-914) H 02/05/22 05:45 Folate 22.45 ng/mL (5.90 - >24.8) 02/05/22 05:45 Urine Color YELLOW 02/04/22 10:00 Urine Clarity CLEAR (CLEAR) 02/04/22 10:00 Urine pH 5.5 PH (5.0-7.5) 02/04/22 10:00 Ur Specific Gable >=1.030 (1.002-1.030) H 02/04/22 10:00 Urine Protein 100 mg/dL (NEGATIVE) H 02/04/22 10:00 Urine Glucose (UA) NEGATIVE mg/dL (NEGATIVE) 02/04/22 10:00 Urine Ketones NEGATIVE mg/dL (NEGATIVE) 02/04/22 10:00 Urine Occult Blood NEGATIVE (NEGATIVE) 02/04/22 10:00 Urine Nitrite NEGATIVE (NEGATIVE) 02/04/22 10:00 Urine Bilirubin NEGATIVE (NEGATIVE) 02/04/22 10:00 Urine Urobilinogen 0.2 (NORMAL) E.U./dL (NORMAL) 02/04/22 10:00 Ur Leukocyte Esterase NEGATIVE (NEGATIVE) 02/04/22 10:00 Urine RBC 0-5 /HPF (0-5) 02/04/22 10:00 Urine WBC 6-10 /HPF (0-3) H 02/04/22 10:00 Ur Squamous Epith Cells RARE Squamous (<= Few) 02/04/22 10:00 Urine Bacteria None Seen /HPF (None Seen) 02/04/22 10:00 Urine Casts 3-5 WBC Casts /LPF 02/04/22 10:00 Urine Mucus Few Strands 02/04/22 10:00 Ur Microscopic Review INDICATED 02/04/22 10:00 Urine Culture Comments NOT INDICATED 02/04/22 10:00 Nasal Adenovirus (PCR) NOT DETECTED 02/03/22 04:54 Nasal B. parapertussis DNA (PCR) NOT DETECTED 02/03/22 04:54 Nasal Coronavir 229E PCR NOT DETECTED 02/03/22 04:54 Nasal Coronavir HKU1 PCR NOT DETECTED 02/03/22 04:54 Nasal Coronavir NL63 PCR NOT DETECTED 02/03/22 04:54 Nasal Coronavir OC43 PCR NOT DETECTED 02/03/22 04:54 Nasal Enterovir/Rhinovir PCR NOT DETECTED 02/03/22 04:54 Nasal Influenza A H3 PCR DETECTED A 02/03/22 04:54 Nasal Influenza B PCR NOT DETECTED 02/03/22 04:54 Nasal Parainfluen 1 PCR NOT DETECTED 02/03/22 04:54 Nasal Parainfluen 2 PCR NOT DETECTED 02/03/22 04:54 Nasal Parainfluen 3 PCR NOT DETECTED 02/03/22 04:54 Nasal Parainfluen 4 PCR NOT DETECTED 02/03/22 04:54 Nasal RSV (PCR) NOT DETECTED 02/03/22 04:54 Nasal Screen MRSA (PCR) NEGATIVE (NEGATIVE) 02/03/22 13:33 Nasal B.pertussis DNA PCR NOT DETECTED 02/03/22 04:54 Nasal C.pneumoniae (PCR) NOT DETECTED 02/03/22 04:54 [place] Human Metapneumo PCR NOT DETECTED 02/03/22 04:54 Nasal M.pneumoniae (PCR) NOT DETECTED 02/03/22 04:54 Nasal SARS-CoV-2 (PCR) NOT DETECTED 02/03/22 04:54
[2022-02-11] MEDS: ATORVASTATIN 40 MG TABLET PO SCH (20:41)
[2022-02-11] MEDS: MONTELUKAST 10 MG TABLET PO SCH (20:42)
[2022-02-11] MEDS: PRAMIPEXOLE 0.25 MG TABLET PO SCH (20:43)
[2022-02-11] MEDS: INSULIN GLARGINE-YFGN 300 UNIT/3 ML PEN SUBQ SCH (20:56)
[2022-02-11] MEDS: ALBUTEROL NEB 2.5 MG/3 ML INH PRN (21:35)
[2022-02-12] MEDS: SODIUM CHLORIDE FLUSH 0.9% 10 ML SYRINGE IVP SCH ×4 (01:16→23:44)
[2022-02-12] MEDS: guaiFENesin/CODEINE 5 ML UDC PO PRN ×2 (04:51→10:55)
[2022-02-12 05:17] LABS: BASOPHILS % (AUTO) 0.1 %; HCT - HEMATOCRIT 31.5 % (42.0-52.0); HGB - HEMOGLOBIN 9.1 g/dL (14.0-18.0); LYMPHOCYTES # (AUTO) 0.7 10^3/uL (1.5-3.5); LYMPHOCYTES % (AUTO) 5.5 %; MEAN CORPUSCULAR HEMOGLOBIN 26.3 pg (27.0-31.0); MEAN CORPUSCULAR HGB CONC 28.9 g/dL (32.0-36.0); MEAN PLATELET VOLUME 10.5 fL (7.4-11.4); MONOCYTES # (AUTO) 1.3 10^3/uL (0.0-1.0); MONOCYTES % (AUTO) 9.6 %; NEUTROPHILS % (AUTO) 83.4 %; PLT - PLATELET COUNT 196 10^3/uL (130-450); RED BLOOD COUNT 3.46 10^6/uL (4.70-6.10); RED CELL DISTRIBUTION WIDTH 16.1 % (12.0-15.0); WHITE BLOOD COUNT 13.2 x10^3/uL (4.8-10.8)
[2022-02-12 05:23] LABS: CALCIUM 9.1 mg/dL (8.5-10.3); CREATININE 1.1 mg/dL (0.6-1.2); POTASSIUM 5.1 mmol/L (3.5-5.0)
[2022-02-12 05:28] LABS: SLIDE REVIEW? Indicated
[2022-02-12 05:46] LABS: PLATELET ESTIMATE, MANUAL NORMAL (130-450,000) (NORMAL); PLATELET MORPHOLOGY NORMAL APPEARANCE (NORMAL); RBC MORPHOLOGY (MULTIPLE) 1+ HYPOCHROMASIA (NORMAL); WBC MORPHOLOGY (MULTIPLE) NORMAL APPEARANCE (NORMAL)
[2022-02-12] MEDS: LEVOTHYROXINE 112 MCG TABLET PO SCH (06:17)
[2022-02-12] MEDS: LEVOTHYROXINE 25 MCG TABLET PO SCH (06:17)
[2022-02-12] MEDS ORDERED: SENNA 8.6 MG TABLET PO SCH (07:00)
[2022-02-12] MEDS: FORMOTEROL FUMARATE NEB 20 MCG/2 ML INH SCH (07:07)
[2022-02-12] MEDS: IPRATROPIUM/ALBUTEROL 3 ML NEB INH SCH ×4 (07:07→23:26)
[2022-02-12] MEDS: BUDESONIDE 0.5 MG/2 ML NEB INH SCH (07:07)
[2022-02-12] MEDS: INSULIN LISPRO 300 UNIT/3 ML PEN SUBQ SCH ×4 (07:37→20:57)
--- NOTE | 2022-02-12 07:59 | PROVIDER PROGRESS NOTE ---
Subjective - Prog Note Date Prog Note Date: 02/12/22 Prog Note Time: 07:58 - Subjective Subjective: He is exhausted. He shares with me that he has been sick for very long time. Months now. With each successive illness, he loses even more ground. If it were up to him he would be DO NOT RESUSCITATE and palliative care. But his and 13-year-old daughter have begged him to keep on fighting. We talked about COPD, future plans for moving, and current care plans. He is asking about being on a lung transplant list. Current Medications - Current Medications Current Medications: Active Medications Acetaminophen (Acetaminophen 325 Mg Tablet) 650 mg PO Q4HR PRN PRN Reason: Pain 1 to 4, or Fever Albuterol (Albuterol Neb 2.5 Mg/3 Ml) 2.5 mg INH Q4HR PRN PRN Reason: Wheezing Last Admin: 02/11/22 21:35 Dose: 2.5 mg Albuterol/Ipratropium (Ipratropium/Albuterol 3 Ml Neb) 3 ml INH RTQID [facility] Last Admin: 02/12/22 07:07 Dose: 3 ml Ascorbic Acid (Ascorbic Acid 500 Mg Tablet) 1,000 mg PO DAILY [facility] Last Admin: 02/11/22 09:12 Dose: 1,000 mg Aspirin (Aspirin Ec 81 Mg Tablet) 81 mg PO DAILY [facility] Last Admin: 02/11/22 09:12 Dose: 81 mg Atorvastatin Calcium (Atorvastatin 40 Mg Tablet) 80 mg PO QPM [facility] Last Admin: 02/11/22 20:41 Dose: 80 mg Azithromycin (Azithromycin 250 Mg Tablet) 250 mg PO DAILY [facility] Budesonide (Budesonide 0.5 Mg/2 Ml Neb) 0.5 mg INH RTBID [facility] Last Admin: 02/12/22 07:07 Dose: 0.5 mg Chlorhexidine Gluconate (Chlorhexidine Gluconate 15 Ml Udc) 15 ml PO BID [facility] Last Admin: 02/11/22 20:42 Dose: 15 ml Cholecalciferol (Cholecalciferol 5,000 Unit Capsule) 5,000 unit PO DAILY [facility] Last Admin: 02/11/22 09:13 Dose: 5,000 unit Docusate Sodium (Docusate Sodium 250 Mg Capsule) 250 - 500 mg PO DAILY [facility] Last Admin: 02/11/22 09:11 Dose: 250 mg Enoxaparin Sodium (Enoxaparin 40 Mg/0.4 Ml Syringe) 40 mg SUBQ DAILY [facility] Last Admin: 02/11/22 09:11 Dose: 40 mg Ferrous Sulfate (Ferrous Sulfate 325 Mg Tablet) 325 mg PO MOWEFR [facility] Last Admin: 02/11/22 12:23 Dose: 325 mg Folic Acid (Folic Acid 1 Mg Tablet) 1 mg NG DAILY [facility] Last Admin: 02/11/22 09:12 Dose: 1 mg Formoterol Fumarate (Formoterol Fumarate Neb 20 Mcg/2 Ml) 20 mcg INH RTBID [facility] Last Admin: 02/12/22 07:07 Dose: 20 mcg Guaifenesin/Codeine Phosphate (Guaifenesin/Codeine 5 Ml Udc) 5 ml PO Q6HR PRN PRN Reason: Cough Last Admin: 02/12/22 04:51 Dose: 5 ml Hydralazine HCl (Hydralazine 25 Mg Tablet) 75 mg PO BID [facility] Last Admin: 02/11/22 20:43 Dose: 75 mg Insulin Glargine-yfgn (Insulin Glargine-Yfgn 300 Unit/3 Ml Pen) 30 unit SUBQ QPM [facility] Last Admin: 02/11/22 20:56 Dose: 30 unit Insulin Human Lispro (Insulin Lispro 300 Unit/3 Ml Pen) 3 - 11 unit SUBQ 0800,1200,1700,2100 [facility]; Protocol Last Admin: 02/12/22 07:37 Dose: Not Given Levothyroxine Sodium (Levothyroxine 25 Mcg Tablet) 25 mcg PO QDAC [facility] Last Admin: 02/12/22 06:17 Dose: 25 mcg Levothyroxine Sodium (Levothyroxine 112 Mcg Tablet) 112 mcg PO QDAC [facility] Last Admin: 02/12/22 06:17 Dose: 112 mcg Losartan Potassium (Losartan 50 Mg Tablet) 50 mg PO DAILY [facility] Last Admin: 02/11/22 09:12 Dose: 50 mg Methylprednisolone (Methylprednisolone Succinate 40 Mg/Ml Vial) 40 mg IVP BID [facility] Last Admin: 02/11/22 20:42 Dose: 40 mg Metoclopramide HCl (Metoclopramide 10 Mg/2 Ml Vial) 5 mg IVP Q6HR PRN PRN Reason: Nausea / Vomiting Mineral Oil (Min Oil/Dimethicon/Coconut Oil 92 Gm Tube) 1 applic TOP PRN PRN PRN Reason: Skin Care Last Admin: 02/08/22 10:00 Dose: 1 applic Montelukast Sodium (Montelukast 10 Mg Tablet) 10 mg PO QPM [facility] Last Admin: 02/11/22 20:42 Dose: 10 mg Morphine Sulfate (Morphine 2 Mg/Ml Carpuject) 2 mg IVP Q8HR PRN PRN Reason: PAIN Multi-Ingredient Ointment (Zinc Oxide 20% Oint 30 Gm Tube) 1 applic TOP PRN PRN PRN Reason: Skin Care Last Admin: 02/03/22 18:48 Dose: 1 applic Nicotine (Nicotine 21 Mg Patch) 1 patch TOP DAILY [facility] Last Admin: 02/11/22 09:13 Dose: 1 patch Nitroglycerin (Nitroglycerin Sl 0.4 Mg Tablet) 0.4 mg SL Q5MIN PRN PRN Reason: Chest Pain Ondansetron HCl (Ondansetron Odt 4 Mg Tablet) 4 mg TL Q6HR PRN PRN Reason: Nausea / Vomiting Ondansetron HCl (Ondansetron 4 Mg/2 Ml Vial) 4 mg IVP Q6HR PRN PRN Reason: Nausea / Vomiting Last Admin: 02/10/22 15:03 Dose: 4 mg Oxycodone HCl (Oxycodone 5 Mg Tablet) 5 mg PO Q4HR PRN PRN Reason: Pain 5 to 7 Pantoprazole Sodium (Pantoprazole 40 Mg Tablet) 40 mg PO BID [facility] Last Admin: 02/11/22 20:42 Dose: 40 mg Polyethylene Glycol (Polyethylene Glycol 3350 17 Gm Packet) 17 gm PO DAILY [facility] Last Admin: 02/11/22 09:13 Dose: 17 gm Pramipexole Dihydrochloride (Pramipexole 0.25 Mg Tablet) 2 mg PO QPM [facility] Last Admin: 02/11/22 20:43 Dose: 2 mg Sodium Chloride (Sodium Chloride Flush 0.9% 10 Ml Syringe) 10 ml IVP 0100,0900,1700 [facility] Last Admin: 02/12/22 01:16 Dose: Not Given Sodium Chloride (Sodium Chloride Flush 0.9% 10 Ml Syringe) 10 ml IVP PRN PRN PRN Reason: NEEDED PER PROVIDER ORDERS Last Admin: 02/11/22 17:06 Dose: 10 ml Sodium Chloride (Sodium Chloride Flush 0.9% 10 Ml Syringe) 20 ml IVP PRN PRN PRN Reason: After Blood Draw Last Admin: 02/11/22 17:06 Dose: 20 ml Ascorbic Acid [Vitamin C] 1,000 mg PO DAILY 08/12/21 Aspirin [[place] Aspirin EC] 81 mg PO DAILY 08/12/21 Cholecalciferol (Vitamin D3) [Vitamin D3] 250 mcg PO DAILY 08/12/21 Docusate Sodium [Dulcolax Stool Softener] 100 mg PO BID 08/12/21 Ferrous Sulfate 325 mg PO MOWEFR 08/12/21 Furosemide [Lasix] 40 mg PO BID 08/12/21 Glimepiride [Amaryl] 4 mg PO DAILY 08/12/21 Levothyroxine Sodium [Levothyroxine] 137 mcg PO DAILY 08/12/21 Losartan Potassium 50 mg PO DAILY 08/12/21 sulfaSALAzine [Azulfidine] 500 mg PO DAILY 08/12/21 Albuterol Sulfate [Proair Hfa Inhaler] 2 puffs INH Q6H PRN 10/18/21 Dulaglutide [Trulicity] 1.5 mg SUBQ FR 10/18/21 Hydralazine HCl 75 mg PO BID 10/18/21 Insulin Glargine [Lantus Solostar] 25 units SUBQ DAILY 10/18/21 Montelukast [Singulair] 10 mg PO QPM 10/18/21 Rosuvastatin Calcium [Crestor] 40 mg PO QPM 10/18/21 Azithromycin 250 mg PO DAILY 12/26/21 Cyanocobalamin (Vitamin B-12) [Vitamin B-12] 1,000 mcg PO DAILY 12/26/21 Folic Acid 1 mg PO DAILY 12/26/21 Pantoprazole [Protonix] 40 mg PO DAILY 12/26/21 Insulin Aspart [NovoLOG] 8 - 20 units SUBQ TIDWM 01/10/22 Budesonide/Glycopyr/Formoterol [Breztri Aerosphere Inhaler] 2 puffs INH DAILY 02/03/22 Ipratropium [Atrovent] 0.5 mg INH BID 02/03/22 Metformin HCl [Metformin ER Gastric] 1,000 mg PO BID 02/03/22 Multivit-Min/FA/Lycopen/Lutein [Centrum Silver Men Tablet] 1 each PO DAILY 02/03/22 Nitroglycerin [Nitrostat] 0.4 mg SL Q5MIN PRN 02/03/22 Pramipexole Di-HCl [Mirapex] 2 mg PO QPM 02/03/22 predniSONE [Deltasone] 20 mg PO DAILY 02/03/22 Objective - Vital Signs/Intake & Output Reviewed Vital Signs: Yes Vital Signs: Vital Signs Temp Pulse Pulse Resp BP Pulse Ox O2 Flow Rate 02/12/22 07:44 36.6 C 82 18 139/81 H 100 3 02/12/22 07:09 90 20 3 02/12/22 06:00 3 Intake & Output: Intake & Output 02/09/22 02/10/22 02/11/22 02/12/22 23:59 23:59 23:59 23:59 Intake Total 2980 2000 1530 150 Output Total 1500 2225 575 300 Balance 1480 -225 955 -150 - Objective General Appearance: positive: Alert, Mild distress (When I first walk-in he is watching TV, just ate breakfast. With my long conversation he becomes mildly tachypneic), Other (Bearded, long hair, disheveled, looks older than stated age) Eyes Bilateral: positive: PERRL, EOMI ENT: positive: No signs of dehydration Neck: positive: No JVD. negative: Stiff neck Respiratory: positive: Wheezes, Rhonchi, Other (Easily decompensates with simple conversation. He says getting up to go to the bathroom is a huge effort. Barrel chest) Cardiovascular: positive: Regular rate & rhythm, Systolic murmur Abdomen: positive: Non-tender, No organomegaly, Nml bowel sounds, No distention Skin: positive: Warm, Dry Extremities: positive: Full ROM, No pedal edema, Other (Clubbing of his fi ngernails) Neurologic/Psychiatric: positive: Oriented x3, CN's nml (2-12), Motor nml - Lab Results Fish Bones: 02/12/22 04:45 02/12/22 04:45 Other Labs: Lab Results x24hrs 02/12/22 02/12/22 02/11/22 Range/Units 04:45 04:45 11:06 WBC 13.2 H (4.8-10.8) x10^3/uL RBC 3.46 L (4.70-6.10) 10^6/uL Hgb 9.1 L (14.0-18.0) g/dL Hct 31.5 L (42.0-52.0) % MCV 91.0 (80.0-94.0) fL MCH 26.3 L (27.0-31.0) pg MCHC 28.9 L (32.0-36.0) g/dL RDW 16.1 H (12.0-15.0) % Plt Count 196 (130-450) 10^3/uL MPV 10.5 (7.4-11.4) fL Neut # (Auto) 11.0 H (1.5-6.6) 10^3/uL Lymph # (Auto) 0.7 L (1.5-3.5) 10^3/uL Ray # (Auto) 1.3 H (0.0-1.0) 10^3/uL Eos # (Auto) 0.0 (0.0-0.7) 10^3/uL Baso # (Auto) 0.0 (0.0-0.1) 10^3/uL Absolute Nucleated RBC 0.00 x10^3/uL Nucleated RBC % 0.0 /100WBC Manual Slide Review Indicated WBC Morphology NORMAL APPEARANCE (NORMAL) Platelet Estimate NORMAL (130-450,000) (NORMAL) Platelet Morphology NORMAL APPEARANCE (NORMAL) RBC Morph Micro Appear 1+ HYPOCHROMASIA (NORMAL) Sodium 134 L 136 (135-145) mmol/L Potassium 5.1 H 5.2 H (3.5-5.0) mmol/L Chloride 96 L 96 L (101-111) mmol/L Carbon Dioxide 30 29 (21-32) mmol/L Anion Gap 8.0 11.0 (6-13) BUN 36 H 35 H (6-20) mg/dL Creatinine 1.1 1.2 (0.6-1.2) mg/dL Estimated GFR (MDRD) 67 L 61 L (>89) Glucose 194 H 253 H (70-100) mg/dL Calcium 9.1 9.0 (8.5-10.3) mg/dL 02/11/22 Range/Units 11:06 WBC 12.2 H (4.8-10.8) x10^3/uL RBC 3.62 L (4.70-6.10) 10^6/uL Hgb 9.6 L (14.0-18.0) g/dL Hct 33.0 L (42.0-52.0) % MCV 91.2 (80.0-94.0) fL MCH 26.5 L (27.0-31.0) pg MCHC 29.1 L (32.0-36.0) g/dL RDW 16.5 H (12.0-15.0) % Plt Count 199 (130-450) 10^3/uL MPV 10.2 (7.4-11.4) fL Neut # (Auto) 10.8 H (1.5-6.6) 10^3/uL Lymph # (Auto) 0.4 L (1.5-3.5) 10^3/uL Ray # (Auto) 0.9 (0.0-1.0) 10^3/uL Eos # (Auto) 0.0 (0.0-0.7) 10^3/uL Baso # (Auto) 0.0 (0.0-0.1) 10^3/uL Absolute Nucleated RBC 0.00 x10^3/uL Nucleated RBC % 0.0 /100WBC Manual Slide Review WBC Morphology (NORMAL) Platelet Estimate (NORMAL) Platelet Morphology (NORMAL) RBC Morph Micro Appear (NORMAL) Sodium (135-145) mmol/L Potassium (3.5-5.0) mmol/L Chloride (101-111) mmol/L Carbon Dioxide (21-32) mmol/L Anion Gap (6-13) BUN (6-20) mg/dL Creatinine (0.6-1.2) mg/dL Estimated GFR (MDRD) (>89) Glucose (70-100) mg/dL Calcium (8.5-10.3) mg/dL Assessment/Plan - Problem List (1) Acute respiratory failure with hypoxia and hypercapnia Impression: After admission, this patient failed treatment with nebs, steroids and abx, deteriorated with CO2 retention and was intubated on 02/04. He was extubated 02/07. He was starting to again fatigue, so a rebreather mask and BiPAP at night needed to be resumed. He has been on BiPAP every night since extubation, which has helped. Even with simple activity during the day, such as eating, he decompensates easily. Because he has failed regular CPAP at night, for COPD and obstructive sleep apnea, I am now ordering BiPAP for home use. His BiPAP was supposed to arrive sometime this afternoon. Plan: Nightly BIPAP for suppl O2 I morning BiPAP for home use since he has failed CPAP. Once the new equipment arrives, We will see how the machine works for him tonight and hopefully discharge tomorrow morning (2) COPD with exacerbation Conclusion/Plan: At home he is on long-acting bronchodilators, long-acting inhaled steroids, anticholinergics with Atrovent, and a daily prednisone tablet. He also takes Singulair. Unfortunately he is still smoking. He is even on maintenance azithromycin. This current exacerbation is due to influenza A. Plan: Continue previous therapy of azithromycin, Perforomist and budesonide via inhalation, DuoNeb at a fixed schedule of 4 times daily, Albuterol as needed. He started out at 40 mg IV push every 6 hours. Increased to 80 mg every 6 hours. Then reduce to 40 mg IV push 3 times daily February 08. Then 40 mg twice daily February 11. At discharge plan on Medrol Dosepak to taper him off. Nicotine patch 14 mg was ordered. He wants a 30-day prescription for Nicotine ordered at [facility] He would be a candidate for cardiopulmonary rehab. We spent a long time discussing end-stage COPD and tobacco. He really needs to have shown good taye effort and stopping smoking. Because of he approaches a lung transplant team now when he can stop smoking, he is never going to get along. I would recommend that he use any tool at his disposal. Sit down and talk to his primary care provider and discuss Wellbutrin, nicotine patch, benzodiazepine, and counseling. Once he has been able to successfully come off tobacco for minimum of 6 months then be referred to pulmonology for this "lung transplant" discussion. But in the meantime I would recommend cardiopulmonary rehab. He states that he does not even think he can get to that point so he would like home health PT and OT. After he can successfully do home health physical therapy, then he would like the referral to cardiopulmonary rehab. He also wants me to make sure that I give him his nicotine patch at discharge and I said I would. (3) Influenza A Conclusion/Plan: Plan: Symptomatic treatment, plus oxygen, and Tamiflu completed after 5 days (4) SUSHANT (obstructive sleep apnea) Conclusion/Plan: He was on home CPAP mask. Plan: Here he failed CPAP, needed intubation and now Bipap I feel that the patient is a candidate for a home noninvasive ventilator And we have ordered home BiPAP (5) Diabetes mellitus Conclusion/Plan: We will be controlling him with Lantus, and sliding scale insulin. His home medications of Amaryl, Trulicity have not been ordered while here. His Lantus and NovoLog continue, they were q6h while he was on the vent getting tube feeds, now are achs Yesterday glucose was 214, 310, 417, 158, Today he is 137, 221. Plan: Diabetic diet Lantus 30 units at night Sliding scale achs If he is not discharged by tomorrow, I will add 5 units with each meal of short acting Qualifiers: Diabetes mellitus type: type 2 Diabetes mellitus senior care insulin use: with senior care use Diabetes mellitus complication status: with neurologic complications Diabetes mellitus complication detail: with polyneuropathy Qualified Code(s): E11.42 - Type 2 diabetes mellitus with diabetic polyneuropathy; Z79.4 - group home (current) use of insulin (6) Hypertension Conclusion/Plan: Plan: Resumed Cozaar and hydralazine per NG. Continue to monitor and change medications as needed for BP control. 152/59 today. Qualifiers: Hypertension type: primary hypertension Qualified Code(s): I10 - Essential (primary) hypertension (7) PVD (peripheral vascular disease) Conclusion/Plan: On exam his skin is shiny, tight and red/brown over his shins, but he has no open ulcers or tenderness. His dorsalis pedis pulses are palpable on both feet. He was having significant leg pain before his angioplasty 3 months ago and that is improved. Plan: Continued aspirin and he is on Lovenox for DVT prophylaxis. We are also continuing his statin (8) Rheumatoid arthritis Conclusion/Plan: He was on Azulfidine and Prednisone at home Plan: Initially we ordered Azulfidine, but prednisone was switched to IV Solu-Medrol. We are tapering Solumedrol down And we have put azulfidine on hold, while he has an infection. He can resume that in the next week after discharge. Qualifiers: Rheumatoid arthritis location: multiple sites Rheumatoid factor presence: with rheumatoid factor Qualified Code(s): M05.79 - Rheumatoid arthritis with rheumatoid factor of multiple sites without organ or systems involvement (9) Tobacco abuse Conclusion/Plan: Plan: nicotine patch ordered 02/03 He wants a 30-day prescription for Nicotine ordered at [facility] (10) CKD (chronic kidney disease) stage 3, GFR 30-59 ml/min Conclusion/Plan: Creat 1.3>1.5>1.6>>1.1 today.Improved w IVF. Plan: We stopped iv fluids, since edema was starting and Lasix was resumed Avoid nephrotoxic agents Monitor BMP daily Qualifiers: Chronic kidney disease stage 3 subtype: stage 3a (GFR 45-59) Qualified Code(s): N18.31 - Chronic kidney disease, stage 3a (12) Abn EKG Impression: Because of worsening respiratory status, an EKG was ordered to be done. The EKG showed NSR with first-degree AV block, LA enlargement, abnormal inverted T waves laterally. Since EKG from 02/03/2022, tachycardia and Wenkebach and PVC are absent but the lateral T wave abnormality was new. Troponins were flat on admission. Plan: I considered an Echo, but last one was just done in 10/2021. (13) Hyperkalemia Resolved with 10 units of IVP regular insulin when his glucose was 237. Glucose dropped to 168. He came back up to 5.1 on February 10. Yesterday he was 5.2. Today 5.1. Plan: Avoid potassium-containing compounds. Follow BMP daily I may give 5 units of IV push insulin with breakfast tomorrow morning (4) Coffee ground emesis Impression: Before being intubated, when he was in marked distress, he had coffee ground emesis, several days ago. This is a gentleman who smokes, has peripheral vascular disease, and may be at risk for GI bleed because he takes an aspirin every day. He also takes vitamin C. But he does take Protonix at home. Plan: He ws on iv Protonix while intubated. We resumed oral protonix Followed H/H closely and there was no need for transfusion If he drops his hemoglobin, or again has melanotic stool, we will consider general surgery consult for EGD. At this time we will just manage medically.
[2022-02-12] MEDS: hydrALAZINE 25 MG TABLET PO SCH ×2 (09:01→20:58)
[2022-02-12] MEDS: ENOXAPARIN 40 MG/0.4 ML SYRINGE SUBQ SCH (09:01)
[2022-02-12] MEDS: NICOTINE 21 MG PATCH TOP SCH (09:01)
[2022-02-12] MEDS: methylPREDNISolone SUCCINATE 40 MG/ML VIAL IVP SCH ×2 (09:02→20:57)
[2022-02-12] MEDS: AZITHROMYCIN 250 MG TABLET PO SCH (09:02)
[2022-02-12] MEDS: FOLIC ACID 1 MG TABLET NG SCH (09:02)
[2022-02-12] MEDS: ASPIRIN EC 81 MG TABLET PO SCH (09:02)
[2022-02-12] MEDS: PANTOPRAZOLE 40 MG TABLET PO SCH ×2 (09:02→20:56)
[2022-02-12] MEDS: ASCORBIC ACID 500 MG TABLET PO SCH (09:02)
[2022-02-12] MEDS: CHOLECALCIFEROL 5,000 UNIT CAPSULE PO SCH (09:02)
[2022-02-12] MEDS: LOSARTAN 50 MG TABLET PO SCH (09:02)
[2022-02-12] MEDS: CHLORHEXIDINE GLUCONATE 15 ML UDC PO SCH ×2 (09:02→20:57)
[2022-02-12] MEDS: DOCUSATE SODIUM 250 MG CAPSULE PO SCH (09:03)
[2022-02-12] MEDS: polyethylene glycoL 3350 17 GM PACKET PO SCH (09:03)
[2022-02-12] MEDS: SODIUM CHLORIDE FLUSH 0.9% 10 ML SYRINGE IVP PRN ×2 (09:03→18:43)
[2022-02-12] MEDS: MONTELUKAST 10 MG TABLET PO SCH (20:56)
[2022-02-12] MEDS: ATORVASTATIN 40 MG TABLET PO SCH (20:56)
[2022-02-12] MEDS: PRAMIPEXOLE 0.25 MG TABLET PO SCH (20:56)
[2022-02-12] MEDS: INSULIN GLARGINE-YFGN 300 UNIT/3 ML PEN SUBQ SCH (20:58)
[2022-02-13] MEDS: LEVOTHYROXINE 25 MCG TABLET PO SCH (05:48)
[2022-02-13] MEDS: LEVOTHYROXINE 112 MCG TABLET PO SCH (05:48)
[2022-02-13 06:03] LABS: BASOPHILS % (AUTO) 0.1 %; HCT - HEMATOCRIT 29.6 % (42.0-52.0); HGB - HEMOGLOBIN 8.8 g/dL (14.0-18.0); LYMPHOCYTES # (AUTO) 0.8 10^3/uL (1.5-3.5); LYMPHOCYTES % (AUTO) 8.6 %; MEAN CORPUSCULAR HEMOGLOBIN 26.6 pg (27.0-31.0); MEAN CORPUSCULAR HGB CONC 29.7 g/dL (32.0-36.0); MEAN CORPUSCULAR VOLUME 89.4 fL (80.0-94.0); MEAN PLATELET VOLUME 10.1 fL (7.4-11.4); MONOCYTES # (AUTO) 0.9 10^3/uL (0.0-1.0); MONOCYTES % (AUTO) 9.5 %; NEUTROPHILS # (AUTO) 7.5 10^3/uL (1.5-6.6); NEUTROPHILS % (AUTO) 80.8 %; PLT - PLATELET COUNT 189 10^3/uL (130-450); RED BLOOD COUNT 3.31 10^6/uL (4.70-6.10); RED CELL DISTRIBUTION WIDTH 15.8 % (12.0-15.0); WHITE BLOOD COUNT 9.3 x10^3/uL (4.8-10.8)
[2022-02-13 06:17] LABS: CALCIUM 9.1 mg/dL (8.5-10.3); CREATININE 0.9 mg/dL (0.6-1.2); POTASSIUM 4.7 mmol/L (3.5-5.0)
[2022-02-13] MEDS: IPRATROPIUM/ALBUTEROL 3 ML NEB INH SCH ×3 (07:04→14:26)
[2022-02-13] MEDS: BUDESONIDE 0.5 MG/2 ML NEB INH SCH (07:04)
[2022-02-13] MEDS: FORMOTEROL FUMARATE NEB 20 MCG/2 ML INH SCH (07:05)
[2022-02-13] MEDS: INSULIN LISPRO 300 UNIT/3 ML PEN SUBQ SCH ×2 (07:50→12:05)
[2022-02-13] MEDS: SODIUM CHLORIDE FLUSH 0.9% 10 ML SYRINGE IVP SCH (08:23)
[2022-02-13] MEDS: NICOTINE 21 MG PATCH TOP SCH (08:23)
[2022-02-13] MEDS: methylPREDNISolone SUCCINATE 40 MG/ML VIAL IVP SCH (08:23)
[2022-02-13] MEDS: ENOXAPARIN 40 MG/0.4 ML SYRINGE SUBQ SCH (08:23)
[2022-02-13] MEDS: CHLORHEXIDINE GLUCONATE 15 ML UDC PO SCH (08:23)
[2022-02-13] MEDS: SODIUM CHLORIDE FLUSH 0.9% 10 ML SYRINGE IVP PRN (08:23)
[2022-02-13] MEDS: FOLIC ACID 1 MG TABLET NG SCH (08:24)
[2022-02-13] MEDS: hydrALAZINE 25 MG TABLET PO SCH (08:24)
[2022-02-13] MEDS: CHOLECALCIFEROL 5,000 UNIT CAPSULE PO SCH (08:24)
[2022-02-13] MEDS: AZITHROMYCIN 250 MG TABLET PO SCH (08:24)
[2022-02-13] MEDS: PANTOPRAZOLE 40 MG TABLET PO SCH (08:24)
[2022-02-13] MEDS: LOSARTAN 50 MG TABLET PO SCH (08:24)
[2022-02-13] MEDS: ASCORBIC ACID 500 MG TABLET PO SCH (08:24)
[2022-02-13] MEDS: ASPIRIN EC 81 MG TABLET PO SCH (08:24)
[2022-02-13] MEDS: polyethylene glycoL 3350 17 GM PACKET PO SCH (08:25)
[2022-02-13] MEDS: DOCUSATE SODIUM 250 MG CAPSULE PO SCH (08:25)
--- NOTE | 2022-02-13 11:33 | Discharge Plan ---
Discharge Plan Problem Reviewed?: Yes Disposition: Home Health Service Condition: Fair Prescriptions: methylPREDNISolone [Medrol Dose Pack] 1 each PO .PACKAGEINSTRUCTIONS 6 Days #1 each Nicotine 21 mg Patch [Nicoderm] 1 patch TOP DAILY #30 patch Diet: Diabetic Activity Restrictions: Activity as Tolerated Shower Restrictions: No Driving Restrictions: Yes (no driving until you are not so short of breath) Assistance Devices: Walker [facility] Concerns: Unfortunately you are a smoker and you have severe emphysema. You are also a diabetic, and have hardening of the arteries and this is resulted in peripheral vascular disease with a recent bypass surgery for your leg. You began having a new cough with increasing chest congestion that worsened her emphysema. When you came to the emergency room you were severely ill and he found you to have influenza A. The influenza A decompensated your lung status and your emphysema became very unstable. You had to be intubated and put on breathing life support because your lungs were so severe and eventually were able to be extubated. You still have significant shortness of breath, cough, congestion. But we think you will slowly get better. You have completed antibiotic therapy, and influenza therapy. Plan of Treatment: 1. Steroids are a medicine that we used to cut back inflammation and emphysema and asthma. It is meant to be taken for only 4 or 5 days. But your decompensation has been so severe you have been on steroids on a daily basis at home, and as such we had to give you high-dose steroids while you were here. We are sending you home on a Medrol Dosepak. It is a tapering steroid pack. Do not take your usual steroid while you are taking this. Once you have finished your Medrol Dosepak you can go to your usual Deltasone 20 mg daily. 2. The inhalers you usually take are Atrovent and budesonide and formoterol. You do that via inhalation therapy with a nebulizer machine. You also have a ProAir rescue inhaler that is hand held. I am calling in a prescription for a medicine called DuoNeb. I would like you to do that via inhalation nebulizer as well. It is a combination of albuterol and Atrovent together. I would like you to take that 4 times a day on a regular basis for the next month. Do NOT take your atrovent nebulizer while you are on duoneb. Once you have finished the duoneb for a month, ask you primary care provider [facility] or stay on duoneb. 3. You must stop smoking. It is imperative. You have diabetes, high blood pressure, and emphysema. Smoking contributes to severe lung disease, heart disease, dementia, cancer, and peripheral vascular disease at a ferocious rate. You have asked for nicotine patch 21 mg and we have given that to you for a month. But it is not just a nicotine patch that you must follow through on. Seek an front end specialist counselor. Ask your primary care provider if you are a candidate for Wellbutrin, and low-dose intermittent Ativan or Xanax. Do everything possible to give yourself the tools that will allow you to stop sm oking. 4. You are severely deconditioned because of being in the intensive care unit and being bedbound. As such just getting up to go to the bathroom wipes you out. I am ordering home health physical therapy and Occupational Therapy to get yourself stronger at home. Once you have been discharged from home health, please consider doing an outpatient cardiopulmonary rehab program. We have 1 h ere at the hospital. You asked to be considered for a lung transplant, but you are months, months, months away before a transplant program would consider you. Also have your primary care provider order pulmonary function studies with a DLCO. 5. Make sure you see your primary care provider in the next 1 to 2 weeks. Take this discharge instruction sheet with you so you can make sure to tell them what I am asking you to do. 6. I am sending you home with oxygen. That will be delivered to your home and be waiting for you with instructions. 7. While here, you were initially treated with CPAP. You have a CPAP for obstructive sleep apnea. You have failed CPAP therapy and progressed to full on respiratory failure requiring BiPAP and intubation. Since you have failed CPAP, I have ordered BiPAP for you to get at home. That equipment is also to be delivered to your home today Care Goals: To live a longer life with more endurance, less shortness of breath Assessment: Patient is alert, oriented, still making his own decisions. Feels that he has to commit to stopping smoking and improving his health for the sake of his 13-year-old daughter and his . He is thinking of moving back to [place] by Spring of next year to get more family support Follow-Up Care: Home Health - RN, Home Health - PT, Home Health - OT No Smoking: If you smoke, Please STOP! Call for help.
--- NOTE | 2022-02-13 11:48 | DISCHARGE SUMMARY ---
Discharge Summary Admit Date: 02/03/22 Discharge Date: 02/13/22 Discharging Provider: Lizzy Grande MD Primary Care Provider: Kenyon Preston MD Code Status: Attempt Resuscitation Condition at Discharge: Fair Discharge Disposition: Home Health Service - DIAGNOSES Discharge Diagnoses with Status of Each Condition: 1. Acute respiratory failure with hypoxia and hypercapnia 2. COPD with exacerbation 3. Influenza A 4. Obstructive sleep apnea 5. Tobacco abuse 6. Type 2 diabetes mellitus, with neurologic complication of polyneuropathy, with long-term use of insulin 7. Hypertension 8. Peripheral vascular disease 9. Rheumatoid arthritis 10. Acute on chronic kidney disease stage III 11. Abnormal EKG 12. Hyperkalemia 13. Coffee-ground emesis - HPI History of Present Illness: 67-year-old white male who has COPD, diabetes, hypothyroidism, hypertension, peripheral vascular disease with angioplasty of his leg, and a recent episode of third-degree heart block associated with syncope was in October 2021 admission here. He was transferred to [place] for the third-degree heart block to get a pacemaker. It is the ER doctor's understanding that the patient was sent home without a pacer. when I asked his , she said they just didn't think he needed one. He was recently seen in the emergency room December 31, 2021 for dyspnea. He was given a 10-day taper of prednisone and a course of doxycycline. He has also been seen by TIMOTHY Sherwood of our wound clinic for a right LE cellulitis and wound. He is still smokiing about 5 cigs a day. Trying to cut back but his PCP cut down his nicotine patch from 21 to 14 mg and it was too soon. He needed the 21 mg back. He is brought in by ambulance because of severe shortness of breath. He has chronic shortness of breath because of his COPD but is not on oxygen. He can walk about 2-1/2 minutes before he has to stop. He has a few encounters for COPD exacerbation with admission here. Increasing cough, increasing wheezing, increasing phlegm worse over the last 2 to 3 days. When EMS got there he was 85% on room air and was placed on CPAP. When he got to our emergency room he was tachypneic, short of breath, with a temperature of 38.8, heart rate of 109, a blood pressure of 181/94, respirations 32 and he was 90% saturated on the CPAP . The emergency room provider said that "I thought I was going to have to intubate him" and he was put on BiPAP. That was able to get his O2 sats up to 98%. Blood pressure was 220/91 with that and a heart rate was 120. His chest x-ray shows bilateral effusions, atelectasis, and mild streaky opacities of both lung bases but no consolidation. His troponin was 42. His BNP 571. White cell count was elevated at 17.3 with 10 neutrophils, 5 lymphocytes. His viral panel is positive for influenza A by PCR. Initial blood gas on BiPAP of 100% FiO2 showed him to have a pH of 7.11, PCO2 109, PO2 360. Bicarb 35. Base excess 6. He received DuoNeb, steroids, antibiotics. His next blood gas 2 hours later showed a pH of 7.18, PCO2 90, PO2 182 on a 10 L oxygen mask. He was put back on BiPAP and his 9:35 AM blood gas showed a pH of 7.25, PCO2 74, PO2 149, bicarb 32, base excess 5. Case was discussed with the emergency room provider. I was brought up-to-date on the treatment in the ED. Provider is asking that I admit the patient and I will accept the patient in inpatient status and place him in the ICU. - Past Medical History Cardiovascular: reports: Congestive heart failure (echo 10/2021), Hypertension, High cholesterol, Coronary artery disease (w ACB x 4 in [place], [place] 2019), Peripheral Vascular Disease (R leg plasty 10/2021), AK, Atrial fibrillation (s/p cardioversion), Valve disorder (aortic stenosis) Respiratory: reports: COPD, Emphysema, Sleep apnea, CPAP use Neuro: reports: Peripheral neuropathy Endocrine/Autoimmune: reports: HyPOthyroidism, Type 2 diabetes GI: reports: GERD : reports: None HEENT: reports: None Psych: reports: None Musculoskeletal: reports: Rheumatoid arthritis Derm: reports: None MRSA Hx?: No - Past Surgical History Cardiovascular: reports: CABG, Angioplasty - CONSULTS | PROCEDURES Procedures: Chest x-rays during his stay showed a slight left lower lung opacity, emphysematous changes. Fecal occult blood was positive. We are recommending an EGD for follow-up. Once his cardiopulmonary status is stable. Sputum culture had mixed oropharyngeal raj Central line ET tube intubation - HOSPITAL COURSE Hospital Course: The patient was placed in ICU and stabilized with CPAP . the evening of admission he had 2 episodes of coffee-ground emesis which were treated with proton pump inhibitors. Telemedicine that night reviewed the case after the emesis and diagnosed him with a type II second-degree AV block and put pacer pads on them. For the rest of his stay he did not have any further arrhythmias. His admission hemoglobin was 12 and the lowest hemoglobin he had was 8.8. He was treated empirically for his COPD exacerbation and respiratory failure with steroids, empiric antibiotics, and Tamiflu. He was also continued on his CPAP. in spite of this, the patient continued to deteriorate and resulted in intubat ion for his respiratory failure. He was intubated February 04 and extubated February 07. After extubation he continues to be wheezing, short of breath, and significantly deconditioned from a cardiopulmonary perspective. BiPAP maintains him adequately at night with his oxygenation. Because he has failed regular CPAP at night, I am ordering BiPAP for home use. I will also be ordering oxygen for him to use. At rest, he is hypoxic on room air. His O2 sat is 84%. I then have to give him 2 L nasal cannula and his O2 sats will improve to 92%. With exertion on 2 L/min his O2 sats are 90%. I am ordering home O2, 2 L/min at rest, and exertion, and sleep to treat his COPD and hypoxemia. He completed therapy for his influenza A with a Tamiflu. He is required quite a bit of steroids while he has been here. He came in on 20 mg of prednisone and is discharged on a Medrol Dosepak. While on Medrol Dosepak I have asked him not to take the prednisone and resume the prednisone when the Dosepak is done. Diabetes mellitus was controlled with Lantus and sliding scale. I am asking him to resume his usual medications when he gets home. Glucose was elevated the 200s and occasionally 300s because of the steroids. A1c is 9.5% on admission. He did have hypoglycemia to 50 on the day of discharge as we were tapering his steroids. He wishes to stop smoking. He wants a 30-day prescription of nicotine patch at 21 mg. I explained to him that if not just simple chemistry but he has a true a ddiction. Treated as an addiction and see an extension service specialist in charge, see his primary care provider. Consider Wellbutrin on a regular basis for at least 6 to 9 months. Consider low-dose benzodiazepine. And again, see a specialist for addiction to nicotine. He tells me that if it was not for his and daughter he would have made himself a DNR. The last few months have been very distant heart in [facility]. He has been losing ground steadily, and each month he feels like he is worse off than he started out. Mainly with COPD. But of explained to him that if he can stop smoking, complete home health physical therapy, and then transition to cardiopulmonary rehab in the outpatient setting, this may buy him some good time. He says he will try and follow through. I am recommending he get full pulmonary function studies with a DLCO ordered by his primary care provider. The patient is interested in a lung transplant but I said that he is months away from that referral. First he is stop smoking, then he needs to get cardiopulmonary rehab to reassess himself. When his respiratory status worsen, an EKG was ordered and an EKG showed normal sinus rhythm with a first-degree AV block. The telemedicine physician thought he may be in winky block, but the daytime hospitalist, who is a board-certified bending roll hand, did not feel that was present. An echocardiogram was ordered but not felt to be necessary once AK was ruled out. Hyperkalemia was seen during his stay. He received IV push insulin with his hyperglycemia and that made his potassium normal. Blood pressure was treated with his home Cozaar and hydralazine. Peripheral vascular disease is evident on physical exam with shiny, tight skin over his legs. But no open ulcers or tenderness. Dorsalis pedis pulses were palpable on both feet. Rheumatoid arthritis was noted as a past medical history. He is on Azulfidine and prednisone at home. As such I felt that immunocompromise status probably contributed to the severity of his illness. Medications at discharge are going to be resumption of his usual long-acting bronchodilator. I would also like to change his Atrovent nebulizer to DuoNeb nebulizer 4 times a day. He can use albuterol as a rescue inhaler every 2 hours as needed. He will be discharged on a Medrol Dosepak. I have instructed him not to take his usual prednisone when he is on the Medrol Dosepak. No other changes on his medication list were done. I am ordering home health with PT and OT, and cardiopulmonary rehab. 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 Getting up to walk makes him tachypneic and short of breath. He still has occasional scattered wheezing on exam. Temperature is 36.4. Heart rate 82. Blood pressure 156/61. Respirations 18. 2 L nasal cannula was also 97% saturated at rest. Weight on admission was 95.2 kg and at discharge she is 93 kg. Neck has shotty adenopathy. A barrel chest has scattered faint wheezing with easy tachypnea with minimal activity. He can speak in complete sentences without shortness of breath or use of accessory muscles. He has a regular rate and rhythm. And abdomen that is slightly protuberant, soft, nontender. Last bowel movement February 11. Legs have mild pitting edema around the ankles. The skin of both legs is shiny and tight without any hair. But pulses are still present in his feet. Sacrum is red from sitting so much but no skin breakdown. He is alert, oriented, lucid historian. Able to go from supine to sitting but then going from sitting to standing results and cardiopulmonary decompensation that he has to take 2 minutes to recover from. But there are no focal deficits. No ataxia. He is using a walker. He is considering getting a bedside commode for home use because he gets wiped out so easily. We are hoping that with PT and OT at home he can then get strong enough to be able to participate in cardiopulmonary rehab. Greater than 30 minutes was spent coordinating discharge - ALLERGIES Allergies/Adverse Reactions: Allergies Allergy/AdvReac Type Severity Reaction Status Date / Time No Known Drug Allergies Allergy Verified 02/03/22 04:50 - MEDICATIONS Home Medications: Ambulatory Orders Medication Instructions Recorded Confirmed Ascorbic Acid [Vitamin C] 1,000 mg PO DAILY 08/12/21 02/03/22 Aspirin [Metter Aspirin EC] 81 mg PO DAILY 08/12/21 02/03/22 Cholecalciferol (Vitamin D3) 250 mcg PO DAILY 08/12/21 02/03/22 [Vitamin D3] Docusate Sodium [Dulcolax Stool 100 mg PO BID 08/12/21 02/03/22 Softener] Ferrous Sulfate 325 mg PO MOWEFR 08/12/21 02/03/22 Furosemide [Lasix] 40 mg PO BID 08/12/21 02/03/22 Glimepiride [Amaryl] 4 mg PO DAILY 08/12/21 02/03/22 Levothyroxine Sodium 137 mcg PO DAILY 08/12/21 02/03/22 [Levothyroxine] Losartan Potassium 50 mg PO DAILY 08/12/21 02/03/22 sulfaSALAzine [Azulfidine] 500 mg PO DAILY 08/12/21 02/03/22 Albuterol Sulfate [Proair Hfa 2 puffs INH Q6H PRN 10/18/21 02/03/22 Inhaler] Dulaglutide [Trulicity] 1.5 mg SUBQ FR 10/18/21 02/03/22 Hydralazine HCl 75 mg PO BID 10/18/21 02/03/22 Insulin Glargine [Lantus Solostar] 25 units SUBQ DAILY 10/18/21 02/03/22 Montelukast [Singulair] 10 mg PO QPM 10/18/21 02/03/22 Rosuvastatin Calcium [Crestor] 40 mg PO QPM 10/18/21 02/03/22 Azithromycin 250 mg PO DAILY 12/26/21 02/03/22 Cyanocobalamin (Vitamin B-12) 1,000 mcg PO DAILY 12/26/21 02/03/22 [Vitamin B-12] Folic Acid 1 mg PO DAILY 12/26/21 02/03/22 Pantoprazole [Protonix] 40 mg PO DAILY 12/26/21 02/03/22 Insulin Aspart [NovoLOG] 8 - 20 units SUBQ TIDWM 01/10/22 02/03/22 Budesonide/Glycopyr/Formoterol 2 puffs INH DAILY 02/03/22 02/03/22 [Breztri Aerosphere Inhaler] Ipratropium [Atrovent] 0.5 mg INH BID 02/03/22 02/03/22 Metformin HCl [Metformin ER 1,000 mg PO BID 02/03/22 02/03/22 Gastric] Multivit-Min/FA/Lycopen/Lutein 1 each PO DAILY 02/03/22 02/03/22 [Centrum Silver Men Tablet] Nitroglycerin [Nitrostat] 0.4 mg SL Q5MIN PRN 02/03/22 02/03/22 Pramipexole Di-HCl [Mirapex] 2 mg PO QPM 02/03/22 02/03/22 Nicotine 21 mg Patch [Nicoderm] 1 patch TOP DAILY #30 patch 02/13/22 Zinc Oxide 20% Oint [Zinc Oxide] 1 applic TOP PRN PRN each 02/13/22 methylPREDNISolone [Medrol Dose 1 each PO .PACKAGEINSTRUCTIONS 6 02/13/22 Pack] Days #1 each - LABS Result Diagrams: 02/13/22 05:50 02/13/22 05:50
[2022-02-13] MEDS: FERROUS SULFATE 325 MG TABLET PO SCH (14:20)
[2022-02-13 15:52] VITALS: BP 154/52
== END 2022-02-13 15:30 | disposition home health service (06) | DRG 208 ==
LOC: EDUNIT# → ED 04:40 → ICU 09:20 → MS3 02-10 12:27
PROVIDERS: ADMIT Specialist; ATTEND Specialist
PROC: 0BH17EZ Insertion of Endotracheal Airway into Trachea, Via Natural or Artificial Opening (ICD-10-PCS; principal; 2022-02-04)
PROC: 5A1945Z Respiratory Ventilation, 24-96 Consecutive Hours (ICD-10-PCS; 2022-02-04)
PROC: 02HV33Z Insertion of Infusion Device into Superior Vena Cava, Percutaneous Approach (ICD-10-PCS; 2022-02-04)
DX: J96.01 Acute respiratory failure with hypoxia (principal); N17.9 Acute kidney failure, unspecified; I13.0 Hypertensive heart and chronic kidney disease with heart failure and stage 1 through stage 4 chronic kidney disease, or unspecified chronic kidney disease; J96.02 Acute respiratory failure with hypercapnia; G47.33 Obstructive sleep apnea (adult) (pediatric); J10.1 Influenza due to other identified influenza virus with other respiratory manifestations; E11.42 Type 2 diabetes mellitus with diabetic polyneuropathy; E11.51 Type 2 diabetes mellitus with diabetic peripheral angiopathy without gangrene; E11.22 Type 2 diabetes mellitus with diabetic chronic kidney disease; R94.31 Abnormal electrocardiogram [ECG] [EKG]; E87.5 Hyperkalemia; E03.9 Hypothyroidism, unspecified; F17.210 Nicotine dependence, cigarettes, uncomplicated; I50.9 Heart failure, unspecified; E78.00 Pure hypercholesterolemia, unspecified; I25.10 Atherosclerotic heart disease of native coronary artery without angina pectoris; I25.2 Old myocardial infarction; I35.0 Nonrheumatic aortic (valve) stenosis; J43.9 Emphysema, unspecified; K21.9 Gastro-esophageal reflux disease without esophagitis; I44.1 Atrioventricular block, second degree; E11.649 Type 2 diabetes mellitus with hypoglycemia without coma; E11.65 Type 2 diabetes mellitus with hyperglycemia; E66.9 Obesity, unspecified; M05.79 Rheumatoid arthritis with rheumatoid factor of multiple sites without organ or systems involvement; N18.31 Chronic kidney disease, stage 3a; R11.10 Vomiting, unspecified; I48.91 Unspecified atrial fibrillation; Z20.822 Contact with and (suspected) exposure to COVID-19; Z66 Do not resuscitate; Z79.4 Long term (current) use of insulin; Z79.52 Long term (current) use of systemic steroids; Z79.82 Long term (current) use of aspirin; Z79.84 Long term (current) use of oral hypoglycemic drugs; Z79.890 Hormone replacement therapy; Z80.8 Family history of malignant neoplasm of other organs or systems; Z82.0 Family history of epilepsy and other diseases of the nervous system; Z82.49 Family history of ischemic heart disease and other diseases of the circulatory system; Z95.1 Presence of aortocoronary bypass graft
CPT/HCPCS: 36415; 36600; 71045; 80048; 80053; 81001; 82272; 82330; 82607; 82746; 82803; 83036; 83605; 83690; 83735; 83880; 84100; 84134; 84484; 85025; 85027; 87070; 87150; 87205; 87633; 93005; 94002; 94003; 94640; 94660; 94664; 94761; 96374; 96375; 97116; 97161; 97165; 97530; 99285; A6250; A9270; J0131; J0330; J1650; J1815; J2060; J2765; J7626; P9047; 81003; 87086; 94770

== ENCOUNTER 2022-03-12 09:21 | Outpatient (CLI) | payer BC, MEDICARE ==
--- NOTE | 2022-03-13 11:14 | CT Report ---
PROCEDURE: CHEST WO INDICATIONS: ABN CXR, DYSPNEA, DEC DIFFUSION CAPACITY OF LUNG TECHNIQUE: Noncontrast 1mm axial images were acquired from the pulmonary apices to the posterior costophrenic an gles. Axial 5 mm soft tissue kernel reconstructions were performed as well as 8 mm axial MIP and cor onal and sagittal 5 mm reformations. For radiation dose reduction, the following was used: automate d exposure control, adjustment of mA and/or kV according to patient size. COMPARISON: CXR 02/06/2022. Lung cancer screening chest CT 12/30/2020. FINDINGS: Image quality: Good. Lungs and pleura: Upper lobe predominant centrilobular emphysema, moderate. Dependent atelectasis. L eft lower lobe volume loss is similar. New left lower lobe nodular opacities or pulmonary nodules damian suring 0.6 cm, (6/47); and 0.6 cm, (6/39). Tree-in-bud nodular opacity at the left lower lobe superio rly, (6/41). No pleural effusions or pneumothorax. Minimal left pleural thickening versus miniscule p leural fluid is similar. Central airways are clear. Mediastinum: Post median sternotomy and CABG. Heart size is normal. No pericardial effusion. No me diastinal adenopathy by size criteria. Thoracic aorta and central pulmonary arteries are normal in s ize. Esophagus is normal in caliber. No hiatal hernia. Bones and chest wall: No suspicious bony lesions. No vertebral body compression fractures. No axil vidal or supraclavicular adenopathy by size criteria. The thyroid is normal in size and there are no incidental findings. Abdomen: Visualized upper abdominal solid organs and bowel loops appear normal in the absence of con trast. IMPRESSION: 1. New tree-in-bud nodular opacity at the left lower lobe. New left lower lobe nodular opacities or p ulmonary nodules measuring up to 0.6 cm. This most likely represents bronchitis. Recommend a short-te follow-up CT chest in 3-6 months. 2. Moderate emphysematous change. 3. Bibasilar atelectasis. Reviewed by: Timothy Paredes MD on 03/13/2022 11:13 AM [facility] Approved by: Timothy Paredes MD on 03/13/2022 11:13 AM PST Station ID: [id number]
== END 2022-03-12 09:22 | disposition home or self-care (01) ==
LOC: DI 09:21
PROVIDERS: ATTEND Nurse Practitioner
DX: R06.00 Dyspnea, unspecified (principal); R93.89 Abnormal findings on diagnostic imaging of other specified body structures; R94.2 Abnormal results of pulmonary function studies; R91.8 Other nonspecific abnormal finding of lung field; J43.9 Emphysema, unspecified; J98.11 Atelectasis

== ENCOUNTER 2022-03-29 08:57 | Observation (INO) | payer BC, MEDICARE ==
--- NOTE | 2022-03-29 09:03 | ED Physician Documentation ---
PD HPI DYSPNEA - Stated complaint Stated Complaint: SOA - History obtained from History obtained from: Patient - History of Present Illness Timing - onset: How many days ago (3-4) Timing - duration: Days (3-4) Timing - details: Gradual onset Inciting event(s): No: Out of meds (he says his nebulizers were making him nauseated this past week, so not used as often.), Exposure (ie smoke) Improved by: Rest (does not have oxgen at home. He says his sats are typically 90-92% at rest and down to 88% with walking when well.) Worsened by: Exertion, Coughing Associated symptoms: Cough, Wheezing, Bilateral edema (mild). No: Fever, Chest pain / discomfort, Palpitations Similar symptoms before: Diagnosis (has COPD and had exac recently with Flu and cOPD, hospitalized 02/05-02/12 I believe.) Review of Systems Constitutional: reports: Myalgias, Fatigue. denies: Fever, Chills Nose: denies: Rhinorrhea / runny nose, Congestion Throat: denies: Sore throat Cardiac: reports: Pedal edema. denies: Chest pain / pressure, Palpitations, Calf pain Respiratory: reports: Dyspnea, Cough, Wheezing GI: denies: Abdominal Pain, Nausea, Vomiting Neurologic: reports: Generalized weakness. denies: Focal weakness, Altered mental status PD PAST MEDICAL HISTORY - Past Medical History Cardiovascular: Congestive heart failure, Hypertension, High cholesterol, Coronary artery disease, Peripheral Vascular Disease, [place], Atrial fibrillation, Valve disorder Respiratory: COPD, Emphysema, Sleep apnea, CPAP use Neuro: Peripheral neuropathy Endocrine/Autoimmune: HyPOthyroidism, Type 2 diabetes GI: GERD : None HEENT: None Psych: None Musculoskeletal: Rheumatoid arthritis Derm: None - Past Surgical History Past Surgical History: Yes Cardiovascular: CABG, Angioplasty - Present Medications Home Medications: Ambulatory Orders Medication Instructions Recorded Confirmed Ascorbic Acid [Vitamin C] 1,000 mg PO DAILY 08/12/21 03/29/22 Aspirin [Dolores Aspirin EC] 81 mg PO DAILY 08/12/21 03/29/22 Cholecalciferol (Vitamin D3) 250 mcg PO DAILY 08/12/21 03/29/22 [Vitamin D3] Docusate Sodium [Dulcolax Stool 100 mg PO BID 08/12/21 03/29/22 Softener] Ferrous Sulfate 325 mg PO MOWEFR 08/12/21 03/29/22 Furosemide [Lasix] 80 mg PO DAILY 08/12/21 03/29/22 Glimepiride [Amaryl] 4 mg PO DAILY 08/12/21 03/29/22 Levothyroxine Sodium 137 mcg PO DAILY 08/12/21 03/29/22 [Levothyroxine] Losartan Potassium 50 mg PO DAILY 08/12/21 03/29/22 sulfaSALAzine [Azulfidine] 500 mg PO DAILY 08/12/21 03/29/22 Dulaglutide [Trulicity] 1.5 mg SUBQ FR 10/18/21 03/29/22 Hydralazine HCl 75 mg PO BID 10/18/21 03/29/22 Rosuvastatin Calcium [Crestor] 40 mg PO QPM 10/18/21 03/29/22 Azithromycin 250 mg PO DAILY 12/26/21 03/29/22 Cyanocobalamin (Vitamin B-12) 1,000 mcg PO DAILY 12/26/21 03/29/22 [Vitamin B-12] Folic Acid 1 mg PO DAILY 12/26/21 03/29/22 Pantoprazole [Protonix] 40 mg PO DAILY 12/26/21 03/29/22 Insulin Aspart [NovoLOG] 8 - 20 units SUBQ TIDWM PRN 01/10/22 03/29/22 Metformin HCl [Metformin ER 1,000 mg PO BID 02/03/22 03/29/22 Gastric] Multivit-Min/FA/Lycopen/Lutein 1 each PO DAILY 02/03/22 03/29/22 [Centrum Silver Men Tablet] Nitroglycerin [Nitrostat] 0.4 mg SL Q5MIN PRN 02/03/22 03/29/22 Pramipexole Di-HCl [Mirapex] 2 mg PO QPM 02/03/22 03/29/22 Nicotine 21 mg Patch [Nicoderm] 1 patch TOP DAILY #30 patch 02/13/22 03/29/22 Insulin Glargine-Yfgn [Semglee 15 unit SQ DAILY PM 03/29/22 03/29/22 (Yfgn) Pen] Triamcinolone 0.5% Cream [Kenalog 1 applic TOP PRN PRN 03/29/22 03/29/22 0.5% Cream] Zinc Oxide 20% Oint [Zinc Oxide] 1 applic TOP DAILY 03/29/22 03/29/22 guaiFENesin [Mucinex] 600 - 1,200 mg PO BID 03/29/22 03/29/22 predniSONE [Deltasone] 10 mg PO DAILY 03/29/22 03/29/22 - Allergies Allergies/Adverse Reactions: Allergies Allergy/AdvReac Type Severity Reaction Status Date / Time No Known Drug Allergies Allergy Verified 03/29/22 09:13 - Social History Does the pt smoke?: Yes Smoking Status: Former smoker Does the pt drink ETOH?: No Does the pt have substance abuse?: No - Immunizations Immunizations are current?: Yes - POLST Patient has POLST: No POLST Status: Full Code PD ED PE NORMAL - Vitals Vital signs reviewed: Yes - General General: Alert and oriented X 3, Well developed/nourished, Other (He is talking in partial sentence with dyspnea and some accessory muscle use and notable wheezing.) - Neck Neck: Supple, no meningeal sign, No adenopathy - Cardiac Cardiac: No murmur. No: RRR (regular but tachycardic. ) - Respiratory Respiratory: No: Clear bilaterally (Diffuse expiratory wheezing with prolonged expiratory phase. Some coarse sounds on the left. No fine crackles.) - Abdomen Abdomen: Soft, Non tender - Back Back: No CVA TTP, No spinal TTP - Derm Derm: Normal color, Warm and dry - Extremities Extremities: Normal ROM s pain, No edema, No calf tenderness / cord Results - Vitals Vitals: Vital Signs - 24 hr 03/29/22 03/29/22 03/29/22 09:06 09:13 09:31 Temperature 37 C Heart Rate 111 H 98 Respiratory 26 H 24 Rate Blood Pressure 169/107 H O2 Saturation 85 L 97 If not protocol 4 2 : Oxygen Flow, liters/minute 03/29/22 03/29/22 03/29/22 10:13 11:00 11:02 Temperature Heart Rate 97 87 70 Respiratory 25 H 17 20 Rate Blood Pressure 152/94 H 157/65 H O2 Saturation 96 95 If not protocol 2 2 1 : Oxygen Flow, liters/minute 03/29/22 03/29/22 03/29/22 11:29 11:30 11:40 Temperature Heart Rate 78 83 Respiratory 20 20 Rate Blood Pressure 166/70 H O2 Saturation 88 L 96 If not protocol 1 2 : Oxygen Flow, liters/minute 03/29/22 03/29/22 03/29/22 12:30 12:59 13:00 Temperature Heart Rate 77 90 78 Respiratory 16 22 16 Rate Blood Pressure 125/76 122/85 H O2 Saturation 96 96 If not protocol 2 2 2 : Oxygen Flow, liters/minute 03/29/22 03/29/22 13:30 14:00 Temperature Heart Rate 90 89 Respiratory 18 16 Rate Blood Pressure 160/64 H 152/62 H O2 Saturation 93 91 L If not protocol 1 1 : Oxygen Flow, liters/minute Oxygen O2 Source Nasal cannula Oxygen Flow Rate 2 - EKG (time done) 09:04 Rate: Rate (enter#) (104) Rhythm: Other (junctional tachycardia. ) Ischemia: Non specific changes Compare to prior EKG: Changed from prior EKG (02/03/22) - Labs Labs: Laboratory Tests 03/29/22 03/29/22 03/29/22 09:20 09:20 09:20 WBC 9.8 RBC 3.80 L Hgb 10.0 L Hct 34.8 L MCV 91.6 MCH 26.3 L MCHC 28.7 L RDW 16.8 H Plt Count 241 MPV 9.8 Neut # (Auto) 5.6 Lymph # (Auto) 2.6 [place] # (Auto) 1.0 Eos # (Auto) 0.5 Baso # (Auto) 0.1 Absolute Nucleated RBC 0.00 Nucleated RBC % 0.0 Sodium 137 Potassium 4.0 Chloride 102 Carbon Dioxide 27 Anion Gap 8.0 BUN 12 Creatinine 1.2 Estimated GFR (MDRD) 61 L Glucose 318 H Calcium 8.9 Magnesium 2.0 Total Bilirubin 0.7 AST 16 ALT 16 Alkaline Phosphatase 53 Troponin I High Sens 12.1 B-Natriuretic Peptide Total Protein 7.6 Albumin 3.8 Globulin 3.8 Albumin/Globulin Ratio 1.0 Lipase 44 Nasal Adenovirus (PCR) Nasal B. parapertussis DNA (PCR) Nasal Coronavir 229E PCR Nasal Coronavir HKU1 PCR Nasal Coronavir NL63 PCR Nasal Coronavir OC43 PCR Nasal Enterovir/Rhinovir PCR Nasal Influenza B PCR Nasal Influenza A PCR Nasal Parainfluen 1 PCR Nasal Parainfluen 2 PCR Nasal Parainfluen 3 PCR Nasal Parainfluen 4 PCR Nasal RSV (PCR) Nasal B.pertussis DNA PCR Nasal C.pneumoniae (PCR) [place] Human Metapneumo PCR Nasal M.pneumoniae (PCR) Nasal SARS-CoV-2 (PCR) 03/29/22 03/29/22 09:20 09:38 WBC RBC Hgb Hct MCV MCH MCHC RDW Plt Count MPV Neut # (Auto) Lymph # (Auto) [place] # (Auto) Eos # (Auto) Baso # (Auto) Absolute Nucleated RBC Nucleated RBC % Sodium Potassium Chloride Carbon Dioxide Anion Gap BUN Creatinine Estimated GFR (MDRD) Glucose Calcium Magnesium Total Bilirubin AST ALT Alkaline Phosphatase Troponin I High Sens B-Natriuretic Peptide 187 H Total Protein Albumin Globulin Albumin/Globulin Ratio Lipase Nasal Adenovirus (PCR) NOT DETECTED Nasal B. parapertussis DNA (PCR) NOT DETECTED Nasal Coronavir 229E PCR NOT DETECTED Nasal Coronavir HKU1 PCR NOT DETECTED Nasal Coronavir NL63 PCR NOT DETECTED Nasal Coronavir OC43 PCR NOT DETECTED Nasal Enterovir/Rhinovir PCR NOT DETECTED Nasal Influenza B PCR NOT DETECTED Nasal Influenza A PCR NOT DETECTED Nasal Parainfluen 1 PCR NOT DETECTED Nasal Parainfluen 2 PCR NOT DETECTED Nasal Parainfluen 3 PCR NOT DETECTED Nasal Parainfluen 4 PCR NOT DETECTED Nasal RSV (PCR) NOT DETECTED Nasal B.pertussis DNA PCR NOT DETECTED Nasal C.pneumoniae (PCR) NOT DETECTED [place] Human Metapneumo PCR NOT DETECTED Nasal M.pneumoniae (PCR) NOT DETECTED Nasal SARS-CoV-2 (PCR) NOT DETECTED - Rads (name of study) chest xray Radiology: Prelim report reviewed (Some consolidation and infiltrate in the left lower consistent with atelectasis versus pneumonia.), EMP read indepedently, See rad report PD Medical Decision Making - ED course Complexity details: reviewed results, re-evaluated patient, considered differential (Increased trouble breathing with some cough over the last 4 to 5 days with increased wheezing. Not improved with his home nebulizers and they were making him feel worse. He states feeling similar to prior admission in January with pneumonia.), d/w [facility] consultant (Hospitalist) Reviewed Lab Results: Chest x-ray has some interstitial changes. There is some infiltrate in the left lower neck could represent pneumonia versus atelectasis. In this clinical setting it would correspond more with pneumonia. His troponin and BNP as well as chest x-ray do not look like CHF nor cardiac involvement. ED course: He states his baseline oxygenation at home is between 90 and 92% on room air and down to 87-88 with activity. He is feeling much more short of breath and wheezing the last few days and particularly today. His oxygenation was 86% on room air and presenting here. He improved on nasal cannula with the goal not being more than 94 to 95% given his long-term COPD. He did feel better with oxygen as well as sequential nebulizer treatments. He has notable decrease in the amount of wheezing and accessory muscle use after 3 nebulizer treatments but is still having some expiratory wheezing which is probably likely chronic to some degree. However he does feel more short of breath than baseline. His oxygen on room air is 88%. It does improve to 92 to 94% on just 2 L nasal cannula. He is mentating well and does not appear hypercarbic clinically. I did not do a blood gas for that reason. He was given I some IV fluids as well as Decadron and Rocephin and Doxy for apparent pneumonia. The patient does feel worse than his baseline and he does have on chest x-ray apparent pneumonia. As such I feel he does meet condition for hospitalization. I I offered him the potential of going home and he states he did not feel well for that. I talked with our hospitalist Dr. Grande and we discussed the patient's condition. She was excepting of him in placement into the hospital for further care. Departure - Departure Disposition: ED Place in Observation Clinical Impression: Acute exacerbation of COPD with asthma, Hypoxia Pneumonia Qualifiers: Pneumonia type: due to unspecified organism Laterality: left Lung location: lower lobe of lung Qualified Code(s): J18.9 - Pneumonia, unspecified organism Condition: Stable Discharge Date/Time: 03/29/22 16:35
[2022-03-29] MEDS ORDERED: IPRATROPIUM/ALBUTEROL 3 ML NEB INH STA ×2 (09:20→12:33)
[2022-03-29] MEDS ORDERED: DEXAMETHASONE 10 MG/ML VIAL IVP STA (09:20)
[2022-03-29 09:26] LABS: BASOPHILS # (AUTO) 0.1 10^3/uL (0.0-0.1); BASOPHILS % (AUTO) 0.8 %; EOSINOPHILS # (AUTO) 0.5 10^3/uL (0.0-0.7); EOSINOPHILS % (AUTO) 4.8 %; HCT - HEMATOCRIT 34.8 % (42.0-52.0); LYMPHOCYTES # (AUTO) 2.6 10^3/uL (1.5-3.5); LYMPHOCYTES % (AUTO) 26.9 %; MEAN CORPUSCULAR HEMOGLOBIN 26.3 pg (27.0-31.0); MEAN CORPUSCULAR HGB CONC 28.7 g/dL (32.0-36.0); MEAN CORPUSCULAR VOLUME 91.6 fL (80.0-94.0); MEAN PLATELET VOLUME 9.8 fL (7.4-11.4); MONOCYTES % (AUTO) 10.1 %; NEUTROPHILS # (AUTO) 5.6 10^3/uL (1.5-6.6); NEUTROPHILS % (AUTO) 57.2 %; PLT - PLATELET COUNT 241 10^3/uL (130-450); RED CELL DISTRIBUTION WIDTH 16.8 % (12.0-15.0); WHITE BLOOD COUNT 9.8 x10^3/uL (4.8-10.8)
[2022-03-29 09:44] LABS: ALBUMIN 3.8 g/dL (3.2-5.5); BILIRUBIN,TOTAL 0.7 mg/dL (0.2-1.0); CALCIUM 8.9 mg/dL (8.5-10.3); CREATININE 1.2 mg/dL (0.6-1.2); TOTAL PROTEIN 7.6 g/dL (6.7-8.2)
--- NOTE | 2022-03-29 10:10 | XRAY Report ---
PROCEDURE: Chest 1 View X-Ray INDICATIONS: Chest Pain TECHNIQUE: One view of the chest was acquired. COMPARISON: None. FINDINGS: Surgical changes and devices: Status post median sternotomy. Lungs and pleura: There is a left basilar infiltrate consistent with atelectasis or pneumonia with s mall pleural effusion. Mediastinum: Mediastinal contours appear normal. Heart size is normal. Bones and chest wall: No suspicious bony lesions. Overlying soft tissues appear unremarkable. IMPRESSION: Left basilar infiltrate consistent with atelectasis or pneumonia with a small pleural eff usion. Reviewed by: Steven Jones on 03/29/2022 10:09 AM [facility] Approved by: Steven Jones on 03/29/2022 10:09 AM [facility] Station ID: [id number]
[2022-03-29] MEDS ORDERED: ALBUTEROL NEB 2.5 MG/3 ML INH STA (10:38)
[2022-03-29] MEDS ORDERED: BUDESONIDE 0.5 MG/2 ML NEB INH STA (10:38)
[2022-03-29] MEDS ORDERED: DOXYCYCLINE 100 MG TABLET PO STA (10:40)
[2022-03-29 10:48] LABS: B. PARAPERTUSSIS- RESP PCR PAN NOT DETECTED; B. PERTUSSIS- RESP PCR PANEL NOT DETECTED; C. PNEUMONIAE- RESP PCR PANEL NOT DETECTED; CORONAVIRUS 229E-RESP PCR NOT DETECTED; CORONAVIRUS HKU1-RESP PCR NOT DETECTED; CORONAVIRUS NL63-RESP PCR NOT DETECTED; CORONAVIRUS OC43-RESP PCR NOT DETECTED; HUMAN METAPNEUMOVIRUS NOT DETECTED; INFLUENZA A- RESP PCR PANEL NOT DETECTED; INFLUENZA B - RESP PCR PANEL NOT DETECTED; M. PNEUMONIAE- RESP PCR PANEL NOT DETECTED; PARAINFLUENZA VIRUS 1 NOT DETECTED; PARAINFLUENZA VIRUS 2 NOT DETECTED; PARAINFLUENZA VIRUS 3 NOT DETECTED; PARAINFLUENZA VIRUS 4 NOT DETECTED; RHINOVIRUS/ENTEROVIRUS NOT DETECTED; RSV- RESP PCR PANEL NOT DETECTED; SARS-CoV-2 -RESP PCR PANEL NOT DETECTED
[2022-03-29] MEDS ORDERED: cefTRIAXone 1 GM VIAL IVP STA (12:33)
[2022-03-29] MEDS ORDERED: ONDANSETRON 4 MG/2 ML VIAL IVP PRN (14:15)
[2022-03-29] MEDS ORDERED: ONDANSETRON ODT 4 MG TABLET TL PRN (14:15)
[2022-03-29] MEDS ORDERED: SODIUM CHLORIDE FLUSH 0.9% 10 ML SYRINGE IVP PRN (14:15)
[2022-03-29] MEDS ORDERED: oxyCODONE 5 MG TABLET PO PRN (14:15)
[2022-03-29] MEDS ORDERED: ACETAMINOPHEN 325 MG TABLET PO PRN (14:15)
[2022-03-29] MEDS ORDERED: IPRATROPIUM/ALBUTEROL 3 ML NEB INH SCH (15:00)
[2022-03-29] MEDS ORDERED: SODIUM CHLORIDE 0.9% 1,000 ML IV SCH (15:00)
[2022-03-29] MEDS: methylPREDNISolone SUCCINATE 40 MG/ML VIAL IVP SCH ×2 (15:04→22:05)
--- NOTE | 2022-03-29 15:10 | HISTORY & PHYSICAL EXAMINATION ---
Chief Complaint - Chief Complaint Chief Complaint: SOB <Jorge Tatum - Last Filed: 03/29/22 17:51> History of Present Illness <Lizzy Grande - Last Filed: 03/29/22 17:33> - Admitted From Admitted From:: ED from home - History Obtained From Records Reviewed: electronic records from this admission History obtained from: patient Exam Limitations: none <Jorge Tatum - Last Filed: 03/29/22 17:51> - History of Present Illness HPI Comment/Other: Patient is seen by Dr. Michael Pereyra at [facility]. I was able to speak to him @ [phone]. The patient has a history of: + four-vessel bypass surgery in October 2019 done in [facility]. + He then had a subsequent ablation for his A. fib in March 2020. Also in [facility]. + ECHO was done in January [address] Pereyra. states that he has mild aortic stenosis with mild AI. Ejection fraction was normal. +Hospitalized at in February 2021 with respiratory failure resulting in i ntubation due to RSV. +Seen by Dr. Peeryra in May 2021 as well as October 2021. In October 2021 EKG showed a junctional tachycardia of 103. + was hospitalized here in October 2021 and that echo showed mild aortic stenosis. With that hospitalization he was sent to [facility] because of a third-degree heart block. [facility] saw him and felt he did not need a pacer because they were finding a 2-1 second-degree AV block. And sent him home. +presented to [facility] again in November 2021 this time for dark, tarry stools. His Xarelto and Plavix were discontinued. His EKG showed sinus rhythm, a Wenckebach with a 2-1 AV block. Again not a candidate for a pacer. +Holter monitor in December 2021. That was a 13-day monitor. He had first- degree AV block, predominantly normal sinus rhythm throughout. He did have a Wenckebach Mobitz 1, 2-1 heart block. PVCs. And he had 2 runs of nonsustained V. tach. +Hospitalized here 01/2022 for Influenza A, resp failure and intubated. Long course of recovery and sent home 02/13/22. Had coffee ground emesis, 2nd degree AVB Since being discharged, he has seen his primary care provider as well as his electronic imaging system operator. He tells us that his electronic imaging system operator thinks that his problem may be more heart than lung. In discussing the case with his warning analyst, he is going to be seen again in April. The warning analyst days he will make sure that he gets a nuclear medicine stress test the same day he is seen in the office. (Lizzy Grande) Jair is a 67 yo male current smoker with PMH diabetes, hypothyroidism, HTN, vascular disease s/p angioplasty of his leg, past episode of heart block associated with syncope in October 2021, s/p cardioversion for afib. He completed his budesonide nebulizer on Friday and he felt worse after it. His symptoms are SOB, MATTSON, wheezing, a productive cough with green sputum that is now cloudy aguilar. He had to stay home from his daughter's [employer] ball game because he felt so bad. He reports that he dislikes both of his nebulizers, budesonide and ipatropium. He will be starting formoterol and revefenacin but has not received these from [facility] yet. He is also on prednisone 10mg daily, he states he felt better when it was 20mg. He is also on azithromycin daily. He quit smoking 3 months ago but has had a few cigarettes since then. He presented to ED today for SOB and MATTSON, he is sitting up high logan position, rapid pursed lip breathing on 3L NC. He speaks in a full sentence but then has to catch up on his breathing. He is frustrated that his condition has not improved and thinks his doctors are saying all the right things but not getting the results. (Jorge Tatum) History - Past Medical History Cardiovascular: reports: Congestive heart failure, Hypertension, High cholesterol, Coronary artery disease, Peripheral Vascular Disease, LA, Atrial fibrillation, Valve disorder Respiratory: reports: COPD, Emphysema, Sleep apnea, CPAP use (reports Bipap ) Neuro: reports: Peripheral neuropathy Endocrine/Autoimmune: reports: HyPOthyroidism, Type 2 diabetes GI: reports: GERD : reports: None HEENT: reports: None Psych: reports: None Musculoskeletal: reports: Rheumatoid arthritis Derm: reports: None MRSA Hx?: No - Past Surgical History Cardiovascular: reports: CABG, Angioplasty - Family & Social History Family History: Mother: , Alzheimer's Disease, Father: , Cancer Family History Comment/Other: His father had liver cancer and brain tumor. He at the age of 58. His mother at the age of 90 from Alzheimer's. His sister had an LA at age 69. Living Situation: With spouse/s.o., With family Social History Notes: The patient lives with his Second and daughter. they moved here 3 yrs ago from [place], [place] and bought his sister's house. He has 3 kids from first marriage. 1 child with his second . She has a child from a previous marriage. Has tried to quit smoking. He smoked for about 47 years, 1 pack/day. He denies alcohol or recreational substance use. 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 - Substance History Use: Uses substance without health or social issues: Tobacco (oficially quit 3 months ago, has had a few cigarrettes since then ) Abuse: Recurrent use of substance despite neg consequences: NONE Dependence: Experiences withdrawal or developed tolerances: Tobacco - POLST Patient has POLST: Yes POLST Status: Full Code (pt has his POLST form with him) <Jorge Tatum - Last Filed: 03/29/22 17:51> Meds/Allgy <Lizzy Grande - Last Filed: 03/29/22 17:33> <Jorge Tatum - Last Filed: 03/29/22 17:51> - Home Medications Home Medications: Ambulatory Orders Medication Instructions Recorded Confirmed Ascorbic Acid [Vitamin C] 1,000 mg PO DAILY 08/12/21 03/29/22 Aspirin [[place] Aspirin EC] 81 mg PO DAILY 08/12/21 03/29/22 Cholecalciferol (Vitamin D3) 250 mcg PO DAILY 08/12/21 03/29/22 [Vitamin D3] Docusate Sodium [Dulcolax Stool 100 mg PO BID 08/12/21 03/29/22 Softener] Ferrous Sulfate 325 mg PO MOWEFR 08/12/21 03/29/22 Furosemide [Lasix] 80 mg PO DAILY 08/12/21 03/29/22 Glimepiride [Amaryl] 4 mg PO DAILY 08/12/21 03/29/22 Levothyroxine Sodium 137 mcg PO DAILY 08/12/21 03/29/22 [Levothyroxine] Losartan Potassium 50 mg PO DAILY 08/12/21 03/29/22 sulfaSALAzine [Azulfidine] 500 mg PO DAILY 08/12/21 03/29/22 Dulaglutide [Trulicity] 1.5 mg SUBQ FR 10/18/21 03/29/22 Hydralazine HCl 75 mg PO BID 10/18/21 03/29/22 Rosuvastatin Calcium [Crestor] 40 mg PO QPM 10/18/21 03/29/22 Azithromycin 250 mg PO DAILY 12/26/21 03/29/22 Cyanocobalamin (Vitamin B-12) 1,000 mcg PO DAILY 12/26/21 03/29/22 [Vitamin B-12] Folic Acid 1 mg PO DAILY 12/26/21 03/29/22 Pantoprazole [Protonix] 40 mg PO DAILY 12/26/21 03/29/22 Insulin Aspart [NovoLOG] 8 - 20 units SUBQ TIDWM PRN 01/10/22 03/29/22 Metformin HCl [Metformin ER 1,000 mg PO BID 02/03/22 03/29/22 Gastric] Multivit-Min/FA/Lycopen/Lutein 1 each PO DAILY 02/03/22 03/29/22 [Centrum Silver Men Tablet] Nitroglycerin [Nitrostat] 0.4 mg SL Q5MIN PRN 02/03/22 03/29/22 Pramipexole Di-HCl [Mirapex] 2 mg PO QPM 02/03/22 03/29/22 Nicotine 21 mg Patch [Nicoderm] 1 patch TOP DAILY #30 patch 02/13/22 03/29/22 Insulin Glargine-Yfgn [Semglee 15 unit SQ DAILY PM 03/29/22 03/29/22 (Yfgn) Pen] Triamcinolone 0.5% Cream [Kenalog 1 applic TOP PRN PRN 03/29/22 03/29/22 0.5% Cream] Zinc Oxide 20% Oint [Zinc Oxide] 1 applic TOP DAILY 03/29/22 03/29/22 guaiFENesin [Mucinex] 600 - 1,200 mg PO BID 03/29/22 03/29/22 predniSONE [Deltasone] 10 mg PO DAILY 03/29/22 03/29/22 - Allergies Allergies/Adverse Reactions: Allergies Allergy/AdvReac Type Severity Reaction Status Date / Time No Known Drug Allergies Allergy Verified 03/29/22 09:13 Review of Systems - Constitutional Constitutional: reports: Fatigue - Eyes Eyes: reports: Corrective lenses - Cardiovascular Cariovascular: reports: Irregular heart rate, Chest pain - Respiratory Respiratory: reports: Cough, Sputum production, Wheezing, SOB at rest, SOB with exertion - Neurological Neurological: reports: General weakness, Numbness (BLE neuropathy) - All Other Systems All Other Systems: reports: Reviewed and negative <Jorge Tatum - Last Filed: 03/29/22 17:51> <Jorge Tatum - Last Filed: 03/29/22 17:51> Prior Level of Functionality: Jair is able to get up and dress himself, he still drives, ambulates with the help of a wheeled walker. His helps him sometimes with bathing. He still drives. (Jorge Tatum) Exam - Vital Signs Reviewed Vital Signs: Yes - Physical Exam General Appearance: positive: Moderate distress (aguilar colored ill appearing man sitting up in bed, pursed lip breathing,) Eyes Bilateral: positive: Normal inspection ENT: positive: ENT inspection nml Neck: positive: Nml inspection Respiratory: positive: Chest non-tender, Other (no wheezes) Cardiovascular: positive: Regular rate & rhythm, Systolic murmur Peripheral Pulses: positive: 1+ Abdomen: positive: Non-tender, No organomegaly, Nml bowel sounds, Other (round distended) Back: positive: Nml inspection Skin: positive: Other (discolored legs) Extremities: positive: No pedal edema Neurologic/Psychiatric: positive: Oriented x3 <Jorge Tatum - Last Filed: 03/29/22 17:51> - Vital Signs Vital Signs: Vital Signs x48h Temp Pulse Pulse Resp BP BP Pulse Ox 03/29/22 16:47 03/29/22 16:45 37 C 90 24 173/63 H 96 03/29/22 16:00 36.7 C 87 19 157/78 H 96 03/29/22 15:30 88 22 154/70 H 98 03/29/22 15:00 93 18 151/70 H 98 03/29/22 14:30 80 23 156/71 H 94 03/29/22 14:00 89 16 152/62 H 91 L 03/29/22 13:30 90 18 160/64 H 93 03/29/22 13:00 78 16 122/85 H 96 03/29/22 12:59 90 22 03/29/22 12:30 77 16 125/76 96 03/29/22 11:40 96 03/29/22 11:30 83 20 166/70 H 88 L 03/29/22 11:29 78 20 03/29/22 11:02 70 20 03/29/22 11:00 87 17 157/65 H 95 03/29/22 10:13 97 25 H 152/94 H 96 O2 Flow Rate 03/29/22 16:47 1 03/29/22 16:45 1 03/29/22 16:00 1 03/29/22 15:30 1 03/29/22 15:00 1 03/29/22 14:30 1 03/29/22 14:00 1 03/29/22 13:30 1 03/29/22 13:00 2 03/29/22 12:59 2 03/29/22 12:30 2 03/29/22 11:40 2 03/29/22 11:30 03/29/22 11:29 1 03/29/22 11:02 1 03/29/22 11:00 2 03/29/22 10:13 2 Conclusion/Plan - Lab Results Fish Bones: 03/29/22 09:20 03/29/22 09:20 <GrandeLizzy L - Last Filed: 03/29/22 17:33> - Problem List (1) COPD exacerbation Conclusion/Plan: Pt reports stopping his breathing treatments on Friday, not taking his home O2. Has diagnosis of COPD. Exam shows pursed lip breath RR 25. No fever, no WBC. CXR suspicious for pneumonia. Plan: ABG tonight, NC to keep Spo2>90% while in hospital, resume breathing treatments, Bipap at night, start steroids IV, check procalcitonin (2) Chronic kidney disease Conclusion/Plan: GFR 61 Plan: no treatment, monitoring Qualifiers: Chronic kidney disease stage: stage 2 (mild) Qualified Code(s): N18.2 - Chronic kidney disease, stage 2 (mild) (3) Diabetes mellitus Conclusion/Plan: Long time diabetic, with neuropathy. Will be starting high dose steroids Plan: stop all oral diabetic medications, will manage BG with sub q insulin Qualifiers: Diabetes mellitus type: type 2 Diabetes mellitus complication detail: with polyneuropathy (4) (HFpEF) heart failure with preserved ejection fraction Conclusion/Plan: ECHO from 10/2021 shows mild and EF 60-65%, lasix is home med Plan: Continue lasix, plan for cardiac stress test outpatient (5) Hypothyroidism Conclusion/Plan: Has diagnosis of hypothyroidism receiving replacement. Plan: continue home levothyroxine, check TSH level Qualifiers: Hypothyroidism type: unspecified Qualified Code(s): E03.9 - Hypothyroidism, unspecified - Lab Results Fish Bones: 03/29/22 09:20 03/29/22 09:20 - Diagnostic Imaging Results Diagnostic Imaging Results: positive: Final report reviewed - EKG Results EKG Interpreted Independently: Yes <Jorge Tatum - Last Filed: 03/29/22 17:51> - Diagnostic Imaging Results Diagnostic Imaging Results Comments: CXR 03/29/22 Findings: Surgical changes and devices: s/p median sternotomy Lungs and Pleura: there is a L basilar infiltrate consistent iwth atelectasis o r pneumonia with small pleural effusion. Mediastinum: Mediastinal contours appear normal. heart size is normal. Bone and Chest Wall: No suspicious bony lesions. Overlying soft tissues appear unremarkable. Impression: Left basilar infiltrate consistent with atelectasis or pneumonia with a small pelural effusion. ECHO 10/18/2021 EF 60-65% mild (Jorge Tatum) Core Measures - Anticipated LOS I expect patient to be DC'd or transferred within 96 hours.: Yes <Jorge Tatum - Last Filed: 03/29/22 17:51>
--- NOTE | 2022-03-29 16:27 | PHARMACY PROGRESS NOTE ---
- Best Possible Medication History Admit Date and Time: 03/29/22 1415 Processed by: Nursing Medication History completed: Yes Secondary Source(s): Written medication list As the person ultimately responsible for medication therapy, providers are able to order a medication from an existing home medication list in [facility] via the "Reconcile Routine" prior to Confirmation of that medication by support technician. Such practice is discouraged except when the physician, in their clinical judgment, deems that a medical need exists for a medication without regard to previous use.
[2022-03-29] MEDS: INSULIN LISPRO 300 UNIT/3 ML PEN SUBQ SCH ×3 (17:11→22:03)
[2022-03-29] MEDS: SODIUM CHLORIDE FLUSH 0.9% 10 ML SYRINGE IVP SCH (17:12)
[2022-03-29] MEDS ORDERED: IPRATROPIUM/ALBUTEROL 3 ML NEB INH PRN (17:24)
[2022-03-29] MEDS: BUDESONIDE 0.5 MG/2 ML NEB INH SCH (19:57)
[2022-03-29] MEDS: FORMOTEROL FUMARATE NEB 20 MCG/2 ML INH SCH (19:57)
[2022-03-29] MEDS ORDERED: INSULIN GLARGINE-YFGN 300 UNIT/3 ML PEN SUBQ SCH (21:00)
[2022-03-30] MEDS: SODIUM CHLORIDE FLUSH 0.9% 10 ML SYRINGE IVP SCH ×2 (01:00→08:39)
[2022-03-30] MEDS: methylPREDNISolone SUCCINATE 40 MG/ML VIAL IVP SCH (06:27)
[2022-03-30] MEDS: BUDESONIDE 0.5 MG/2 ML NEB INH SCH (07:13)
[2022-03-30] MEDS: FORMOTEROL FUMARATE NEB 20 MCG/2 ML INH SCH (07:13)
[2022-03-30] MEDS ORDERED: INSULIN GLARGINE-YFGN 300 UNIT/3 ML PEN SUBQ SCH (08:00)
[2022-03-30] MEDS: INSULIN LISPRO 300 UNIT/3 ML PEN SUBQ SCH ×4 (08:21→12:57)
[2022-03-30] MEDS ORDERED: AZITHROMYCIN 250 MG TABLET PO SCH (09:00)
[2022-03-30 10:07] LABS: ESTIMATED AVERAGE GLUCOSE 209 mg/dL (70-100); HEMOGLOBIN A1c% 8.9 % (4.27-6.07)
--- NOTE | 2022-03-30 11:11 | Discharge Plan ---
Discharge Plan Problem Reviewed?: Yes Disposition: Home, Self Care Condition: Fair Prescriptions: Ipratropium/Albuterol [Duoneb] 3 ml INH RTQID PRN #120 ml PRN Reason: Wheezing Diet: Diabetic Activity Restrictions: Activity as Tolerated Shower Restrictions: No Driving Restrictions: Yes (no driving) Weight Bearing: Full Weight Health Concerns: You have well known emphysema disease as well as heart disease. You came to the emergency room after being taken off oxygen in the last week, and stopping many of your nebulizers. You and your chief merchandising officer are working closely together to decide how much of your medicines you really need in which medicines makes you feel worse. What is clear to us is that, in stopping your medicines in the 5 to 6 days you have been off of them, you have become worse. So you went back on your inhaled budesonide via nebulizer as well as your inhaled ipratropium via nebulizer. You are very clear that you feel that your inhaled budesonide and short acting ipratropium makes you feel horrible. So you are frustrated with what to do. With increasing shortness of breath you came to the ER. You did not have a fever, your white cell count was normal, you had a low oxygen level to 88% on room air at rest, and you had a scant left lower lobe change on your chest xray that may or may not be an early pneumonia. Without a fever, or cough or phlegm change, I don't think you have pneumonia. I did speak to your paper core machine operator at length. There was a question whether it is your lungs or your heart making you feel sicker. Your paper core machine operator describes your heart as followin. You have a documented cardiac arrhythmia called Wenckebach phenomena, second-degree AV block, type I. You do not need a pacemaker for that. That is well-documented at [facility], [place], and in your cardiology office. 2. The valves of your heart work fairly well. You have 1 main valve, the aorti c valve, that has mild aortic stenosis or narrowing of the valve. That has been proven on 2 separate echocardiograms, a year apart. The most recent one was October 2021. But there is not enough malfunction that the valve will be fixed at this time. It is not causing congestive heart failure. 3. You do not appear to have congestive heart failure. The pump action of the muscle of your heart is normal. There are no weaknesses in the wall muscle seen. And a blood test called a BNP is not elevated for you. So in voting between your heart or your lungs, I think your lungs are the main problem. Plan of Treatment: 1. You are very frustrated with the amount of medications you are taking. You wish to take less. I am noticing that you are duplicating some of the effects of the multivitamin by taking extra vitamins. I would recommend that you stop: Vitamin C Vitamin B12 You are frustrated with your pulmonary medicines. We have discussed how we can approach his situation. This week is showing me, personally, that you do not do well taken off all of your pulmonary medications. And now you are convinced that the ipratropium and the budesonide is making you worse. So we are going to try something different. We are going to go to only short acting medications to relax your bronchial tubes and dilate them. You will not take any inhaled steroid, or any long- acting drug at this time. As such I am calling in DuoNeb which is albuterol and ipratropium (both short acting) to be taken 4 times a day as needed. Try this for a week. If this does not work then you know you want to go to the long-acting budesonide, formoterol. It is my impression that your doctor is stopping the budesonide and putting you on revefenacin. That is also a long- acting. Those are currently in process of getting authorization. That is why you are going to try the short acting ones first. You also have come off oxygen. You describe going down to 82% with exertion. I would recommend to go back on oxygen when you get a get up and try and walk a distance that makes you drop your oxygen. So if it only needs to go on for the 2 minutes you need to go to the bathroom and back, or go to the kitchen and back, you need to put your oxygen back on in those instances. Otherwise at rest, or with minimal activity, do not wear your oxygen. Care Goals: You would like to stabilize your lungs enough that you can live at least the 4 to 5 years that have been quoted to by your chief merchandising officer. You also are exploring stem cell therapy. You have also vaguely mentioned lung transplant therapy. You and your chief merchandising officer work on that. But I do recommend that you stop smoking completely. You have shared with us that you still continue to smoke, albeit a very small amount. You do have a lung nodule that is been identified. While you are willing to see if this is malignant with a PET CT scan, you have made it very clear that you do not want surgery, radiation, chemotherapy or immunotherapy. Let himPlease see your chief merchandising officer in the next 1 to 2 weeks. Now that you are voting to go with short acting bronchodilators at this time. You were going to hold off on your long-acting ones until you see once and for all with of the short acting bronchodilator therapy. You already have a scheduled appointment with your paper core machine operator in April. In speaking to your paper core machine operator he states that he will be scheduling a stress test for you the same day you see him. He says the only other thing we need to work on is making sure that you have no blockages in your heart arteries but otherwise everything he has seen is acceptable. Assessment: Patient is alert, oriented, lucid and although frustrated, able to make his own decisions clear No Smoking: If you smoke, Please STOP! Call for help. Follow-up with: LUKASZ AUGUSTIN MD [Primary Care Provider] -
[2022-03-30 11:38] VITALS: BP 146/61
--- NOTE | 2022-04-02 11:54 | DISCHARGE SUMMARY ---
Discharge Summary Admit Date: 03/29/22 Discharge Date: 03/30/22 Discharging Provider: Lizzy Grande MD Primary Care Provider: Kenyon Gray MD Code Status: Attempt Resuscitation Condition at Discharge: Stable Discharge Disposition: 01 Home, Self Care - DIAGNOSES Discharge Diagnoses with Status of Each Condition: 1. COPD with exacerbation 2. Chronic kidney disease 3. Diabetes mellitus 4. Heart failure with preserved ejection fraction, chronic 6. Hypothyroidism - HPI History of Present Illness: Please see dictated history and physical for patient in the hospital less than a day - HOSPITAL COURSE Hospital Course: This gentleman has a complicated history of heart failure and COPD. I spoke at length with his application support manager we will and overall the studies. The only thing missing is an ischemic study to see if he does have reversible ischemia. Even with all the, we do think the patient's primary problem is pulmonary not cardiology. The patient stopped most of his pulmonary meds a few days ago in an effort to see which one was helping in which 1 was making him feel miserable. He is insistent that Spiriva and budesonide are making him miserable. He became more more short of breath this week. He had gone off his oxygen even though O2 sats are in the high 80s low 90s with exertion. All we did was resume some of his nebs, oxygen, spoke to his application support manager without adjusting cardiac meds, and then sent him home. He keeps on becoming very alarmed about his Wenckebach phenomena that we see on telemetry. I explained to him that 3 different hospitals and his own application support manager does not feel he needs a pacemaker for this. He is talking about stem cell infusion to treat his COPD, lung transplant, and he will be seeing his application support manager, group leader semiconductor testing, and primary care provider in the next few weeks. In speaking to his application support manager he will be getting a stress test scheduled for the same day he is seen in the office. Temperature is 36.5. Heart rate 61. Blood pressure 146/61. Respirations 18. 92% on room air. Patient is equivocal about whether he wants to resume oxygen or not. He is a 5 foot 10 inch male, long hair, bearded, male pattern baldness. Shotty neck adenopathy. No JVD. Prolonged exhalation phase, pursed lip breathing, easy tachypnea with just speaking to me and when he gets excited. But no outright wheezing or use of accessory muscles. He does have a right ventricular lift. Abdomen is obese, soft, nontender. Ankles have edema. He is ambulating without assist. He is discharged in stable condition to follow-up with his doctors about management of his disease which appears to be chronic and poor. - ALLERGIES Allergies/Adverse Reactions: Allergies Allergy/AdvReac Type Severity Reaction Status Date / Time No Known Drug Allergies Allergy Verified 03/29/22 09:13 - MEDICATIONS Home Medications: Ambulatory Orders Medication Instructions Recorded Confirmed Ascorbic Acid [Vitamin C] 1,000 mg PO DAILY 08/12/21 03/29/22 Aspirin [[place] Aspirin EC] 81 mg PO DAILY 08/12/21 03/29/22 Cholecalciferol (Vitamin D3) 250 mcg PO DAILY 08/12/21 03/29/22 [Vitamin D3] Docusate Sodium [Dulcolax Stool 100 mg PO BID 08/12/21 03/29/22 Softener] Ferrous Sulfate 325 mg PO MOWEFR 08/12/21 03/29/22 Furosemide [Lasix] 80 mg PO DAILY 08/12/21 03/29/22 Glimepiride [Amaryl] 4 mg PO DAILY 08/12/21 03/29/22 Levothyroxine Sodium 137 mcg PO DAILY 08/12/21 03/29/22 [Levothyroxine] Losartan Potassium 50 mg PO DAILY 08/12/21 03/29/22 sulfaSALAzine [Azulfidine] 500 mg PO DAILY 08/12/21 03/29/22 Dulaglutide [Trulicity] 1.5 mg SUBQ FR 10/18/21 03/29/22 Hydralazine HCl 75 mg PO BID 10/18/21 03/29/22 Rosuvastatin Calcium [Crestor] 40 mg PO QPM 10/18/21 03/29/22 Azithromycin 250 mg PO DAILY 12/26/21 03/29/22 Cyanocobalamin (Vitamin B-12) 1,000 mcg PO DAILY 12/26/21 03/29/22 [Vitamin B-12] Folic Acid 1 mg PO DAILY 12/26/21 03/29/22 Pantoprazole [Protonix] 40 mg PO DAILY 12/26/21 03/29/22 Insulin Aspart [NovoLOG] 8 - 20 units SUBQ TIDWM PRN 01/10/22 03/29/22 Metformin HCl [Metformin ER 1,000 mg PO BID 02/03/22 03/29/22 Gastric] Multivit-Min/FA/Lycopen/Lutein 1 each PO DAILY 02/03/22 03/29/22 [Centrum Silver Men Tablet] Nitroglycerin [Nitrostat] 0.4 mg SL Q5MIN PRN 02/03/22 03/29/22 Pramipexole Di-HCl [Mirapex] 2 mg PO QPM 02/03/22 03/29/22 Nicotine 21 mg Patch [Nicoderm] 1 patch TOP DAILY #30 patch 02/13/22 03/29/22 Insulin Glargine-Yfgn [Semglee 15 unit SQ DAILY PM 03/29/22 03/29/22 (Yfgn) Pen] Triamcinolone 0.5% Cream [Kenalog 1 applic TOP PRN PRN 03/29/22 03/29/22 0.5% Cream] Zinc Oxide 20% Oint [Zinc Oxide] 1 applic TOP DAILY 03/29/22 03/29/22 guaiFENesin [Mucinex] 600 - 1,200 mg PO BID 03/29/22 03/29/22 predniSONE [Deltasone] 10 mg PO DAILY 03/29/22 03/29/22 Ipratropium/Albuterol [Duoneb] 3 ml INH RTQID PRN #120 ml 03/30/22 - LABS Result Diagrams: 03/29/22 09:20 03/29/22 09:20
== END 2022-03-30 13:40 | disposition home or self-care (01) ==
LOC: ED 08:57 → MS2 14:15
PROVIDERS: ADMIT Specialist; ATTEND Specialist
DX: J43.9 Emphysema, unspecified (principal); R09.02 Hypoxemia; I13.0 Hypertensive heart and chronic kidney disease with heart failure and stage 1 through stage 4 chronic kidney disease, or unspecified chronic kidney disease; I50.32 Chronic diastolic (congestive) heart failure; N18.2 Chronic kidney disease, stage 2 (mild); J18.9 Pneumonia, unspecified organism; E11.22 Type 2 diabetes mellitus with diabetic chronic kidney disease; Z79.4 Long term (current) use of insulin; Z79.84 Long term (current) use of oral hypoglycemic drugs; E03.9 Hypothyroidism, unspecified; Z20.822 Contact with and (suspected) exposure to COVID-19; I35.0 Nonrheumatic aortic (valve) stenosis; F17.210 Nicotine dependence, cigarettes, uncomplicated; E11.42 Type 2 diabetes mellitus with diabetic polyneuropathy; E66.9 Obesity, unspecified; Z68.27 Body mass index [BMI] 27.0-27.9, adult; I44.1 Atrioventricular block, second degree; E78.00 Pure hypercholesterolemia, unspecified; I25.10 Atherosclerotic heart disease of native coronary artery without angina pectoris; E11.51 Type 2 diabetes mellitus with diabetic peripheral angiopathy without gangrene; M06.9 Rheumatoid arthritis, unspecified; J90 Pleural effusion, not elsewhere classified; R91.1 Solitary pulmonary nodule; G47.30 Sleep apnea, unspecified; Z98.61 Coronary angioplasty status; Z95.1 Presence of aortocoronary bypass graft
CPT/HCPCS: 36415; 71045; 80053; 83036; 83690; 83735; 83880; 84145; 84443; 84484; 85025; 87633; 93005; 94640; 96374; 96375; 96376; 99285; A9270; G0378; J1815; J7626

== ENCOUNTER 2022-04-10 15:15 | Outpatient (CLI) | payer BC, MEDICARE | END 2022-04-10 15:16 | disposition home or self-care (01) | LOC: DI 15:15 | PROVIDERS: ATTEND Internal Medicine Pulmonary Disease | DX: I08.0 Rheumatic disorders of both mitral and aortic valves (principal); I49.9 Cardiac arrhythmia, unspecified; I87.8 Other specified disorders of veins; J44.9 Chronic obstructive pulmonary disease, unspecified; Z51.81 Encounter for therapeutic drug level monitoring | CPT/HCPCS: 93306 ==

== ENCOUNTER 2022-05-01 08:45 | Outpatient (CLI) | payer BC, MEDICARE ==
[2022-05-01 09:22] VITALS: BP 110/62
--- NOTE | 2022-05-01 09:22 | SLEEP CARE CONSULTATION ---
Information from patient questionnaire entered by Darcie Blanco. I have reviewed and concur with the information entered by Darcie Blanco. This document represents the service I personally performed and the decisions made by me, Sofie Gold ARNP. History of Present Illness Service Date and Time: 05/01/2022 0845 Previous diagnosis: Moderate, Obstructive Sleep Apnea-Hypopnea Syndrome AHI: 22 Reason for follow up: one month (F/U) Equipment type: BiPAP (RESMED AirCurve 10 s/u 02/2022) Equipment obtained from: Other ([facility]: getting supplies) Mask style: Full face Backup mask available: Yes (old mask) Last cushion change: 3 weeks ago Prior sleep studies: Yes Year and Where: 2016 - [facility] Type of Sleep Study: Polysomnography HPI additional information: GUILLERMO MAXWELL was diagnosed to have moderate, AHI 22, obstructive sleep apnea- hypopnea syndrome and returned today for BIPAP therapy one month follow-up. Sleep Study - Results Type of Sleep Study: Polysomnography Prior sleep studies: Yes Year and Where: 2016 - [facility] CPAP Compliance Data - Data Reviewed with Patient Average duration of nightly device use: 5 hours 15 minutes Compliance rate %: 60 ( days used) Current pressure setting (cmH2O): 16/5, with 10 cmH2O pressure support Average residual AHI: 0.3 Average large leak: 35.5 LPM (gabriel) Subjective Missed days of use due to: reports: illness Patient concerns: denies: aerophagia, mask discomfort, air blowing in eyes, mask leak noise, condensation in mask/hose, nasal congestion, dry mouth, nose, throat, epistaxis Observed to snore while using device: No Current pressure setting perceived as: comfortable On therapy, patient: reports: sleeping better, awakening more refreshed, being more awake and alert during the day, more rested overall. denies: drowsiness while driving Initial [place] Sleepiness Scale score: 19 (in 2020) Current [place] Sleepiness Scale score: 18 (05/01/22) Allergies and Home Medications Drug allergies reviewed: Yes (NKDA) Home medication list reviewed: Yes (see updates in EMR list) Review of Systems Review of systems same as previous: No (2 hospital visits for COPD and pneumonia) Physical Exam Vital signs obtained and entered by: DARCIE Garcia MA Blood Pressure: 110/62 (LEFT ARM) Cuff size: regular Heart Rate: 103 O2 Saturation: 89 Height: 5 ft 10 in Weight: 199 lb 3.2 oz Body Mass Index: 28.5 BMI Classification: Overweight Impression and Plan 1. Obstructive Sleep Apnea-Hypopnea Syndrome, moderate, with fair treatment com pliance and good apnea control. On BiPAP therapy, the patient has better sleep quality and is more rested overall. Guillermo has significant improvement of his sleep apnea and is comfortable with current pressure setting. He has been having struggles with his COPD and pneumonia with 2 hospitalizations recently. He states that his doctors are talking about stem cell treatments to try to improve his health or he could only have 4 years left to live. Patient denies problems with oral dryness, nasal congestion, epistaxis, skin irritation or aerophagia. Patient's apnea severity and rationale for treatment to reduce apnea, improve sleep quality and reduce cardiovascular and cerebrovascular events was reviewed. I also reviewed the benefit of consistent device use of BiPAP for hypertension, cardiac disease, diabetes and gastric reflux. 2. Overweight, unspecified. Currently patients BMI is 28.5. Obesity increases the risk of apnea, BiPAP pressure requirements and overall health risks especially cardiovascular and diabetes. Thus patient is advised to lose weight. * Continue BiPAP pressure at 16/5 cmH2O with 10 cmH2O pressure support * Notify me if snoring with mask or feeling that the pressure is too much or too little * Attempt to lose weight * Call this office if any problems using BIPAP * Return for follow up in 1 year, or sooner if concerns arise Counseling Topics: Spare mask, Weight loss health impact Visit Type: In Office Time Spent with Patient (minutes): 13 Provider Statement: I spent 100% of the Face to Face Visit with the patient with greater than 50% spent counseling the patient and coordination of care.
== END 2022-05-01 08:46 | disposition home or self-care (01) ==
LOC: SC 08:45
PROVIDERS: ATTEND Nurse Practitioner Family
DX: G47.33 Obstructive sleep apnea (adult) (pediatric) (principal); E66.3 Overweight; Z68.28 Body mass index [BMI] 28.0-28.9, adult
CPT/HCPCS: 99212

== ENCOUNTER 2022-06-05 09:33 | Outpatient (CLI) | payer BC, MEDICARE ==
--- NOTE | 2022-06-05 11:10 | CT Report ---
PROCEDURE: CHEST WO INDICATIONS: ABN CHEST CT TECHNIQUE: Noncontrast 1mm axial images were acquired from the pulmonary apices to the posterior costophrenic an gles. Axial 5 mm soft tissue kernel reconstructions were performed as well as 8 mm axial MIP and cor onal and sagittal 5 mm reformations. For radiation dose reduction, the following was used: automate d exposure control, adjustment of mA and/or kV according to patient size. COMPARISON: 03/12/2022 FINDINGS: Image quality: Excellent. Lungs and pleura: The previous noted nodular infiltrate at the patient's left lung base has resolved interval. There is some bibasilar atelectasis versus scarring present left greater than right. Modera te emphysematous changes are again noted throughout both lungs. No pleural effusions or pneumothorax. Central and peripheral airways are patent and normal in caliber. Mediastinum: Heart size is normal. No pericardial effusion. No mediastinal adenopathy by size crit eria. Thoracic aorta and central pulmonary arteries are normal in size. Esophagus is normal in harjeet nacho. No hiatal hernia. Coronary artery and atherosclerotic calcifications are present. Patient is st atus post prior CABG. Bones and chest wall: No suspicious bony lesions. No vertebral body compression fractures. No axil vidal or supraclavicular adenopathy by size criteria. The thyroid is normal in size and there are no incidental findings. Abdomen: Visualized upper abdominal solid organs and bowel loops appear normal in the absence of con trast. IMPRESSION: 1. Interval resolution of the nodular infiltrate at the patient's left lung base. 2. Moderate emphysematous changes noted throughout both lungs. 3. Mild bibasilar atelectasis versus scarring left greater than right. 4. Coronary artery and atherosclerotic change. Reviewed by: Alexi Ramirez MD on 06/05/2022 11:09 AM PDT Approved by: Alexi Ramirez MD on 06/05/2022 11:09 AM PDT Station ID: [id number]
== END 2022-06-05 09:34 | disposition home or self-care (01) ==
LOC: DI 09:33
PROVIDERS: ATTEND Internal Medicine Pulmonary Disease
DX: J98.11 Atelectasis (principal); I25.10 Atherosclerotic heart disease of native coronary artery without angina pectoris; J43.9 Emphysema, unspecified

== ENCOUNTER 2022-06-11 14:53 | Outpatient (CLI) | payer BC, MEDICARE ==
[2022-06-11 15:14] LABS: BASOPHILS % (AUTO) 0.3 %; EOSINOPHILS % (AUTO) 0.2 %; HCT - HEMATOCRIT 35.3 % (42.0-52.0); HGB - HEMOGLOBIN 9.9 g/dL (14.0-18.0); LYMPHOCYTES # (AUTO) 0.7 10^3/uL (1.5-3.5); LYMPHOCYTES % (AUTO) 6.3 %; MEAN CORPUSCULAR VOLUME 85.5 fL (80.0-94.0); MEAN PLATELET VOLUME 9.6 fL (7.4-11.4); MONOCYTES # (AUTO) 0.3 10^3/uL (0.0-1.0); MONOCYTES % (AUTO) 2.6 %; NEUTROPHILS % (AUTO) 90.1 %; PLT - PLATELET COUNT 340 10^3/uL (130-450); RED BLOOD COUNT 4.13 10^6/uL (4.70-6.10); RED CELL DISTRIBUTION WIDTH 17.3 % (12.0-15.0)
[2022-06-11 17:15] LABS: RHEUMATOID FACTOR NEGATIVE (Negative)
[2022-06-13 04:09] LABS: IMMUNOGLOBULIN A (IGA) 387 mg/dL (61-437); IMMUNOGLOBULIN G (IGG) 956 mg/dL (603-1613); IMMUNOGLOBULIN M (IGM) 107 mg/dL (20-172)
== END 2022-06-11 14:54 | disposition home or self-care (01) ==
LOC: LAB 14:53
PROVIDERS: ATTEND Internal Medicine Pulmonary Disease
DX: M06.9 Rheumatoid arthritis, unspecified (principal); J44.1 Chronic obstructive pulmonary disease with (acute) exacerbation; J18.9 Pneumonia, unspecified organism
CPT/HCPCS: 36415; 81599; 82784; 82787; 85025; 85651; 86140; 86430

== ENCOUNTER 2022-07-15 14:08 | Outpatient (CLI) | payer BC, MEDICARE ==
--- NOTE | 2022-07-15 15:35 | XRAY Report ---
PROCEDURE: Chest 2 View X-Ray INDICATIONS: DYSPNEA, UNSPECIFIED TECHNIQUE: 2 views of the chest were acquired. COMPARISON: CT 06/05/2022 FINDINGS: Surgical changes and devices: None. Lungs and pleura: Scarring of the left lung base. Patchy bibasilar airspace opacities. Mediastinum: Mediastinal contours appear normal. Heart size is normal. Bones and chest wall: No suspicious bony lesions. Overlying soft tissues appear unremarkable. IMPRESSION: Patchy bibasilar airspace opacities, probably atelectasis. Multifocal infection also a consideration. Reviewed by: Ruben Donahue on 07/15/2022 3:33 PM PDT Approved by: Ruben Donahue on 07/15/2022 3:33 PM PDT Station ID: [id number]
== END 2022-07-15 14:09 | disposition home or self-care (01) ==
LOC: DI 14:08
PROVIDERS: ATTEND Family Medicine
DX: R91.8 Other nonspecific abnormal finding of lung field (principal)

== ENCOUNTER 2022-07-17 21:38 | Inpatient (IN) | payer MEDICARE, BC ==
--- NOTE | 2022-07-17 21:52 | ED Physician Documentation ---
History of Present Illness - Stated complaint Stated Complaint: LETHARGIC/SOA - Additonal information Additional information: Patient 67-year-old male with known history of COPD and chronic hypoxic respiratory failure presenting to the emergency department with lethargy and shortness of breath. Accompanied by was present at bedside. Symptoms ongoing x1-2 days. Has not been using his breathing treatments at home. Reports recently returned from the [facility] States that while he was on a holiday he received "stem cell injections" to help his COPD. Since returning home has not been able to find his nebulizer. Family reports he has not been taking his medications for the last week because he has been "sleepy". Denies chest pain, fever, abdominal pain, nausea or vomiting. PD PAST MEDICAL HISTORY - Past Medical History Cardiovascular: Congestive heart failure, Hypertension, High cholesterol, Coronary artery disease, Peripheral Vascular Disease, [place], Atrial fibrillation, Valve disorder Respiratory: COPD, Emphysema, Sleep apnea, CPAP use Neuro: Peripheral neuropathy Endocrine/Autoimmune: HyPOthyroidism, Type 2 diabetes GI: GERD : None HEENT: None Psych: None Musculoskeletal: Rheumatoid arthritis Derm: None - Past Surgical History Past Surgical History: Yes Cardiovascular: CABG, Angioplasty - Present Medications Home Medications: Ambulatory Orders Medication Instructions Recorded Confirmed Ascorbic Acid [Vitamin C] 1,000 mg PO DAILY 08/12/21 07/17/22 Aspirin [[place] Aspirin EC] 81 mg PO DAILY 08/12/21 07/17/22 Cholecalciferol (Vitamin D3) 250 mcg PO DAILY 08/12/21 07/17/22 [Vitamin D3] Docusate Sodium [Dulcolax Stool 100 mg PO BID 08/12/21 07/17/22 Softener] Ferrous Sulfate 325 mg PO MOWEFR 08/12/21 07/17/22 Furosemide [Lasix] 80 mg PO DAILY 08/12/21 07/17/22 Glimepiride [Amaryl] 4 mg PO DAILY 08/12/21 07/17/22 Levothyroxine Sodium 137 mcg PO DAILY 08/12/21 07/17/22 [Levothyroxine] Losartan Potassium 50 mg PO DAILY 08/12/21 07/17/22 sulfaSALAzine [Azulfidine] 500 mg PO DAILY 08/12/21 07/17/22 Dulaglutide [Trulicity] 1.5 mg SUBQ FR 10/18/21 07/17/22 Hydralazine HCl 75 mg PO BID 10/18/21 07/17/22 Rosuvastatin Calcium [Crestor] 40 mg PO QPM 10/18/21 07/17/22 Azithromycin 250 mg PO DAILY 12/26/21 07/17/22 Cyanocobalamin (Vitamin B-12) 1,000 mcg PO DAILY 12/26/21 07/17/22 [Vitamin B-12] Folic Acid 1 mg PO DAILY 12/26/21 07/17/22 Pantoprazole [Protonix] 40 mg PO DAILY 12/26/21 07/17/22 Insulin Aspart [NovoLOG] 8 - 20 units SUBQ TIDWM PRN 01/10/22 07/17/22 Metformin HCl [Metformin ER 1,000 mg PO BID 02/03/22 07/17/22 Gastric] Multivit-Min/FA/Lycopen/Lutein 1 each PO DAILY 02/03/22 07/17/22 [Centrum Silver Men Tablet] Nitroglycerin [Nitrostat] 0.4 mg SL Q5MIN PRN 02/03/22 07/17/22 Pramipexole Di-HCl [Mirapex] 2 mg PO QPM 02/03/22 07/17/22 Nicotine 21 mg Patch [Nicoderm] 1 patch TOP DAILY #30 patch 02/13/22 07/17/22 Insulin Glargine-Yfgn [Semglee 15 unit SQ DAILY PM 03/29/22 07/17/22 (Yfgn) Pen] Triamcinolone 0.5% Cream [Kenalog 1 applic TOP PRN PRN 03/29/22 07/17/22 0.5% Cream] Zinc Oxide 20% Oint [Zinc Oxide] 1 applic TOP DAILY 03/29/22 07/17/22 guaiFENesin [Mucinex] 600 - 1,200 mg PO BID 03/29/22 07/17/22 predniSONE [Deltasone] 20 mg PO DAILY 03/29/22 07/17/22 Ipratropium/Albuterol [Duoneb] 3 ml INH RTQID PRN #120 ml 03/30/22 07/17/22 Docusate Sodium [Stool Softener] See Rx Instructions .ROUTE .COMPLEX 05/01/22 07/17/22 Insulin Aspart [Novolog] See Rx Instructions .ROUTE .COMPLEX 05/01/22 07/17/22 Tiotropium Br/Olodaterol HCl See Rx Instructions .ROUTE .COMPLEX 05/01/22 07/17/22 [Stiolto Respimat Inhal [place]] - Allergies Allergies/Adverse Reactions: Allergies Allergy/AdvReac Type Severity Reaction Status Date / Time No Known Drug Allergies Allergy Verified 07/17/22 21:56 - Social History Does the pt smoke?: Yes Smoking Status: Former smoker Does the pt drink ETOH?: No Does the pt have substance abuse?: No - Immunizations Immunizations are current?: Yes - POLST Patient has POLST: No POLST Status: Full Code Results - Vitals Vitals: Vital Signs - 24 hr 07/17/22 07/17/22 07/17/22 21:42 21:53 22:00 Temperature 37.3 C Heart Rate 93 89 74 Respiratory 28 H 28 H 20 Rate Blood Pressure 133/58 H 140/73 H O2 Saturation 92 98 If not protocol 4 : Oxygen Flow, liters/minute 07/17/22 07/17/22 07/18/22 22:23 22:30 00:00 Temperature Heart Rate 72 89 96 Respiratory 24 16 26 H Rate Blood Pressure 142/58 H 126/53 L 117/54 L O2 Saturation 97 95 94 If not protocol 4 4 5 : Oxygen Flow, liters/minute 07/18/22 07/18/22 07/18/22 00:30 01:00 01:30 Temperature Heart Rate 93 91 91 Respiratory 26 H 27 H 32 H Rate Blood Pressure 119/60 123/65 102/56 L O2 Saturation 95 96 94 If not protocol 5 4 : Oxygen Flow, liters/minute 07/18/22 07/18/22 07/18/22 02:20 02:30 03:00 Temperature Heart Rate 67 83 81 Respiratory 20 31 H 30 H Rate Blood Pressure 114/55 L 120/60 100/53 L O2 Saturation 94 94 94 If not protocol : Oxygen Flow, liters/minute 07/18/22 07/18/22 07/18/22 03:30 04:00 04:30 Temperature Heart Rate 67 98 58 L Respiratory 31 H 27 H 30 H Rate Blood Pressure 105/57 L 109/57 L 127/44 L O2 Saturation 95 97 95 If not protocol : Oxygen Flow, liters/minute 07/18/22 07/18/22 07/18/22 04:56 05:00 05:30 Temperature Heart Rate 66 59 L 52 L Respiratory 32 H 26 H Rate Blood Pressure 147/50 H 141/41 H O2 Saturation 97 97 If not protocol 3 : Oxygen Flow, liters/minute 07/18/22 06:00 Temperature Heart Rate 55 L Respiratory 29 H Rate Blood Pressure 142/40 H O2 Saturation 97 If not protocol : Oxygen Flow, liters/minute Oxygen O2 Source CPAP Oxygen Flow Rate 4 - EKG (time done) 2218 EKG releavant findings:: EKG personally interpreted by author of this note. Relevant findings are: Second-degree AV block, rate 88 bpm. Normal axis. Normal QRS interval. QTc prolonged at [address] segment elevations. Nonspecific ST and T wave abnormalities. Moderate motion artifact throughout. Second-degree AV block replaces tachycardia from previous 03/29/2019 0565 EKG releavant findings:: EKG personally interpreted by author of this note. Relevant findings are: Sinus rhythm with rate 63 bpm. Normal axis. Second-degree heart block present. QTc prolonged. No ST segment elevations. Nonspecific ST and T wave abnormalities throughout. - Labs Labs: Laboratory Tests 07/17/22 07/17/22 07/17/22 22:02 22:02 22:24 WBC 10.4 RBC 4.21 L Hgb 9.9 L Hct 36.4 L MCV 86.5 MCH 23.5 L MCHC 27.2 L RDW 18.2 H Plt Count 465 H MPV 9.7 Neut # (Auto) 5.5 Lymph # (Auto) 2.7 Ponce # (Auto) 1.6 H Eos # (Auto) 0.4 Baso # (Auto) 0.2 H Absolute Nucleated RBC 0.00 Nucleated RBC % 0.0 Manual Slide Review Indicated WBC Morphology NORMAL APPEARANCE Platelet Estimate INCREASED (>450,000) Platelet Morphology NORMAL APPEARANCE RBC Morph Micro Appear 1+ STOMATOCYTES Bld Gas Analysis Time Sample Site ABG pH ABG pCO2 ABG pO2 ABG HCO3 ABG Total CO2 ABG O2 Saturation ABG Base Excess Roney Test VBG pH 7.295 L VBG pCO2 57.6 H VBG pO2 29.3 VBG HCO3 27.4 VBG Total CO2 29.2 H VBG O2 Saturation 50.8 L VBG Base Excess 0.1 O2 Delivery Device FiO2 EPAP IPAP Sodium Potassium Chloride Carbon Dioxide Anion Gap BUN Creatinine Estimated GFR (MDRD) Glucose Calcium Total Bilirubin AST ALT Alkaline Phosphatase Troponin I High Sens B-Natriuretic Peptide Total Protein Albumin Globulin Albumin/Globulin Ratio Lipase Nasal Adenovirus (PCR) NOT DETECTED Nasal B. parapertussis DNA (PCR) NOT DETECTED Nasal Coronavir 229E PCR NOT DETECTED Nasal Coronavir HKU1 PCR NOT DETECTED Nasal Coronavir NL63 PCR NOT DETECTED Nasal Coronavir OC43 PCR NOT DETECTED Nasal Enterovir/Rhinovir PCR NOT DETECTED Nasal Influenza B PCR NOT DETECTED Nasal Influenza A PCR NOT DETECTED Nasal Parainfluen 1 PCR NOT DETECTED Nasal Parainfluen 2 PCR NOT DETECTED Nasal Parainfluen 3 PCR NOT DETECTED Nasal Parainfluen 4 PCR NOT DETECTED Nasal RSV (PCR) NOT DETECTED Nasal B.pertussis DNA PCR NOT DETECTED Nasal C.pneumoniae (PCR) NOT DETECTED [place] Human Metapneumo PCR NOT DETECTED Nasal M.pneumoniae (PCR) NOT DETECTED Nasal SARS-CoV-2 (PCR) NOT DETECTED 07/17/22 07/18/22 07/18/22 22:27 00:59 02:40 WBC RBC Hgb Hct MCV MCH MCHC RDW Plt Count MPV Neut # (Auto) Lymph # (Auto) Ponce # (Auto) Eos # (Auto) Baso # (Auto) Absolute Nucleated RBC Nucleated RBC % Manual Slide Review WBC Morphology Platelet Estimate Platelet Morphology RBC Morph Micro Appear Bld Gas Analysis Time 0245 Sample Site RIGHT RADIAL ABG pH 7.27 L ABG pCO2 62 H* ABG pO2 76 L ABG HCO3 27.8 H ABG Total CO2 29.7 H ABG O2 Saturation 94 ABG Base Excess 0.1 Roney Test POSITIVE VBG pH 7.265 L VBG pCO2 57.2 H VBG pO2 48.4 H VBG HCO3 25.4 VBG Total CO2 27.1 VBG O2 Saturation 80.1 H VBG Base Excess -2.1 L O2 Delivery Device BiPAP FiO2 35.00 EPAP 4 IPAP 8 Sodium 136 Potassium 4.9 Chloride 100 L Carbon Dioxide 27 Anion Gap 9.0 BUN 17 Creatinine 1.4 H Estimated GFR (MDRD) 51 L Glucose 267 H Calcium 8.6 Total Bilirubin 0.7 AST 17 ALT 12 Alkaline Phosphatase 80 Troponin I High Sens B-Natriuretic Peptide Total Protein 6.7 Albumin 3.0 L Globulin 3.7 Albumin/Globulin Ratio 0.8 L Lipase 35 Nasal Adenovirus (PCR) Nasal B. parapertussis DNA (PCR) Nasal Coronavir 229E PCR Nasal Coronavir HKU1 PCR Nasal Coronavir NL63 PCR Nasal Coronavir OC43 PCR Nasal Enterovir/Rhinovir PCR Nasal Influenza B PCR Nasal Influenza A PCR Nasal Parainfluen 1 PCR Nasal Parainfluen 2 PCR Nasal Parainfluen 3 PCR Nasal Parainfluen 4 PCR Nasal RSV (PCR) Nasal B.pertussis DNA PCR Nasal C.pneumoniae (PCR) [place] Human Metapneumo PCR Nasal M.pneumoniae (PCR) Nasal SARS-CoV-2 (PCR) 07/18/22 07/18/22 07/18/22 03:11 03:11 05:30 WBC RBC Hgb Hct MCV MCH MCHC RDW Plt Count MPV Neut # (Auto) Lymph # (Auto) Ponce # (Auto) Eos # (Auto) Baso # (Auto) Absolute Nucleated RBC Nucleated RBC % Manual Slide Review WBC Morphology Platelet Estimate Platelet Morphology RBC Morph Micro Appear Bld Gas Analysis Time 0533 Sample Site LEFT RADIAL ABG pH 7.26 L ABG pCO2 56 H ABG pO2 85 ABG HCO3 24.5 ABG Total CO2 26.2 ABG O2 Saturation 95 ABG Base Excess -3.0 L Roney Test POSITIVE VBG pH VBG pCO2 VBG pO2 VBG HCO3 VBG Total CO2 VBG O2 Saturation VBG Base Excess O2 Delivery Device BiPAP FiO2 35.00 EPAP 4 IPAP 8 Sodium Potassium Chloride Carbon Dioxide Anion Gap BUN Creatinine Estimated GFR (MDRD) Glucose Calcium Total Bilirubin AST ALT Alkaline Phosphatase Troponin I High Sens 19.3 B-Natriuretic Peptide 577 H Total Protein Albumin Globulin Albumin/Globulin Ratio Lipase Nasal Adenovirus (PCR) Nasal B. parapertussis DNA (PCR) Nasal Coronavir 229E PCR Nasal Coronavir HKU1 PCR Nasal Coronavir NL63 PCR Nasal Coronavir OC43 PCR Nasal Enterovir/Rhinovir PCR Nasal Influenza B PCR Nasal Influenza A PCR Nasal Parainfluen 1 PCR Nasal Parainfluen 2 PCR Nasal Parainfluen 3 PCR Nasal Parainfluen 4 PCR Nasal RSV (PCR) Nasal B.pertussis DNA PCR Nasal C.pneumoniae (PCR) [place] Human Metapneumo PCR Nasal M.pneumoniae (PCR) Nasal SARS-CoV-2 (PCR) PD Medical Decision Making - ED course Complexity details: reviewed old records, reviewed results, re-evaluated patient, considered differential, d/w family ED course: Patient 67-year-old male with known history of COPD, chronic hypoxic respiratory failure presenting to the emergency department with worsening shortness of breath and lethargy. Afebrile, hemodynamically stable on arrival to the emergency department. Requiring 4 L nasal cannula to maintain oxygen saturations greater than 88% in the emergency department. Diminished breath sounds on arrival. Multiple breathing treatments and methylprednisolone administered on arrival. EKG demonstrates second-degree type I heart block. This does replace sinus tachycardia from previous EKG in March of last year however patient does have known history of Mobitz type I. He denied any chest pain in the emergency department.High-sensitivity troponin was negative. He did report recent travel, stating that he had traveled to the [facility] ED. was present at bedside reported that he had undergone a procedure where he had stem cells injected to help with his COPD. They were unable to provide me a more coherent history concerning this however I am highly suspicious of the veracity of this treatment. Patient's initial venous blood gas did demonstrate a respiratory acidosis with hypercapnia. Chart review does demonstrate that he has a chronic CO2 retainer. Initially he did respond well to breathing treatments and methylprednisolone and at that time had a otherwise nonfocal nonlateralizing neurologic exam. Given his history of recent travel I did order for CTA of the chest. As the patient stayed in the emergency department he did become increasingly somnolent and repeat venous blood gas did not demonstrate any significant improvement in his previously identified respiratory acidosis. CTA of his chest demonstrated multiple subsegmental pulmonary emboli. I did obtain a beta natruretic peptide which was only mildly elevated. There were no indications of right-sided heart strain on CT imaging and no indications of acute heart failure clinically. Family reports that he has not been taking any of his medications for the last week because he has been "sleepy" at home. Documentation provided by family shows that at least at one time he was prescribed Xarelto but the patient's is uncertain whether or not this is a current medication. Patient was started on BiPAP as well as heparin bolus and infusion. Heparin infusion initiated as patient is inappropriate for oral medications at this time given his altered mentation. BiPAP pressures were kept intentionally as low as possible as there is risk for pneumothorax in setting of PE with positive pressure ventilation however given patient's increasing somnolence as well as his persistent respiratory acidosis choices were limited between And BiPAP was chosen in an attempt to avoid endotracheal intubation which itself has a high probability of complication in individuals with advanced COPD and pulmonary emboli. The patient did respond well to BiPAP and he appeared to be becoming more coherent and more communicative on my reevaluation at approximately 0300 hrs. His repeat ABG however was not markedly worse but also not markedly improved from previous. Patient reevaluated 0418 hrs., remains somnolent but easily arousable. Patient reevaluated at 04 45: He is now awake and alert, asking questions and engaged with our conversation. He is tolerating low pressure BiPAP mask without difficulty. Repeat blood gas now demonstrates persistent acidosis but improved hypercapnia. Nevertheless patient is improving clinically and is now awake, alert and communicative. Care discussed with the telehospitalist service, at this time patient will be transferred to ICU level care for further evaluation and treatment. - Critical Care Time(min): 61 Time Includes: Direct patient care, Review records, Reassess patient, Document care Data interpretation: Labs, Pulse ox, ABG, Prior EKG, Cardiac output Departure - Departure Disposition: 66 [facility] DC/Xfer Clinical Impression: COPD exacerbation, Mobitz (type) I (Wenckebach's) atrioventricular block Pulmonary embolism Qualifiers: Pulmonary embolism type: multiple subsegmental (without acute cor pulmonale) Qualified Code(s): I26.94 - Multiple subsegmental pulmonary emboli without acute cor pulmonale Respiratory failure Qualifiers: Chronicity: acute on chronic Respiratory failure complication: hypoxia and hypercapnia Qualified Code(s): J96.21 - Acute and chronic respiratory failure with hypoxia
[2022-07-17] MEDS ORDERED: methylPREDNISolone SUCCINATE 125 MG/2 ML VIAL IVP STA (21:53)
[2022-07-17 22:08] LABS: BASOPHILS # (AUTO) 0.2 10^3/uL (0.0-0.1); BASOPHILS % (AUTO) 1.4 %; EOSINOPHILS # (AUTO) 0.4 10^3/uL (0.0-0.7); EOSINOPHILS % (AUTO) 3.5 %; HCT - HEMATOCRIT 36.4 % (42.0-52.0); HGB - HEMOGLOBIN 9.9 g/dL (14.0-18.0); LYMPHOCYTES # (AUTO) 2.7 10^3/uL (1.5-3.5); LYMPHOCYTES % (AUTO) 26.1 %; MEAN CORPUSCULAR HEMOGLOBIN 23.5 pg (27.0-31.0); MEAN CORPUSCULAR HGB CONC 27.2 g/dL (32.0-36.0); MEAN CORPUSCULAR VOLUME 86.5 fL (80.0-94.0); MEAN PLATELET VOLUME 9.7 fL (7.4-11.4); MONOCYTES # (AUTO) 1.6 10^3/uL (0.0-1.0); MONOCYTES % (AUTO) 15.4 %; NEUTROPHILS # (AUTO) 5.5 10^3/uL (1.5-6.6); NEUTROPHILS % (AUTO) 53.2 %; PLT - PLATELET COUNT 465 10^3/uL (130-450); RED BLOOD COUNT 4.21 10^6/uL (4.70-6.10); RED CELL DISTRIBUTION WIDTH 18.2 % (12.0-15.0); SLIDE REVIEW? Indicated; VBG BASE EXCESS 0.1 mmol/L (-2 - +2); VBG HCO3 27.4 mmol/L (23-28); VBG OXYGEN SATURATION 50.8 % (60-80); VBG PCO2 57.6 mmHg (41-51); VBG PH 7.295 (7.31-7.41); VBG PO2 29.3 mmHg (25-47); VBG TOTAL CO2 29.2 mmol/L (24-29); WHITE BLOOD COUNT 10.4 x10^3/uL (4.8-10.8)
[2022-07-17] MEDS: IPRATROPIUM/ALBUTEROL 3 ML NEB INH PRN ×2 (22:08→22:09)
[2022-07-17 22:26] LABS: PLATELET ESTIMATE, MANUAL INCREASED (>450,000) (NORMAL); PLATELET MORPHOLOGY NORMAL APPEARANCE (NORMAL); WBC MORPHOLOGY (MULTIPLE) NORMAL APPEARANCE (NORMAL)
[2022-07-17] MEDS ORDERED: IPRATROPIUM/ALBUTEROL 3 ML NEB INH PRN (22:30)
[2022-07-17 22:45] LABS: ALBUMIN/GLOBULIN RATIO 0.8 (1.0-2.2); BILIRUBIN,TOTAL 0.7 mg/dL (0.2-1.0); CALCIUM 8.6 mg/dL (8.5-10.3); CREATININE 1.4 mg/dL (0.6-1.2); POTASSIUM 4.9 mmol/L (3.5-5.0); TOTAL PROTEIN 6.7 g/dL (6.7-8.2)
[2022-07-17] MEDS ORDERED: SODIUM CHLORIDE 0.9% 500 ML IV STA (23:15)
[2022-07-17] MEDS ORDERED: iohexoL-300 100 ML VIAL ONE (23:20)
[2022-07-17 23:45] LABS: B. PARAPERTUSSIS- RESP PCR PAN NOT DETECTED; B. PERTUSSIS- RESP PCR PANEL NOT DETECTED; C. PNEUMONIAE- RESP PCR PANEL NOT DETECTED; CORONAVIRUS 229E-RESP PCR NOT DETECTED; CORONAVIRUS HKU1-RESP PCR NOT DETECTED; CORONAVIRUS NL63-RESP PCR NOT DETECTED; CORONAVIRUS OC43-RESP PCR NOT DETECTED; HUMAN METAPNEUMOVIRUS NOT DETECTED; INFLUENZA A- RESP PCR PANEL NOT DETECTED; INFLUENZA B - RESP PCR PANEL NOT DETECTED; M. PNEUMONIAE- RESP PCR PANEL NOT DETECTED; PARAINFLUENZA VIRUS 1 NOT DETECTED; PARAINFLUENZA VIRUS 2 NOT DETECTED; PARAINFLUENZA VIRUS 3 NOT DETECTED; PARAINFLUENZA VIRUS 4 NOT DETECTED; RHINOVIRUS/ENTEROVIRUS NOT DETECTED; RSV- RESP PCR PANEL NOT DETECTED; SARS-CoV-2 -RESP PCR PANEL NOT DETECTED
--- NOTE | 2022-07-18 00:46 | CT Report ---
PROCEDURE: ANGIO CHEST W/WO INDICATIONS: r/o PE CONTRAST: 80mL Omni 300 TECHNIQUE: After the administration of intravenous contrast, 2 mm axial images were acquired from the pulmonary apices to the posterior costophrenic angles during the arterial phase. In addition, 1 mm lung kernel and 5 mm soft tissue kernel reconstructions were performed. 3-dimensional coronal oblique maximum int ensity projection (MIP) reformats, 8 mm axial MIP, and 5 mm coronal and sagittal MPR reformats were t hen performed through the thorax. For radiation dose reduction, the following was used: automated exp osure control, adjustment of mA and/or kV according to patient size. COMPARISON: CT chest FINDINGS: Image quality: Excellent. Pulmonary arteries: There are bilateral filling defects within subsegmental pulmonary arteries in the right middle and lower lobes and the left upper lobe consistent with pulmonary embolism. Main pulmon lucie artery is normal in caliber. No definite leftward deviation of the interventricular septum to sug gest right heart strain. Lower Neck: No lymphadenopathy by size criteria. Thyroid: Visualized thyroid demonstrates no discrete nodules. Axillae: No lymphadenopathy by size criteria. Chest Wall: Unremarkable. Bones: Visualized osseous structures demonstrate no suspicious lesions. Lungs and Airways: There are severe centrilobular emphysematous changes. Linear areas of scarring an d atelectasis are demonstrated bilaterally. There is also mild consolidation inferiorly within the lo wer lobes. Small amount of dependent mucus is demonstrated within the trachea. Pleura: No pneumothorax. There are minimal bilateral pleural effusions. Heart: Heart size is normal. No pericardial effusion. Thoracic Vessels: The thoracic aorta is normal in size. Mediastinum and Candi: No lymphadenopathy by size criteria. Esophagus: No wall thickening. No hiatal hernia. Abdomen: Visualized upper abdominal solid organs appear normal in the early arterial phase of enhanc ement. IMPRESSION: 1. Bilateral pulmonary embolism involving segmental pulmonary arteries as described. No definite evid ence of right heart strain. 2. Severe centrilobular emphysematous changes. 3. Bilateral scarring and atelectasis as well as mild consolidation inferiorly in the lower lobes. 4. Minimal bilateral pleural effusions. Findings discussed with Dr. Maier on 07/18/2022 at 12:40 AM. Reviewed by: Andrew Winslow MD on 07/18/2022 12:45 AM PDT Approved by: Andrew Winslow MD on 07/18/2022 12:45 AM PDT Station ID: [id number]
[2022-07-18] MEDS ORDERED: HEPARIN 25000UNITS/500ML (D5W) 25,000 UNIT/500 ML BAG IV SCH (01:00)
[2022-07-18 01:02] LABS: VBG HCO3 25.4 mmol/L (23-28); VBG PCO2 57.2 mmHg (41-51); VBG PH 7.265 (7.31-7.41); VBG PO2 48.4 mmHg (25-47); VBG TOTAL CO2 27.1 mmol/L (24-29)
[2022-07-18 01:03] LABS: VBG BASE EXCESS -2.1 mmol/L (-2 - +2); VBG OXYGEN SATURATION 80.1 % (60-80)
[2022-07-18] MEDS ORDERED: iohexoL-300 100 ML VIAL IVP ONE (02:27)
[2022-07-18 02:45] LABS: ABG BASE EXCESS 0.1 mmol/L (-2.0-3.0); ABG HCO3 27.8 mmol/L (22.0-26.0); ABG OXYGEN SATURATION 94 % (94-98); ABG PH 7.27 (7.35-7.45); ABG PO2 76 mmHg (80-100); ABG TCO2 29.7 MMOL/L (21.0-29.0)
[2022-07-18 02:46] LABS: ALLEN TEST POSITIVE
[2022-07-18 02:47] LABS: ABG PCO2 62 mmHg (34-45)
[2022-07-18 05:35] LABS: ABG HCO3 24.5 mmol/L (22.0-26.0); ABG OXYGEN SATURATION 95 % (94-98); ABG PCO2 56 mmHg (34-45); ABG PH 7.26 (7.35-7.45); ABG PO2 85 mmHg (80-100); ABG TCO2 26.2 MMOL/L (21.0-29.0); ALLEN TEST POSITIVE
[2022-07-18] MEDS ORDERED: ONDANSETRON 4 MG/2 ML VIAL IVP PRN (06:02)
[2022-07-18] MEDS ORDERED: ACETAMINOPHEN 325 MG TABLET PO PRN (06:02)
[2022-07-18] MEDS ORDERED: SODIUM CHLORIDE FLUSH 0.9% 10 ML SYRINGE IVP PRN (06:02)
[2022-07-18] MEDS ORDERED: NITROGLYCERIN SL 0.4 MG TABLET SL PRN (06:12)
--- NOTE | 2022-07-18 06:25 | HISTORY & PHYSICAL EXAMINATION ---
Chief Complaint - Chief Complaint Chief Complaint: SOB History of Present Illness - Admitted From Admitted From:: ED - History Obtained From Records Reviewed: EMR History obtained from: Patient and EMR and d/w ED staff Exam Limitations: Telemetry - History of Present Illness HPI Comment/Other: 67M c COPD and chronic hypoxemic resp failure o 2-4 L NC and tobacco abuse p/w significant SOB for the past week. Patient reportedly had SOB prior to going to [place] for stem cell treatment for his COPD. Patient return citing coughing and progressive SOB. He noted sputum production. No fever or sorethroat or running nose. No chest pain. No palpitation. No n/v/d. No dysuria. No swelling or pain BLE. Patient was out of his breathing treatment and hence did not do any treatment at home. Here in the ED patient is noted for bilateral pulmonary emboli. There was discuss in the ED whether patient is suppose to be on Xarelto for PE however patient denies this medication being active. History - Past Medical History Cardiovascular: reports: Congestive heart failure, Hypertension, High cholesterol, Coronary artery disease, Peripheral Vascular Disease, MT, Atrial fibrillation, Valve disorder Respiratory: reports: COPD, Emphysema, Sleep apnea, CPAP use Neuro: reports: Peripheral neuropathy Endocrine/Autoimmune: reports: HyPOthyroidism, Type 2 diabetes GI: reports: GERD : reports: None HEENT: reports: None Psych: reports: None Musculoskeletal: reports: Rheumatoid arthritis Derm: reports: None MRSA Hx?: No - Past Surgical History Cardiovascular: reports: CABG, Angioplasty - Family & Social History Family History: Mother: , Alzheimer's Disease, Father: , Cancer Family History Comment/Other: His father had liver cancer and brain tumor. He at the age of 58. His mother at the age of 90 from Alzheimer's. His sister had an MT at age 69. Living Situation: With spouse/s.o., With family Social History Notes: The patient lives with his Second and daughter. they moved here 3 yrs ago from [place], [place] and bought his sister's house. He has 3 kids from first marriage. 1 child with his second . She has a child from a previous marriage. Has tried to quit smoking. He smoked for about 47 years, 1 pack/day. He denies alcohol or recreational substance use. 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 - Substance History Use: Uses substance without health or social issues: Tobacco (oficially quit 3 months ago, has had a few cigarrettes since then ) - POLST Patient has POLST: No POLST Status: Full Code Meds/Allgy - Home Medications Home Medications: Ambulatory Orders Medication Instructions Recorded Confirmed Ascorbic Acid [Vitamin C] 1,000 mg PO DAILY 08/12/21 07/17/22 Aspirin [[place]ock Aspirin EC] 81 mg PO DAILY 08/12/21 07/17/22 Cholecalciferol (Vitamin D3) 250 mcg PO DAILY 08/12/21 07/17/22 [Vitamin D3] Docusate Sodium [Dulcolax Stool 100 mg PO BID 08/12/21 07/17/22 Softener] Ferrous Sulfate 325 mg PO MOWEFR 08/12/21 07/17/22 Furosemide [Lasix] 80 mg PO DAILY 08/12/21 07/17/22 Glimepiride [Amaryl] 4 mg PO DAILY 08/12/21 07/17/22 Levothyroxine Sodium 137 mcg PO DAILY 08/12/21 07/17/22 [Levothyroxine] Losartan Potassium 50 mg PO DAILY 08/12/21 07/17/22 sulfaSALAzine [Azulfidine] 500 mg PO DAILY 08/12/21 07/17/22 Dulaglutide [Trulicity] 1.5 mg SUBQ FR 10/18/21 07/17/22 Hydralazine HCl 75 mg PO BID 10/18/21 07/17/22 Rosuvastatin Calcium [Crestor] 40 mg PO QPM 10/18/21 07/17/22 Azithromycin 250 mg PO DAILY 12/26/21 07/17/22 Cyanocobalamin (Vitamin B-12) 1,000 mcg PO DAILY 12/26/21 07/17/22 [Vitamin B-12] Folic Acid 1 mg PO DAILY 12/26/21 07/17/22 Pantoprazole [Protonix] 40 mg PO DAILY 12/26/21 07/17/22 Insulin Aspart [NovoLOG] 8 - 20 units SUBQ TIDWM PRN 01/10/22 07/17/22 Metformin HCl [Metformin ER 1,000 mg PO BID 02/03/22 07/17/22 Gastric] Multivit-Min/FA/Lycopen/Lutein 1 each PO DAILY 02/03/22 07/17/22 [Centrum Silver Men Tablet] Nitroglycerin [Nitrostat] 0.4 mg SL Q5MIN PRN 02/03/22 07/17/22 Pramipexole Di-HCl [Mirapex] 2 mg PO QPM 02/03/22 07/17/22 Nicotine 21 mg Patch [Nicoderm] 1 patch TOP DAILY #30 patch 02/13/22 07/17/22 Insulin Glargine-Yfgn [Semglee 15 unit SQ DAILY PM 03/29/22 07/17/22 (Yfgn) Pen] Triamcinolone 0.5% Cream [Kenalog 1 applic TOP PRN PRN 03/29/22 07/17/22 0.5% Cream] Zinc Oxide 20% Oint [Zinc Oxide] 1 applic TOP DAILY 03/29/22 07/17/22 guaiFENesin [Mucinex] 600 - 1,200 mg PO BID 03/29/22 07/17/22 predniSONE [Deltasone] 20 mg PO DAILY 03/29/22 07/17/22 Ipratropium/Albuterol [Duoneb] 3 ml INH RTQID PRN #120 ml 03/30/22 07/17/22 Docusate Sodium [Stool Softener] See Rx Instructions .ROUTE .COMPLEX 05/01/22 07/17/22 Insulin Aspart [Novolog] See Rx Instructions .ROUTE .COMPLEX 05/01/22 07/17/22 Tiotropium Br/Olodaterol HCl See Rx Instructions .ROUTE .COMPLEX 05/01/2207/08 [Stiolto Respimat Inhal Wolverine] - Allergies Allergies/Adverse Reactions: Allergies Allergy/AdvReac Type Severity Reaction Status Date / Time No Known Drug Allergies Allergy Verified 07/17/22 21:56 Review of Systems - Constitutional Constitutional: denies: Fever, Chills - Ears, Nose & Throat Ears, Nose & Throat: denies: Sore throat - Cardiovascular Cariovascular: denies: Palpitations, Chest pain - Respiratory Respiratory: reports: Cough, Sputum production, SOB at rest - Gastrointestinal Gastrointestinal: denies: Abdominal pain, Diarrhea, Nausea, Vomiting - Genitourinary Genitourinary: denies: Dysuria - Musculoskeletal Musculoskeletal: denies: Joint swelling - Integumentary Integumentary: denies: Rash Exam - Vital Signs Reviewed Vital Signs: Yes Vital Signs: Vital Signs x48h Pulse Resp BP Pulse Ox O2 Flow Rate 07/18/22 06:00 55 L 29 H 142/40 H 97 07/18/22 05:30 52 L 26 H 141/41 H 97 07/18/22 05:00 59 L 32 H 147/50 H 97 07/18/22 04:56 66 3 07/18/22 04:30 58 L 30 H 127/44 L 95 07/18/22 04:00 98 27 H 109/57 L 97 07/18/22 03:30 67 31 H 105/57 L 95 07/18/22 03:00 81 30 H 100/53 L 94 07/18/22 02:30 83 31 H 120/60 94 07/18/22 02:20 67 20 114/55 L 94 07/18/22 01:30 91 32 H 102/56 L 94 4 07/18/22 01:00 91 27 H 123/65 96 07/18/22 00:30 93 26 H 119/60 95 5 07/18/22 00:00 96 26 H 117/54 L 94 5 07/17/22 22:30 89 16 126/53 L 95 4 07/17/22 22:23 72 24 142/58 H 97 4 - Physical Exam General Appearance: positive: Moderate distress Eyes Bilateral: positive: PERRL ENT: positive: ENT inspection nml Neck: positive: Nml inspection, Trachea midline Respiratory: negative: Wheezes, Rales, Rhonchi Cardiovascular: positive: Regular rate & rhythm. negative: Irregularly irregular Abdomen: positive: Non-tender, No distention. negative: Guarding, Rebound Skin: positive: Color nml Extremities: positive: Nml appearance Neurologic/Psychiatric: positive: Oriented x3 Conclusion/Plan - Problem List (1) Pulmonary embolism Conclusion/Plan: #acute on chronic hypoxemic respiratory failure 2/2 acute PE. -hx, sxs, and image support acute PE -less likely COPD exacerbation and CHF exacerbatio and ACS -followup cardiac enzymes. echo. followup BLE venous DVT std for outpatient monitoring -heparin gtt started in the ED by ED staff. continue for heparin gtt for now and day team to transition to DOAC -breathing treatment. O2 support - Bipap. pain control. antiemetic. Qualifiers: Pulmonary embolism type: multiple subsegmental (without acute cor pulmonale) Qualified Code(s): I26.94 - Multiple subsegmental pulmonary emboli without acute cor pulmonale (2) Acute respiratory failure with hypoxia Conclusion/Plan: #acute on chronic hypoxemic respiratory failure 2/2 acute PE. -hx, sxs, and image support acute PE -less likely COPD exacerbation and CHF exacerbatio and ACS -followup cardiac enzymes. echo. followup BLE venous DVT std for outpatient monitoring -heparin gtt started in the ED by ED staff. continue for heparin gtt for now and day team to transition to DOAC -breathing treatment. O2 support - Bipap. pain control. antiemetic. (3) CHF (congestive heart failure) Conclusion/Plan: CHF. EF 60-65% -stable. compensated. no signs of volume overload -mildly elevated BUN/SHAKER FLATWORK suggestive of acute on CKD. holding Lasix for now -monitor renal function and if improves, then consider restarting Lasix -tele monitoring. followup echo for PE. I &O. fluid restrict. daily weighing (4) COPD (chronic obstructive pulmonary disease) Conclusion/Plan: #COPD -stable. no acute flare. no significant coughing noted -continue breathing treatment. -continue O2 support -f/u procalcitonin and other signs of infection. low threshold to start abx empirically. Qualifiers: COPD type: unspecified COPD Qualified Code(s): J44.9 - Chronic obstructive pulmonary disease, unspecified (5) Diabetes mellitus Conclusion/Plan: #DM2 on insulin -cover with SSI. restart long acting Lantus 15 units sq -monitor blood glucose with accuchecks Qualifiers: Diabetes mellitus type: type 2 Diabetes mellitus exterminator helper insulin use: with exterminator helper use Diabetes mellitus complication status: with neurologic complications Diabetes mellitus complication detail: with polyneuropathy Qualified Code(s): E11.42 - Type 2 diabetes mellitus with diabetic polyneuropathy; Z79.4 - halfway (current) use of insulin (6) GERD (gastroesophageal reflux disease) Conclusion/Plan: #GERD -managed. continue pantoprazole (7) Hypertension Conclusion/Plan: #hypertension -controlled. hold Losartan 2/2 acute on CKD -will management c prn Hydralazine Qualifiers: Hypertension type: primary hypertension Qualified Code(s): I10 - Essential (primary) hypertension (8) Hypothyroidism Conclusion/Plan: #hypothyroidism -managed. continue levothyroxine (9) Acute kidney injury superimposed on CKD Conclusion/Plan: #Acute on CKD stage 2 -patient noted for elevated selling specialist above baseline. likely related to acute PE. -will manage PE -holding diuretics and avoiding nephrotoxins -monitor renal function c repeat BMP - Lab Results Fish Bones: 07/17/22 22:02 07/17/22 22:27 - Diagnostic Imaging Results Diagnostic Imaging Results: positive: Final report reviewed Diagnostic Imaging Results Comments: CTA chest result reviewed and citing PE - EKG Results EKG Interpreted Independently: Yes EKG Findings: sinus Core Measures - Anticipated LOS I expect patient to be DC'd or transferred within 96 hours.: No - DVT/VTE - Prophylaxis VTE/DVT Device ordered at admit?: No VTE/DVT Prophylaxis med ordered at admit?: Yes Telemedicine Consult Details - Provider Location & Consult Time Telemedicine consultation conducted via videoconferencing?: Yes List names and roles of persons who participated in consult:: ED staff, patient, and RN Telemedicine provider location:: [facility] Time Telemedicine consult began:: 06:40 Time Telemedicine consult completed:: 07:00
[2022-07-18] MEDS ORDERED: hydrALAZINE INJ 20 MG/ML VIAL IVP PRN (06:56)
[2022-07-18] MEDS ORDERED: PANTOPRAZOLE 40 MG TABLET PO SCH (07:00)
[2022-07-18] MEDS ORDERED: INSULIN REGULAR HUMAN 300 UNIT/3 ML VIAL IVP ONE ×2 (08:03→11:31)
[2022-07-18] MEDS ORDERED: INSULIN GLARGINE-YFGN 300 UNIT/3 ML PEN SUBQ ONE (08:05)
[2022-07-18 08:24] LABS: BASOPHILS # (AUTO) 0.1 10^3/uL (0.0-0.1); BASOPHILS % (AUTO) 0.8 %; HGB - HEMOGLOBIN 9.4 g/dL (14.0-18.0); LYMPHOCYTES # (AUTO) 0.9 10^3/uL (1.5-3.5); MEAN CORPUSCULAR HEMOGLOBIN 23.3 pg (27.0-31.0); MEAN CORPUSCULAR HGB CONC 26.9 g/dL (32.0-36.0); MEAN CORPUSCULAR VOLUME 86.6 fL (80.0-94.0); MONOCYTES # (AUTO) 0.2 10^3/uL (0.0-1.0); MONOCYTES % (AUTO) 1.8 %; NEUTROPHILS # (AUTO) 7.1 10^3/uL (1.5-6.6); NEUTROPHILS % (AUTO) 85.9 %; PLT - PLATELET COUNT 424 10^3/uL (130-450); RED BLOOD COUNT 4.04 10^6/uL (4.70-6.10); WHITE BLOOD COUNT 8.3 x10^3/uL (4.8-10.8)
[2022-07-18] MEDS: NICOTINE 21 MG PATCH TOP SCH ×2 (08:33→08:50)
[2022-07-18] MEDS: APIXABAN 5 MG TABLET PO SCH ×2 (08:34→20:24)
[2022-07-18] MEDS: SODIUM CHLORIDE FLUSH 0.9% 10 ML SYRINGE IVP SCH ×3 (08:36→23:21)
[2022-07-18] MEDS: INSULIN LISPRO 300 UNIT/3 ML PEN SUBQ SCH ×3 (08:39→11:44)
[2022-07-18] MEDS ORDERED: PREDNISONE 10 MG PO SCH (09:00)
[2022-07-18] MEDS ORDERED: ASPIRIN EC 81 MG TABLET PO SCH (09:00)
[2022-07-18] MEDS ORDERED: NON FORMULARY MED (Losartan Potassium [Losartan Potassium] 25 MG Tablet) PO SCH (09:00)
[2022-07-18] MEDS ORDERED: SULFASALAZINE 500 MG PO SCH (09:00)
[2022-07-18] MEDS ORDERED: NON FORMULARY MED (Hydralazine Hcl [Hydralazine Hcl] 50 MG Tablet) PO SCH (09:00)
[2022-07-18] MEDS ORDERED: DOCUSATE SODIUM 250 MG CAPSULE PO SCH (09:00)
[2022-07-18 09:18] LABS: CALCIUM 8.4 mg/dL (8.5-10.3); CREATININE 1.9 mg/dL (0.6-1.2)
[2022-07-18 09:22] LABS: POTASSIUM 6.8 mmol/L (3.5-5.0)
[2022-07-18 09:55] LABS: ESTIMATED AVERAGE GLUCOSE 258 mg/dL (70-100); HEMOGLOBIN A1c% 10.6 % (4.27-6.07)
[2022-07-18] MEDS: ALBUTEROL NEB 2.5 MG/3 ML INH SCH ×2 (10:39→15:36)
[2022-07-18] MEDS: IPRATROPIUM 0.2 MG/ML NEB INH SCH ×2 (10:40→15:37)
--- NOTE | 2022-07-18 11:15 | PHARMACY PROGRESS NOTE ---
- Best Possible Medication History Admit Date and Time: 07/18/22 0602 Processed by: Nursing Medication History completed: Yes Patient Interview: Pt unable to participate Secondary Source(s): Written medication list As the person ultimately responsible for medication therapy, providers are able to order a medication from an existing home medication list in [facility] via the "Reconcile Routine" prior to Confirmation of that medication by ground support equipment assembler. Such practice is discouraged except when the physician, in their clinical judgment, deems that a medical need exists for a medication without regard to previous use.
[2022-07-18] MEDS ORDERED: SODIUM CHLORIDE 0.9% 1,000 ML IV ONE (11:32)
[2022-07-18] MEDS: sulfaSALAzine 500 MG TABLET PO SCH (11:43)
[2022-07-18] MEDS: ASPIRIN EC 81 MG TABLET PO SCH (11:43)
[2022-07-18] MEDS: hydrALAZINE 25 MG TABLET PO SCH ×2 (11:43→20:28)
[2022-07-18] MEDS: LOSARTAN 50 MG TABLET PO SCH (11:43)
[2022-07-18] MEDS: predniSONE 20 MG TABLET PO SCH (11:44)
[2022-07-18] MEDS ORDERED: INSULIN REGULAR HUMAN 300 UNIT/3 ML VIAL SUBQ SCH (12:00)
[2022-07-18] MEDS ORDERED: INSULIN LISPRO 300 UNIT/3 ML PEN SUBQ SCH ×2 (12:00)
[2022-07-18 12:56] LABS: ABG BASE EXCESS -0.9 mmol/L (-2.0-3.0); ABG HCO3 25.9 mmol/L (22.0-26.0); ABG OXYGEN SATURATION 97 % (94-98); ABG PCO2 54 mmHg (34-45); ABG PO2 96 mmHg (80-100); ABG TCO2 27.6 MMOL/L (21.0-29.0); ALLEN TEST POSITIVE
[2022-07-18 13:30] LABS: CALCIUM 8.1 mg/dL (8.5-10.3); CREATININE 1.9 mg/dL (0.6-1.2); POTASSIUM 4.9 mmol/L (3.5-5.0)
[2022-07-18] MEDS: INSULIN REGULAR HUMAN 100 UNIT in SODIUM CHLORIDE 0.9% 100ML 99 ML IV SCH ×2 (13:38→20:42)
[2022-07-18] MEDS: SODIUM CHLORIDE 0.9% 1,000 ML IV SCH ×2 (13:39→20:58)
[2022-07-18] MEDS: DEXTROSE 5%-0.45% NACL 1,000 ML IV SCH ×2 (13:59→23:19)
[2022-07-18] MEDS: IPRATROPIUM/ALBUTEROL 3 ML NEB INH SCH ×2 (14:00→17:45)
[2022-07-18] MEDS ORDERED: IPRATROPIUM/ALBUTEROL 3 ML NEB INH SCH (15:00)
--- NOTE | 2022-07-18 16:15 | Ultrasound Report ---
PROCEDURE: Duplex Ext Veins Bilateral INDICATIONS: Chavez Maier MD TECHNIQUE: Real-time imaging, as well as color and pulse Doppler interrogation, were performed of the deep veins of both legs from the inguinal ligament to the popliteal fossa. COMPARISON: None FINDINGS: The deep veins are normally compressible, and free of intraluminal thrombus. Color and pu lse Doppler demonstrate normal phasic intravascular flow. There is normal augmentation response to d istal compression maneuver. IMPRESSION: No evidence of DVT in visualized bilateral lower extremity veins. Reviewed by: Jw Ahmadi MD on 07/18/2022 4:14 PM PDT Approved by: Jw Ahmadi MD on 07/18/2022 4:14 PM PDT Station ID: [id number]
[2022-07-18 16:17] LABS: CALCIUM 8.4 mg/dL (8.5-10.3); CREATININE 1.9 mg/dL (0.6-1.2); MAGNESIUM 2.1 mg/dL (1.7-2.8); PHOSPHORUS 2.2 mg/dL (2.5-4.6); POTASSIUM 4.7 mmol/L (3.5-5.0)
[2022-07-18] MEDS: FOLIC ACID 1 MG TABLET PO SCH (17:28)
[2022-07-18 18:02] LABS: CALCIUM 8.3 mg/dL (8.5-10.3); CREATININE 1.9 mg/dL (0.6-1.2); MAGNESIUM 2.1 mg/dL (1.7-2.8); PHOSPHORUS 1.9 mg/dL (2.5-4.6); POTASSIUM 4.5 mmol/L (3.5-5.0)
[2022-07-18] MEDS ORDERED: SODIUM PHOSPHATE 15 MMOL in SODIUM CHLORIDE 0.9% 250 ML IV ONE ×2 (18:20→21:00)
[2022-07-18 18:24] LABS: BILIRUBIN,URINE NEGATIVE (NEGATIVE); GLUCOSE, URINE (UA) 500 mg/dL (NEGATIVE); KETONES,URINE (UA) NEGATIVE (NEGATIVE); LEUKOCYTE ESTERASE, URINE NEGATIVE (NEGATIVE); NITRITE,URINE NEGATIVE (NEGATIVE); OCCULT BLOOD,URINE SMALL (NEGATIVE); PH,URINE 5.5 PH (5.0-7.5); PROTEIN,URINE 30 mg/dL (NEGATIVE); UROBILINOGEN,URINE 0.2 (NORMAL) E.U./dL (NORMAL)
[2022-07-18 18:30] LABS: CLARITY,URINE CLEAR (CLEAR)
[2022-07-18 18:36] LABS: BACTERIA,URINE Rare /HPF (None Seen); CASTS, URINE 0-2 Course Granular /LPF; SQUAMOUS EPITHELIAL CELL,UR NONE SEEN (<= Few); WBC,URINE 0-3 /HPF (0-3)
[2022-07-18] MEDS: PANTOPRAZOLE 40 MG VIAL IVP SCH (19:01)
--- NOTE | 2022-07-18 19:09 | PROVIDER PROGRESS NOTE ---
Hospitalist Cross-cover Note - Cross-Cover Note Cross-Cover Note: July 18, 2022 7:01 PM The patient was admitted in the communications consultant hours of today. He was admitted as a known history of COPD and congestive heart failure. He had recently traveled to [place] to get a stem cell transfusion to cure him of his COPD. Even prior to going to [place] stated that he was sleeping for days. Fatigued. While in [place] he just slept all the time. They got back from their trip on Friday night July 12.. By the time they left the airport and got home it was the communications consultant hours of Friday, July 13. He basically went to bed and did not get up. Progressive shortness of breath, progressive problems with breathing. He refused to come to the hospital and his finally made him come in July 17. He used to be on Xarelto. He says that his primary care provider, Kwan Preston, stopped it. But he cannot remember why it was stopped. As such she was not on anticoagulation when he traveled to and from his trip. In the emergency room he was seen by the emergency room provider and then admitted by telemedicine. He had bilateral filling defects within subsegmental pulmonary arteries in the right middle and lower lobes and left upper lobe consistent with pulmonary emboli. He has severe centrilobular emphysematous changes. Mild consolidation inferiorly within the lower lobes. Dependent mucus demonstrated in the trachea. Venous duplex has no evidence of DVT. He was admitted to ICU because of his respiratory distress. He has been on a heparin drip. I started him on Eliquis and an hour later stopped the heparin. Over the course the day he has become waxing and waning obtunded. He will wake up and speak to me. He remembers me from my taking care of him for the last 2 admissions. His glucose continues to be elevated in spite of my giving him Lantus, IV push insulin, subcu insulin. And as such I started him on DKA protocol with a heparin drip. I have also given him a liter of fluid. He is profoundly fatigued, and can barely complete sentences with me because of his fatigue and shortness of breath. Then late in the afternoon into the early evening he has had 3 episodes of emesis. Abdomen is distended. No pain. There is blood in the emesis. I find him to be tachypneic at 29. Blood pressure 140/87. He is on 4 L nasal cannula 90% saturated. Coarse upper airway sounds, coarse gurgling in the back of his throat. Diffuse rhonchi. He is severely fatigued with his breathing. He is still awake, alert enough to know that he is not doing well. I repeated a BMP and he is 136, 4.5 potassium, BUN 32, creatinine 1.9. Stable from this morning. Glucose is 390 on the drip. Hemoglobin was 9.9 this morning. I do not have repeat hemoglobin with this episode of emesis yet. Since I am getting ready to come off service, I have left instructions for nursing to call telemedicine if hemoglobin drops below 7 so this patient can get a transfusion.. I have started on Protonix 40 daily, n.p.o., checking a KUB to see if he has distended stomach or bowel on plain film. He is having flatus. I have also ordered a type and screen. He will get a hemogram every 6 hours.
[2022-07-18 19:16] LABS: BASOPHILS % (AUTO) 0.2 %; HCT - HEMATOCRIT 30.4 % (42.0-52.0); HGB - HEMOGLOBIN 8.3 g/dL (14.0-18.0); LYMPHOCYTES # (AUTO) 1.2 10^3/uL (1.5-3.5); LYMPHOCYTES % (AUTO) 12.4 %; MEAN CORPUSCULAR HEMOGLOBIN 23.3 pg (27.0-31.0); MEAN CORPUSCULAR HGB CONC 27.3 g/dL (32.0-36.0); MEAN CORPUSCULAR VOLUME 85.4 fL (80.0-94.0); MEAN PLATELET VOLUME 9.7 fL (7.4-11.4); MONOCYTES % (AUTO) 9.7 %; NEUTROPHILS # (AUTO) 7.7 10^3/uL (1.5-6.6); NEUTROPHILS % (AUTO) 77.3 %; NRBC ABSOLUTE COUNT (AUTO) 0.02 x10^3/uL; NUCLEATED RED BLOOD CELLS AUTO 0.2 /100WBC; PLT - PLATELET COUNT 388 10^3/uL (130-450); RED BLOOD COUNT 3.56 10^6/uL (4.70-6.10); RED CELL DISTRIBUTION WIDTH 17.7 % (12.0-15.0)
--- NOTE | 2022-07-18 19:18 | XRAY Report ---
PROCEDURE: Abdomen 1 View X-Ray INDICATIONS: emesis, distended abd, blood in emesis TECHNIQUE: One view of the abdomen acquired. COMPARISON: Correlation is made with overlapping portions of chest CT, 07/17/2022. FINDINGS: Surgical changes and devices: None. Bowel: Abnormal gaseous prominence of the stomach can be seen. There is gaseous prominence of the tra nsverse colon also seen, measuring 5.5 cm. No frankly dilated loops of small bowel are seen. Soft tissues: No suspicious abdominal calcifications. Visualized solid organ contours appear normal in size. Bones: No suspicious bony lesions. IMPRESSION: Abnormal gaseous prominence of the stomach and transverse colon. If it would be helpful for clinical management decision making, please consider a dedicated CT of the abdomen and pelvis with at least IV contrast for further evaluation. Reviewed by: Gerardo Reynolds MD on 07/18/2022 6:17 PM [facility] Approved by: Gerardo Reynolds MD on 07/18/2022 6:17 PM [facility] Station ID: [id number]
[2022-07-18 19:47] LABS: PLATELET ESTIMATE, MANUAL NORMAL (130-450,000) (NORMAL); PLATELET MORPHOLOGY NORMAL APPEARANCE (NORMAL); SLIDE REVIEW? Indicated
[2022-07-18] MEDS ORDERED: PROCHLORPERAZINE 10 MG/2 ML VIAL IVP PRN (20:00)
--- NOTE | 2022-07-18 20:02 | PROVIDER PROGRESS NOTE ---
Hospitalist Cross-cover Note - Cross-Cover Note Cross-Cover Note: Patient complaints of Nausea have added compazine and given one time low dose of Ativan likely to helpo with dry heaves discussed in detail with MARTY Stoll
[2022-07-18] MEDS: PRAMIPEXOLE 0.25 MG TABLET PO SCH (20:23)
[2022-07-18] MEDS: ATORVASTATIN 40 MG TABLET PO SCH (20:24)
[2022-07-18] MEDS ORDERED: INSULIN GLARGINE-YFGN 300 UNIT/3 ML PEN SUBQ SCH (21:00)
[2022-07-18] MEDS ORDERED: LORazepam 2 MG/ML VIAL IVP SCH (21:00)
[2022-07-19 00:11] LABS: BASOPHILS % (AUTO) 0.2 %; HCT - HEMATOCRIT 28.5 % (42.0-52.0); HGB - HEMOGLOBIN 7.8 g/dL (14.0-18.0); MEAN CORPUSCULAR HEMOGLOBIN 23.5 pg (27.0-31.0); MEAN CORPUSCULAR HGB CONC 27.4 g/dL (32.0-36.0); MEAN CORPUSCULAR VOLUME 85.8 fL (80.0-94.0); MEAN PLATELET VOLUME 9.2 fL (7.4-11.4); MONOCYTES # (AUTO) 1.2 10^3/uL (0.0-1.0); MONOCYTES % (AUTO) 9.5 %; NEUTROPHILS # (AUTO) 10.3 10^3/uL (1.5-6.6); NEUTROPHILS % (AUTO) 81.7 %; PLT - PLATELET COUNT 350 10^3/uL (130-450); RED BLOOD COUNT 3.32 10^6/uL (4.70-6.10); RED CELL DISTRIBUTION WIDTH 17.9 % (12.0-15.0); SLIDE REVIEW? Indicated; WHITE BLOOD COUNT 12.6 x10^3/uL (4.8-10.8)
[2022-07-19 00:13] LABS: PLATELET ESTIMATE, MANUAL NORMAL (130-450,000) (NORMAL); PLATELET MORPHOLOGY NORMAL APPEARANCE (NORMAL); WBC MORPHOLOGY (MULTIPLE) NORMAL APPEARANCE (NORMAL)
[2022-07-19] MEDS ORDERED: INSULIN REGULAR HUMAN 300 UNIT/3 ML VIAL ONE (00:20)
[2022-07-19] MEDS: INSULIN REGULAR HUMAN 100 UNIT in SODIUM CHLORIDE 0.9% 100ML 99 ML IV SCH (01:05)
[2022-07-19 04:46] LABS: BASOPHILS % (AUTO) 0.1 %; HCT - HEMATOCRIT 28.3 % (42.0-52.0); HGB - HEMOGLOBIN 7.8 g/dL (14.0-18.0); LYMPHOCYTES # (AUTO) 1.3 10^3/uL (1.5-3.5); LYMPHOCYTES % (AUTO) 8.9 %; MEAN CORPUSCULAR HEMOGLOBIN 23.9 pg (27.0-31.0); MEAN CORPUSCULAR HGB CONC 27.6 g/dL (32.0-36.0); MEAN CORPUSCULAR VOLUME 86.5 fL (80.0-94.0); MEAN PLATELET VOLUME 9.5 fL (7.4-11.4); MONOCYTES # (AUTO) 1.6 10^3/uL (0.0-1.0); MONOCYTES % (AUTO) 11.3 %; NEUTROPHILS # (AUTO) 11.5 10^3/uL (1.5-6.6); NRBC ABSOLUTE COUNT (AUTO) 0.02 x10^3/uL; NUCLEATED RED BLOOD CELLS AUTO 0.1 /100WBC; PLT - PLATELET COUNT 363 10^3/uL (130-450); RED BLOOD COUNT 3.27 10^6/uL (4.70-6.10); WHITE BLOOD COUNT 14.5 x10^3/uL (4.8-10.8)
[2022-07-19 04:47] LABS: CALCIUM, IONIZED 1.05 mmol/L (1.15-1.33); VBG PH 7.385 (7.31-7.41)
[2022-07-19 04:50] LABS: SLIDE REVIEW? Indicated
[2022-07-19 04:55] LABS: CALCIUM 7.7 mg/dL (8.5-10.3); CREATININE 2.1 mg/dL (0.6-1.2)
[2022-07-19 05:06] LABS: PLATELET ESTIMATE, MANUAL NORMAL (130-450,000) (NORMAL); PLATELET MORPHOLOGY NORMAL APPEARANCE (NORMAL)
[2022-07-19 05:07] LABS: WBC MORPHOLOGY (MULTIPLE) NORMAL APPEARANCE (NORMAL)
[2022-07-19 06:03] LABS: ABG HCO3 24.7 mmol/L (22.0-26.0); ABG PCO2 51 mmHg (34-45); ABG PO2 77 mmHg (80-100); ABG TCO2 26.2 MMOL/L (21.0-29.0)
[2022-07-19 06:04] LABS: ABG OXYGEN SATURATION 94 % (94-98); ALLEN TEST POSITIVE
[2022-07-19] MEDS: LEVOTHYROXINE 25 MCG TABLET PO SCH (06:11)
[2022-07-19] MEDS: PANTOPRAZOLE 40 MG VIAL IVP SCH (06:11)
[2022-07-19] MEDS: LEVOTHYROXINE 112 MCG TABLET PO SCH (06:11)
[2022-07-19] MEDS: SODIUM CHLORIDE 0.9% 1,000 ML IV SCH ×3 (06:14→22:57)
[2022-07-19] MEDS: DEXTROSE 5%-0.45% NACL 1,000 ML IV SCH ×3 (06:15→22:57)
[2022-07-19] MEDS: IPRATROPIUM/ALBUTEROL 3 ML NEB INH SCH ×4 (07:27→19:30)
[2022-07-19] MEDS: NICOTINE 21 MG PATCH TOP SCH (07:28)
[2022-07-19] MEDS: predniSONE 20 MG TABLET PO SCH (07:29)
[2022-07-19] MEDS: hydrALAZINE 25 MG TABLET PO SCH ×2 (08:16→20:36)
[2022-07-19] MEDS: LOSARTAN 50 MG TABLET PO SCH (08:16)
[2022-07-19] MEDS: ASPIRIN EC 81 MG TABLET PO SCH (08:20)
[2022-07-19] MEDS: FOLIC ACID 1 MG TABLET PO SCH (08:20)
[2022-07-19] MEDS: CALCIUM CARBONATE CHEW 500 MG TABLET PO SCH ×2 (08:21→12:14)
[2022-07-19] MEDS: SODIUM CHLORIDE FLUSH 0.9% 10 ML SYRINGE IVP SCH ×3 (08:21→20:41)
[2022-07-19] MEDS: sulfaSALAzine 500 MG TABLET PO SCH (08:21)
[2022-07-19] MEDS: APIXABAN 5 MG TABLET PO SCH ×2 (08:21→20:37)
[2022-07-19] MEDS: INSULIN GLARGINE-YFGN 300 UNIT/3 ML PEN SUBQ SCH (11:13)
[2022-07-19 12:08] LABS: BASOPHILS % (AUTO) 0.2 %; HCT - HEMATOCRIT 29.5 % (42.0-52.0); HGB - HEMOGLOBIN 8.1 g/dL (14.0-18.0); LYMPHOCYTES % (AUTO) 10.1 %; MEAN CORPUSCULAR HEMOGLOBIN 23.6 pg (27.0-31.0); MEAN CORPUSCULAR HGB CONC 27.5 g/dL (32.0-36.0); MONOCYTES % (AUTO) 8.4 %; NEUTROPHILS % (AUTO) 80.7 %; PLT - PLATELET COUNT 385 10^3/uL (130-450); RED BLOOD COUNT 3.43 10^6/uL (4.70-6.10); RED CELL DISTRIBUTION WIDTH 18.1 % (12.0-15.0); WHITE BLOOD COUNT 18.7 x10^3/uL (4.8-10.8)
[2022-07-19 12:13] LABS: ABNORMAL LYMPHS % (MANUAL) 0 %; BAND NEUTROPHILS % (MANUAL) 0 %
[2022-07-19] MEDS: INSULIN LISPRO 300 UNIT/3 ML PEN SUBQ SCH ×3 (12:14→20:34)
[2022-07-19 12:36] LABS: DIFFERENTIAL COMMENT MANUAL DIFFERENTIAL; EOSINOPHILS # (MANUAL) 0.2 10^3/uL (0-0.7); LYMPHOCYTES # (MANUAL) 1.5 10^3/uL (1.5-3.5); LYMPHOCYTES % (MANUAL) 8 %; MONOCYTES # (MANUAL) 0.9 10^3/uL (0.0-1.0); NEUTROPHILS # (MANUAL) 16.1 10^3/uL (1.5-6.6); PLATELET ESTIMATE, MANUAL NORMAL (130-450,000) (NORMAL); PLATELET MORPHOLOGY NORMAL APPEARANCE (NORMAL); RBC MORPHOLOGY (MULTIPLE) 2+ HYPOCHROMASIA (NORMAL)
[2022-07-19] MEDS ORDERED: SODIUM CHLORIDE 0.9% 500 ML IV ONE ×2 (12:46→18:23)
--- NOTE | 2022-07-19 16:19 | PROVIDER PROGRESS NOTE ---
Assessment/Plan - Problem List (1) Acute kidney injury superimposed on CKD Assessment/Plan: Patient with elevated creatinine above baseline and is currently improving (2) Pulmonary embolism Qualifiers: Pulmonary embolism type: multiple subsegmental (without acute cor pulmonale) Qualified Code(s): I26.94 - Multiple subsegmental pulmonary emboli without acute cor pulmonale Assessment/Plan: Patient was started on IV heparin drip in the emergency room and started on Eliquis anticoagulation subsequent to that of note patient does use chronic CPAP at home CT of chest revealed bilateral pulmonary embolism involving segmental pulmonary arteries as described and no definite evidence of right heart strain. Severe centrilobular emphysematous changes. Bilateral scarring and atelectasis is well as mild consolidation inferiorly lower lobes. Minimal bilateral pleural effusions. (3) Respiratory failure Qualifiers: Chronicity: acute on chronic Respiratory failure complication: hypoxia and hypercapnia Qualified Code(s): J96.21 - Acute and chronic respiratory failure with hypoxia; J96.22 - Acute and chronic respiratory failure with hypercapnia; J96.22 - Acute and chronic respiratory failure with hypercapnia Assessment/Plan: Continue O2 support as needed, continue breathing treatments, patient does use home CPAP -Continue with Eliquis for pulmonary emboli multiple (4) (HFpEF) heart failure with preserved ejection fraction Assessment/Plan: Currently no signs of volume overload (5) Acute respiratory failure with hypoxia Assessment/Plan: Secondary to multiple pulmonary emboli acute (6) Diabetes mellitus Qualifiers: Diabetes mellitus type: type 2 Diabetes mellitus buttermaker insulin use: with buttermaker use Diabetes mellitus complication status: with neurologic complications Diabetes mellitus complication detail: with polyneuropathy Qualified Code(s): E11.42 - Type 2 diabetes mellitus with diabetic polyneuropathy; Z79.4 - longterm (current) use of insulin Assessment/Plan: Significant hyperglycemia when admitted was started on IV insulin drip and now transferring to subcu Lantus and subcu insulin protocol (7) COPD (chronic obstructive pulmonary disease) Qualifiers: COPD type: unspecified COPD Qualified Code(s): J44.9 - Chronic obstructive pulmonary disease, unspecified Assessment/Plan: Currently stable (8) GERD (gastroesophageal reflux disease) Qualifiers: Esophagitis presence: without esophagitis Qualified Code(s): K21.9 - G jayshree-esophageal reflux disease without esophagitis (9) Hypertension Qualifiers: Hypertension type: primary hypertension Qualified Code(s): I10 - Essential (primary) hypertension - Current Meds Current Meds: Current Medications Generic Name Dose Route Start Last Admin Trade Name Parviz PRN Reason Stop Dose Admin Albuterol/Ipratropium 3 ml 07/18/22 14:00 07/19/22 14:57 Ipratropium/Albuterol 3 Ml Neb INH 3 ml RTQID [facility] Administration Apixaban 10 mg 07/18/22 09:00 07/19/22 08:21 Apixaban 5 Mg Tablet PO 10 mg BID [facility] Administration Aspirin 81 mg 07/18/22 12:00 07/19/22 08:20 Aspirin Ec 81 Mg Tablet PO 81 mg DAILY [facility] Administration Atorvastatin Calcium 80 mg 07/18/22 21:00 07/18/22 20:24 Atorvastatin 40 Mg Tablet PO 80 mg QPM [facility] Administration Folic Acid 1 mg 07/18/22 17:00 07/19/22 08:20 Folic Acid 1 Mg Tablet PO 1 mg DAILY [facility] Administration Hydralazine HCl 75 mg 07/18/22 12:00 07/19/22 08:16 Hydralazine 25 Mg Tablet PO Not Given BID [facility] Sodium Chloride 1,000 mls @ 125 mls/hr 07/18/22 14:00 07/19/22 13:05 Normal Saline 0.9% IV Not Given .Q8H A[facility] Dextrose/Sodium Chloride 1,000 mls @ 125 mls/hr 07/18/22 14:00 07/19/22 13:05 D5.45ns IV Not Given .Q8H [facility] Insulin Glargine-yfgn 30 unit 07/19/22 11:00 07/19/22 11:13 Insulin Glargine-Yfgn 300 Unit/3 Ml Pen SUBQ 30 unit DAILY [facility] Administration Insulin Human Lispro 3 - 11 unit 07/19/22 12:00 07/19/22 12:14 Insulin Lispro 300 Unit/3 Ml Pen SUBQ 5 unit 0800,1200,1700,2100 [facility] Administration Protocol Levothyroxine Sodium 112 mcg 07/19/22 07:00 07/19/22 06:11 Levothyroxine 112 Mcg Tablet PO 112 mcg QDAC [facility] Administration Levothyroxine Sodium 25 mcg 07/19/22 07:00 07/19/22 06:11 Levothyroxine 25 Mcg Tablet PO 25 mcg QDAC [facility] Administration Lorazepam 0.5 mg 07/18/22 21:00 07/18/22 20:22 Lorazepam 2 Mg/Ml Vial IVP 07/19/22 20:59 0.5 mg ONCE [facility] Administration Losartan Potassium 50 mg 07/18/22 12:00 07/19/22 08:16 Losartan 50 Mg Tablet PO Not Given DAILY [facility] Nicotine 1 patch 07/18/22 09:00 07/19/22 07:28 Nicotine 21 Mg Patch TOP Not Given DAILY [facility] Ondansetron HCl 4 mg 07/18/22 06:02 07/18/22 17:27 Ondansetron 4 Mg/2 Ml Vial IVP 4 mg Q6HR PRN Administration Nausea / Vomiting Pantoprazole Sodium 40 mg 07/18/22 19:00 07/19/22 06:11 Pantoprazole 40 Mg Vial IVP 40 mg QDAC [facility] Administration Pramipexole Dihydrochloride 2 mg 07/18/22 21:00 07/18/22 20:23 Pramipexole 0.25 Mg Tablet PO 2 mg QPM [facility] Administration Prednisone 10 mg 07/18/22 12:00 07/19/22 07:29 Prednisone 20 Mg Tablet PO Not Given DAILYWM [facility] Prochlorperazine Edisylate 10 mg 07/18/22 20:00 07/18/22 20:23 Prochlorperazine 10 Mg/2 Ml Vial IVP 10 mg Q6HR PRN Administration Nausea / Vomiting Sodium Chloride 10 ml 07/18/22 09:00 07/19/22 08:21 Sodium Chloride Flush 0.9% 10 Ml Syringe IVP 10 ml 0100,0900,1700 [facility] Administration Sulfasalazine 500 mg 07/18/22 12:00 07/19/22 08:21 Sulfasalazine 500 Mg Tablet PO 500 mg DAILY [facility] Administration - Lab Result Fish Bone Diagrams: 07/19/22 12:03 07/19/22 04:32 - Additional Planning My Orders: My Active Orders 07/19/22 10:54 Blood Glucose Checks - Eating [RC] 0800,1200,1700,2100 Initiate Hypoglycemia Protocol [RC] .protocol 07/19/22 11:00 Insulin Glargine-Yfgn [Semglee] 30 unit SUBQ DAILY 07/19/22 Lunch Carb-controlled Diet [DIET] 07/19/22 12:00 Insulin Lispro [Humalog Kwikpen U-100] 3 - 11 unit SUBQ 0800,1200,1700,2100 Subjective - Subjective Patient Reports: Feeling Better (Patient with improved shortness of breath currently on O2 supplementation patient usually is on 2 to 4 L nasal cannula for chronic hypoxemic respiratory failure.), Resting Comfortably Objective Vital Signs: Vital Signs - 24 hr 07/18/22 07/18/22 07/18/22 17:00 17:10 17:49 Temperature 36.9 C Heart Rate 56 L 54 L Heart Rate [ 65 Monitoring electrodes] Respiratory 18 17 Rate Blood Pressure 91/68 [Left Brachial artery] O2 Saturation 95 If not protocol 4 : Oxygen Flow, liters/minute 07/18/22 07/18/22 07/18/22 17:51 18:00 18:55 Temperature Heart Rate Heart Rate [ 75 Monitoring electrodes] Respiratory 29 H Rate Blood Pressure 140/87 H [Left Brachial artery] O2 Saturation 90 L If not protocol 4 4 30 : Oxygen Flow, liters/minute 07/18/22 07/18/22 07/18/22 19:00 20:00 21:00 Temperature Heart Rate Heart Rate [ 88 86 79 Monitoring electrodes] Respiratory 17 19 13 Rate Blood Pressure 135/52 H 141/61 H 108/54 L [Left Brachial artery] O2 Saturation 92 95 93 If not protocol 30 30 3 : Oxygen Flow, liters/minute 07/18/22 07/18/22 07/18/22 21:05 22:00 23:00 Temperature 36.8 C Heart Rate Heart Rate [ 69 74 Monitoring electrodes] Respiratory 18 11 L Rate Blood Pressure 121/60 108/52 L [Left Brachial artery] O2 Saturation 96 92 If not protocol 3 3 3 : Oxygen Flow, liters/minute 07/19/22 07/19/22 07/19/22 00:00 00:17 01:00 Temperature Heart Rate Heart Rate [ 69 61 Monitoring electrodes] Respiratory 14 20 Rate Blood Pressure 103/53 L 100/50 L [Left Brachial artery] O2 Saturation 92 95 If not protocol 3 3 3 : Oxygen Flow, liters/minute 07/19/22 07/19/22 07/19/22 02:00 03:00 04:00 Temperature Heart Rate Heart Rate [ 66 59 L 64 Monitoring electrodes] Respiratory 16 15 20 Rate Blood Pressure 92/50 L 91/54 L 86/47 L [Left Brachial artery] O2 Saturation 95 96 93 If not protocol 3 3 3 : Oxygen Flow, liters/minute 07/19/22 07/19/22 07/19/22 05:00 06:00 06:22 Temperature 36.5 C Heart Rate Heart Rate [ 63 68 Monitoring electrodes] Respiratory 16 16 Rate Blood Pressure 129/54 L 99/47 L [Left Brachial artery] O2 Saturation 95 93 If not protocol 3 3 3 : Oxygen Flow, liters/minute 07/19/22 07/19/22 07/19/22 07:00 07:30 08:00 Temperature Heart Rate 76 Heart Rate [ 80 70 Monitoring electrodes] Respiratory 22 14 17 Rate Blood Pressure 100/58 L 95/50 L [Left Brachial artery] O2 Saturation 92 92 If not protocol 3 4 3 : Oxygen Flow, liters/minute 07/19/22 07/19/22 07/19/22 09:00 09:42 10:00 Temperature 36.2 C L Heart Rate Heart Rate [ 73 67 Monitoring electrodes] Respiratory 18 12 Rate Blood Pressure 99/53 L 106/53 L [Left Brachial artery] O2 Saturation 95 95 If not protocol 3 3 : Oxygen Flow, liters/minute 07/19/22 07/19/22 07/19/22 11:00 11:16 12:00 Temperature Heart Rate 73 Heart Rate [ 74 86 Monitoring electrodes] Respiratory 17 20 21 Rate Blood Pressure 105/56 L 116/53 L [Left Brachial artery] O2 Saturation 97 95 If not protocol 4 : Oxygen Flow, liters/minute 07/19/22 07/19/22 07/19/22 13:00 14:00 14:57 Temperature 36.4 C L Heart Rate 76 Heart Rate [ 95 95 Monitoring electrodes] Respiratory 26 H 23 24 Rate Blood Pressure 121/48 L 119/54 L [Left Brachial artery] O2 Saturation 90 L 91 L If not protocol 4 4 4 : Oxygen Flow, liters/minute 07/19/22 07/19/22 15:00 16:05 Temperature Heart Rate Heart Rate [ 90 87 Monitoring electrodes] Respiratory 20 13 Rate Blood Pressure 117/52 L 120/56 L [Left Brachial artery] O2 Saturation 94 97 If not protocol 4 4 : Oxygen Flow, liters/minute Oxygen O2 Source Oxymask Oxygen Flow Rate 4 I&O (Last 24 Hrs): Intake and Output Totals x24h 07/17/22 07/18/22 07/19/22 23:59 23:59 23:59 Intake Total 3644.091 1727.990 Output Total 500 250 Balance 3144.091 1477.990 General: Alert, Oriented x3, Cooperative HEENT: PERRLA, EOMI Neck: Supple Lymphatic: no adenopathy Neuro: Alert Cardiovascular: Regular rate, No murmurs Respiratory: Wheezes Abdomen: Normal bowel sounds, Soft Extremities: Other (1+ lower extremity edema) Skin: No rashes - Results Results: Laboratory Results WBC 18.7 x10^3/uL (4.8-10.8) H 07/19/22 12:03 RBC 3.43 10^6/uL (4.70-6.10) L 07/19/22 12:03 Hgb 8.1 g/dL (14.0-18.0) L 07/19/22 12:03 Hct 29.5 % (42.0-52.0) L 07/19/22 12:03 MCV 86.0 fL (80.0-94.0) 07/19/22 12:03 MCH 23.6 pg (27.0-31.0) L 07/19/22 12:03 MCHC 27.5 g/dL (32.0-36.0) L 07/19/22 12:03 RDW 18.1 % (12.0-15.0) H 07/19/22 12:03 Plt Count 385 10^3/uL (130-450) 07/19/22 12:03 MPV 10.0 fL (7.4-11.4) 07/19/22 12:03 Neut # (Auto) Not Reportable 07/19/22 12:03 Lymph # (Auto) Not Reportable 07/19/22 12:03 [place] # (Auto) Not Reportable 07/19/22 12:03 Eos # (Auto) Not Reportable 07/19/22 12:03 Baso # (Auto) Not Reportable 07/19/22 12:03 Absolute Nucleated RBC Not Reportable 07/19/22 12:03 Total Counted 100 07/19/22 12:03 Band Neuts % (Manual) 0 % (0-10) 07/19/22 12:03 Abnorm Lymph % (Manual) 0 % 07/19/22 12:03 Nucleated RBC % Not Reportable 07/19/22 12:03 Neutrophils # (Manual) 16.1 10^3/uL (1.5-6.6) H 07/19/22 12:03 Lymphocytes # (Manual) 1.5 10^3/uL (1.5-3.5) 07/19/22 12:03 Monocytes # (Manual) 0.9 10^3/uL (0.0-1.0) 07/19/22 12:03 Eosinophils # (Manual) 0.2 10^3/uL (0-0.7) 07/19/22 12:03 Basophils # (Manual) 0.0 10^3/uL (0-0.1) 07/19/22 12:03 Differential Comment MANUAL DIFFERENTIAL 07/19/22 12:03 Manual Slide Review Indicated 07/19/22 04:32 WBC Morphology NORMAL APPEARANCE (NORMAL) 07/19/22 04:32 Platelet Estimate NORMAL (130-450,000) (NORMAL) 07/19/22 12:03 Platelet Morphology NORMAL APPEARANCE (NORMAL) 07/19/22 12:03 RBC Morph Micro Appear 2+ HYPOCHROMASIA (NORMAL) 07/19/22 12:03 APTT 191.0 secs (24.9-33.3) H* 07/18/22 06:20 Bld Gas Analysis Time 0600 07/19/22 05:54 Sample Site RIGHT RADIAL 07/19/22 05:54 ABG pH 7.30 (7.35-7.45) L 07/19/22 05:54 ABG pCO2 51 mmHg (34-45) H 07/19/22 05:54 ABG pO2 77 mmHg (80-100) L 07/19/22 05:54 ABG HCO3 24.7 mmol/L (22.0-26.0) 07/19/22 05:54 ABG Total CO2 26.2 MMOL/L (21.0-29.0) 07/19/22 05:54 ABG O2 Saturation 94 % (94-98) 07/19/22 05:54 ABG Base Excess -2.0 mmol/L (-2.0-3.0) 07/19/22 05:54 [place]oney Test POSITIVE 07/19/22 05:54 VBG pH 7.385 (7.31-7.41) 07/19/22 04:32 VBG pCO2 57.2 mmHg (41-51) H 07/18/22 00:59 VBG pO2 48.4 mmHg (25-47) H 07/18/22 00:59 VBG HCO3 25.4 mmol/L (23-28) 07/18/22 00:59 VBG Total CO2 27.1 mmol/L (24-29) 07/18/22 00:59 VBG O2 Saturation 80.1 % (60-80) H 07/18/22 00:59 VBG Base Excess -2.1 mmol/L (-2 - +2) L 07/18/22 00:59 Ionized Calcium 1.05 mmol/L (1.15-1.33) L 07/19/22 04:32 O2 Delivery Device C-PAP 07/19/22 05:54 O2 Liters/Min 3.00 LPM 07/19/22 05:54 FiO2 35.00 07/18/22 12:45 Pressure Support Vent 10 cmH2O 07/19/22 05:54 EPAP 4 cmH2O 07/18/22 12:45 IPAP 12 cmH2O 07/18/22 12:45 Sodium 135 mmol/L (135-145) 07/19/22 04:32 Potassium 5.0 mmol/L (3.5-5.0) 07/19/22 04:32 Chloride 101 mmol/L (101-111) 07/19/22 04:32 Carbon Dioxide 25 mmol/L (21-32) 07/19/22 04:32 Anion Gap 9.0 (6-13) 07/19/22 04:32 BUN 40 mg/dL (6-20) H 07/19/22 04:32 Creatinine 2.1 mg/dL (0.6-1.2) H 07/19/22 04:32 Estimated GFR (MDRD) 32 (>89) L 07/19/22 04:32 Glucose 147 mg/dL (70-100) H 07/19/22 04:32 POC Whole Bld Glucose 192 mg/dL (70 - 100) H 07/19/22 12:02 Estimat Average Glucose 258 mg/dL (70-100) H 07/18/22 08:16 Hemoglobin A1c % 10.6 % (4.27-6.07) H 07/18/22 08:16 Calcium 7.7 mg/dL (8.5-10.3) L 07/19/22 04:32 Phosphorus 4.0 mg/dL (2.5-4.6) 07/19/22 04:32 Magnesium 2.0 mg/dL (1.7-2.8) 07/19/22 04:32 Total Bilirubin 0.7 mg/dL (0.2-1.0) 07/17/22 22:27 AST 17 IU/L (10-42) 07/17/22 22:27 ALT 12 IU/L (10-60) 07/17/22 22:27 Alkaline Phosphatase 80 IU/L (42-121) 07/17/22 22:27 Troponin I High Sens 16.0 ng/L (2.3-19.7) 07/18/22 06:20 B-Natriuretic Peptide 577 pg/mL (5-100) H 07/18/22 03:11 Total Protein 6.7 g/dL (6.7-8.2) 07/17/22 22:27 Albumin 3.0 g/dL (3.2-5.5) L 07/17/22 22:27 Globulin 3.7 g/dL (2.1-4.2) 07/17/22 22:27 Albumin/Globulin Ratio 0.8 (1.0-2.2) L 07/17/22 22:27 Lipase 35 U/L (22-51) 07/17/22 22:27 Urine Color YELLOW 07/18/22 14:23 Urine Clarity CLEAR (CLEAR) 07/18/22 14:23 Urine pH 5.5 PH (5.0-7.5) 07/18/22 14:23 Ur Specific [place] 1.020 (1.002-1.030) 07/18/22 14:23 Urine Protein 30 mg/dL (NEGATIVE) H 07/18/22 14:23 Urine Glucose (UA) 500 mg/dL (NEGATIVE) H 07/18/22 14:23 Urine Ketones NEGATIVE mg/dL (NEGATIVE) 07/18/22 14:23 Urine Occult Blood SMALL (NEGATIVE) H 07/18/22 14:23 Urine Nitrite NEGATIVE (NEGATIVE) 07/18/22 14: Urine Bilirubin NEGATIVE (NEGATIVE) 07/18/22 14:23 Urine Urobilinogen 0.2 (NORMAL) E.U./dL (NORMAL) 07/18/22 14:23 Ur Leukocyte Esterase NEGATIVE (NEGATIVE) 07/18/22 14:23 Urine RBC 6-10 /HPF (0-5) H 07/18/22 14:23 Urine WBC 0-3 /HPF (0-3) 07/18/22 14:23 Ur Squamous Epith Cells NONE SEEN (<= Few) 07/18/22 14:23 Urine Bacteria Rare /HPF (None Seen) 07/18/22 14:23 Urine Casts 0-2 Course Granular /LPF 07/18/22 14:23 Ur Microscopic Review INDICATED 07/18/22 14:23 Urine Culture Comments NOT INDICATED 07/18/22 14:23 Nasal Adenovirus (PCR) NOT DETECTED 07/17/22 22:24 Nasal B. parapertussis DNA (PCR) NOT DETECTED 07/17/22 22:24 Nasal Coronavir 229E PCR NOT DETECTED 07/17/22 22:24 Nasal Coronavir HKU1 PCR NOT DETECTED 07/17/22 22:24 Nasal Coronavir NL63 PCR NOT DETECTED 07/17/22 22:24 Nasal Coronavir OC43 PCR NOT DETECTED 07/17/22 22:24 Nasal Enterovir/Rhinovir PCR NOT DETECTED 07/17/22 22:24 Nasal Influenza B PCR NOT DETECTED 07/17/22 22:24 Nasal Influenza A PCR NOT DETECTED 07/17/22 22:24 Nasal Parainfluen 1 PCR NOT DETECTED 07/17/22 22:24 Nasal Parainfluen 2 PCR NOT DETECTED 07/17/22 22:24 Nasal Parainfluen 3 PCR NOT DETECTED 07/17/22 22:24 Nasal Parainfluen 4 PCR NOT DETECTED 07/17/22 22:24 Nasal RSV (PCR) NOT DETECTED 07/17/22 22:24 Nasal Screen MRSA (PCR) NEGATIVE (NEGATIVE) 07/18/22 08:16 Nasal B.pertussis DNA PCR NOT DETECTED 07/17/22 22:24 Nasal C.pneumoniae (PCR) NOT DETECTED 07/17/22 22:24 [place] Human Metapneumo PCR NOT DETECTED 07/17/22 22:24 Nasal M.pneumoniae (PCR) NOT DETECTED 07/17/22 22:24 Nasal SARS-CoV-2 (PCR) NOT DETECTED 07/17/22 22:24 Blood Type A POSITIVE 07/19/22 04:32 Antibody Screen NEGATIVE 07/19/22 04:32 - Procedures Procedures: Procedures INSERTION OF ENDOTRACHEAL AIRWAY INTO TRACHEA, VIA OPENING (02/03/22) INSERTION OF INFUSION DEV INTO SUP VENA CAVA, PERC APPROACH (02/03/22) RESPIRATORY VENTILATION, 24-96 CONSECUTIVE HOURS (02/03/22) Sepsis Event Note (H) - Evaluation Current Stage of Sepsis: Ruled out ABX Reporting Has patient been on IV antibiotics over the past 48 hours?: No Current Medications - Current Medications Current Medications: .med Acetaminophen (Acetaminophen 325 Mg Tablet) 650 mg PO Q4HR PRN PRN Reason: Pain 1 to 4, or Fever Albuterol/Ipratropium (Ipratropium/Albuterol 3 Ml Neb) 3 ml INH RTQID [facility] Last Admin: 07/19/22 14:57 Dose: 3 ml Apixaban (Apixaban 5 Mg Tablet) 10 mg PO BID [facility] Last Admin: 07/19/22 08:21 Dose: 10 mg Aspirin (Aspirin Ec 81 Mg Tablet) 81 mg PO DAILY [facility] Last Admin: 07/19/22 08:20 Dose: 81 mg Atorvastatin Calcium (Atorvastatin 40 Mg Tablet) 80 mg PO QPM [facility] Last Admin: 07/18/22 20:24 Dose: 80 mg Folic Acid (Folic Acid 1 Mg Tablet) 1 mg PO DAILY [facility] Last Admin: 07/19/22 08:20 Dose: 1 mg Hydralazine HCl (Hydralazine Inj 20 Mg/Ml Vial) 10 mg IVP Q6HR PRN PRN Reason: hypertension Hydralazine HCl (Hydralazine 25 Mg Tablet) 75 mg PO BID [facility] Last Admin: 07/19/22 08:16 Dose: Not Given Sodium Chloride (Normal Saline 0.9%) 1,000 mls @ 125 mls/hr IV .Q8H [facility] Last Admin: 07/19/22 13:05 Dose: Not Given Dextrose/Sodium Chloride (D5.45ns) 1,000 mls @ 125 mls/hr IV .Q8H [facility] Last Admin: 07/19/22 13:05 Dose: Not Given Insulin Glargine-yfgn (Insulin Glargine-Yfgn 300 Unit/3 Ml Pen) 30 unit SUBQ DAILY [facility] Last Admin: 07/19/22 11:13 Dose: 30 unit Insulin Human Lispro (Insulin Lispro 300 Unit/3 Ml Pen) 3 - 11 unit SUBQ 0800,1200,1700,2100 [facility]; Protocol Last Admin: 07/19/22 12:14 Dose: 5 unit Levothyroxine Sodium (Levothyroxine 112 Mcg Tablet) 112 mcg PO QDAC [facility] Last Admin: 07/19/22 06:11 Dose: 112 mcg Levothyroxine Sodium (Levothyroxine 25 Mcg Tablet) 25 mcg PO QDAC [facility] Last Admin: 07/19/22 06:11 Dose: 25 mcg Lorazepam (Lorazepam 2 Mg/Ml Vial) 0.5 mg IVP ONCE [facility] Stop: 07/19/22 20:59 Last Admin: 07/18/22 20:22 Dose: 0.5 mg Losartan Potassium (Losartan 50 Mg Tablet) 50 mg PO DAILY [facility] Last Admin: 07/19/22 08:16 Dose: Not Given Nicotine (Nicotine 21 Mg Patch) 1 patch TOP DAILY [facility] Last Admin: 07/19/22 07:28 Dose: Not Given Nitroglycerin (Nitroglycerin Sl 0.4 Mg Tablet) 0.4 mg SL Q5MIN PRN PRN Reason: Chest Pain Ondansetron HCl (Ondansetron 4 Mg/2 Ml Vial) 4 mg IVP Q6HR PRN PRN Reason: Nausea / Vomiting Last Admin: 07/18/22 17:27 Dose: 4 mg Pantoprazole Sodium (Pantoprazole 40 Mg Vial) 40 mg IVP QDAC [facility] Last Admin: 07/19/22 06:11 Dose: 40 mg Pramipexole Dihydrochloride (Pramipexole 0.25 Mg Tablet) 2 mg PO QPM [facility] Last Admin: 07/18/22 20:23 Dose: 2 mg Prednisone (Prednisone 20 Mg Tablet) 10 mg PO DAILYWM [facility] Last Admin: 07/19/22 07:29 Dose: Not Given Prochlorperazine Edisylate (Prochlorperazine 10 Mg/2 Ml Vial) 10 mg IVP Q6HR PRN PRN Reason: Nausea / Vomiting Last Admin: 07/18/22 20:23 Dose: 10 mg Sodium Chloride (Sodium Chloride Flush 0.9% 10 Ml Syringe) 10 ml IVP 0100 ,0900,1700 [facility] Last Admin: 07/19/22 08:21 Dose: 10 ml Sodium Chloride (Sodium Chloride Flush 0.9% 10 Ml Syringe) 10 ml IVP PRN PRN PRN Reason: NEEDED PER PROVIDER ORDERS Sulfasalazine (Sulfasalazine 500 Mg Tablet) 500 mg PO DAILY [facility] Last Admin: 07/19/22 08:21 Dose: 500 mg
[2022-07-19] MEDS: PRAMIPEXOLE 0.25 MG TABLET PO SCH (20:36)
[2022-07-19] MEDS: ATORVASTATIN 40 MG TABLET PO SCH (20:37)
[2022-07-20] MEDS: SODIUM CHLORIDE 0.9% 1,000 ML IV SCH (05:15)
[2022-07-20] MEDS: DEXTROSE 5%-0.45% NACL 1,000 ML IV SCH (05:15)
[2022-07-20] MEDS: LEVOTHYROXINE 112 MCG TABLET PO SCH (06:48)
[2022-07-20] MEDS: PANTOPRAZOLE 40 MG VIAL IVP SCH (06:48)
[2022-07-20] MEDS: LEVOTHYROXINE 25 MCG TABLET PO SCH (06:48)
[2022-07-20] MEDS: IPRATROPIUM/ALBUTEROL 3 ML NEB INH SCH ×4 (06:53→18:52)
[2022-07-20 07:55] LABS: CALCIUM, IONIZED 1.17 mmol/L (1.15-1.33); VBG PH 7.227 (7.31-7.41)
[2022-07-20 08:06] LABS: MAGNESIUM 2.3 mg/dL (1.7-2.8); PHOSPHORUS 4.5 mg/dL (2.5-4.6); POTASSIUM 5.2 mmol/L (3.5-5.0)
[2022-07-20] MEDS: INSULIN LISPRO 300 UNIT/3 ML PEN SUBQ SCH ×4 (08:36→21:16)
[2022-07-20] MEDS: polyethylene glycoL 3350 17 GM PACKET PO SCH (08:39)
[2022-07-20] MEDS: LOSARTAN 50 MG TABLET PO SCH (08:39)
[2022-07-20] MEDS: sulfaSALAzine 500 MG TABLET PO SCH (08:39)
[2022-07-20] MEDS: hydrALAZINE 25 MG TABLET PO SCH ×2 (08:39→21:18)
[2022-07-20] MEDS: predniSONE 20 MG TABLET PO SCH (08:39)
[2022-07-20] MEDS: APIXABAN 5 MG TABLET PO SCH ×2 (08:39→21:17)
[2022-07-20] MEDS: FOLIC ACID 1 MG TABLET PO SCH (08:40)
[2022-07-20] MEDS: NICOTINE 21 MG PATCH TOP SCH (08:41)
[2022-07-20] MEDS: SODIUM CHLORIDE FLUSH 0.9% 10 ML SYRINGE IVP SCH ×2 (08:41→16:53)
[2022-07-20] MEDS: ASPIRIN EC 81 MG TABLET PO SCH (08:41)
[2022-07-20] MEDS: INSULIN GLARGINE-YFGN 300 UNIT/3 ML PEN SUBQ SCH (08:41)
[2022-07-20] MEDS ORDERED: INSULIN GLARGINE-YFGN 300 UNIT/3 ML PEN SUBQ ONE (11:00)
[2022-07-20 12:32] LABS: BASOPHILS # (AUTO) 0.1 10^3/uL (0.0-0.1); BASOPHILS % (AUTO) 0.4 %; EOSINOPHILS % (AUTO) 0.1 %; HCT - HEMATOCRIT 35.2 % (42.0-52.0); HGB - HEMOGLOBIN 9.1 g/dL (14.0-18.0); LYMPHOCYTES # (AUTO) 2.8 10^3/uL (1.5-3.5); MEAN CORPUSCULAR HEMOGLOBIN 23.2 pg (27.0-31.0); MEAN CORPUSCULAR HGB CONC 25.9 g/dL (32.0-36.0); MEAN CORPUSCULAR VOLUME 89.6 fL (80.0-94.0); MONOCYTES # (AUTO) 1.4 10^3/uL (0.0-1.0); MONOCYTES % (AUTO) 8.4 %; NEUTROPHILS # (AUTO) 12.1 10^3/uL (1.5-6.6); NEUTROPHILS % (AUTO) 72.8 %; NRBC ABSOLUTE COUNT (AUTO) 0.05 x10^3/uL; NUCLEATED RED BLOOD CELLS AUTO 0.3 /100WBC; PLT - PLATELET COUNT 435 10^3/uL (130-450); RED BLOOD COUNT 3.93 10^6/uL (4.70-6.10); RED CELL DISTRIBUTION WIDTH 18.6 % (12.0-15.0); WHITE BLOOD COUNT 16.6 x10^3/uL (4.8-10.8)
[2022-07-20 12:36] LABS: CALCIUM 8.6 mg/dL (8.5-10.3); CREATININE 1.9 mg/dL (0.6-1.2); POTASSIUM 5.3 mmol/L (3.5-5.0)
[2022-07-20 12:51] LABS: PLATELET ESTIMATE, MANUAL NORMAL (130-450,000) (NORMAL); PLATELET MORPHOLOGY NORMAL APPEARANCE (NORMAL); SLIDE REVIEW? Indicated
--- NOTE | 2022-07-20 17:23 | PROVIDER PROGRESS NOTE ---
Progress Note Assessment/Plan - Problem List (1) Acute kidney injury superimposed on CKD Assessment/Plan: Patient with elevated creatinine above baseline and is currently improving (2) Pulmonary embolism Qualifiers: Pulmonary embolism type: multiple subsegmental (without acute cor pulmonale) Qualified Code(s): I26.94 - Multiple subsegmental pulmonary emboli without acute cor pulmonale Assessment/Plan: Patient was started on IV heparin drip in the emergency room and started on Eliquis anticoagulation subsequent to that of note patient does use chronic CPAP at home CT of chest revealed bilateral pulmonary embolism involving segmental pulmonary arteries as described and no definite evidence of right heart strain. Severe centrilobular emphysematous changes. Bilateral scarring and atelectasis is well as mild consolidation inferiorly lower lobes. Minimal bilateral pleural effusions. (3) Respiratory failure Qualifiers: Chronicity: acute on chronic Respiratory failure complication: hypoxia and hypercapnia Qualified Code(s): J96.21 - Acute and chronic respiratory failure with hypoxia; J96.22 - Acute and chronic respiratory failure with hypercapnia; J96.22 - Acute and chronic respiratory failure with hypercapnia Assessment/Plan: Continue O2 support as needed, continue breathing treatments, patient does use home CPAP -Continue with Eliquis for pulmonary emboli multiple (4) (HFpEF) heart failure with preserved ejection fraction Assessment/Plan: Currently no signs of volume overload (5) Acute respiratory failure with hypoxia Assessment/Plan: Secondary to multiple pulmonary emboli acute (6) Diabetes mellitus Qualifiers: Diabetes mellitus type: type 2 Diabetes mellitus nursing home insulin use: with nursing home use Diabetes mellitus complication status: with neurologic complications Diabetes mellitus complication detail: with polyneuropathy Qualified Code(s): E11.42 - Type 2 diabetes mellitus with diabetic polyneuropathy; Z79.4 - salvage determiner (current) use of insulin Assessment/Plan: Significant hyperglycemia when admitted was started on IV insulin drip and now transferring to subcu Lantus and subcu insulin protocol (7) COPD (chronic obstructive pulmonary disease) Qualifiers: COPD type: unspecified COPD Qualified Code(s): J44.9 - Chronic obstructive pulmonary disease, unspecified Assessment/Plan: Currently stable (8) GERD (gastroesophageal reflux disease) Qualifiers: Esophagitis presence: without esophagitis Qualified Code(s): K21.9 - Gastro-esophageal reflux disease without esophagitis (9) Hypertension Qualifiers: Hypertension type: primary hypertension Qualified Code(s): I10 - Essential (primary) hypertension - Current Meds Current Meds: Current Medications Generic Name Dose Route Start Last Admin Trade Name Parviz PRN Reason Stop Dose Admin Albuterol/Ipratropium 3 ml 07/18/22 14:00 07/19/22 14:57 Ipratropium/Albuterol 3 Ml Neb INH 3 ml RTQID [facility] Administration Apixaban 10 mg 07/18/22 09:00 07/19/22 08:21 Apixaban 5 Mg Tablet PO 10 mg BID ADEEL Administration Aspirin 81 mg 07/18/22 12:00 07/19/22 08:20 Aspirin Ec 81 Mg Tablet PO 81 mg DAILY A[facility] Administration Atorvastatin Calcium 80 mg 07/18/22 21:00 07/18/22 20:24 Atorvastatin 40 Mg Tablet PO 80 mg QPM A[facility] Administration Folic Acid 1 mg 07/18/22 17:00 07/19/22 08:20 Folic Acid 1 Mg Tablet PO 1 mg DAILY A[facility] Administration Hydralazine HCl 75 mg 07/18/22 12:00 07/19/22 08:16 Hydralazine 25 Mg Tablet PO Not Given BID A[facility]EL Sodium Chloride 1,000 mls @ 125 mls/hr 07/18/22 14:00 07/19/22 13:05 Normal Saline 0.9% IV Not Given .Q8H [facility] Dextrose/Sodium Chloride 1,000 mls @ 125 mls/hr 07/18/22 14:00 07/19/22 13:05 D5.45ns IV Not Given .Q8H [facility] Insulin Glargine-yfgn 30 unit 07/19/22 11:00 07/19/22 11:13 Insulin Glargine-Yfgn 300 Unit/3 Ml Pen SUBQ 30 unit DAILY [facility] Administration Insulin Human Lispro 3 - 11 unit 07/19/22 12:00 07/19/22 12:14 Insulin Lispro 300 Unit/3 Ml Pen SUBQ 5 unit 0800,1200,1700,2100 [facility] Administration Protocol Levothyroxine Sodium 112 mcg 07/19/22 07:00 07/19/22 06:11 Levothyroxine 112 Mcg Tablet PO 112 mcg QDAC [facility] Administration Levothyroxine Sodium 25 mcg 07/19/22 07:00 07/19/22 06:11 Levothyroxine 25 Mcg Tablet PO 25 mcg QDAC [facility] Administration Lorazepam 0.5 mg 07/18/22 21:00 07/18/22 20:22 Lorazepam 2 Mg/Ml Vial IVP 07/19/22 20:59 0.5 mg ONCE A[facility] Administration Losartan Potassium 50 mg 07/18/22 12:00 07/19/22 08:16 Losartan 50 Mg Tablet PO Not Given DAILY A[facility] Nicotine 1 patch 07/18/22 09:00 07/19/22 07:28 Nicotine 21 Mg Patch TOP Not Given DAILY [facility] Ondansetron HCl 4 mg 07/18/22 06:02 07/18/22 17:27 Ondansetron 4 Mg/2 Ml Vial IVP 4 mg Q6HR PRN Administration Nausea / Vomiting Pantoprazole Sodium 40 mg 07/18/22 19:00 07/19/22 06:11 Pantoprazole 40 Mg Vial IVP 40 mg QDAC [facility] Administration Pramipexole Dihydrochloride 2 mg 07/18/22 21:00 07/18/22 20:23 Pramipexole 0.25 Mg Tablet PO 2 mg QPM [facility] Administration Prednisone 10 mg 07/18/22 12:00 07/19/22 07:29 Prednisone 20 Mg Tablet PO Not Given DAILYWM [facility] Prochlorperazine Edisylate 10 mg 07/18/22 20:00 07/18/22 20:23 Prochlorperazine 10 Mg/2 Ml Vial IVP 10 mg Q6HR PRN Administration Nausea / Vomiting Sodium Chloride 10 ml 07/18/22 09:00 07/19/22 08:21 Sodium Chloride Flush 0.9% 10 Ml Syringe IVP 10 ml 0100,0900,1700 [facility] Administration Sulfasalazine 500 mg 07/18/22 12:00 07/19/22 08:21 Sulfasalazine 500 Mg Tablet PO 500 mg DAILY [facility] Administration - Lab Result Fish Bone Diagrams: 07/19/22 12:03 07/19/22 04:32 - Additional Planning My Orders: My Active Orders 07/19/22 10:54 Blood Glucose Checks - Eating [RC] 0800,1200,1700,2100 Initiate Hypoglycemia Protocol [RC] .protocol 07/19/22 11:00 Insulin Glargine-Yfgn [Semglee] 30 unit SUBQ DAILY 07/19/22 Lunch Carb-controlled Diet [DIET] 07/19/22 12:00 Insulin Lispro [Humalog Kwikpen U-100] 3 - 11 unit SUBQ 0800,1200,1700,2100 Subjective - Subjective Patient Reports: Feeling Better (Patient with improved shortness of breath currently on O2 supplementation patient usually is on 2 to 4 L nasal cannula for chronic hypoxemic respiratory failure.), Resting Comfortably Objective Vital Signs: Vital Signs - 24 hr 07/18/22 07/18/22 07/18/22 17:00 17:10 17:49 Temperature 36.9 C Heart Rate 56 L 54 L Heart Rate [ 65 Monitoring electrodes] Respiratory 18 17 Rate Blood Pressure 91/68 [Left Brachial artery] O2 Saturation 95 If not protocol 4 : Oxygen Flow, liters/minute 07/18/22 07/18/22 07/18/22 17:51 18:00 18:55 Temperature Heart Rate Heart Rate [ 75 Monitoring electrodes] Respiratory 29 H Rate Blood Pressure 140/87 H [Left Brachial artery] O2 Saturation 90 L If not protocol 4 4 30 : Oxygen Flow, liters/minute 07/18/22 07/18/22 07/18/22 19:00 20:00 21:00 Temperature Heart Rate Heart Rate [ 88 86 79 Monitoring electrodes] Respiratory 17 19 13 Rate Blood Pressure 135/52 H 141/61 H 108/54 L [Left Brachial artery] O2 Saturation 92 95 93 If not protocol 30 30 3 : Oxygen Flow, liters/minute 07/18/22 07/18/22 07/18/22 21:05 22:00 23:00 Temperature 36.8 C Heart Rate Heart Rate [ 69 74 Monitoring electrodes] Respiratory 18 11 L Rate Blood Pressure 121/60 108/52 L [Left Brachial artery] O2 Saturation 96 92 If not protocol 3 3 3 : Oxygen Flow, liters/minute 07/19/22 07/19/22 07/19/22 00:00 00:17 01:00 Temperature Heart Rate Heart Rate [ 69 61 Monitoring electrodes] Respiratory 14 20 Rate Blood Pressure 103/53 L 100/50 L [Left Brachial artery] O2 Saturation 92 95 If not protocol 3 3 3 : Oxygen Flow, liters/minute 07/19/22 07/19/22 07/19/22 02:00 03:00 04:00 Temperature Heart Rate Heart Rate [ 66 59 L 64 Monitoring electrodes] Respiratory 16 15 20 Rate Blood Pressure 92/50 L 91/54 L 86/47 L [Left Brachial artery] O2 Saturation 95 96 93 If not protocol 3 3 3 : Oxygen Flow, liters/minute 07/19/22 07/19/22 07/19/22 05:00 06:00 06:22 Temperature 36.5 C Heart Rate Heart Rate [ 63 68 Monitoring electrodes] Respiratory 16 16 Rate Blood Pressure 129/54 L 99/47 L [Left Brachial artery] O2 Saturation 95 93 If not protocol 3 3 3 : Oxygen Flow, liters/minute 07/19/22 07/19/22 07/19/22 07:00 07:30 08:00 Temperature Heart Rate 76 Heart Rate [ 80 70 Monitoring electrodes] Respiratory 22 14 17 Rate Blood Pressure 100/58 L 95/50 L [Left Brachial artery] O2 Saturation 92 92 If not protocol 3 4 3 : Oxygen Flow, liters/minute 07/19/22 07/19/22 07/19/22 09:00 09:42 10:00 Temperature 36.2 C L Heart Rate Heart Rate [ 73 67 Monitoring electrodes] Respiratory 18 12 Rate Blood Pressure 99/53 L 106/53 L [Left Brachial artery] O2 Saturation 95 95 If not protocol 3 3 : Oxygen Flow, liters/minute 07/19/22 07/19/22 07/19/22 11:00 11:16 12:00 Temperature Heart Rate 73 Heart Rate [ 74 86 Monitoring electrodes] Respiratory 17 20 21 Rate Blood Pressure 105/56 L 116/53 L [Left Brachial artery] O2 Saturation 97 95 If not protocol 4 : Oxygen Flow, liters/minute 07/19/22 07/19/22 07/19/22 13:00 14:00 14:57 Temperature 36.4 C L Heart Rate 76 Heart Rate [ 95 95 Monitoring electrodes] Respiratory 26 H 23 24 Rate Blood Pressure 121/48 L 119/54 L [Left Brachial artery] O2 Saturation 90 L 91 L If not protocol 4 4 4 : Oxygen Flow, liters/minute 07/19/22 07/19/22 15:00 16:05 Temperature Heart Rate Heart Rate [ 90 87 Monitoring electrodes] Respiratory 20 13 Rate Blood Pressure 117/52 L 120/56 L [Left Brachial artery] O2 Saturation 94 97 If not protocol 4 4 : Oxygen Flow, liters/minute Oxygen O2 Source Oxymask Oxygen Flow Rate 4 I&O (Last 24 Hrs): Intake and Output Totals x24h 07/17/22 07/18/22 07/19/22 23:59 23:59 23:59 Intake Total 3644.091 1727.990 Output Total 500 250 Balance 3144.091 1477.990 General: Alert, Oriented x3, Cooperative HEENT: PERRLA, EOMI Neck: Supple Lymphatic: no adenopathy Neuro: Alert Cardiovascular: Regular rate, No murmurs Respiratory: Wheezes Abdomen: Normal bowel sounds, Soft Extremities: Other (1+ lower extremity edema) Skin: No rashes - Results Results: Laboratory Results WBC 18.7 x10^3/uL (4.8-10.8) H 07/19/22 12:03 RBC 3.43 10^6/uL (4.70-6.10) L 07/19/22 12:03 Hgb 8.1 g/dL (14.0-18.0) L 07/19/22 12:03 Hct 29.5 % (42.0-52.0) L 07/19/22 12:03 MCV 86.0 fL (80.0-94.0) 07/19/22 12:03 MCH 23.6 pg (27.0-31.0) L 07/19/22 12:03 MCHC 27.5 g/dL (32.0-36.0) L 07/19/22 12:03 RDW 18.1 % (12.0-15.0) H 07/19/22 12:03 Plt Count 385 10^3/uL (130-450) 07/19/22 12:03 MPV 10.0 fL (7.4-11.4) 07/19/22 12:03 Neut # (Auto) Not Reportable 07/19/22 12:03 Lymph # (Auto) Not Reportable 07/19/22 12:03 [place] # (Auto) Not Reportable 07/19/22 12:03 Eos # (Auto) Not Reportable 07/19/22 12:03 Baso # (Auto) Not Reportable 07/19/22 12:03 Absolute Nucleated RBC Not Reportable 07/19/22 12:03 Total Counted 100 07/19/22 12:03 Band Neuts % (Manual) 0 % (0-10) 07/19/22 12:03 Abnorm Lymph % (Manual) 0 % 07/19/22 12:03 Nucleated RBC % Not Reportable 07/19/22 12:03 Neutrophils # (Manual) 16.1 10^3/uL (1.5-6.6) H 07/19/22 12:03 Lymphocytes # (Manual) 1.5 10^3/uL (1.5-3.5) 07/19/22 12:03 Monocytes # (Manual) 0.9 10^3/uL (0.0-1.0) 07/19/22 12:03 Eosinophils # (Manual) 0.2 10^3/uL (0-0.7) 07/19/22 12:03 Basophils # (Manual) 0.0 10^3/uL (0-0.1) 07/19/22 12:03 Differential Comment MANUAL DIFFERENTIAL 07/19/22 12:03 Manual Slide Review Indicated 07/19/22 04:32 WBC Morphology NORMAL APPEARANCE (NORMAL) 07/19/22 04:32 Platelet Estimate NORMAL (130-450,000) (NORMAL) 07/19/22 12:03 Platelet Morphology NORMAL APPEARANCE (NORMAL) 07/19/22 12:03 RBC Morph Micro Appear 2+ HYPOCHROMASIA (NORMAL) 07/19/22 12:03 APTT 191.0 secs (24.9-33.3) H* 07/18/22 06:20 Bld Gas Analysis Time 0600 07/19/22 05:54 Sample Site RIGHT RADIAL 07/19/22 05:54 ABG pH 7.30 (7.35-7.45) L 07/19/22 05:54 ABG pCO2 51 mmHg (34-45) H 07/19/22 05:54 ABG pO2 77 mmHg (80-100) L 07/19/22 05:54 ABG HCO3 24.7 mmol/L (22.0-26.0) 07/19/22 05:54 ABG Total CO2 26.2 MMOL/L (21.0-29.0) 07/19/22 05:54 ABG O2 Saturation 94 % (94-98) 07/19/22 05:54 ABG Base Excess -2.0 mmol/L (-2.0-3.0) 07/19/22 05:54 [place]oney Test POSITIVE 07/19/22 05:54 VBG pH 7.385 (7.31-7.41) 07/19/22 04:32 VBG pCO2 57.2 mmHg (41-51) H 07/18/22 00:59 VBG pO2 48.4 mmHg (25-47) H 07/18/22 00:59 VBG HCO3 25.4 mmol/L (23-28) 07/18/22 00:59 VBG Total CO2 27.1 mmol/L (24-29) 07/18/22 00:59 VBG O2 Saturation 80.1 % (60-80) H 07/18/22 00:59 VBG Base Excess -2.1 mmol/L (-2 - +2) L 07/18/22 00:59 Ionized Calcium 1.05 mmol/L (1.15-1.33) L 07/19/22 04:32 O2 Delivery Device C-PAP 07/19/22 05:54 O2 Liters/Min 3.00 LPM 07/19/22 05:54 FiO2 35.00 07/18/22 12:45 Pressure Support Vent 10 cmH2O 07/19/22 05:54 EPAP 4 cmH2O 07/18/22 12:45 IPAP 12 cmH2O 07/18/22 12:45 Sodium 135 mmol/L (135-145) 07/19/22 04:32 Potassium 5.0 mmol/L (3.5-5.0) 07/19/22 04:32 Chloride 101 mmol/L (101-111) 07/19/22 04:32 Carbon Dioxide 25 mmol/L (21-32) 07/19/22 04:32 Anion Gap 9.0 (6-13) 07/19/22 04:32 BUN 40 mg/dL (6-20) H 07/19/22 04:32 Creatinine 2.1 mg/dL (0.6-1.2) H 07/19/22 04:32 Estimated GFR (MDRD) 32 (>89) L 07/19/22 04:32 Glucose 147 mg/dL (70-100) H 07/19/22 04:32 POC Whole Bld Glucose 192 mg/dL (70 - 100) H 07/19/22 12:02 Estimat Average Glucose 258 mg/dL (70-100) H 07/18/22 08:16 Hemoglobin A1c % 10.6 % (4.27-6.07) H 07/18/22 08:16 Calcium 7.7 mg/dL (8.5-10.3) L 07/19/22 04:32 Phosphorus 4.0 mg/dL (2.5-4.6) 07/19/22 04:32 Magnesium 2.0 mg/dL (1.7-2.8) 07/19/22 04:32 Total Bilirubin 0.7 mg/dL (0.2-1.0) 07/17/22 22:27 AST 17 IU/L (10-42) 07/17/22 22:27 ALT 12 IU/L (10-60) 07/17/22 22:27 Alkaline Phosphatase 80 IU/L (42-121) 07/17/22 22:27 Troponin I High Sens 16.0 ng/L (2.3-19.7) 07/18/22 06:20 B-Natriuretic Peptide 577 pg/mL (5-100) H 07/18/22 03:11 Total Protein 6.7 g/dL (6.7-8.2) 07/17/22 22:27 Albumin 3.0 g/dL (3.2-5.5) L 07/17/22 22:27 Globulin 3.7 g/dL (2.1-4.2) 07/17/22 22:27 Albumin/Globulin Ratio 0.8 (1.0-2.2) L 07/17/22 22:27 Lipase 35 U/L (22-51) 07/17/22 22:27 Urine Color YELLOW 07/18/22 14:23 Urine Clarity CLEAR (CLEAR) 07/18/22 14:23 Urine pH 5.5 PH (5.0-7.5) 07/18/22 14:23 Ur Specific [place] 1.020 (1.002-1.030) 07/18/22 14:23 Urine Protein 30 mg/dL (NEGATIVE) H 07/18/22 14:23 Urine Glucose (UA) 500 mg/dL (NEGATIVE) H 07/18/22 14:23 Urine Ketones NEGATIVE mg/dL (NEGATIVE) 07/18/22 14:23 Urine Occult Blood SMALL (NEGATIVE) H 07/18/22 14:23 Urine Nitrite NEGATIVE (NEGATIVE) 07/18/22 14: Urine Bilirubin NEGATIVE (NEGATIVE) 07/18/22 14:23 Urine Urobilinogen 0.2 (NORMAL) E.U./dL (NORMAL) 07/18/22 14:23 Ur Leukocyte Esterase NEGATIVE (NEGATIVE) 07/18/22 14:23 Urine RBC 6-10 /HPF (0-5) H 07/18/22 14:23 Urine WBC 0-3 /HPF (0-3) 07/18/22 14:23 Ur Squamous Epith Cells NONE SEEN (<= Few) 07/18/22 14:23 Urine Bacteria Rare /HPF (None Seen) 07/18/22 14:23 Urine Casts 0-2 Course Granular /LPF 07/18/22 14:23 Ur Microscopic Review INDICATED 07/18/22 14:23 Urine Culture Comments NOT INDICATED 07/18/22 14:23 Nasal Adenovirus (PCR) NOT DETECTED 07/17/22 22:24 Nasal B. parapertussis DNA (PCR) NOT DETECTED 07/17/22 22:24 Nasal Coronavir 229E PCR NOT DETECTED 07/17/22 22:24 Nasal Coronavir HKU1 PCR NOT DETECTED 07/17/22 22:24 Nasal Coronavir NL63 PCR NOT DETECTED 07/17/22 22:24 Nasal Coronavir OC43 PCR NOT DETECTED 07/17/22 22:24 Nasal Enterovir/Rhinovir PCR NOT DETECTED 07/17/22 22:24 Nasal Influenza B PCR NOT DETECTED 07/17/22 22:24 Nasal Influenza A PCR NOT DETECTED 07/17/22 22:24 Nasal Parainfluen 1 PCR NOT DETECTED 07/17/22 22:24 Nasal Parainfluen 2 PCR NOT DETECTED 07/17/22 22:24 Nasal Parainfluen 3 PCR NOT DETECTED 07/17/22 22:24 Nasal Parainfluen 4 PCR NOT DETECTED 07/17/22 22:24 Nasal RSV (PCR) NOT DETECTED 07/17/22 22:24 Nasal Screen MRSA (PCR) NEGATIVE (NEGATIVE) 07/18/22 08:16 Nasal B.pertussis DNA PCR NOT DETECTED 07/17/22 22:24 Nasal C.pneumoniae (PCR) NOT DETECTED 07/17/22 22:24 [place] Human Metapneumo PCR NOT DETECTED 07/17/22 22:24 Nasal M.pneumoniae (PCR) NOT DETECTED 07/17/22 22:24 Nasal SARS-CoV-2 (PCR) NOT DETECTED 07/17/22 22:24 Blood Type A POSITIVE 07/19/22 04:32 Antibody Screen NEGATIVE 07/19/22 04:32 - Procedures Procedures: Procedures INSERTION OF ENDOTRACHEAL AIRWAY INTO TRACHEA, VIA OPENING (02/03/22) INSERTION OF INFUSION DEV INTO SUP VENA CAVA, PERC APPROACH (02/03/22) RESPIRATORY VENTILATION, 24-96 CONSECUTIVE HOURS (02/03/22) Sepsis Event Note (H) - Evaluation Current Stage of Sepsis: Ruled out ABX Reporting Has patient been on IV antibiotics over the past 48 hours?: No Current Medications - Current Medications Current Medications: .med Acetaminophen (Acetaminophen 325 Mg Tablet) 650 mg PO Q4HR PRN PRN Reason: Pain 1 to 4, or Fever Albuterol/Ipratropium (Ipratropium/Albuterol 3 Ml Neb) 3 ml INH RTQID [facility] Last Admin: 07/19/22 14:57 Dose: 3 ml Apixaban (Apixaban 5 Mg Tablet) 10 mg PO BID [facility] Last Admin: 07/19/22 08:21 Dose: 10 mg Aspirin (Aspirin Ec 81 Mg Tablet) 81 mg PO DAILY [facility] Last Admin: 07/19/22 08:20 Dose: 81 mg Atorvastatin Calcium (Atorvastatin 40 Mg Tablet) 80 mg PO QPM [facility] Last Admin: 07/18/22 20:24 Dose: 80 mg Folic Acid (Folic Acid 1 Mg Tablet) 1 mg PO DAILY [facility] Last Admin: 07/19/22 08:20 Dose: 1 mg Hydralazine HCl (Hydralazine Inj 20 Mg/Ml Vial) 10 mg IVP Q6HR PRN PRN Reason: hypertension Hydralazine HCl (Hydralazine 25 Mg Tablet) 75 mg PO BID [facility] Last Admin: 07/19/22 08:16 Dose: Not Given Sodium Chloride (Normal Saline 0.9%) 1,000 mls @ 125 mls/hr IV .Q8H [facility] Last Admin: 07/19/22 13:05 Dose: Not Given Dextrose/Sodium Chloride (D5.45ns) 1,000 mls @ 125 mls/hr IV .Q8H [facility] Last Admin: 07/19/22 13:05 Dose: Not Given Insulin Glargine-yfgn (Insulin Glargine-Yfgn 300 Unit/3 Ml Pen) 30 unit SUBQ DAILY [facility] Last Admin: 07/19/22 11:13 Dose: 30 unit Insulin Human Lispro (Insulin Lispro 300 Unit/3 Ml Pen) 3 - 11 unit SUBQ 0800,1200,1700,2100 [facility]; Protocol Last Admin: 07/19/22 12:14 Dose: 5 unit Levothyroxine Sodium (Levothyroxine 112 Mcg Tablet) 112 mcg PO QDAC [facility] Last Admin: 07/19/22 06:11 Dose: 112 mcg Levothyroxine Sodium (Levothyroxine 25 Mcg Tablet) 25 mcg PO QDAC [facility] Last Admin: 07/19/22 06:11 Dose: 25 mcg Lorazepam (Lorazepam 2 Mg/Ml Vial) 0.5 mg IVP ONCE [facility] Stop: 07/19/22 20:59 Last Admin: 07/18/22 20:22 Dose: 0.5 mg Losartan Potassium (Losartan 50 Mg Tablet) 50 mg PO DAILY [facility] Last Admin: 07/19/22 08:16 Dose: Not Given Nicotine (Nicotine 21 Mg Patch) 1 patch TOP DAILY [facility] Last Admin: 07/19/22 07:28 Dose: Not Given Nitroglycerin (Nitroglycerin Sl 0.4 Mg Tablet) 0.4 mg SL Q5MIN PRN PRN Reason: Chest Pain Ondansetron HCl (Ondansetron 4 Mg/2 Ml Vial) 4 mg IVP Q6HR PRN PRN Reason: Nausea / Vomiting Last Admin: 07/18/22 17:27 Dose: 4 mg Pantoprazole Sodium (Pantoprazole 40 Mg Vial) 40 mg IVP QDAC [facility] Last Admin: 07/19/22 06:11 Dose: 40 mg Pramipexole Dihydrochloride (Pramipexole 0.25 Mg Tablet) 2 mg PO QPM [facility] Last Admin: 07/18/22 20:23 Dose: 2 mg Prednisone (Prednisone 20 Mg Tablet) 10 mg PO DAILYWM [facility] Last Admin: 07/19/22 07:29 Dose: Not Given Prochlorperazine Edisylate (Prochlorperazine 10 Mg/2 Ml Vial) 10 mg IVP Q6HR PRN PRN Reason: Nausea / Vomiting Last Admin: 07/18/22 20:23 Dose: 10 mg Sodium Chloride (Sodium Chloride Flush 0.9% 10 Ml Syringe) 10 ml IVP 0100,0900,1700 [facility] Last Admin: 07/19/22 08:21 Dose: 10 ml Sodium Chloride (Sodium Chloride Flush 0.9% 10 Ml Syringe) 10 ml IVP PRN PRN PRN Reason: NEEDED PER PROVIDER ORDERS Sulfasalazine (Sulfasalazine 500 Mg Tablet) 500 mg PO DAILY [facility] Last Admin: 07/19/22 08:21 Dose: 500 mg
[2022-07-20] MEDS: PRAMIPEXOLE 0.25 MG TABLET PO SCH (21:17)
[2022-07-20] MEDS: ATORVASTATIN 40 MG TABLET PO SCH (21:18)
[2022-07-21 05:03] LABS: CALCIUM, IONIZED 1.22 mmol/L (1.15-1.33); VBG PH 7.256 (7.31-7.41)
[2022-07-21 05:15] LABS: BASOPHILS # (AUTO) 0.1 10^3/uL (0.0-0.1); BASOPHILS % (AUTO) 0.4 %; EOSINOPHILS % (AUTO) 0.1 %; HCT - HEMATOCRIT 31.8 % (42.0-52.0); HGB - HEMOGLOBIN 8.6 g/dL (14.0-18.0); LYMPHOCYTES # (AUTO) 1.8 10^3/uL (1.5-3.5); LYMPHOCYTES % (AUTO) 13.4 %; MEAN CORPUSCULAR HEMOGLOBIN 23.8 pg (27.0-31.0); MEAN CORPUSCULAR VOLUME 88.1 fL (80.0-94.0); MEAN PLATELET VOLUME 10.2 fL (7.4-11.4); MONOCYTES # (AUTO) 1.4 10^3/uL (0.0-1.0); MONOCYTES % (AUTO) 10.6 %; NEUTROPHILS # (AUTO) 9.9 10^3/uL (1.5-6.6); NEUTROPHILS % (AUTO) 74.6 %; NRBC ABSOLUTE COUNT (AUTO) 0.05 x10^3/uL; NUCLEATED RED BLOOD CELLS AUTO 0.4 /100WBC; PLT - PLATELET COUNT 378 10^3/uL (130-450); RED BLOOD COUNT 3.61 10^6/uL (4.70-6.10); RED CELL DISTRIBUTION WIDTH 18.6 % (12.0-15.0); SLIDE REVIEW? Indicated; WHITE BLOOD COUNT 13.2 x10^3/uL (4.8-10.8)
[2022-07-21 05:17] LABS: CREATININE 1.6 mg/dL (0.6-1.2); MAGNESIUM 2.5 mg/dL (1.7-2.8); PHOSPHORUS 4.3 mg/dL (2.5-4.6); POTASSIUM 5.2 mmol/L (3.5-5.0)
[2022-07-21] MEDS: SODIUM CHLORIDE FLUSH 0.9% 10 ML SYRINGE IVP SCH ×3 (05:25→16:49)
[2022-07-21 05:47] LABS: PLATELET ESTIMATE, MANUAL NORMAL (130-450,000) (NORMAL); PLATELET MORPHOLOGY NORMAL APPEARANCE (NORMAL)
[2022-07-21 05:48] LABS: WBC MORPHOLOGY (MULTIPLE) NORMAL APPEARANCE (NORMAL)
[2022-07-21] MEDS: IPRATROPIUM/ALBUTEROL 3 ML NEB INH SCH ×3 (06:06→15:31)
[2022-07-21] MEDS: LEVOTHYROXINE 112 MCG TABLET PO SCH (06:41)
[2022-07-21] MEDS: LEVOTHYROXINE 25 MCG TABLET PO SCH (06:41)
[2022-07-21] MEDS: PANTOPRAZOLE 40 MG VIAL IVP SCH (06:46)
[2022-07-21] MEDS: INSULIN LISPRO 300 UNIT/3 ML PEN SUBQ SCH ×3 (08:09→16:48)
[2022-07-21] MEDS ORDERED: INSULIN GLARGINE-YFGN 300 UNIT/3 ML PEN SUBQ SCH (09:00)
--- NOTE | 2022-07-21 11:24 | ANESTHESIA PROCEDURE NOTE ---
Anesth Central Line Template - Central Line Central Line Preparation: Unable to obtain consent, Time out completed, Ultra sound used, Sterile prep and drape Central line location: Right IJ Central line type: Triple lumen Central line catheter tip site resides: Superior vena cava (SVC) Central line aftercare: Chlorhexidine disc placed, Secured, Placement confirmed, No complications, Bundle checklist complete, Pt tolerated well (TL placed under U/S guidance, at 16cm, sutured)
[2022-07-21] MEDS: EPINEPHrine 4 MG in DEXTROSE 5% 246 ML IV SCH ×2 (11:30→16:04)
[2022-07-21] MEDS ORDERED: ALBUTEROL NEB 2.5 MG/3 ML INH PRN (11:41)
[2022-07-21] MEDS ORDERED: SODIUM CHLORIDE FLUSH 0.9% 10 ML SYRINGE IVP PRN (11:41)
--- NOTE | 2022-07-21 11:43 | XRAY Report ---
PROCEDURE: Chest for Line Placement INDICATIONS: LINE PLACEMENT TECHNIQUE: One view of the chest was acquired. COMPARISON: Plain films dated 07/15/2022 FINDINGS: Surgical changes and devices: Median sternotomy. Right-sided central venous catheter, tip of which p rojects over the upper SVC. ETT is present, tip of which appears in expected location. NGT is present . Lungs and pleura: No pleural effusions or pneumothorax. Moderate diffuse basilar predominant reticul onodular pulmonary opacity. Mediastinum: Mediastinal contours appear normal. Heart size is normal. Bones and chest wall: No suspicious bony lesions. Overlying soft tissues appear unremarkable. IMPRESSION: Moderate atypical pneumonia. Reviewed by: Latonia Brown MD on 07/21/2022 11:41 AM PDT Approved by: Latonia Brown MD on 07/21/2022 11:41 AM PDT Station ID: [id number]
[2022-07-21 12:00] LABS: TROPONIN I HIGH SENSITIVITY 42.4 ng/L (2.3-19.7)
[2022-07-21] MEDS ORDERED: SODIUM CHLORIDE 0.9% 1,000 ML IV SCH (12:00)
[2022-07-21 12:04] LABS: ALBUMIN 3.1 g/dL (3.2-5.5); ALBUMIN/GLOBULIN RATIO 0.9 (1.0-2.2); BILIRUBIN,TOTAL 0.4 mg/dL (0.2-1.0); CALCIUM 9.1 mg/dL (8.5-10.3); CREATININE 1.8 mg/dL (0.6-1.2); MAGNESIUM 2.8 mg/dL (1.7-2.8); PHOSPHORUS 7.8 mg/dL (2.5-4.6); POTASSIUM 5.2 mmol/L (3.5-5.0); TOTAL PROTEIN 6.7 g/dL (6.7-8.2)
--- NOTE | 2022-07-21 12:14 | PROCEDURE REPORT ---
Hospitalist Procedure Note - Procedure Note Procedure Note: Cardiac arrest please see detailed notes from RN. Patient had a cardiac arrest with asystole he was not responsive CPR was initiated. Patient was given multiple doses of IV epinephrine along with vasopressin Iv, along with IV atropine 1 mg x 2 per ACLS protocol. Patient did obtain ROSC approximately 15 minutes into cardiac code arrest. Epinephrine drip was initiated. was notified regarding cardiac arrest and resuscitation. She did verify that he would and she wishes also full code. Targeted temperature management was initiated given no obvious movement or awareness. Labs are pending at the time of this dictation. Glucose at the time of initiation of cardiac arrest was not low. Once stabilized attempt will be made to transfer patient to higher level of care.
[2022-07-21 12:25] LABS: CREATINE KINASE MB 3.2 ng/mL (0.6-6.3)
[2022-07-21 13:07] LABS: ABG BASE EXCESS -1.9 mmol/L (-2.0-3.0); ABG HCO3 26.6 mmol/L (22.0-26.0); ABG PH 7.21 (7.35-7.45); ABG PO2 56 mmHg (80-100); ABG TCO2 28.7 MMOL/L (21.0-29.0)
[2022-07-21 13:08] LABS: ABG MODE OF VENTILATION ASSIST/CONTROL; ABG RESPIRATORY RATE 16 b/min; ALLEN TEST POSITIVE
[2022-07-21 13:09] LABS: ABG OXYGEN SATURATION 86 % (94-98); ABG PCO2 68 mmHg (34-45)
[2022-07-21] MEDS: ASPIRIN EC 81 MG TABLET PO SCH (13:38)
[2022-07-21] MEDS: predniSONE 20 MG TABLET PO SCH (13:38)
[2022-07-21] MEDS: NICOTINE 21 MG PATCH TOP SCH (13:39)
[2022-07-21] MEDS: hydrALAZINE 25 MG TABLET PO SCH (13:39)
[2022-07-21] MEDS: FOLIC ACID 1 MG TABLET PO SCH (13:39)
[2022-07-21] MEDS: LOSARTAN 50 MG TABLET PO SCH (13:39)
[2022-07-21] MEDS ORDERED: HEPARIN 5,000 UNIT/ML VIAL IVP ONE (14:00)
[2022-07-21] MEDS ORDERED: HEPARIN 25000UNITS/500ML (D5W) 25,000 UNIT/500 ML BAG IV SCH (14:00)
--- NOTE | 2022-07-21 14:12 | DISCHARGE TRANSFER SUMMARY ---
"Transfer Summary Admit Date: 07/18/22 Code Status: Attempt Resuscitation Condition at Discharge: Critical Discharge Disposition: 02 Transfer Acute Care Hosp Discharge [facility] Name: [facility] - DIAGNOSES Admission Diagnoses: Acute multiple subsegmental pulmonary emboli Acute on chronic hypoxemic respiratory failure Type 2 diabetes COPD Discharge Diagnoses with Status of Each Condition: Acute cardiac arrest with asystole Targeted temperature management protocol postcardiac arrest Acute multiple subsegmental pulmonary emboli Type 2 diabetes Chronic respiratory failure with hypoxemia and hypercapnia - HPI History of Present Illness: This is a 67-year-old male with a history of COPD with chronic respiratory failure with hypoxia and hypercapnia usually on 2 to 4 L nasal cannula history of tobacco abuse, type 2 diabetes who is not necessarily compliant with his medication regimen. He also has a history of second-degree AV block type I who presented to [facility] with increasing shortness of breath and hy poxia found to have multiple subsegmental pulmonary emboli was initially started on IV heparin drip and later that day was started on Eliquis. Mid morning the patient had cardiac arrest and was found to be in asystole. ACLS protocol was initiated patient was given multiple rounds of IV epinephrine, IV vasopressin x1 along with 2 rounds of IV atropine. Patient was also initiated on IV epinephrin e when patient returned to perfusing rhythm of sinus tachycardia. Patient did not have any evidence of spontaneous movements or mental functioning and was started on targeted temperature management. Patient was also reinitiated on IV pulmonary embolism heparin protocol and was given an initial bolus. Transfer to higher level of care was arranged and appreciate acceptance of the patient by [facility]. - CONSULTS | PROCEDURES Procedures: Central line placed by nurse in this assist at [facility] - HOSPITAL COURSE Hospital Course: See HPI for details of current hospital course. - ALLERGIES Allergies/Adverse Reactions: Allergies Allergy/AdvReac Type Severity Reaction Status Date / Time No Known Drug Allergies Allergy Verified 07/17/22 21:56 - MEDICATIONS Home Medications: Ambulatory Orders Medication Instructions Recorded Confirmed Ascorbic Acid [Vitamin C] 1,000 mg PO DAILY 08/12/21 07/17/22 Aspirin [[place] Aspirin EC] 81 mg PO DAILY 08/12/21 07/17/22 Cholecalciferol (Vitamin D3) 250 mcg PO DAILY 08/12/21 07/17/22 [Vitamin D3] Docusate Sodium [Dulcolax Stool 100 mg PO BID 08/12/21 07/17/22 Softener] Ferrous Sulfate 325 mg PO MOWEFR 08/12/21 07/17/22 Furosemide [Lasix] 80 mg PO DAILY 08/12/21 07/17/22 Glimepiride [Amaryl] 4 mg PO DAILY 08/12/21 07/17/22 Levothyroxine Sodium 137 mcg PO DAILY 08/12/21 07/17/22 [Levothyroxine] Losartan Potassium 50 mg PO DAILY 08/12/21 07/17/22 sulfaSALAzine [Azulfidine] 500 mg PO DAILY 08/12/21 07/17/22 Dulaglutide [Trulicity] 1.5 mg SUBQ FR 10/18/21 07/17/22 Hydralazine HCl 75 mg PO BID 10/18/21 07/17/22 Rosuvastatin Calcium [Crestor] 40 mg PO QPM 10/18/21 07/17/22 Azithromycin 250 mg PO DAILY 12/26/21 07/17/22 Cyanocobalamin (Vitamin B-12) 1,000 mcg PO DAILY 12/26/21 07/17/22 [Vitamin B-12] Folic Acid 1 mg PO DAILY 12/26/21 07/17/22 Pantoprazole [Protonix] 40 mg PO DAILY 12/26/21 07/17/22 Insulin Aspart [NovoLOG] 8 - 20 units SUBQ TIDWM PRN 01/10/22 07/17/22 Metformin HCl [Metformin ER 1,000 mg PO BID 02/03/22 07/17/22 Gastric] Multivit-Min/FA/Lycopen/Lutein 1 each PO DAILY 02/03/22 07/17/22 [Centrum Silver Men Tablet] Nitroglycerin [Nitrostat] 0.4 mg SL Q5MIN PRN 02/03/22 07/17/22 Pramipexole Di-HCl [Mirapex] 2 mg PO QPM 02/03/22 07/17/22 Nicotine 21 mg Patch [Nicoderm] 1 patch TOP DAILY #30 patch 02/13/22 07/17/22 Insulin Glargine-Yfgn [Semglee 40 - 80 unit SQ DAILY 03/29/22 07/19/22 (Yfgn) Pen] Triamcinolone 0.5% Cream [Kenalog 1 applic TOP PRN PRN 03/29/22 07/17/22 0.5% Cream] Zinc Oxide 20% Oint [Zinc Oxide] 1 applic TOP DAILY 03/29/22 07/17/22 guaiFENesin [Mucinex] 600 - 1,200 mg PO BID 03/29/22 07/17/22 predniSONE [Deltasone] 10 mg PO DAILY 03/29/22 07/18/22 Tiotropium Br/Olodaterol HCl 2 puffs INH DAILY 05/01/22 07/18/22 [Stiolto Respimat Inhal [place]] Acetaminophen [Tylenol] 650 mg PO Q6H PRN 07/18/22 07/18/22 Albuterol Sulfate [Proair 2 puffs INH BID 07/18/22 07/18/22 Respiclick] Levalbuterol [Xopenex] 1.25 mg INH Q4H PRN 07/18/22 07/18/22 Methotrexate/Pf [Otrexup 22.5 22.5 mg SQ FR 07/18/22 07/18/22 mg/0.4 ml Autoinj] - LABS Result Diagrams: 07/21/22 04:23 07/21/22 10:30"
[2022-07-21] MEDS: polyethylene glycoL 3350 17 GM PACKET PO SCH (14:21)
[2022-07-21] MEDS: sulfaSALAzine 500 MG TABLET PO SCH (14:21)
[2022-07-21 14:23] LABS: TROPONIN I HIGH SENSITIVITY 68.5 ng/L (2.3-19.7)
[2022-07-21] MEDS: MORPHINE 2 MG/ML CARPUJECT IVP PRN ×2 (16:49→17:10)
[2022-07-21] MEDS ORDERED: SODIUM CHLORIDE FLUSH 0.9% 10 ML SYRINGE IVP SCH (17:00)
[2022-07-21] MEDS ORDERED: PROPOFOL 1000 MG/100 ML 1,000 MG/100 ML BOTTLE IV SCH (17:00)
[2022-07-21] MEDS ORDERED: PROPOFOL 1000 MG/100 ML 1,000 MG/100 ML BOTTLE IV ONE (17:03)
[2022-07-21] MEDS ORDERED: MORPHINE 2 MG/ML CARPUJECT IVP PRN (17:05)
[2022-07-21 17:21] VITALS: BP 137/56
[2022-07-21] MEDS ORDERED: FAMOTIDINE 20 MG/2 ML VIAL IVP SCH (21:00)
[2022-07-22] MEDS ORDERED: PANTOPRAZOLE 40 MG TABLET PO SCH (07:00)
[2022-07-22] MEDS ORDERED: PANTOPRAZOLE 40 MG VIAL IVP SCH (07:00)
== END 2022-07-21 17:20 | disposition short-term general hospital (02) | DRG 175 ==
LOC: ED 21:38 → ICU 07-18 06:02
PROVIDERS: ADMIT Internal Medicine; ATTEND Specialist
PROC: 02HV33Z Insertion of Infusion Device into Superior Vena Cava, Percutaneous Approach (ICD-10-PCS; principal; 2022-07-21)
DX: I26.94 Multiple subsegmental thrombotic pulmonary emboli without acute cor pulmonale (principal); I46.9 Cardiac arrest, cause unspecified; J96.21 Acute and chronic respiratory failure with hypoxia; Z87.891 Personal history of nicotine dependence; J96.22 Acute and chronic respiratory failure with hypercapnia; Z20.822 Contact with and (suspected) exposure to COVID-19; I13.0 Hypertensive heart and chronic kidney disease with heart failure and stage 1 through stage 4 chronic kidney disease, or unspecified chronic kidney disease; I11.0 Hypertensive heart disease with heart failure; I50.9 Heart failure, unspecified; I50.30 Unspecified diastolic (congestive) heart failure; N17.9 Acute kidney failure, unspecified; N18.2 Chronic kidney disease, stage 2 (mild); E11.22 Type 2 diabetes mellitus with diabetic chronic kidney disease; J43.9 Emphysema, unspecified; K21.9 Gastro-esophageal reflux disease without esophagitis; I44.1 Atrioventricular block, second degree; E11.42 Type 2 diabetes mellitus with diabetic polyneuropathy; F17.210 Nicotine dependence, cigarettes, uncomplicated; T50.916A Underdosing of multiple unspecified drugs, medicaments and biological substances, initial encounter; E78.00 Pure hypercholesterolemia, unspecified; Z95.5 Presence of coronary angioplasty implant and graft; I25.10 Atherosclerotic heart disease of native coronary artery without angina pectoris; I48.91 Unspecified atrial fibrillation; G47.30 Sleep apnea, unspecified; E03.9 Hypothyroidism, unspecified; M06.9 Rheumatoid arthritis, unspecified; R11.2 Nausea with vomiting, unspecified; Z79.4 Long term (current) use of insulin; Z79.84 Long term (current) use of oral hypoglycemic drugs; Z95.1 Presence of aortocoronary bypass graft; Z99.81 Dependence on supplemental oxygen; Z91.128 Patient's intentional underdosing of medication regimen for other reason; Y92.009 Unspecified place in unspecified non-institutional (private) residence as the place of occurrence of the external cause; I25.2 Old myocardial infarction; Z98.61 Coronary angioplasty status; Z79.85 Long-term (current) use of injectable non-insulin antidiabetic drugs
CPT/HCPCS: 36415; 36600; 71275; 74018; 80048; 80053; 81001; 82330; 82553; 82803; 83036; 83605; 83690; 83735; 83880; 84100; 84132; 84484; 85025; 85730; 86850; 86900; 86901; 87150; 87633; 93005; 93306; 93970; 94002; 94640; 94660; 96365; 96366; 96375; 96376; 97162; 97530; 99285; 99291; A9270; J1815; J2060; J7512; Q9967; 81003; 85027; 87086; 94770